=== PATIENT | male | born 1940 | race Caucasian/White ===

== ENCOUNTER → 2017-05-04 | Outpatient (CLI) | payer MEDICARE ==
[2017-05-04 15:23] LABS: CH 32.8; CHCM 34.4; HCT 47.4 % (39.0-53.0); HDW 2.64; MCH 32.4 pg (25.0-35.0); MCHC 33.9 g/dL (31.0-37.0); MCV 95.7 fL (80.0-100.0); Mean Platelet Volume 7.3; RBC 4.95 m/uL (4.30-5.90); RDW 13.7 % (11.5-15.5); WBC 9.3 k/uL (3.8-10.6)
[2017-05-04 15:30] LABS: Anion Gap 14 mmol/L; Blood Urea Nitrogen 32 mg/dL (9-20); Carbon Dioxide 27 mmol/L (22-30); Chloride 100 mmol/L (98-107); Non-African American GFR(MDRD) 54 (>60 ml/min/1.73 sqM); Potassium 4.6 mmol/L (3.5-5.1); Sodium 141 mmol/L (137-145)
== END | disposition home or self-care (01) ==
LOC: LABWHC1 15:01
PROVIDERS: ATTEND Internal Medicine Interventional Cardiology
DX: Z01.812 Encounter for preprocedural laboratory examination (principal); I48.1 Persistent atrial fibrillation
CPT/HCPCS: 36415; 80051; 82565; 84520; 85027

== ENCOUNTER → 2017-07-17 | Outpatient (CLI) | payer MEDICARE, OTHER ==
[2017-07-17 08:56] LABS: HCT 46.9 % (39.0-53.0); HGB 15.4 gm/dL (13.0-17.5); MCH 31.5 pg (25.0-35.0); MCHC 32.9 g/dL (31.0-37.0); MCV 95.7 fL (80.0-100.0); Mean Platelet Volume 7.9; Platelet Count 196 k/uL (150-450); RDW 15.1 % (11.5-15.5)
[2017-07-17 09:16] LABS: Anion Gap 13 mmol/L; Blood Urea Nitrogen 20 mg/dL (9-20); Calcium 9.6 mg/dL (8.4-10.2); Carbon Dioxide 26 mmol/L (22-30); Chloride 103 mmol/L (98-107); Glucose 112 mg/dL (74-99); Potassium 3.8 mmol/L (3.5-5.1); Sodium 142 mmol/L (137-145)
== END | disposition home or self-care (01) ==
LOC: LABWHC1 08:39
PROVIDERS: ATTEND Internal Medicine Clinical Cardiac Electrophysiology
DX: I48.3 Typical atrial flutter (principal); I50.23 Acute on chronic systolic (congestive) heart failure; Z95.0 Presence of cardiac pacemaker
CPT/HCPCS: 36415; 80048; 85027

== ENCOUNTER 2017-07-21 10:19 | Inpatient (IN) | payer MEDICARE, OTHER ==
[~2017-07-21 10:19] MED LIST: SODIUM CHLORIDE 0.9% 1,000 ML IV SCH
[2017-07-21] MEDS ORDERED: PROPOFOL 10 MG/ML 20 ML VIAL IV ONE (12:27)
[2017-07-21] MEDS ORDERED: ROCURONIUM BROMIDE 10 MG/ML 10 ML VIAL IV ONE (12:27)
[2017-07-21] MEDS ORDERED: ePHEDrine SULFATE/0.9% NACL/PF 50 MG/5 ML SYRINGE IV ONE (12:27)
[2017-07-21] MEDS ORDERED: PHENYLEPHRINE-0.9% NACL SYG 1 MG/10 ML SYRINGE ONE (12:27)
[2017-07-21] MEDS ORDERED: MIDAZOLAM 2 MG/2 ML VIAL ONE (12:27)
[2017-07-21] MEDS ORDERED: HYDROmorphone (PF) 1 MG/ML ONE (12:27)
[2017-07-21] MEDS ORDERED: SUCCINYLCHOLINE CHLORIDE 100 MG/5 ML SYR IV ONE (12:27)
[2017-07-21] MEDS ORDERED: fentaNYL (PF) 50 MCG/ML 2 ML AMP ONE (12:27)
[2017-07-21] MEDS ORDERED: LIDOCAINE 1% INJ 10MG/ML (20 ML MDV) ONE (12:27)
[2017-07-21] MEDS ORDERED: IOHEXOL 350 MG/ML 50ML BOTTLE INJ ONE (13:00)
[2017-07-21] MEDS ORDERED: LIDOCAINE 2% (PF) 20 MG/ML 10 ML AMP SQ ONE (13:04)
[2017-07-21] MEDS ORDERED: LIDOCAINE 2% INJ 20 MG/ML SQ ONE (13:04)
[2017-07-21] MEDS ORDERED: HEPARIN SODIUM (1,000 UNIT/ML) 1,000 UNIT in SODIUM CHLORIDE 0.9% 1,000 ML IRRIGATION ONE (13:30)
[2017-07-21] MEDS ORDERED: ACETAMINOPHEN IV (For NPO) 1,000 MG in EMPTY BAG 1 BAG IVPB ONE (14:52)
--- NOTE | 2017-07-21 15:03 | P.PN ---
Progress Note - Text Addendum to procedure Patient was brought into the EP lab for an atrial flutter ablation. While catheters we placed, a nasal trumpet was placed in the right nostril by anesthesia since the patient was snoring deeply. Bleeding was noticed, active and blood, from the right nostril which was packed Subsequently, electively to facilitate stable catheter positioning during atrial flutter ablation, the patient was intubated Atrial flutter ablation was successfully performed Following that and the nasal pack was removed active bleeding from the right nostril was noted, fresh bright red blood Patient's nose was repacked and a call was placed to Dr. Faulkner He will see the patient this evening. In the interim I would keep the patient intubated to avoid any risk of aspiration of nasal blood Hemodynamically stable I will hold Xarelto for this evening but continue baby aspirin Discussed with severely and and arrangements made for an ICU bed
--- NOTE | 2017-07-21 15:53 | PCN ---
PROCEDURE NOTE PROCEDURE PERFORMED: Left upper extremity venogram Mr. Norman is a 77-year-old, male patient with a dual-chamber pacemaker implanted whose is waiting for upgrade to a biventricular pacemaker. Left upper extremity venogram was performed in preparation for this. 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 However, I believe an access can be obtained more centrally in the subclavian vein to place an LV lead. MMODL / IJN: [id number] /
--- NOTE | 2017-07-21 15:53 | CE ---
CARDIAC ELECTROPHYSIOLOGY REPORT 77-year-old, male patient with history of atrial flutter, atrial fibrillation, and cardiomyopathy who was brought in for an atrial flutter ablation. The patient was brought to the EP lab in a fasting state. Written informed consent was obtained prior to the procedure. The procedure was electively performed under general anesthesia. The patient was in atrial fibrillation at the start of the study and electrical cardioversion was performed to convert patient to sinus rhythm. The rest of the procedure was performed in sinus rhythm. He has a dual-chamber pacemaker which was interrogated and reprogrammed to VVI at 45 beats per minute. At the end of the procedure, the pacemaker was reinterrogated and reprogrammed to AAIR-DDDR 50-130 ppm. His QRS baseline measurements were as follows. QRS 76 millisecond, QT was normal. During atrial fibrillation after the coronary sinus catheter was placed this was quite an organized atrial fibrillation. DE interval after cardioversion was 166 milliseconds, QRS 90 milliseconds and QT 408 milliseconds. Sinus node recovery times at 500 and 400 milliseconds were 406 and 409 milliseconds. AH interval 71 milliseconds, HV interval 54 milliseconds. AV node Wenckebach block 510 milliseconds, VA Wenckebach block less than 400 milliseconds. Catheters were placed in the high right atrium, the coronary sinus and his bundle area and RV. Intracardiac echocardiography was performed and 3D mapping of the right atrial isthmus was performed. RF mapping ablation catheter was placed in the area of anatomic mapping of the right atrial isthmus was performed. The tricuspid anulus was identified. The eustachian ridge was identified and a complete RF line of block was made in the cava tricuspid isthmus. This was then anatomically complete line on 100% grid. Following that with pacing maneuvers differential pacing showed a bidirectional block. The isthmus conduction time was greater than 228 milliseconds. At the end of the procedure. All catheters were removed. The patient was transferred to the ICU intubated. Please see separate progress note. RESULT: Successful atrial flutter ablation. Future plan: Start angiotensin receptor blockers. Maximize beta blockers and then the patient will be scheduled for an atrial fibrillation ablation. NOAH / CARLOS ALBERTON: [id number] /
[2017-07-21 16:14] LABS: Glucose,Whole Blood 112 mg/dL (75-99)
[2017-07-21] MEDS ORDERED: PROPOFOL 100 ML IV ONE (16:17)
--- NOTE | 2017-07-21 16:55 | XR ---
EXAMINATION TYPE: XR chest 1V portable DATE OF EXAM: 07/21/2017 COMPARISON: 06/10/2017 INDICATION: ET tube placement mechanical ventilation difficulty breathing TECHNIQUE: Single frontal view of the chest is obtained. FINDINGS: The heart size is borderline in size. The pulmonary vasculature is normal. There is a moderate left pleural effusion. Endotracheal tube is in place with the tip 3.8 cm above the hitesh. Pacemaker overlies left chest. Bi lateral shoulder prostheses are present. Surgical Fixation of the cervical spine is evident IMPRESSION: 1. Endotracheal tube tip 3.8 cm above the hitesh. 2. Moderate left pleural effusion.
--- NOTE | 2017-07-21 17:01 | P.CNPUL ---
History of Present Illness Consult date: 07/21/17 Requesting physician: Haseeb Salas Reason for consult: other (ICU management) Chief complaint: Atrial flutter and epistaxis History of present illness: This is a 77-year-old white male known to my service, patient is known to have history of atrial flutter, and he was electively brought in to the EP lab for ablation. A nasal trumpet was placed by anesthesia before the procedure, apparently the patient sustained some anterior nasal bleeding/epistaxis. Hence in order to facilitate the procedure, patient was intubated, and the right nostril was packed by PUR[employer]ICATION SUPERVISOR. Patient underwent successful ablation for atrial flutter, however postoperatively he was kept on mechanical ventilation until then nasal bleeding is addressed by ENT/Dr. Barney. I saw the patient in the ICU on mechanical ventilation, his ventilator settings are tidal volume of 500, assist control rate of 14 FiO2 of 50% and PEEP of 5. ABG is pending. Chest x- ray is relatively unremarkable except for chronic left pleural parenchymal opacity, and possibly a small left pleural effusion. However it seems to be worse on the present chest x-ray compared to previous x-ray last month. Other than reviewing the chart, not much history can be obtained from the patient was presently sedated, on mechanical ventilation. Review of Systems ROS unobtainable: due to endotracheal tube Past Medical History Past Medical History: Atrial Fibrillation, Asthma, Heart Failure, GERD/Reflux, Hypertension Additional Past Medical History / Comment(s): See Dr Salas's H&P History of Any Multi-Drug Resistant Organisms: None Reported Past Surgical History: Joint Replacement, Pacemaker Additional Past Surgical History / Comment(s): Mitral valve repair.; 2 shoulder replacements, cataracts, neck fusion- C1-7. Past Anesthesia/Blood Transfusion Reactions: No Reported Reaction Additional Past Anesthesia/Blood Transfusion Reaction / Comment(s): pt states little neck movement r/t neck fusion C1-7 Type of Cardiac Device: Permanent Pacemaker Device Placement Date:: 2013 Smoking Status: Former smoker - Past Family History Daughter(s) Family Medical History: Cancer Additional Family Medical History / Comment(s): Br CA Medications and Allergies Home Medications Medication Instructions Recorded Confirmed Type Fluticasone/Salmeterol [Advair 1 puff INHALATION RT-BID 02/08/14 07/21/17 History 500-50 Diskus] Furosemide [Lasix] 20 mg PO DAILY 02/08/14 07/21/17 History Montelukast [Singulair] 10 mg PO DAILY 02/08/14 07/21/17 History Potassium 99 mg PO DAILY 06/07/17 07/21/17 History Omeprazole 20 mg PO BID 06/08/17 07/21/17 History Aspirin 81 mg PO DAILY chew 06/10/17 07/21/17 Rx Metoprolol Succinate (ER) [Toprol 50 mg PO DAILY #30 tab.er.24h 06/12/17 Rx XL] Albuterol Nebulized [Ventolin 2.5 mg INHALATION RT-Q6H PRN 07/20/17 07/21/17 History Nebulized] Rivaroxaban [Xarelto] 15 mg PO DAILY 07/20/17 07/21/17 History Albuterol Inhaler [Ventolin Hfa 1 - 2 puff INHALATION RT-Q6H PRN 07/21/17 History Inhaler] Amiodarone [Cordarone] 200 mg PO DAILY #30 tab 07/21/17 Rx Losartan [Cozaar] 25 mg PO DAILY #30 tab 07/21/17 Rx Allergies Allergy/AdvReac Type Severity Reaction Status Date / Time Penicillins Allergy Rash/Hives Verified 07/21/17 16:45 morphine AdvReac Hallucinati Verified 07/21/17 16:45 ons Physical Exam Vitals: Vital Signs Temp Pulse Resp BP Pulse Ox 07/21/17 10:41 97.5 F L 112 H 20 152/105 98 Intake and Output 07/21/17 07/21/17 07/21/17 06:59 14:59 22:59 Intake Total 600 Balance 600 Intake: IV 600 Other: Weight 84.4 kg Patient Weight 07/22/17 06:59 Weight 84.4 kg Physical Exam: Revealed a 77-year-old white male on mechanical ventilation, in no distress. HEENT:[Neck is supple.] [No neck masses.] [No thyromegaly.] [No JVD.] Endotracheal tube is intact, there is evidence of gauze material soaked with blood packed into the right nares. One removed, no evidence of active bleeding was noted, but blood clots were noted in the right nares. Chest: [Diminished breath sounds at the left base, no crackles or rhonchi or wheezes.] Cardiac Exam: [Normal S1 and S2, no S3 gallop, 2/6 systolic murmur throughout the precordium.] Abdomen: [Soft, nontender, no megaly, no rebound, no guarding, normal bowel sounds.] Extremities: [No clubbing, no edema, no cyanosis.] Neurological Exam: Cannot be assessed, patient is sedated, on propofol. Lymphatics: No lymphadenopathy Psychiatric: Cannot be assessed.] Results - Laboratory Findings Abnormal lab findings: Abnormal Labs 07/21/17 16:11 POC Glucose (mg/dL) 112 H - Diagnostic Findings Chest x-ray: image reviewed (Abnormal left lower lobe with chronic parenchymal scarring and possibly a slight increase in the size of the left pleural effusion noted may have to evaluate for the ultrasound in a.m.) Assessment and Plan Assessment: Impression: 1 Status post ablation for atrial flutter 2 acute epistaxis, most likely related to trauma from nasal trumpet, not to mention the patient is on Xarelto which is another contributing factor to nasal bleeding. 3 failure to extubate post-ablation mostly because of ongoing epistaxis 4 suspect the left lower lobe atelectasis and possibly a left pleural effusion which may need to be further evaluated with ultrasound and possibly a CT of the chest. 5 multiple comorbidities including moderate severe COPD, systolic congestive heart failure and LV dysfunction with ejection fraction of 35-40%, mild pulmonary hypertension, mild mitral regurgitation, chronic atrial fibrillation, history of permanent pacemaker placement, history of mitral valve repair at [facility], history of nicotine dependence currently in remission. History of chronic kidney disease stage II history of benign positional vertigo. Recommendation: We will keep the patient presently on mechanical ventilation, ventilator settings were addressed, patient is being evaluated by ENT for his epistaxis, and will likely consider weaning and extubation in a.m. Time with Patient: Greater than 30
[2017-07-21 17:11] LABS: Glucose,Whole Blood 120 mg/dL (75-99)
[2017-07-21 17:16] LABS: ABG Base Excess -0.6 mmol/L; ABG HCO3 24 mmol/L (21-25); ABG PCO2 43 mmHg (35-45); ABG PH 7.37 (7.35-7.45); ABG PO2 117 mmHg (83-108); ABG TCO2 25 mmol/L (19-24)
[2017-07-21] MEDS ORDERED: NALOXONE 0.4 MG/ML 1 ML VIAL IV PRN (17:32)
[2017-07-21] MEDS: ceFAZolin 1,000 MG in DEXTROSE/WATER 1 50ML.BAG IVPB SCH (18:16)
[2017-07-21] MEDS: PANTOPRAZOLE 40 MG TABLET PO SCH (18:17)
[2017-07-21] MEDS: SYMBICORT 160-4.5 MCG INHALER INHALATION SCH (20:01)
[2017-07-21] MEDS: PROPOFOL 1,000 MG in EMPTY BAG 1 BAG IV SCH (20:45)
[2017-07-21] MEDS ORDERED: SODIUM CHLORIDE 0.9% 500 ML IV ONE ×2 (21:46→23:09)
[2017-07-21] MEDS: CHLORHEXIDINE GLUCONATE 15 ML CUP MUCOUS MEM SCH (21:50)
--- NOTE | 2017-07-21 22:14 | CONS ---
CONSULTATION REASON FOR CONSULTATION: Epistaxis. HISTORY: This is a 77 year old, white male, who today underwent cardiac ablation and while on awakening apparently required a nasal trumpet and this was attempted to be placed in the right side of the nose. He experienced quite profuse epistaxis however and this was removed. The epistaxis has persisted and consultation was obtained for this. He is on anticoagulants and was during the procedure. He needs to continue on Xarelto due to the procedure. PAST MEDICAL HISTORY: For atrial fibrillation, asthma, heart failure and GERD, hypertension. PAST SURGICAL HISTORY: Pacemaker, joint replacement, mitral valve repair, shoulder replacement, cataract surgery, neck fusion C1-7. ALLERGIES: TO PENICILLIN AND MORPHINE. THE PENICILLIN has a rash but no respiratory difficulty with this. MEDICATIONS: Will not be renumerated as they are in the chart already. SOCIAL HISTORY: Did smoke, does not now. Alcohol consumption none. FAMILY HISTORY: Family history positive for cancer including breast cancer. REVIEW OF SYSTEMS: Is unable to obtain as the patient is sedated and intubated. PHYSICAL EXAM: Vital signs are stable overall. Although blood pressure was mildly elevated initially. It was elevated initially 150/105. General: The patient is a well-developed, elderly white male, intubated on ventilator. He has a small gauze 4 x 4 gauze, at the anterior naris on the right with fresh blood. HEENT/HEAD: Normocephalic, atraumatic. Ears, bilateral canals clear. Tympanic membranes unremarkable and mobile. Nose: The septum is deviated to the left. The gauze pack was removed from the right nasal cavity. There was a clot as well as some fresh blood. The clot was evacuated and initially appeared to not have much regarding epistaxis however then it started "welling up" from posteriorly. No specific site was noted. There is some excoriation of the septum anteriorly as well as mid septum. Oropharynx exam showed old as well as some fresh blood posteriorly. Due to the ongoing bleeding and anticoagulant status, it was elected to place a rhino rocket balloon type pack in the right nasal cavity. This was placed and the balloon is inflated with air and this controlled the epistaxis immediately. No anterior or posterior bleeding. Neck is stiff but no abnormal masses noted. ASSESSMENT: Right posterior epistaxis with anticoagulated status. PLAN: The patient will have the nasal pack left in place for approximately 3 days which is standard. He will be placed on prophylactic antibiotics in the mean time, which was in the form of Kefzol. We will watch for the rashes that might develop although the of cross reactivity with penicillin allergy is low. Due to the epistaxis being controlled now, then they can work on extubation. We will recheck in 2-3 days for nasal packing removal. If any questions or concerns, please feel free to contact me. Time with patient 45 minutes including posterior nasal pack procedure. MMODL / IJN: [id number] /
[2017-07-21] MEDS: LORazepam 2 MG/ML INJ IV PRN (22:52)
[2017-07-22] MEDS: ceFAZolin 1,000 MG in DEXTROSE/WATER 1 50ML.BAG IVPB SCH ×4 (00:49→23:50)
[2017-07-22] MEDS: PROPOFOL 1,000 MG in EMPTY BAG 1 BAG IV SCH ×5 (00:49→21:12)
[2017-07-22] MEDS ORDERED: FUROSEMIDE 10 MG/ML 2 ML VIAL IV ONE (01:12)
[2017-07-22 04:40] LABS: HGB 12.8 gm/dL (13.0-17.5); MCH 31.7 pg (25.0-35.0); MCHC 32.8 g/dL (31.0-37.0); MCV 96.5 fL (80.0-100.0); Platelet Count 216 k/uL (150-450); RBC 4.04 m/uL (4.30-5.90); RDW 15.4 % (11.5-15.5); WBC 7.8 k/uL (3.8-10.6)
[2017-07-22 04:46] LABS: INR 1.3 (<1.2); Partial Thromboplastin Time 30.3 sec (22.0-30.0); Prothrombin Time 12.2 sec (9.0-12.0)
[2017-07-22 05:00] LABS: ALT 34 U/L (21-72); AST 23 U/L (17-59); Albumin 2.9 g/dL (3.5-5.0); Alkaline Phosphatase 53 U/L (38-126); Anion Gap 9 mmol/L; Blood Urea Nitrogen 21 mg/dL (9-20); Calcium 8.3 mg/dL (8.4-10.2); Carbon Dioxide 24 mmol/L (22-30); Chloride 106 mmol/L (98-107); Glucose 114 mg/dL (74-99); Magnesium 1.4 mg/dL (1.6-2.3); Potassium 3.6 mmol/L (3.5-5.1); Sodium 139 mmol/L (137-145); Total Bilirubin 0.6 mg/dL (0.2-1.3); Total Protein 5.1 g/dL (6.3-8.2)
[2017-07-22] MEDS: SYMBICORT 160-4.5 MCG INHALER INHALATION SCH ×2 (07:23→19:39)
[2017-07-22] MEDS: ALBUTEROL NEBULIZED 2.5 MG/3 ML INHALATION PRN ×2 (07:23→19:40)
--- NOTE | 2017-07-22 08:00 | XR ---
EXAMINATION TYPE: XR chest 1V portable DATE OF EXAM: 07/22/2017 CLINICAL HISTORY: Difficulty breathing progress study. TECHNIQUE: Single AP portable semiupright view of the chest is obtained. COMPARISON: Chest x-ray from one day earlier and older studies. FINDINGS: Endotracheal tube is redemonstrated. There is retraction to the superior clavicular level approximately 6 cm above hitesh. There is persistent cardiomegaly with dual lead pacemaker. There is overlying defibrillator pad redem onstrated. There is persistent left basilar opacity consistent with small to moderate size left pleur al effusion and associated left lung atelectasis and/or infiltrate. There is background chronic emphy sematous change. There is no new focal airspace opacity or pneumothorax seen bilaterally. Extensive s urgical change cervical spine is partially imaged. Surgical change both shoulders is partially imaged . There are old posterior lateral right mid to lower rib fractures redemonstrated. IMPRESSION: Interval retraction of endotracheal tube still satisfactory in position. Other findings s table as there is cardiomegaly with chronic emphysematous change and suspected small to moderate mode rate sized left pleural effusion with associated left basilar atelectasis and/or infiltrate all redem onstrated.
[2017-07-22] MEDS: MAGNESIUM SULFATE-D5W PMX 1 GM in DEXTROSE/WATER 1 100ML.BAG IVPB SCH ×3 (08:10→10:44)
--- NOTE | 2017-07-22 08:21 | P.PN ---
Subjective Principal diagnosis: Patient remains intubated. His nasal cavity was packed to control nasal bleeding following insertion of a trumpet since he was snoring. Patient was intubated electively for atrial flutter ablation not for nasal bleeding. However he was not extubated to avoid aspiration of heme. 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 ENT was consulted and the packed his nose He was seen by Dr. Whitfield Today's plan is based upon that he does decision to extubate her not. He should receive xarelto 15 mg this evening unless he has significant nasal bleeding All his other cardiac medications should be continued and he will get an OG tube today If he has a lot of blood being aspirated and suctioned out from the ET tube then one could consider bronchial lavage. I will leave that decision to Dr. Whitfield [place] he is stable and the atrial flutter ablation was successful and by itself , uneventful Objective - Vital Signs Vital signs: Vital Signs Temp 96.8 F L 07/22/17 04:30 Pulse 61 07/22/17 07:26 Resp 14 07/22/17 07:00 BP 90/71 07/22/17 07:00 Pulse Ox 97 07/22/17 07:00 Intake & Output 07/21/17 07/22/17 07/22/17 18:59 06:59 18:59 Intake Total 640 1493.56 40 Output Total 70 368 105 Balance 570 1125.56 -65 Weight 84.4 kg 86.8 kg Intake: IV 640 1300 40 Sodium Chloride 0.9% 1, 40 200 40 000 ml @ 20 mls/hr IV . Q24H [facility] Rx#:[id number] Sodium Chloride 0.9% 500 1000 ml @ 999 mls/hr IV .Q31M [facility] Rx#:[id number] ceFAZolin 1,000 mg In 100 Dextrose/Water 1 50ml.bag @ 100 mls/hr IVPB Q8HR [facility] Rx#:[id number] Intake, IV Titration 193.56 Amount Propofol 1,000 mg In 193.56 Empty Bag 1 bag @ Titrate IV .Q0M [facility] Rx#: [id number] Output: Urine 70 368 105 Other: Voiding Method Indwelling Catheter Indwelling Catheter - Labs CBC & Chem 7: 07/22/17 03:53 07/22/17 03:53 Labs: Abnormal Lab Results - Last 24 Hours (Table) 07/21/17 07/21/17 07/21/17 Range/Units 16:11 16:53 17:09 RBC (4.30-5.90) m/uL Hgb (13.0-17.5) gm/dL PT (9.0-12.0) sec INR (<1.2) APTT (22.0-30.0) sec ABG pO2 117 H (83-108) mmHg ABG Total CO2 25 H (19-24) mmol/L ABG O2 Saturation 98.0 H (94-97) % BUN (9-20) mg/dL Glucose (74-99) mg/dL POC Glucose (mg/dL) 112 H 120 H (75-99) mg/dL Calcium (8.4-10.2) mg/dL Phosphorus (2.5-4.5) mg/dL Magnesium (1.6-2.3) mg/dL Total Protein (6.3-8.2) g/dL Albumin (3.5-5.0) g/dL 07/22/17 07/22/17 07/22/17 Range/Units 03:53 03:53 03:53 RBC 4.04 L (4.30-5.90) m/uL Hgb 12.8 L (13.0-17.5) gm/dL PT 12.2 H (9.0-12.0) sec INR 1.3 H (<1.2) APTT 30.3 H (22.0-30.0) sec ABG pO2 (83-108) mmHg ABG Total CO2 (19-24) mmol/L ABG O2 Saturation (94-97) % BUN 21 H (9-20) mg/dL Glucose 114 H (74-99) mg/dL POC Glucose (mg/dL) (75-99) mg/dL Calcium 8.3 L (8.4-10.2) mg/dL Phosphorus 5.0 H (2.5-4.5) mg/dL Magnesium 1.4 L (1.6-2.3) mg/dL Total Protein 5.1 L (6.3-8.2) g/dL Albumin 2.9 L (3.5-5.0) g/dL
[2017-07-22 08:48] LABS: ABG HCO3 22 mmol/L (21-25); ABG PCO2 34 mmHg (35-45); ABG PH 7.43 (7.35-7.45); ABG PO2 92 mmHg (83-108)
[2017-07-22 08:49] LABS: ABG Base Excess -1.6 mmol/L; ABG TCO2 23 mmol/L (19-24)
[2017-07-22] MEDS: LORazepam 2 MG/ML INJ IV PRN (08:55)
[2017-07-22] MEDS: CHLORHEXIDINE GLUCONATE 15 ML CUP MUCOUS MEM SCH ×2 (09:05→20:08)
[2017-07-22] MEDS: POTASSIUM CHLORIDE 10 MEQ in WATER FOR INJECTION 1 100ML.BAG IVPB SCH ×2 (09:49→11:32)
--- NOTE | 2017-07-22 11:26 | P.PN ---
Subjective Progress Note Date: 07/22/17 Principal diagnosis: Atrial flutter, status post ablation, complicated by epistaxis. This is a 77-year-old white male known to my service, patient is known to have history of atrial flutter, and he was electively brought in to the EP lab for ablation. A nasal trumpet was placed by anesthesia before the procedure, apparently the patient sustained some anterior nasal bleeding/epistaxis. Hence in order to facilitate the procedure, patient was intubated, and the right nostril was packed by [employer]. Patient underwent successful ablation for atrial flutter, however postoperatively he was kept on mechanical ventilation until then nasal bleeding is addressed by ENT/Dr. Barney. I saw the patient in the ICU on mechanical ventilation, his ventilator settings are tidal volume of 500, assist control rate of 14 FiO2 of 50% and PEEP of 5. ABG is pending. Chest x- ray is relatively unremarkable except for chronic left pleural parenchymal opacity, and possibly a small left pleural effusion. However it seems to be worse on the present chest x-ray compared to previous x-ray last month. Other than reviewing the chart, not much history can be obtained from the patient was presently sedated, on mechanical ventilation. Patient was reevaluated today on 07/22/2017, remains on mechanical ventilation, and he had more nasal packing done by ENT yesterday. No active bleeding is noted, however the patient was noted to have some blood clots suctioned from the back of his throat around the endotracheal tube. Chest x-ray is unchanged, continues to show COPD, small to moderate left pleural effusion and associated atelectasis or parenchymal scarring noted in the left base. Labs were reviewed ABG showed a pO2 of 92 pCO2 of 34 pH of 7.43. Basic metabolic profile is normal creatinine is 1.20. CBC is relatively normal. Hence the patient will be taken off propofol, I will wake of the patient, possibly give him a weaning trial after weaning parameters, and possibly proceed with extubation today. Objective - Vital Signs Vital signs: Vital Signs Temp 97.4 F L 07/22/17 08:00 Pulse 101 H 07/22/17 11:00 Resp 17 07/22/17 11:00 BP 112/87 07/22/17 11:00 Pulse Ox 97 07/22/17 11:00 Intake & Output 07/21/17 07/22/17 07/22/17 18:59 06:59 18:59 Intake Total 640 1493.56 580.44 Output Total 70 368 255 Balance 570 1125.56 325.44 Weight 84.4 kg 86.8 kg Intake: IV 640 1300 480 Magnesium Sulfate-D5w Pmx 300 1 gm In Dextrose/Water 1 100ml.bag @ 100 mls/hr IVPB Q1H [facility] Rx#: [id number] Potassium Chloride 10 meq 100 In Water For Injection 1 100ml.bag @ 100 mls/hr IVPB Q1H [facility] Rx#: [id number] Sodium Chloride 0.9% 1, 40 200 80 000 ml @ 20 mls/hr IV . Q24H [facility] Rx#:[id number] Sodium Chloride 0.9% 500 1000 ml @ 999 mls/hr IV .Q31M [facility] Rx#:[id number] ceFAZolin 1,000 mg In 100 Dextrose/Water 1 50ml.bag @ 100 mls/hr IVPB Q8HR [facility] Rx#:[id number] Intake, IV Titration 193.56 100.44 Amount Propofol 1,000 mg In 193.56 100.44 Empty Bag 1 bag @ Titrate IV .Q0M [facility] Rx#: [id number] Output: Urine 70 368 255 Other: Voiding Method Indwelling Catheter Indwelling Catheter Indwelling Catheter - Exam Physical Exam: Revealed a 77-year-old white male on mechanical ventilation, in no distress. HEENT:[Neck is supple.] [No neck masses.] [No thyromegaly.] [No JVD.] Endotracheal tube is intact, there is evidence anterior nasal packings noted in the right nares Chest: [Diminished breath sounds at the left base, no crackles or rhonchi or wheezes.] Cardiac Exam: [Normal S1 and S2, no S3 gallop, 2/6 systolic murmur throughout the precordium.] Abdomen: [Soft, nontender, no megaly, no rebound, no guarding, normal bowel sounds.] Extremities: [No clubbing, no edema, no cyanosis.] Neurological Exam: Cannot be assessed, patient is sedated, on propofol. Lymphatics: No lymphadenopathy Psychiatric: Cannot be assessed.] - Labs CBC & Chem 7: 07/22/17 03:53 07/22/17 03:53 Labs: Abnormal Lab Results - Last 24 Hours (Table) 07/21/17 07/21/17 07/21/17 Range/Units 16:11 16:53 17:09 RBC (4.30-5.90) m/uL Hgb (13.0-17.5) gm/dL PT (9.0-12.0) sec INR (<1.2) APTT (22.0-30.0) sec ABG pCO2 (35-45) mmHg ABG pO2 117 H (83-108) mmHg ABG Total CO2 25 H (19-24) mmol/L ABG O2 Saturation 98.0 H (94-97) % BUN (9-20) mg/dL Glucose (74-99) mg/dL POC Glucose (mg/dL) 112 H 120 H (75-99) mg/dL Calcium (8.4-10.2) mg/dL Phosphorus (2.5-4.5) mg/dL Magnesium (1.6-2.3) mg/dL Total Protein (6.3-8.2) g/dL Albumin (3.5-5.0) g/dL 07/22/17 07/22/17 07/22/17 Range/Units 03:53 03:53 03:53 RBC 4.04 L (4.30-5.90) m/uL Hgb 12.8 L (13.0-17.5) gm/dL PT 12.2 H (9.0-12.0) sec INR 1.3 H (<1.2) APTT 30.3 H (22.0-30.0) sec ABG pCO2 (35-45) mmHg ABG pO2 (83-108) mmHg ABG Total CO2 (19-24) mmol/L ABG O2 Saturation (94-97) % BUN 21 H (9-20) mg/dL Glucose 114 H (74-99) mg/dL POC Glucose (mg/dL) (75-99) mg/dL Calcium 8.3 L (8.4-10.2) mg/dL Phosphorus 5.0 H (2.5-4.5) mg/dL Magnesium 1.4 L (1.6-2.3) mg/dL Total Protein 5.1 L (6.3-8.2) g/dL Albumin 2.9 L (3.5-5.0) g/dL 07/22/17 Range/Units 08:42 RBC (4.30-5.90) m/uL Hgb (13.0-17.5) gm/dL PT (9.0-12.0) sec INR (<1.2) APTT (22.0-30.0) sec ABG pCO2 34 L (35-45) mmHg ABG pO2 (83-108) mmHg ABG Total CO2 (19-24) mmol/L ABG O2 Saturation (94-97) % BUN (9-20) mg/dL Glucose (74-99) mg/dL POC Glucose (mg/dL) (75-99) mg/dL Calcium (8.4-10.2) mg/dL Phosphorus (2.5-4.5) mg/dL Magnesium (1.6-2.3) mg/dL Total Protein (6.3-8.2) g/dL Albumin (3.5-5.0) g/dL Assessment and Plan Assessment: Impression: 1 Status post ablation for atrial flutter 2 acute epistaxis, most likely related to trauma from nasal trumpet, not to mention the patient is on Xarelto which is another contributing factor to nasal bleeding. 3 failure to extubate post-ablation mostly because of ongoing epistaxis, patient was kept intubated for airways protection from epistaxis. 4 suspect the left lower lobe atelectasis and possibly a left pleural effusion which may need to be further evaluated with ultrasound and possibly a CT of the chest. 5 multiple comorbidities including moderate severe COPD, systolic congestive heart failure and LV dysfunction with ejection fraction of 35-40%, mild pulmonary hypertension, mild mitral regurgitation, chronic atrial fibrillation, history of permanent pacemaker placement, history of mitral valve repair at [facility], history of nicotine dependence currently in remission. History of chronic kidney disease stage II history of benign positional vertigo. Recommendation: Patient will be awakened, propofol will be discontinued, will be given a weaning trial, and possibly extubate later on today. Prognosis remains relatively guarded. We will keep the nasal packing in place for now, and it will likely be removed by ENT later today. Critical care time is 32 minutes. Time with Patient: Greater than 30
[2017-07-22] MEDS: ASPIRIN 81 MG PO SCH (12:40)
[2017-07-22] MEDS: FUROSEMIDE 20 MG TAB PO SCH (12:41)
[2017-07-22] MEDS: MONTELUKAST 10 MG TAB PO SCH (12:41)
[2017-07-22] MEDS: AMIODARONE 200 MG TAB PO SCH (12:41)
[2017-07-22] MEDS: PANTOPRAZOLE 40 MG/10 ML VIAL IVP SCH (12:45)
--- NOTE | 2017-07-22 13:44 | XR ---
EXAMINATION TYPE: XR chest 1V portable DATE OF EXAM: 07/22/2017 CLINICAL HISTORY: Orogastric tube placement. TECHNIQUE: Single AP portable upright view of the chest is obtained. COMPARISON: Chest x-ray from earlier today. FINDINGS: There is new orogastric tube coiled below diaphragm. An endotracheal tube is stable in pos ition, falsely measured on prior study, I accidentally measured external portion. Endotracheal tube p osition is felt satisfactory with tip 2 to 3 cm above hitesh currently. Overlying EKG wires are redemonstrated. Sternal wires are again seen. There is persistent cardiomegal y with dual lead pacemaker. There is persistent left basilar opacity consistent with small size left pleural effusion and associated left basilar atelectasis and/or infiltrate perhaps slightly improved. There is background chronic emphysematous change. There is perhaps patchy right medial basilar atele ctasis and/or infiltrate and probable small right pleural effusion. Surgical change bilateral shoulde rs is partially imaged. Surgical change cervical spine is partially imaged. Old posterior lateral rig ht rib fractures are redemonstrated. IMPRESSION: New orogastric tube is satisfactory in position. There is persistent cardiomegaly and chr onic emphysematous change with small left pleural effusion and associated left basilar atelectasis an d/or infiltrate perhaps slightly improved from prior. There is suspected tiny right pleural effusion and patchy right medial basilar atelectasis and/or infiltrate noted.
[2017-07-22] MEDS: METOPROLOL SUCCINATE (ER) 50 MG TAB.ER.24H PO SCH (15:49)
[2017-07-22] MEDS: RIVAROXABAN 15 MG TAB PO SCH (17:42)
[2017-07-23] MEDS: PROPOFOL 1,000 MG in EMPTY BAG 1 BAG IV SCH ×2 (04:14→08:26)
[2017-07-23 04:29] LABS: HCT 38.9 % (39.0-53.0); HGB 13.2 gm/dL (13.0-17.5); MCH 32.8 pg (25.0-35.0); MCHC 34.1 g/dL (31.0-37.0); MCV 96.3 fL (80.0-100.0); Mean Platelet Volume 7.2; Platelet Count 216 k/uL (150-450); RBC 4.03 m/uL (4.30-5.90); RDW 14.6 % (11.5-15.5); WBC 8.4 k/uL (3.8-10.6)
[2017-07-23 04:34] LABS: Anion Gap 11 mmol/L; Blood Urea Nitrogen 22 mg/dL (9-20); Calcium 8.3 mg/dL (8.4-10.2); Carbon Dioxide 20 mmol/L (22-30); Chloride 106 mmol/L (98-107); Glucose 112 mg/dL (74-99); Magnesium 2.1 mg/dL (1.6-2.3); Phosphorus 4.6 mg/dL (2.5-4.5); Potassium 4.1 mmol/L (3.5-5.1); Sodium 137 mmol/L (137-145)
[2017-07-23] MEDS: ALBUTEROL NEBULIZED 2.5 MG/3 ML INHALATION PRN ×2 (07:14→19:40)
[2017-07-23] MEDS: SYMBICORT 160-4.5 MCG INHALER INHALATION SCH ×2 (07:14→19:40)
[2017-07-23] MEDS: CHLORHEXIDINE GLUCONATE 15 ML CUP MUCOUS MEM SCH ×2 (08:27→20:37)
[2017-07-23] MEDS: ceFAZolin 1,000 MG in DEXTROSE/WATER 1 50ML.BAG IVPB SCH ×2 (08:27→16:03)
[2017-07-23 08:37] LABS: ABG Base Excess -2.2 mmol/L; ABG HCO3 22 mmol/L (21-25); ABG PCO2 35 mmHg (35-45); ABG PH 7.41 (7.35-7.45); ABG PO2 107 mmHg (83-108); ABG TCO2 23 mmol/L (19-24)
[2017-07-23] MEDS: METOPROLOL SUCCINATE (ER) 50 MG TAB.ER.24H PO SCH (08:38)
[2017-07-23] MEDS: PANTOPRAZOLE 40 MG/10 ML VIAL IVP SCH (08:38)
[2017-07-23] MEDS: ASPIRIN 81 MG PO SCH (09:32)
[2017-07-23] MEDS: MONTELUKAST 10 MG TAB PO SCH (09:32)
[2017-07-23] MEDS: AMIODARONE 200 MG TAB PO SCH (09:32)
--- NOTE | 2017-07-23 10:20 | P.PN ---
Subjective Progress Note Date: 07/23/17 Principal diagnosis: Atrial flutter, status post ablation, complicated by epistaxis. This is a 77-year-old white male known to my service, patient is known to have history of atrial flutter, and he was electively brought in to the EP lab for ablation. A nasal trumpet was placed by anesthesia before the procedure, apparently the patient sustained some anterior nasal bleeding/epistaxis. Hence in order to facilitate the procedure, patient was intubated, and the right nostril was packed by [facility] [employer] RN. Patient underwent successful ablation for atrial flutter, however postoperatively he was kept on mechanical ventilation until then nasal bleeding is addressed by ENT/Dr. Barney. I saw the patient in the ICU on mechanical ventilation, his ventilator settings are tidal volume of 500, assist control rate of 14 FiO2 of 50% and PEEP of 5. ABG is pending. Chest x- ray is relatively unremarkable except for chronic left pleural parenchymal opacity, and possibly a small left pleural effusion. However it seems to be worse on the present chest x-ray compared to previous x-ray last month. Other than reviewing the chart, not much history can be obtained from the patient was presently sedated, on mechanical ventilation. Patient was reevaluated today on 07/22/2017, remains on mechanical ventilation, and he had more nasal packing done by ENT yesterday. No active bleeding is noted, however the patient was noted to have some blood clots suctioned from the back of his throat around the endotracheal tube. Chest x-ray is unchanged, continues to show COPD, small to moderate left pleural effusion and associated atelectasis or parenchymal scarring noted in the left base. Labs were reviewed ABG showed a pO2 of 92 pCO2 of 34 pH of 7.43. Basic metabolic profile is normal creatinine is 1.20. CBC is relatively normal. Hence the patient will be taken off propofol, I will wake of the patient, possibly give him a weaning trial after weaning parameters, and possibly proceed with extubation today. Patient was reevaluated today on 07/23/2017, remains on mechanical ventilation, patient was about to be extubated yesterday until he developed some epistaxis, and fresh blood was noted through the right nares. Although the patient had some nasal packing done earlier by ENT. Considering the epistaxis, I held back on weaning and extubation, and I will attempt to do that again today. I have already recommended stopping propofol, I have reviewed the chest x-ray, reviewed ABG, and discuss his condition with his at bedside. Patient is to be given another weaning trial today, weaning parameters will be done prior to weaning trial. ABG this morning showed a pO2 of 107 pCO2 of 35 pH of 7.41. Basic metabolic profile is normal and CBC is normal. Chest x-ray continues to show some left lower lobe atelectasis and possibly a small left pleural effusion. Objective - Vital Signs Vital signs: Vital Signs Temp 97.9 F 07/23/17 08:00 Pulse 73 07/23/17 09:00 Resp 16 07/23/17 09:00 BP 114/85 07/23/17 09:00 Pulse Ox 99 07/23/17 09:00 Intake & Output 07/22/17 07/23/17 07/23/17 18:59 06:59 18:59 Intake Total 1000.00 482.4 241.56 Output Total 525 435 80 Balance 475.00 47.4 161.56 Weight 86.8 kg 86.2 kg Intake: IV 800 290 120 0.9 20 Magnesium Sulfate-D5w Pmx 300 1 gm In Dextrose/Water 1 100ml.bag @ 100 mls/hr IVPB Q1H [facility] Rx#: [id number] Potassium Chloride 10 meq 200 In Water For Injection 1 100ml.bag @ 100 mls/hr IVPB Q1H [facility] Rx#: [id number] Sodium Chloride 0.9% 1, 200 240 000 ml @ 20 mls/hr IV . Q24H [facility] Rx#:[id number] ceFAZolin 1,000 mg In 100 50 100 Dextrose/Water 1 50ml.bag @ 100 mls/hr IVPB Q8HR [facility] Rx#:[id number] Intake, IV Titration 200.00 192.4 121.56 Amount Propofol 1,000 mg In 200.00 192.4 121.56 Empty Bag 1 bag @ Titrate IV .Q0M [facility] Rx#: [id number] Output: Urine 525 435 80 Other: Voiding Method Indwelling Catheter Indwelling Catheter Indwelling Catheter - Exam Physical Exam: Revealed a 77-year-old white male on mechanical ventilation, in no distress. HEENT:[Neck is supple.] [No neck masses.] [No thyromegaly.] [No JVD.] Endotracheal tube is intact, there is evidence anterior nasal packings noted in the right nares Chest: [Diminished breath sounds at the left base, no crackles or rhonchi or wheezes.] Cardiac Exam: [Normal S1 and S2, no S3 gallop, 2/6 systolic murmur throughout the precordium.] Abdomen: [Soft, nontender, no megaly, no rebound, no guarding, normal bowel sounds.] Extremities: [No clubbing, no edema, no cyanosis.] Neurological Exam: Cannot be assessed, patient is sedated, on propofol. Lymphatics: No lymphadenopathy Psychiatric: Cannot be assessed.] - Labs CBC & Chem 7: 07/23/17 04:05 07/23/17 04:05 Labs: Abnormal Lab Results - Last 24 Hours (Table) 07/23/17 07/23/17 07/23/17 Range/Units 04:05 04:05 08:28 RBC 4.03 L (4.30-5.90) m/uL Hct 38.9 L (39.0-53.0) % ABG O2 Saturation 98.0 H (94-97) % Carbon Dioxide 20 L (22-30) mmol/L BUN 22 H (9-20) mg/dL Glucose 112 H (74-99) mg/dL Calcium 8.3 L (8.4-10.2) mg/dL Phosphorus 4.6 H (2.5-4.5) mg/dL Assessment and Plan Assessment: Impression: 1 Status post ablation for atrial flutter 2 acute epistaxis, most likely related to trauma from nasal trumpet, not to mention the patient is on Xarelto which is another contributing factor to nasal bleeding. 3 failure to extubate post-ablation mostly because of ongoing epistaxis, patient was kept intubated for airways protection from epistaxis. 4 suspect the left lower lobe atelectasis and possibly a left pleural effusion which may need to be further evaluated with ultrasound and possibly a CT of the chest. 5 multiple comorbidities including moderate severe COPD, systolic congestive heart failure and LV dysfunction with ejection fraction of 35-40%, mild pulmonary hypertension, mild mitral regurgitation, chronic atrial fibrillation, history of permanent pacemaker placement, history of mitral valve repair at [facility], history of nicotine dependence currently in remission. History of chronic kidney disease stage II history of benign positional vertigo. Recommendation: Patient will be awakened, propofol will be discontinued, I plan to wean and expected the patient today, we'll keep the nasal packing in place, discussed condition with the at bedside. Critical care time is 34 minutes. Time with Patient: Greater than 30
--- NOTE | 2017-07-23 11:34 | XR ---
EXAMINATION TYPE: XR chest 1V portable DATE OF EXAM: 07/23/2017 COMPARISON: 07/22/2017 HISTORY: SOB, Follow Up FINDINGS: Indwelling tubes and catheters are unchanged. Pacer is in place. No change in left basilar opacities. Stable appearance of the cardio-mediastinal structures at this time. Chronic right-sided rib deformities unchanged. Bilateral shoulder prostheses. IMPRESSION: 1. Stable portable chest. Clinical correlation and follow up until resolution is recommended.
[2017-07-23] MEDS: RIVAROXABAN 15 MG TAB PO SCH ×2 (14:16→17:23)
[2017-07-23] MEDS: FUROSEMIDE 20 MG TAB PO SCH (14:32)
[2017-07-23] MEDS: FUROSEMIDE 10 MG/ML 2 ML VIAL IV SCH (16:01)
[2017-07-23] MEDS ORDERED: HYDROmorphone 2 MG/ML 1 ML SYRINGE IVP PRN (17:22)
[2017-07-23] MEDS ORDERED: DEXTROSE 5% IN WATER 250 ML with AMIODARONE 300 MG IV ONE (17:30)
[2017-07-23] MEDS: HYDROcodone/APAP 5-325MG 1 EACH TAB PO PRN ×2 (17:41→21:46)
--- NOTE | 2017-07-23 18:36 | P.PN ---
Subjective Patient was successfully stability today. He has not had any fresh bleeding from the right nostril. He was sitting up in bed comfortably in no respiratory distress. He seemed alert and oriented and recognized me. He was able to swallow some ice chips and water he denied any chest discomfort. 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 I had plans to intubate him anyway for his atrial flutter ablation because he is sleep apnea. Bleeding from the nostril related to insertion of the nasal trumpet As a result of continued bleeding, he was not extubated after the procedure to avoid aspiration and therefore sent to the ICU Today he was extubated My plan is IV Lasix 20 mg once again at 10:00 in the evening and I spoke to the nurse regarding this Amiodarone 300 mg IV 1 time dose only. This is not to be followed by IV infusion. We will continue by mouth amiodarone Continue all other home medications and restart Xarelto 15 mg by mouth daily starting tonight Labs are reviewed. Hemoglobin 13.2, and at lites normal, magnesium 2.1 potassium 4.1 BUN 22 creatinine 1.2 Objective - Vital Signs Vital signs: Vital Signs Temp 98.1 F 07/23/17 16:00 Pulse 89 07/23/17 18:00 Resp 23 07/23/17 18:00 BP 133/91 07/23/17 18:00 Pulse Ox 96 07/23/17 18:00 Intake & Output 07/22/17 07/23/17 07/23/17 18:59 06:59 18:59 Intake Total 1000.00 482.4 411.56 Output Total 087 653 9294 Balance 475.00 47.4 -873.44 Weight 86.8 kg 86.2 kg 86.2 kg Intake: IV 800 290 290 0.9 140 Magnesium Sulfate-D5w Pmx 300 1 gm In Dextrose/Water 1 100ml.bag @ 100 mls/hr IVPB Q1H [facility] Rx#: [id number] Potassium Chloride 10 meq 200 In Water For Injection 1 100ml.bag @ 100 mls/hr IVPB Q1H [facility] Rx#: [id number] Sodium Chloride 0.9% 1, 200 240 000 ml @ 20 mls/hr IV . Q24H [facility] Rx#:[id number] ceFAZolin 1,000 mg In 100 50 150 Dextrose/Water 1 50ml.bag @ 100 mls/hr IVPB Q8HR [facility] Rx#:[id number] Intake, IV Titration 200.00 192.4 121.56 Amount Propofol 1,000 mg In 200.00 192.4 121.56 Empty Bag 1 bag @ Titrate IV .Q0M [facility] Rx#: [id number] Output: Urine 249 912 2989 Other: Voiding Method Indwelling Catheter Indwelling Catheter Indwelling Catheter - Labs CBC & Chem 7: 07/23/17 04:05 07/23/17 04:05 Labs: Abnormal Lab Results - Last 24 Hours (Table) 07/23/17 07/23/17 07/23/17 Range/Units 04:05 04:05 08:28 RBC 4.03 L (4.30-5.90) m/uL Hct 38.9 L (39.0-53.0) % ABG O2 Saturation 98.0 H (94-97) % Carbon Dioxide 20 L (22-30) mmol/L BUN 22 H (9-20) mg/dL Glucose 112 H (74-99) mg/dL Calcium 8.3 L (8.4-10.2) mg/dL Phosphorus 4.6 H (2.5-4.5) mg/dL
[2017-07-23] MEDS ORDERED: FUROSEMIDE 10 MG/ML 2 ML VIAL IV ONE (20:00)
[2017-07-24] MEDS: HYDROcodone/APAP 5-325MG 1 EACH TAB PO PRN ×4 (03:04→23:51)
[2017-07-24 04:33] LABS: HCT 39.6 % (39.0-53.0); HGB 13.2 gm/dL (13.0-17.5); MCH 32.7 pg (25.0-35.0); MCHC 33.4 g/dL (31.0-37.0); MCV 97.7 fL (80.0-100.0); Mean Platelet Volume 7.7; Platelet Count 218 k/uL (150-450); RBC 4.05 m/uL (4.30-5.90); RDW 15.4 % (11.5-15.5); WBC 6.9 k/uL (3.8-10.6)
[2017-07-24 04:49] LABS: Anion Gap 15 mmol/L; Blood Urea Nitrogen 22 mg/dL (9-20); Calcium 8.3 mg/dL (8.4-10.2); Carbon Dioxide 21 mmol/L (22-30); Chloride 103 mmol/L (98-107); Glucose 105 mg/dL (74-99); Phosphorus 3.5 mg/dL (2.5-4.5); Potassium 3.4 mmol/L (3.5-5.1); Sodium 139 mmol/L (137-145)
[2017-07-24] MEDS ORDERED: Potassium Replacement Protocol 1 EACH MISC MISCELLANE PRN ×2 (05:12→14:06)
[2017-07-24] MEDS ORDERED: Magnesium Replacement Protocol 1 EACH MISC MISCELLANE PRN (06:14)
[2017-07-24] MEDS: POTASSIUM CHLORIDE ER 20 MEQ TAB.ER PO SCH ×2 (06:27→08:54)
[2017-07-24] MEDS: MAGNESIUM SULFATE-D5W PMX 1 GM in DEXTROSE/WATER 1 100ML.BAG IVPB SCH ×2 (06:32→08:54)
[2017-07-24] MEDS: SYMBICORT 160-4.5 MCG INHALER INHALATION SCH ×2 (07:46→19:32)
--- NOTE | 2017-07-24 08:13 | XR ---
EXAMINATION TYPE: XR chest 1V portable DATE OF EXAM: 07/24/2017 COMPARISON: Prior chest x-ray 07/23/2017 HISTORY: Extubated, abnormal chest x-ray TECHNIQUE: Single frontal view of the chest is obtained. FINDINGS: Endotracheal and NG tubes have been removed. Patient is post median sternotomy. Patient is rotated. Pacemaker noted incidentally, leads are stable. No evident pneumothorax or sizable effusion . There may be some improvement in aeration at the left lower lobe. Heart is enlarged as on prior. Th ere are overlying cardiac leads. Postop changes noted to the cervical spine and shoulders. Old rib fr actures again noted which appear healed on the right. IMPRESSION: Interval extubation, improvement in aeration.
--- NOTE | 2017-07-24 08:28 | P.PN ---
Subjective Principal diagnosis: Patient is gradually improving. He is lying in bed and looks comfortable without any shortness of breath. He denies any chest discomfort. His blood pressure is normal heart rate 7 normal range and he intermittently paces because he has intermittent advanced heart block. He underwent successful atrial flutter ablation on the . He was not extubated because of nasal bleeding which was persistent despite nasal packing and therefore he was not extubated to minimize risk of aspiration of blood originating from the nose. The intubation was elective and was performed since he has obstructive sleep apnea, to facilitate atrial flutter ablation, not because of nasal bleeding He was not extubated immediately postprocedure, to prevent aspiration of nasal bleed On examination his pulse rate is in the 80s and 90s, he is afebrile 98.1F blood pressure 119/84 mmHg He is able to swallow Breath sounds are clear no rhonchi no crackles Heart sounds S1 and S2 are soft no murmurs or gallops Abdomen soft nontender Extremities warm and the groins of healed well no hematoma Labs are reviewed hemoglobin 13.2 stable At lites potassium is 3.4 magnesium is 1.9 BUN 22 creatinine 1.2 Impression 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 and high RV pacing percentage of greater than 70% Atrial flutter status post successful ablation line paroxysmal atrial fibrillation , currently on oral amiodarone Persistent nasal bleed related to insertion of a trumpet,, nasal Cavity has been packed by ENT Hypokalemia and hypomagnesemia Plan Resume all home medications and continue xarelto ENT will be recontacted regarding the timing of removal of the nasal packing DC Monet catheter Patient up in a chair and if stable then he may go to telemetry today Add spironolactone 25 mg by mouth daily to current regimen Objective - Vital Signs Vital signs: Vital Signs Temp 98.1 F 07/24/17 04:00 Pulse 93 07/24/17 07:00 Resp 12 07/24/17 07:00 BP 119/84 07/24/17 07:00 Pulse Ox 97 07/24/17 07:00 Intake & Output 07/23/17 07/24/17 07/24/17 18:59 06:59 18:59 Intake Total 411.56 460 Output Total 1285 1375 45 Balance -873.44 -915 -45 Weight 86.2 kg 86.2 kg Intake: IV 290 210 0.9 140 110 Magnesium Sulfate-D5w Pmx 100 1 gm In Dextrose/Water 1 100ml.bag @ 100 mls/hr IVPB Q1H [facility] Rx#: [id number] ceFAZolin 1,000 mg In 150 Dextrose/Water 1 50ml.bag @ 100 mls/hr IVPB Q8HR [facility] Rx#:[id number] Intake, IV Titration 121.56 250 Amount Dextrose 5% in Water 250 250 ml @ 128 mls/hr IV .Q2H [facility] with Amiodarone 300 mg Rx#:[id number] Propofol 1,000 mg In 121.56 Empty Bag 1 bag @ Titrate IV .Q0M [facility] Rx#: [id number] Output: Urine 1285 1375 45 Other: Voiding Method Indwelling Catheter Indwelling Catheter - Labs CBC & Chem 7: 07/24/17 04:07 07/24/17 04:07 Labs: Abnormal Lab Results - Last 24 Hours (Table) 07/23/17 07/24/17 07/24/17 Range/Units 08:28 04:07 04:07 RBC 4.05 L (4.30-5.90) m/uL ABG O2 Saturation 98.0 H (94-97) % Potassium 3.4 L (3.5-5.1) mmol/L Carbon Dioxide 21 L (22-30) mmol/L BUN 22 H (9-20) mg/dL Glucose 105 H (74-99) mg/dL Calcium 8.3 L (8.4-10.2) mg/dL
[2017-07-24] MEDS: PANTOPRAZOLE 40 MG/10 ML VIAL IVP SCH (08:55)
[2017-07-24] MEDS: MONTELUKAST 10 MG TAB PO SCH (08:55)
[2017-07-24] MEDS: FUROSEMIDE 10 MG/ML 2 ML VIAL IV SCH (08:55)
[2017-07-24] MEDS: AMIODARONE 200 MG TAB PO SCH (08:55)
[2017-07-24] MEDS: METOPROLOL SUCCINATE (ER) 50 MG TAB.ER.24H PO SCH (08:55)
[2017-07-24] MEDS: ASPIRIN 81 MG PO SCH (08:55)
[2017-07-24] MEDS: SPIRONOLACTONE 25 MG TAB PO SCH (08:56)
[2017-07-24] MEDS: ACETAMINOPHEN TAB 325 MG TAB PO PRN ×2 (09:07→22:13)
[2017-07-24] MEDS ORDERED: BENZOCAINE SPRAY 1 CAN MUCOUS MEM PRN (10:34)
--- NOTE | 2017-07-24 11:48 | CDI ---
Last Revision, June 2017 Documentation Clarification Form Date: 07/24/2017 11:33:00 AM From: Keren Smith RN,CCDS Admit Date: 07/21/2017 2:53:00 PM Patient Name: Donell Norman Visit Number: [id number] Discharge Date: ATTENTION: The Clinical Documentation Specialists (CDI) and [facility] Coding Staff appreciate your assistance in clarifying documentation. Please respond to the clarification below the line at the bottom and electronically sign. The CDI & [facility] Coding staff will review the response and follow-up if needed. Please note: Queries are made part of the Legal Health Record. If you have any questions, please contact the author of this message via ITS. Dr. Haseeb Salas Atrial Flutter is documented as reason for admission and in the in the ongoing progress notes. History/Risk factors: Paroxysmal Atrial fibrillation, Systolic heart failure, Hypertension Clinical Indicators: Present for elective procedure for an atrial flutter ablation EKG/telemetry: Atrial fibrillation (electrical cardioversion convert to sinus rhythm) Treatment: Atrial Flutter ablation In your professional opinion, in order to capture the severity of condition; can you please clarify the type of atrial flutter if known? Typical/Type I Please continue to document in your progress notes and discharge summary in order to capture severity of illness and risk of mortality. Include clinical findings that support your diagnosis. MTDD
--- NOTE | 2017-07-24 12:25 | P.PN ---
Subjective Progress Note Date: 07/24/17 Principal diagnosis: Atrial flutter, status post ablation, complicated by epistaxis. This is a 77-year-old white male known to my service, patient is known to have history of atrial flutter, and he was electively brought in to the EP lab for ablation. A nasal trumpet was placed by anesthesia before the procedure, apparently the patient sustained some anterior nasal bleeding/epistaxis. Hence in order to facilitate the procedure, patient was intubated, and the right nostril was packed by LEGAL BILLING SPECIALIST. Patient underwent successful ablation for atrial flutter, however postoperatively he was kept on mechanical ventilation until then nasal bleeding is addressed by ENT/Dr. Barney. I saw the patient in the ICU on mechanical ventilation, his ventilator settings are tidal volume of 500, assist control rate of 14 FiO2 of 50% and PEEP of 5. ABG is pending. Chest x- ray is relatively unremarkable except for chronic left pleural parenchymal opacity, and possibly a small left pleural effusion. However it seems to be worse on the present chest x-ray compared to previous x-ray last month. Other than reviewing the chart, not much history can be obtained from the patient was presently sedated, on mechanical ventilation. Patient was reevaluated today on 07/22/2017, remains on mechanical ventilation, and he had more nasal packing done by ENT yesterday. No active bleeding is noted, however the patient was noted to have some blood clots suctioned from the back of his throat around the endotracheal tube. Chest x-ray is unchanged, continues to show COPD, small to moderate left pleural effusion and associated atelectasis or parenchymal scarring noted in the left base. Labs were reviewed ABG showed a pO2 of 92 pCO2 of 34 pH of 7.43. Basic metabolic profile is normal creatinine is 1.20. CBC is relatively normal. Hence the patient will be taken off propofol, I will wake of the patient, possibly give him a weaning trial after weaning parameters, and possibly proceed with extubation today. Patient was reevaluated today on 07/23/2017, remains on mechanical ventilation, patient was about to be extubated yesterday until he developed some epistaxis, and fresh blood was noted through the right nares. Although the patient had some nasal packing done earlier by ENT. Considering the epistaxis, I held back on weaning and extubation, and I will attempt to do that again today. I have already recommended stopping propofol, I have reviewed the chest x-ray, reviewed ABG, and discuss his condition with his at bedside. Patient is to be given another weaning trial today, weaning parameters will be done prior to weaning trial. ABG this morning showed a pO2 of 107 pCO2 of 35 pH of 7.41. Basic metabolic profile is normal and CBC is normal. Chest x-ray continues to show some left lower lobe atelectasis and possibly a small left pleural effusion. Reevaluated today on 07/24/2017, patient was extubated yesterday, tolerated the extubation quite well, continues to have a nasal pack in place, no evidence of active bleeding, restarted back on Xarelto by cardiology on the case. Chest x- ray is showing improvement, clinically the patient is relatively asymptomatic, feels generally weak otherwise. No cough no wheezing no epistaxis no hemoptysis at this point.labs were reviewed had low potassium being corrected as per protocol. Otherwise the rest of the labs are unremarkable. Objective - Vital Signs Vital signs: Vital Signs Temp 98.3 F 07/24/17 12:00 Pulse 109 H 07/24/17 12:00 Resp 21 07/24/17 12:00 BP 116/87 07/24/17 12:00 Pulse Ox 91 L 07/24/17 12:00 Intake & Output 07/23/17 07/24/17 07/24/17 18:59 06:59 18:59 Intake Total 411.56 460 640 Output Total 1285 1375 1545 Balance -873.44 -915 -905 Weight 86.2 kg 86.2 kg Intake: IV 290 210 140 0.9 140 110 40 Magnesium Sulfate-D5w Pmx 100 100 1 gm In Dextrose/Water 1 100ml.bag @ 100 mls/hr IVPB Q1H [facility] Rx#: [id number] ceFAZolin 1,000 mg In 150 Dextrose/Water 1 50ml.bag @ 100 mls/hr IVPB Q8HR [facility] Rx#:[id number] Intake, IV Titration 121.56 250 Amount Dextrose 5% in Water 250 250 ml @ 128 mls/hr IV .Q2H ONE with Amiodarone 300 mg Rx#:[id number] Propofol 1,000 mg In 121.56 Empty Bag 1 bag @ Titrate IV .Q0M [facility] Rx#: [id number] Oral 500 Output: Urine 1285 1375 1545 Other: Voiding Method Indwelling Catheter Indwelling Catheter Indwelling Catheter - Exam Physical Exam: Revealed a 77-year-old white male on nasal cannula, in no distress. HEENT:[Neck is supple.] [No neck masses.] [No thyromegaly.] [No JVD.] nasal packing is noted in place. Chest: [Diminished breath sounds at the left base, no crackles or rhonchi or wheezes.] Cardiac Exam: [Normal S1 and S2, no S3 gallop, 2/6 systolic murmur throughout the precordium.] Abdomen: [Soft, nontender, no megaly, no rebound, no guarding, normal bowel sounds.] Extremities: [No clubbing, no edema, no cyanosis.] Neurological Exam:no gross focal neurologic deficit Lymphatics: No lymphadenopathy Psychiatric: normal mood affect and mental status exam. - Labs CBC & Chem 7: 07/24/17 04:07 07/24/17 04:07 Labs: Abnormal Lab Results - Last 24 Hours (Table) 07/24/17 07/24/17 Range/Units 04:07 04:07 RBC 4.05 L (4.30-5.90) m/uL Potassium 3.4 L (3.5-5.1) mmol/L Carbon Dioxide 21 L (22-30) mmol/L BUN 22 H (9-20) mg/dL Glucose 105 H (74-99) mg/dL Calcium 8.3 L (8.4-10.2) mg/dL Assessment and Plan Assessment: Impression: 1 Status post ablation for atrial flutter 2 acute epistaxis, most likely related to trauma from nasal trumpet, not to mention the patient is on Xarelto which is another contributing factor to nasal bleeding. 3 failure to extubate post-ablation mostly because of ongoing epistaxis, however the patient was successfully extubated on 07/23/2017. And he tolerated the extubation well. 4 suspect the left lower lobe atelectasis and possibly a left pleural effusion improving, no need for any further workup at this point. 5 multiple comorbidities including moderate severe COPD, systolic congestive heart failure and LV dysfunction with ejection fraction of 35-40%, mild pulmonary hypertension, mild mitral regurgitation, chronic atrial fibrillation, history of permanent pacemaker placement, history of mitral valve repair at [facility], history of nicotine dependence currently in remission. History of chronic kidney disease stage II history of benign positional vertigo. Recommendation: Continue present supportive care measures, plan to transfer the patient out of the ICU to a monitor bed on selective today. Possible discharge planning over the weekend once cleared by cardiology. Time with Patient: Less than 30
[2017-07-24] MEDS ORDERED: BENZOCAINE SPRAY 1 CAN ONE (13:54)
[2017-07-24] MEDS ORDERED: POTASSIUM CHLORIDE ER 20 MEQ TAB.ER PO SCH (15:00)
[2017-07-24] MEDS: LIDOCAINE 5% PATCH TOPICAL SCH (16:04)
[2017-07-24] MEDS ORDERED: HYDROmorphone 0.5 MG/0.5 ML SYRINGE IVP PRN (16:21)
[2017-07-24] MEDS: RIVAROXABAN 15 MG TAB PO SCH (16:54)
[2017-07-24] MEDS: LOSARTAN 25 MG TAB PO SCH (17:00)
--- NOTE | 2017-07-24 17:50 | PN ---
PROGRESS NOTE HISTORY: This is a patient who had posterior epistaxis on the right after nasal trumpet placement 3 days ago. He has had no particular epistaxis since this was placed. He continues on anticoagulant, however. He has been extubated. PHYSICAL EXAMINATION: The patient is seated upright in his hospital chair. Alert and awake and oriented. The nasal exam shows the full impact in the right nasal cavity which is intact and with old blood anteriorly which was cleaned. No active bleeding anteriorly or posteriorly. The balloons were deflated and pack removed. He had excoriation of the mid to posterior septum, which was able to be cauterized and controlled the bleeding. This area is still excoriated, however, and therefore a small pledget of NasalCEASE nasal dressing was placed. This is dissolvable. No further anterior or posterior epistaxis was noted. ASSESSMENT: History of right-sided epistaxis, currently controlled. PLAN: The patient does need to remain on anticoagulation apparently and therefore does risk recurrent bleeding. No nose-blowing for 1 week is recommended. If the patient has mild oozing, then Afrin can be used topically, and I reviewed this with his nurse also. Kefzol was discontinued. Follow up otherwise as needed. Please call if you have any questions or concerns. MMODL / IJN: [id number] /
[2017-07-24] MEDS: ALBUTEROL NEBULIZED 2.5 MG/3 ML INHALATION PRN (19:32)
[2017-07-24] MEDS ORDERED: METOPROLOL TARTRATE 50 MG TAB PO STA (20:43)
--- NOTE | 2017-07-24 22:41 | CONS ---
CONSULTATION A medical management consult, status post atrial flutter ablation complicated by epistaxis and acute respiratory distress, been on ventilator for 2-3 days, just got off the vent. He had nasal bleeding. Dr. Faulkner has seen him and packed his right nose, is coming back to unpack it tonight. He is off the ventilator, complaining of pain in his left leg, upper leg above his knee anteriorly, tender to palpation. Unable to move his left leg. MEDS: Reviewed. REVIEW OF SYSTEMS: Fourteen-point review of systems negative except for mentioned in HPI. VITAL SIGNS: Temp 98.3, pulse low 100s, respiratory rate 20-21, blood pressure 116-120 over 60s-70s, O2 is 91%. CARDIOVASCULAR: Irregular regular rhythm. No murmurs, rubs or gallops. LUNGS: Transmitted upper airway sounds. GI: Soft. HEMATOLOGY: Negative Homans'. PSYCH: Fair mood and affect. ENT: Packing in the right nasal area. ASSESSMENT: 1. Status post ablation of atrial flutter. 2. Acute epistaxis with packing in the right nostril. 3. Failure to extubate post ablation. 4. Suspect left lower lobe atelectasis. 5. Small pleural effusion. 6. Chronic obstructive pulmonary disease. 7. Systolic heart failure. 8. Possible contusion to the left upper leg, tender to palpation. Going to order some arthritis cream to place on this leg, get Physical Therapy/Occupational Therapy to work with him. 9. Chronic kidney disease stage 2. 10.Benign prostatic hypertrophy. Continue current treatment. MMODL / IJN: [id number] /
[2017-07-25] MEDS: HYDROcodone/APAP 5-325MG 1 EACH TAB PO PRN ×5 (04:10→21:27)
[2017-07-25 05:12] LABS: HGB 13.6 gm/dL (13.0-17.5); MCV 96.9 fL (80.0-100.0); Platelet Count 282 k/uL (150-450); RBC 4.12 m/uL (4.30-5.90); RDW 14.9 % (11.5-15.5); WBC 8.7 k/uL (3.8-10.6)
[2017-07-25 05:27] LABS: Anion Gap 10 mmol/L; Blood Urea Nitrogen 25 mg/dL (9-20); Calcium 9.1 mg/dL (8.4-10.2); Carbon Dioxide 26 mmol/L (22-30); Chloride 102 mmol/L (98-107); Glucose 113 mg/dL (74-99); Magnesium 2.2 mg/dL (1.6-2.3); Phosphorus 2.7 mg/dL (2.5-4.5); Potassium 3.9 mmol/L (3.5-5.1); Sodium 138 mmol/L (137-145)
[2017-07-25] MEDS ORDERED: POTASSIUM CHLORIDE ER 20 MEQ TAB.ER PO SCH (06:00)
--- NOTE | 2017-07-25 06:27 | XR ---
EXAMINATION TYPE: XR chest 1V portable DATE OF EXAM: 07/25/2017 HISTORY: Tube placement. REFERENCE: Previous study dated 07/24/2017. FINDINGS: Bilateral shoulder arthroplasties are in place. There is been a previous anterior and posterior fusion of the lower cervical spine. There is been a midline sternotomy. A bipolar pacemaker projects over the left side of the chest. Heart size upper limits of normal. There is some left basilar airspace disease. There has been no sig nificant interval change in the appearance of the chest. IMPRESSION: NO SIGNIFICANT INTERVAL CHANGE IN THE APPEARANCE OF THE CHEST.
[2017-07-25] MEDS: SYMBICORT 160-4.5 MCG INHALER INHALATION SCH ×2 (07:49→20:41)
[2017-07-25] MEDS: LIDOCAINE 5% PATCH TOPICAL SCH (08:20)
[2017-07-25] MEDS: MONTELUKAST 10 MG TAB PO SCH (08:27)
[2017-07-25] MEDS: FUROSEMIDE 20 MG TAB PO SCH (08:27)
[2017-07-25] MEDS: ASPIRIN 81 MG PO SCH (08:27)
[2017-07-25] MEDS: METOPROLOL SUCCINATE (ER) 50 MG TAB.ER.24H PO SCH ×2 (08:27→21:55)
[2017-07-25] MEDS: AMIODARONE 200 MG TAB PO SCH (08:28)
[2017-07-25] MEDS: PANTOPRAZOLE 40 MG/10 ML VIAL IVP SCH (10:34)
[2017-07-25] MEDS: SPIRONOLACTONE 25 MG TAB PO SCH (10:34)
--- NOTE | 2017-07-25 10:41 | P.PN ---
Subjective Progress Note Date: 07/25/17 Principal diagnosis: Atrial flutter, status post ablation, complicated by epistaxis. This is a 77-year-old white male known to my service, patient is known to have history of atrial flutter, and he was electively brought in to the EP lab for ablation. A nasal trumpet was placed by anesthesia before the procedure, apparently the patient sustained some anterior nasal bleeding/epistaxis. Hence in order to facilitate the procedure, patient was intubated, and the right nostril was packed by RIDE ATTENDANT. Patient underwent successful ablation for atrial flutter, however postoperatively he was kept on mechanical ventilation until then nasal bleeding is addressed by ENT/Dr. Barney. I saw the patient in the ICU on mechanical ventilation, his ventilator settings are tidal volume of 500, assist control rate of 14 FiO2 of 50% and PEEP of 5. ABG is pending. Chest x- ray is relatively unremarkable except for chronic left pleural parenchymal opacity, and possibly a small left pleural effusion. However it seems to be worse on the present chest x-ray compared to previous x-ray last month. Other than reviewing the chart, not much history can be obtained from the patient was presently sedated, on mechanical ventilation. Patient was reevaluated today on 07/22/2017, remains on mechanical ventilation, and he had more nasal packing done by ENT yesterday. No active bleeding is noted, however the patient was noted to have some blood clots suctioned from the back of his throat around the endotracheal tube. Chest x-ray is unchanged, continues to show COPD, small to moderate left pleural effusion and associated atelectasis or parenchymal scarring noted in the left base. Labs were reviewed ABG showed a pO2 of 92 pCO2 of 34 pH of 7.43. Basic metabolic profile is normal creatinine is 1.20. CBC is relatively normal. Hence the patient will be taken off propofol, I will wake of the patient, possibly give him a weaning trial after weaning parameters, and possibly proceed with extubation today. Patient was reevaluated today on 07/23/2017, remains on mechanical ventilation, patient was about to be extubated yesterday until he developed some epistaxis, and fresh blood was noted through the right nares. Although the patient had some nasal packing done earlier by ENT. Considering the epistaxis, I held back on weaning and extubation, and I will attempt to do that again today. I have already recommended stopping propofol, I have reviewed the chest x-ray, reviewed ABG, and discuss his condition with his at bedside. Patient is to be given another weaning trial today, weaning parameters will be done prior to weaning trial. ABG this morning showed a pO2 of 107 pCO2 of 35 pH of 7.41. Basic metabolic profile is normal and CBC is normal. Chest x-ray continues to show some left lower lobe atelectasis and possibly a small left pleural effusion. Reevaluated today on 07/24/2017, patient was extubated yesterday, tolerated the extubation quite well, continues to have a nasal pack in place, no evidence of active bleeding, restarted back on Xarelto by cardiology on the case. Chest x- ray is showing improvement, clinically the patient is relatively asymptomatic, feels generally weak otherwise. No cough no wheezing no epistaxis no hemoptysis at this point.labs were reviewed had low potassium being corrected as per protocol. Otherwise the rest of the labs are unremarkable. Reevaluated today on 07/25/2017, patient continues to do well, no further evidence of bleeding or epistaxis, nasal packing was removed by ENT. Labs were reviewed, normal basic metabolic profile and the relatively normal CBC noted. Patient is asymptomatic. Patient denies any shortness of breath cough wheezing , no chest pain, no nausea, no vomiting, continues to have episodes of atrial fibrillation Objective - Vital Signs Vital signs: Vital Signs Temp 97.5 F L 07/25/17 08:00 Pulse 78 07/25/17 09:00 Resp 9 L 07/25/17 09:00 BP 101/71 07/25/17 09:00 Pulse Ox 97 07/25/17 09:00 Intake & Output 07/24/17 07/25/17 07/25/17 18:59 06:59 18:59 Intake Total 710 120 280 Output Total 2805 530 82 Balance -2095 -410 198 Weight 87.7 kg Intake: IV 210 120 30 0.9 110 120 30 Magnesium Sulfate-D5w Pmx 100 1 gm In Dextrose/Water 1 100ml.bag @ 100 mls/hr IVPB Q1H [facility] Rx#: [id number] Oral 500 250 Output: Urine 2805 530 82 Other: Voiding Method Indwelling Catheter Indwelling Catheter Indwelling Catheter - Exam Physical Exam: Revealed a 77-year-old white male on room air, in no distress. HEENT:[Neck is supple.] [No neck masses.] [No thyromegaly.] [No JVD.] nasal packing has been removed yesterday.. Chest: [Diminished breath sounds at the left base, no crackles or rhonchi or wheezes.] Cardiac Exam: [Normal S1 and S2, no S3 gallop, 2/6 systolic murmur throughout the precordium.] Abdomen: [Soft, nontender, no megaly, no rebound, no guarding, normal bowel sounds.] Extremities: [No clubbing, no edema, no cyanosis.] Neurological Exam:no gross focal neurologic deficit Lymphatics: No lymphadenopathy Psychiatric: normal mood affect and mental status exam. - Labs CBC & Chem 7: 07/25/17 04:30 07/25/17 04:30 Labs: Abnormal Lab Results - Last 24 Hours (Table) 07/25/17 07/25/17 Range/Units 04:30 04:30 RBC 4.12 L (4.30-5.90) m/uL BUN 25 H (9-20) mg/dL Glucose 113 H (74-99) mg/dL Assessment and Plan Assessment: Impression: 1 Status post ablation for atrial flutter 2 acute epistaxis, most likely related to trauma from nasal trumpet, not to mention the patient is on Xarelto which is another contributing factor to nasal bleeding. 3 failure to extubate post-ablation mostly because of ongoing epistaxis, however the patient was successfully extubated on 07/23/2017. And he tolerated the extubation well. 4 suspect the left lower lobe atelectasis and possibly a left pleural effusion improving, no need for any further workup at this point. 5 multiple comorbidities including moderate severe COPD, systolic congestive heart failure and LV dysfunction with ejection fraction of 35-40%, mild pulmonary hypertension, mild mitral regurgitation, chronic atrial fibrillation, history of permanent pacemaker placement, history of mitral valve repair at [facility], history of nicotine dependence currently in remission. History of chronic kidney disease stage II history of benign positional vertigo. Recommendation: Continue present supportive care measures, possible discharge planning in the next 24 hours once cleared by cardiology for discharge Time with Patient: Less than 30
--- NOTE | 2017-07-25 12:03 | XR ---
EXAMINATION TYPE: XR femur LT , 4 VIEWS DATE OF EXAM ORDERED: 07/25/2017 HISTORY: Upper leg pain. COMPARISON: None. FINDINGS: No fracture or dislocation is seen. There is fullness in the suprapatellar region. There a re changes of osteoarthritis in the left knee. I could not exclude a left knee joint effusion. The le ft femoral head is nonspherical. There is a "bump" on the femoral neck. IMPRESSION: 1. NO ACUTE OSSEOUS LESION. 2. OSTEOARTHRITIS INVOLVING THE LEFT KNEE WITH A CONCOMITANT EFFUSION. 3. PLEASE CORRELATE CLINICALLY FOR FEMOROACETABULAR IMPINGEMENT SYNDROME
--- NOTE | 2017-07-25 12:06 | XR ---
EXAMINATION TYPE: XR Hip Complete LT , 2 VIEWS DATE OF EXAM ORDERED: 07/25/2017 HISTORY: Upper leg pain. COMPARISON: None. FINDINGS: The left femoral head is nonspherical. There is a small "bump" on the femoral neck. No fra cture or dislocation is seen. IMPRESSION: 1. NO ACUTE OSSEOUS LESION. 2. PLEASE CORRELATE FOR FEMOROACETABULAR IMPINGEMENT SYNDROME.
--- NOTE | 2017-07-25 12:18 | PN ---
PROGRESS NOTE SUBJECTIVE: A 77-year-old white male status post ventilator support, status post nasal bleed. He is status post packing that has been removed from his nose. He states his left knee, above his left knee, is better today. He is able to bend and move it compared to yesterday. His hemoglobin was 13.6, white count 8.7, BUN is 24, creatinine is 1.10. Physical therapy ambulated him around the and recommended x-ray of the left femur and left hip to rule out fracture. Vital signs stable, afebrile. CARDIOVASCULAR: S1, S2. LUNGS: Clear. GI: Soft. Active range of motion of his knee, lifting off the bed. Passive flexion and extension. ASSESSMENT: 1. Status post ventilator support. 2. Status post rhinorrhea. 3. Status post severe atrial fibrillation, conversion. 4. Left thigh muscle sprain, lidocaine patch did not help, heat did help. We are going to x-ray to rule out fracture. In ICU 30 minutes. MMODL / IJN: [id number] /
--- NOTE | 2017-07-25 14:15 | US ---
EXAMINATION TYPE: US venous doppler duplex LE LT DATE OF EXAM: 07/25/2017 1:53 PM COMPARISON: NONE CLINICAL HISTORY: Left leg pain. Patient is currently taking blood thinners. No history of DVT SIDE PERFORMED: Left TECHNIQUE: The lower extremity deep venous system is examined utilizing real time linear array sonog prakash with graded compression, doppler sonography and color-flow sonography. VESSELS IMAGED: External Iliac Vein (EIV) Common Femoral Vein Deep Femoral Vein Greater Saphenous Vein * Femoral Vein Popliteal Vein Small Saphenous Vein * Proximal Calf Veins (* superficial vessels) Left Leg: Negative for DVT. Within the left popliteal fossa, there is a cystic area visualized measuring 4.9 x 1.5 x 3.0 cm, prob able Gardner's cyst. IMPRESSION: 1. THIS EXAMINATION IS NEGATIVE FOR DVT WITHIN THE LEFT LEG. 2. THIS EXAMINATION IS POSITIVE FOR POPLITEAL FOSSA CYST.
[2017-07-25] MEDS: RIVAROXABAN 15 MG TAB PO SCH (17:08)
[2017-07-25] MEDS: LOSARTAN 25 MG TAB PO SCH (17:08)
[2017-07-25] MEDS ORDERED: diphenhydrAMINE 25 MG CAP PO PRN (18:46)
[2017-07-25] MEDS: diphenhydrAMINE 25 MG CAP PO PRN (21:27)
[2017-07-26] MEDS: HYDROcodone/APAP 5-325MG 1 EACH TAB PO PRN ×3 (02:16→14:01)
[2017-07-26] MEDS: diphenhydrAMINE 25 MG CAP PO PRN ×3 (02:16→14:01)
[2017-07-26] MEDS: SYMBICORT 160-4.5 MCG INHALER INHALATION SCH ×2 (08:36→19:21)
[2017-07-26] MEDS: LIDOCAINE 5% PATCH TOPICAL SCH (08:37)
[2017-07-26] MEDS: METOPROLOL SUCCINATE (ER) 50 MG TAB.ER.24H PO SCH ×2 (08:38→21:19)
[2017-07-26] MEDS: SPIRONOLACTONE 25 MG TAB PO SCH (08:38)
[2017-07-26] MEDS: FUROSEMIDE 20 MG TAB PO SCH (08:38)
[2017-07-26] MEDS: ASPIRIN 81 MG PO SCH (08:38)
[2017-07-26] MEDS: AMIODARONE 200 MG TAB PO SCH (08:38)
[2017-07-26] MEDS: PANTOPRAZOLE 40 MG/10 ML VIAL IVP SCH (08:38)
[2017-07-26] MEDS: MONTELUKAST 10 MG TAB PO SCH (08:38)
--- NOTE | 2017-07-26 10:01 | P.PN ---
Subjective Progress Note Date: 07/25/17 Principal diagnosis: Patient seen and examined on Thursday, 25 July 2017 in the ICU Plan discussed with nurse De Santiago Patient is sitting up comfortably in a chair. Vitals are stable heart rate 7 between 80-100 beats a minute blood pressure is normal Breath sounds are equal bilaterally no rhonchi no crackles No respiratory distress no tachypnea Heart sounds are [place] soft no murmurs or gallops Abdomen soft nontender Patient is a warm edema in the groins have healed well Impression Typical atrial flutter, status post successful ablation under general anesthesia , elective Active nasal bleeding, right nostril, secondary to placement of a nasal trumpet As a result patient was not extubated after the procedure and was transferred to the ICU, intubated Nasal cavity packed by Dr. Faulkner on the day of the admission Nasal packing has been removed and there has been no further active bleeding XARELTO has been reinitiated at 15 mg daily along with Plavix LV dysfunction, chronic congestive heart failure, stable Dual-chamber pacemaker implantation intermittent heart block A. fib with RVR intermittently only Beta kenyatta dose was increased by Dr. Caballero Plan Increase metoprolol succinate 50 mg twice daily Continue all other cardiac medications and discharge planning over the next 24- 48 hours Objective - Vital Signs Vital signs: Vital Signs Temp 97.1 F L 07/26/17 04:00 Pulse 90 07/26/17 04:00 Resp 18 07/26/17 04:00 BP 108/74 07/26/17 04:00 Pulse Ox 93 L 07/26/17 04:00 Intake & Output 07/25/17 07/26/17 07/26/17 18:59 06:59 18:59 Intake Total 530 240 Output Total 662 450 Balance -132 -450 240 Weight 82.8 kg Intake: IV 40 0.9 40 Oral 490 240 Output: Urine 662 450 Other: Voiding Method Urinal Urinal # Voids 1 - Labs CBC & Chem 7: 07/25/17 04:30 07/25/17 04:30
--- NOTE | 2017-07-26 10:57 | P.PN ---
Subjective Progress Note Date: 07/26/17 Principal diagnosis: Atrial flutter, status post ablation, complicated by epistaxis. This is a 77-year-old white male known to my service, patient is known to have history of atrial flutter, and he was electively brought in to the EP lab for ablation. A nasal trumpet was placed by anesthesia before the procedure, apparently the patient sustained some anterior nasal bleeding/epistaxis. Hence in order to facilitate the procedure, patient was intubated, and the right nostril was packed by [employer]. Patient underwent successful ablation for atrial flutter, however postoperatively he was kept on mechanical ventilation until then nasal bleeding is addressed by ENT/Dr. Barney. I saw the patient in the ICU on mechanical ventilation, his ventilator settings are tidal volume of 500, assist control rate of 14 FiO2 of 50% and PEEP of 5. ABG is pending. Chest x- ray is relatively unremarkable except for chronic left pleural parenchymal opacity, and possibly a small left pleural effusion. However it seems to be worse on the present chest x-ray compared to previous x-ray last month. Other than reviewing the chart, not much history can be obtained from the patient was presently sedated, on mechanical ventilation. Patient was reevaluated today on 07/22/2017, remains on mechanical ventilation, and he had more nasal packing done by ENT yesterday. No active bleeding is noted, however the patient was noted to have some blood clots suctioned from the back of his throat around the endotracheal tube. Chest x-ray is unchanged, continues to show COPD, small to moderate left pleural effusion and associated atelectasis or parenchymal scarring noted in the left base. Labs were reviewed ABG showed a pO2 of 92 pCO2 of 34 pH of 7.43. Basic metabolic profile is normal creatinine is 1.20. CBC is relatively normal. Hence the patient will be taken off propofol, I will wake of the patient, possibly give him a weaning trial after weaning parameters, and possibly proceed with extubation today. Patient was reevaluated today on 07/23/2017, remains on mechanical ventilation, patient was about to be extubated yesterday until he developed some epistaxis, and fresh blood was noted through the right nares. Although the patient had some nasal packing done earlier by ENT. Considering the epistaxis, I held back on weaning and extubation, and I will attempt to do that again today. I have already recommended stopping propofol, I have reviewed the chest x-ray, reviewed ABG, and discuss his condition with his at bedside. Patient is to be given another weaning trial today, weaning parameters will be done prior to weaning trial. ABG this morning showed a pO2 of 107 pCO2 of 35 pH of 7.41. Basic metabolic profile is normal and CBC is normal. Chest x-ray continues to show some left lower lobe atelectasis and possibly a small left pleural effusion. Reevaluated today on 07/24/2017, patient was extubated yesterday, tolerated the extubation quite well, continues to have a nasal pack in place, no evidence of active bleeding, restarted back on Xarelto by cardiology on the case. Chest x- ray is showing improvement, clinically the patient is relatively asymptomatic, feels generally weak otherwise. No cough no wheezing no epistaxis no hemoptysis at this point.labs were reviewed had low potassium being corrected as per protocol. Otherwise the rest of the labs are unremarkable. Reevaluated today on 07/25/2017, patient continues to do well, no further evidence of bleeding or epistaxis, nasal packing was removed by ENT. Labs were reviewed, normal basic metabolic profile and the relatively normal CBC noted. Patient is asymptomatic. Patient denies any shortness of breath cough wheezing , no chest pain, no nausea, no vomiting, continues to have episodes of atrial fibrillation Reevaluated today on 07/26/2017,patient is sitting in chair, comfortable, in no distress, no further episodes of epistaxis.seen by cardiology, increase his metoprolol to 50 mg twice a day, planning to discharge the patient home in a.m. Objective - Vital Signs Vital signs: Vital Signs Temp 96.8 F L 07/26/17 08:00 Pulse 84 07/26/17 08:00 Resp 18 07/26/17 08:00 BP 106/68 07/26/17 08:00 Pulse Ox 96 07/26/17 08:00 Intake & Output 07/25/17 07/26/17 07/26/17 18:59 06:59 18:59 Intake Total 530 240 Output Total 662 450 Balance -132 -450 240 Weight 82.8 kg Intake: IV 40 0.9 40 Oral 490 240 Output: Urine 662 450 Other: Voiding Method Urinal Urinal Urinal # Voids 1 - Exam Physical Exam: Revealed a 77-year-old white male on room air, in no distress. HEENT:[Neck is supple.] [No neck masses.] [No thyromegaly.] [No JVD.] nasal packing has been removed yesterday.. Chest: [Diminished breath sounds at the left base, no crackles or rhonchi or wheezes.] Cardiac Exam: [Normal S1 and S2, no S3 gallop, 2/6 systolic murmur throughout the precordium.] Abdomen: [Soft, nontender, no megaly, no rebound, no guarding, normal bowel sounds.] Extremities: [No clubbing, no edema, no cyanosis.] Neurological Exam:no gross focal neurologic deficit Lymphatics: No lymphadenopathy Psychiatric: normal mood affect and mental status exam. - Labs CBC & Chem 7: 07/25/17 04:30 07/25/17 04:30 Assessment and Plan Assessment: Impression: 1 Status post ablation for atrial flutter 2 acute epistaxis, most likely related to trauma from nasal trumpet, not to mention the patient is on Xarelto which is another contributing factor to nasal bleeding. 3 failure to extubate post-ablation mostly because of ongoing epistaxis, however the patient was successfully extubated on 07/23/2017. And he tolerated the extubation well. 4 suspect the left lower lobe atelectasis and possibly a left pleural effusion improving, no need for any further workup at this point. 5 multiple comorbidities including moderate severe COPD, systolic congestive heart failure and LV dysfunction with ejection fraction of 35-40%, mild pulmonary hypertension, mild mitral regurgitation, chronic atrial fibrillation, history of permanent pacemaker placement, history of mitral valve repair at [facility], history of nicotine dependence currently in remission. History of chronic kidney disease stage II history of benign positional vertigo. Recommendation: Continue present supportive care measures,discharge planning in a.m. follow-up with me on outpatient basis in one week post discharge. Time with Patient: Less than 30
[2017-07-26] MEDS ORDERED: COLCHICINE 0.6 MG TAB PO ONE (11:15)
--- NOTE | 2017-07-26 11:31 | P.PN ---
Subjective Principal diagnosis: Patient is sitting in a chair looks very comfortable. No respiratory distress. Denies any chest discomfort no shortness of breath. On examination his breath sounds are clear no rhonchi no crackles. Heart sounds are normal normal S1 normal S2 no murmurs no gallops Abdomen soft nontender Examination of the extremities reveals left knee effusion with very mild tenderness no active/visible inflammation Patient is having difficulty ambulating and soft hence this is delaying his discharge This is not the first time he's had problems with this knee. He has seen Dr. Morgan in the past for the same problem in the same knee Blood pressure 106/68 mmHg respirations 16, pulse rate in the 80s, afebrile 96.8 F Impression Typical atrial flutter status post successful ablation under general anesthesia. This was electively planned anesthesia for atrial flutter since he has sleep apnea/snoring Nasal bleeding, right nostril, active, related to insertion of a nasal trumpet Bleeding has stopped now, nasal pack has been removed. Remains on XARELTO and antiplatelet therapy with out any bleeding issues. History of cardio myopathy History of coronary artery disease status post stenting in the past History of congestive heart failure with recent admission about one to 2 months back for CHF exacerbation History of ventricular pacing, almost 70%, likely culprit for cardio myopathy. About one year back his left systolic function was normal Atrial fibrillation, symptomatic and awaiting pulmonary vein isolation Effusion of the left knee with difficulty in ambulation. This has been a chronic problem in the past with the patient and he has seen orthopedics for this and received injections for this and subsequently was treated once again for the same problem. Plan Continue current medications continue anticoagulation 1 dose of colchicine after drying uric acid levels Consult orthopedics/Dr. 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
[2017-07-26] MEDS: RIVAROXABAN 15 MG TAB PO SCH (18:05)
[2017-07-26] MEDS: LOSARTAN 25 MG TAB PO SCH (18:05)
--- NOTE | 2017-07-26 18:40 | PN ---
PROGRESS NOTE SUBJECTIVE: This is a white male, status post atrial fibrillation treatment, still remains on Cordarone. Above than left knee strength is improving. No chest pain or shortness of breath. Vital signs stable. Afebrile. CARDIOVASCULAR: S1, S2. LUNGS: Clear. GI: Soft. MUSCULOSKELETAL: Tenderness to palpation above the left knee. ASSESSMENT: 1. Thigh contusion. 2. Hypertension. 3. Chronic obstructive pulmonary disease. 4. Atrial fibrillation. 5. Coronary artery disease. Continue with heat and possibly arthritic cream to the left knee. Possible discharge home in the next 24 hours as he has remained stable medically. MMODL / IJN: [id number] /
[2017-07-26] MEDS: MELOXICAM 7.5 MG TAB PO SCH (18:53)
[2017-07-27] MEDS: SYMBICORT 160-4.5 MCG INHALER INHALATION SCH ×2 (07:15→19:29)
[2017-07-27] MEDS: PANTOPRAZOLE 40 MG TABLET PO SCH (07:29)
[2017-07-27] MEDS: FUROSEMIDE 20 MG TAB PO SCH (09:02)
[2017-07-27] MEDS: AMIODARONE 200 MG TAB PO SCH (09:02)
[2017-07-27] MEDS: ASPIRIN 81 MG PO SCH (09:02)
[2017-07-27] MEDS: MELOXICAM 7.5 MG TAB PO SCH ×2 (09:02→20:23)
[2017-07-27] MEDS: LIDOCAINE 5% PATCH TOPICAL SCH (09:03)
[2017-07-27] MEDS: METOPROLOL SUCCINATE (ER) 50 MG TAB.ER.24H PO SCH ×2 (09:03→20:23)
[2017-07-27] MEDS: MONTELUKAST 10 MG TAB PO SCH (09:03)
[2017-07-27] MEDS: PANTOPRAZOLE 40 MG/10 ML VIAL IVP SCH (09:03)
[2017-07-27] MEDS: SPIRONOLACTONE 25 MG TAB PO SCH (09:04)
--- NOTE | 2017-07-27 09:19 | P.CNOR ---
History of Present Illness - HPI Consult date: 07/27/17 Consult reason: other (Left thigh pain) History of present illness: The patient is a 77-year-old male who was initially admitted for ablation by cardiology. He developed a nose bleed during the procedure and was subsequently intubated and placed on a ventilator. The patient states that he was on a ventilator for 2 days. Orthopedics was consulted for left leg pain. He states that the pain started when he woke up in ICU. The patient has been seen in our office for left knee pain by Dr. Morgan in the past. He states that he has had cortisone injections in the same knee. He said last injection was approximately 3 years ago. The patient has been working with physical therapy once but states that they haven't seen him while. He states that he is unable to fully bear weight on the left leg due to pain. X-rays have been taken and a venous Doppler was negative for DVT. Denies fever, chills, rigors, shortness breath, his pain, and abdominal pain today. Review of Systems Constitutional: Reports as per HPI, Denies chills, Denies fever, Denies lethargy Cardiovascular: Denies chest pain, Denies shortness of breath Respiratory: Denies cough Gastrointestinal: Denies abdominal pain, Denies diarrhea, Denies nausea, Denies vomiting Genitourinary: Denies urinary frequency, Denies urinary retention Musculoskeletal: left: knee pain, knee stiffness, knee swelling Past Medical History Past Medical History: Atrial Fibrillation, Asthma, Heart Failure, GERD/Reflux, Hypertension Additional Past Medical History / Comment(s): See Dr Salas's H&P History of Any Multi-Drug Resistant Organisms: None Reported Past Surgical History: Joint Replacement, Pacemaker Additional Past Surgical History / Comment(s): Mitral valve repair.; 2 shoulder replacements, cataracts, neck fusion- C1-7. Past Anesthesia/Blood Transfusion Reactions: No Reported Reaction Additional Past Anesthesia/Blood Transfusion Reaction / Comm: pt states little neck movement r/t neck fusion C1-7 Type of Cardiac Device: Permanent Pacemaker Device Placement Date:: 2013 Smoking Status: Former smoker - Past Family History Daughter(s) Family Medical History: Cancer Additional Family Medical History / Comment(s): Br CA Medications and Allergies Home Medications Medication Instructions Recorded Confirmed Type Fluticasone/Salmeterol [Advair 1 puff INHALATION RT-BID 02/08/14 07/21/17 History 500-50 Diskus] Furosemide [Lasix] 20 mg PO DAILY 02/08/14 07/21/17 History Montelukast [Singulair] 10 mg PO DAILY 02/08/14 07/21/17 History Potassium 99 mg PO DAILY 06/07/17 07/21/17 History Omeprazole 20 mg PO BID 06/08/17 07/21/17 History Aspirin 81 mg PO DAILY chew 06/10/17 07/21/17 Rx Metoprolol Succinate (ER) [Toprol 50 mg PO DAILY #30 tab.er.24h 06/12/17 Rx XL] Albuterol Nebulized [Ventolin 2.5 mg INHALATION RT-Q6H PRN 07/20/17 07/21/17 History Nebulized] Rivaroxaban [Xarelto] 15 mg PO DAILY 07/20/17 07/21/17 History Albuterol Inhaler [Ventolin Hfa 1 - 2 puff INHALATION RT-Q6H PRN 07/21/17 History Inhaler] Amiodarone [Cordarone] 200 mg PO DAILY #30 tab 07/21/17 Rx Losartan [Cozaar] 25 mg PO DAILY #30 tab 07/21/17 Rx Spironolactone [Aldactone] 25 mg PO DAILY #90 tablet 07/24/17 Rx Allergies Allergy/AdvReac Type Severity Reaction Status Date / Time Penicillins Allergy Rash/Hives Verified 07/21/17 16:45 morphine AdvReac Hallucinati Verified 07/21/17 16:45 ons Physical Examination The patient is a 77-year-old male who is in no acute distress. He is alert and oriented 3. Exam of the left lower extremity reveals swelling to the superior knee. There is no redness or warmth to the knee. He is able to actively flex his knee to 90 with pain on the superior aspect of the knee. Maximum point of tenderness is over the quad tendon. There is minimal joint line tenderness. There is a small movable mass on the anterior knee at the patella level. He states that that the mass has always been there. He is able to actively extend his leg and lift it off the bed. Quad tendon appears to be intact. Calf is soft and nontender. He has good foot and ankle motion. No pain to the lateral hip and no pain to internal and external rotation of the hip joint. Neurological and circulatory status is intact. Results - Labs Labs: H & H 07/22/17 07/23/17 07/24/17 Range/Units 03:53 04:05 04:07 Hgb 12.8 L 13.2 13.2 (13.0-17.5) gm/dL Hct 39.0 38.9 L 39.6 (39.0-53.0) % 07/25/17 Range/Units 04:30 Hgb 13.6 (13.0-17.5) gm/dL Hct 40.0 (39.0-53.0) % Coagulation 07/22/17 Range/Units 03:53 INR 1.3 H (<1.2) Result Diagrams: 07/25/17 04:30 07/25/17 04:30 - Diagnostic results Knee x-ray: image reviewed (x-ray of the left femur reveals no acute fracture. There are arthritic changes to the medial compartment of the knee.) Assessment and Plan (1) Knee pain, left Current Visit: Yes Status: Acute Code(s): M25.562 - PAIN IN LEFT KNEE SNOMED Code(s): 17665723 (2) Injury of quadriceps tendon Current Visit: Yes Status: Acute Code(s): S76.109A - UNSP INJURY OF UNSP QUADRICEPS MUSC/FASC/TEND, INIT SNOMED Code(s): 904585872 Plan: The clinical and x-ray findings were discussed with the patient. The case was also discussed with Dr. Morgan. We are suspecting a quad tendon injury, we will obtain a CT of the left knee to rule out rupture. He is unable to undergo an MRI due to his pacemaker. He will be placed in a knee immobilizer. A k-pad will be ordered as well. Protective weighbearing to the left lower extremity as tolerated. Physical therapy has been re-ordered for gait training. We will continue to follow the patient and make further recommendations as needed.
--- NOTE | 2017-07-27 09:55 | CT ---
EXAMINATION TYPE: CT knee LT wo con DATE OF EXAM: 07/27/2017 COMPARISON: NONE HISTORY: Patient complains of left knee pain. CT DLP: 489.8 mGycm Automated exposure control for dose reduction was used. FINDINGS: There is diffuse osteopenia. There is severe arthropathy of the medial compartment of the knee joint. Suggestion of chondrocalcinosis. Moderate arthropathy of the patellofemoral joint. No erosive change s. There is a large suprapatellar bursal fluid collection. Suspect a popliteal fossa cyst with a maximal dimension of 5 cm. Osseous structures intact. No acute fracture. No erosive changes. IMPRESSION: SEVERE OSTEOARTHRITIS WITH A MODERATE TO LARGE SIZED SUPRAPATELLAR BURSAL FLUID COLLECTION. IF THERE IS CONCERN FOR INTERNAL DERANGEMENT CORRELATE WITH MRI. 1 X 1 X 5 CM POPLITEAL FOSSA CYST
[2017-07-27] MEDS ORDERED: LIDOCAINE 2% INJ 20 MG/ML (20 ML MDV) SQ ONE (12:00)
--- NOTE | 2017-07-27 12:18 | P.DS ---
Providers Date of admission: 07/21/17 14:53 Attending physician: Haseeb Salas Consults: 07/21/17 16:02 Consult Physician Stat Consulting Provider: Taran Pfeiffer Consult Reason/Comments: active nasal bleeding /mechanical injury, pts intubated for airway protecti Do you want consulting provider notified?: Yes 07/21/17 17:14 Consult Physician Stat Consulting Provider: Erick Barney Consult Reason/Comments: nasal beeding foll trumpet use Do you want consulting provider notified?: Already Contacted 07/24/17 09:31 Consult Physician Routine Consulting Provider: Hola Orantes Consult Reason/Comments: hospitalist coverage Do you want consulting provider notified?: Yes 07/26/17 11:12 Consult Physician Urgent Consulting Provider: Fidel Morgan Consult Reason/Comments: left knee effusion Do you want consulting provider notified?: Yes Primary care physician: Stated None Hospital Course: Patient is stable from cardiac standpoint. He denies any chest discomfort no undue shortness of breath he looks comfortable. At this time the only thing that is bothering him is his left knee which is swollen and has an effusion clinically. He was seen by orthopedics this morning. A brace was recommended He is finding it difficult to ambulate and therefore he will be transferred to a rehab facility On examination Blood pressure 130/94 mmHg respirations 14-16, pulse rate in the 70s and 80s, afebrile 97F No JVD Sounds are clear no rhonchi no crackles Abdomen is soft nontender Heart sounds S1 and S2 are soft normal Impression Persistent atrial fibrillation Typical atrial flutter Status post ablation for atrial flutter Active nasal bleeding, mechanical trauma with a nasal trumpet Cardiomyopathy AV node disease status post permanent pacemaker implant dual-chamber CHF class 2-3 stable, chronic, systolic Effusion the left knee, patient finds it difficult to ambulate Plan Management of left knee effusion per orthopedics From a cardiac standpoint he will be discharged on the following medications Albuterol inhaler Amiodarone 200 mg daily Aspirin 81 mg daily Lasix 20 mg daily Losartan 25 mg daily in the evening Metoprolol succinate 50 mrem daily in the morning Are lactone 25 mg daily in the morning Xarelto 15 mg at suppertime Singulair 10 mg daily Mobic 7.5 mg twice daily per Dr. Orantes who prescribed at Oral potassium is being discontinued Follow-up with Dr. Sheehan in [facility] Transferred to rehab facility directly from 6 E. telemetry Patient Condition at Discharge: Stable Plan - Discharge Summary Discharge Rx Participant: Yes New Discharge Prescriptions: New Amiodarone [Cordarone] 200 mg PO DAILY #30 tab Losartan [Cozaar] 25 mg PO DAILY #30 tab Spironolactone [Aldactone] 25 mg PO DAILY #90 tablet Discontinued Potassium 99 mg PO DAILY No Action Furosemide [Lasix] 20 mg PO DAILY Fluticasone/Salmeterol [Advair 500-50 Diskus] 1 puff INHALATION RT-BID Montelukast [Singulair] 10 mg PO DAILY Omeprazole 20 mg PO BID Aspirin 81 mg PO DAILY chew Metoprolol Succinate (ER) [Toprol XL] 50 mg PO DAILY #30 tab.er.24h Rivaroxaban [Xarelto] 15 mg PO DAILY Albuterol Nebulized [Ventolin Nebulized] 2.5 mg INHALATION RT-Q6H PRN PRN Reason: Dyspnea Albuterol Inhaler [Ventolin Hfa Inhaler] 1 - 2 puff INHALATION RT-Q6H PRN PRN Reason: shortness of breath Discharge Medication List Fluticasone/Salmeterol [Advair 500-50 Diskus] 1 puff INHALATION RT-BID 02/08/14 [History] Furosemide [Lasix] 20 mg PO DAILY 02/08/14 [History] Montelukast [Singulair] 10 mg PO DAILY 02/08/14 [History] Omeprazole 20 mg PO BID 06/08/17 [History] Aspirin 81 mg PO DAILY chew 06/10/17 [Rx] Metoprolol Succinate (ER) [Toprol XL] 50 mg PO DAILY #30 tab.er.24h 06/12/17 [Rx ] Albuterol Nebulized [Ventolin Nebulized] 2.5 mg INHALATION RT-Q6H PRN 07/20/17 [ History] Rivaroxaban [Xarelto] 15 mg PO DAILY 07/20/17 [History] Albuterol Inhaler [Ventolin Hfa Inhaler] 1 - 2 puff INHALATION RT-Q6H PRN [History] Amiodarone [Cordarone] 200 mg PO DAILY #30 tab 07/21/17 [Rx] Losartan [Cozaar] 25 mg PO DAILY #30 tab 07/21/17 [Rx] Spironolactone [Aldactone] 25 mg PO DAILY #90 tablet 07/24/17 [Rx] Follow up Appointment(s)/Referral(s): Fidel Morgan DO [Doctor of Osteopathic Medicine] - 2 Weeks Activity/Diet/Wound Care/Special Instructions: Post EP study - Ablation instructions 1. Keep access sites dry for 2 days. 2. No heavy lifting or straining for 2 days. 3. Avoid bending the hips repeatedly for 2 days. 4. You may go up and down stairs slowly Call if the following is noted 1. Bleeding, increasing swelling or pain at the access sites. 2. Increasing chest discomfort, especially upon taking a deep breath. 3. Increasing shortness of breath, at rest or with exertion. 4. Undue cough / phlegm 5. Difficulty or pain while swallowing. 6. Pain or change in color in the extremities. 7. Fever, chills, rigors. 8. Increasing headache or neurologic symptoms. 9. Dizziness, fainting, palpitations New medications Amiodarone 200 mg by mouth daily Losartan 25 mg by mouth daily Continue all other medications including Xarelto Follow Dr. Sheehan in 1-2 weeks
--- NOTE | 2017-07-27 14:47 | P.PN ---
Progress Note - Text Progress Note Date: 07/27/17 CT of the left knee revealed a suparpatellar bursitis. No tendon or ligament rupture or injury. The patient agrees to underago an aspiration of the left knee suprapatellar bursa. The lateral knee was prepped with chlorhexidine. 3cc of lidocaine was injected for anesthesia. The bursa was aspirated using an 18g needle with sterile technique. 45 mL of clear straw colored fluid was aspirated. Gauze and lino wrap was applied to the knee. Knee immobilizer reapplied. The patient tolerated the procedure well. He may be discharged to rehab from an orthopedic standpoint. Follow up with Dr. Morgan when he is out of rehab or sooner if issues arise.
[2017-07-27] MEDS: ALBUTEROL NEBULIZED 2.5 MG/3 ML INHALATION PRN (16:24)
--- NOTE | 2017-07-27 17:27 | P.PN ---
Subjective Progress Note Date: 07/27/17 Principal diagnosis: Atrial flutter, status post ablation, completed by epistaxis. This is a 77-year-old white male known to my service, patient is known to have history of atrial flutter, and he was electively brought in to the EP lab for ablation. A nasal trumpet was placed by anesthesia before the procedure, apparently the patient sustained some anterior nasal bleeding/epistaxis. Hence in order to facilitate the procedure, patient was intubated, and the right nostril was packed by BICYCLE DESIGNER. Patient underwent successful ablation for atrial flutter, however postoperatively he was kept on mechanical ventilation until then nasal bleeding is addressed by ENT/Dr. Barney. I saw the patient in the ICU on mechanical ventilation, his ventilator settings are tidal volume of 500, assist control rate of 14 FiO2 of 50% and PEEP of 5. ABG is pending. Chest x- ray is relatively unremarkable except for chronic left pleural parenchymal opacity, and possibly a small left pleural effusion. However it seems to be worse on the present chest x-ray compared to previous x-ray last month. Other than reviewing the chart, not much history can be obtained from the patient was presently sedated, on mechanical ventilation. Patient was reevaluated today on 07/22/2017, remains on mechanical ventilation, and he had more nasal packing done by ENT yesterday. No active bleeding is noted, however the patient was noted to have some blood clots suctioned from the back of his throat around the endotracheal tube. Chest x-ray is unchanged, continues to show COPD, small to moderate left pleural effusion and associated atelectasis or parenchymal scarring noted in the left base. Labs were reviewed ABG showed a pO2 of 92 pCO2 of 34 pH of 7.43. Basic metabolic profile is normal creatinine is 1.20. CBC is relatively normal. Hence the patient will be taken off propofol, I will wake of the patient, possibly give him a weaning trial after weaning parameters, and possibly proceed with extubation today. Patient was reevaluated today on 07/23/2017, remains on mechanical ventilation, patient was about to be extubated yesterday until he developed some epistaxis, and fresh blood was noted through the right nares. Although the patient had some nasal packing done earlier by ENT. Considering the epistaxis, I held back on weaning and extubation, and I will attempt to do that again today. I have already recommended stopping propofol, I have reviewed the chest x-ray, reviewed ABG, and discuss his condition with his at bedside. Patient is to be given another weaning trial today, weaning parameters will be done prior to weaning trial. ABG this morning showed a pO2 of 107 pCO2 of 35 pH of 7.41. Basic metabolic profile is normal and CBC is normal. Chest x-ray continues to show some left lower lobe atelectasis and possibly a small left pleural effusion. Reevaluated today on 07/24/2017, patient was extubated yesterday, tolerated the extubation quite well, continues to have a nasal pack in place, no evidence of active bleeding, restarted back on Xarelto by cardiology on the case. Chest x- ray is showing improvement, clinically the patient is relatively asymptomatic, feels generally weak otherwise. No cough no wheezing no epistaxis no hemoptysis at this point.labs were reviewed had low potassium being corrected as per protocol. Otherwise the rest of the labs are unremarkable. Reevaluated today on 07/25/2017, patient continues to do well, no further evidence of bleeding or epistaxis, nasal packing was removed by ENT. Labs were reviewed, normal basic metabolic profile and the relatively normal CBC noted. Patient is asymptomatic. Patient denies any shortness of breath cough wheezing , no chest pain, no nausea, no vomiting, continues to have episodes of atrial fibrillation Reevaluated today on 07/26/2017,patient is sitting in chair, comfortable, in no distress, no further episodes of epistaxis.seen by cardiology, increase his metoprolol to 50 mg twice a day, planning to discharge the patient home in a.m. On 07/27/2017 patient seen in follow-up. Doing very well, no acute complaints. Denies any shortness of breath. Currently on room air, with O2 sat at 98%. Afebrile, no further episodes of epistaxis. Lung sounds are clear, no rhonchi no wheezing noted. Patient is having his left soup per patellar bursitis aspirated at the bedside. Patient is being discharged home today. Remains stable from pulmonary standpoint. Objective - Vital Signs Vital signs: Vital Signs Temp 96.8 F L 07/27/17 16:00 Pulse 92 07/27/17 16:34 Resp 14 07/27/17 16:00 BP 131/41 07/27/17 16:00 Pulse Ox 98 07/27/17 16:00 Intake & Output 07/26/17 07/27/17 07/27/17 18:59 06:59 18:59 Intake Total 720 600 Output Total 2500 Balance -1780 600 Weight 83.1 kg Intake: Oral 720 600 Output: Urine 2500 Other: Voiding Method Urinal Urinal # Voids 1 2 # Bowel Movements 1 0 1 - Exam Physical Exam: Revealed a 77-year-old white male on room air, in no distress. HEENT:[Neck is supple.] [No neck masses.] [No thyromegaly.] [No JVD.] nasal packing has been removed Chest: [Diminished breath sounds at the left base, no crackles or rhonchi or wheezes.] Cardiac Exam: [Normal S1 and S2, no S3 gallop, 2/6 systolic murmur throughout the precordium.] Abdomen: [Soft, nontender, no megaly, no rebound, no guarding, normal bowel sounds.] Extremities: [No clubbing, no edema, no cyanosis.] Neurological Exam:no gross focal neurologic deficit Lymphatics: No lymphadenopathy Psychiatric: normal mood affect and mental status exam. - Labs CBC & Chem 7: 07/25/17 04:30 07/25/17 04:30 Assessment and Plan Plan: Assessment: 1 Status post ablation for atrial flutter 2 acute epistaxis, most likely related to trauma from nasal trumpet, not to mention the patient is on Xarelto which is another contributing factor to nasal bleeding. 3 failure to extubate post-ablation mostly because of ongoing epistaxis, however the patient was successfully extubated on 07/23/2017. And he tolerated the extubation well. 4 suspect the left lower lobe atelectasis and possibly a left pleural effusion improving, no need for any further workup at this point. 5 multiple comorbidities including moderate severe COPD, systolic congestive heart failure and LV dysfunction with ejection fraction of 35-40%, mild pulmonary hypertension, mild mitral regurgitation, chronic atrial fibrillation, history of permanent pacemaker placement, history of mitral valve repair at [facility], history of nicotine dependence currently in remission. History of chronic kidney disease stage II history of benign positional vertigo. Recommendation: Patient remains stable from pulmonary standpoint, no further episodes of epistaxis, afebrile, hemodynamically stable, on room air. Stable for discharge home today from pulmonary standpoint. I performed a history & physical examination of the patient and discussed their management with my nurse practitioner, Stephanie Tijerina. I reviewed the nurse practitioner's note and agree with the documented findings and plan of care. Lung sounds are clear, diminished at the bases. The findings and the impression was discussed with the patient. I attest to the documentation by the nurse practitioner. Time with Patient: Less than 30
[2017-07-27] MEDS: RIVAROXABAN 15 MG TAB PO SCH (17:46)
[2017-07-27] MEDS: LOSARTAN 25 MG TAB PO SCH (17:46)
--- NOTE | 2017-07-27 23:08 | PN ---
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 Awaiting orthopedic consult. Awaiting rehab placement for the patient. Cardiovascular S1, S2. Lungs clear. GI soft. Musculoskeletal: Tense palpation over the left thigh. He awaiting discharge to rehab center. Knee immobilizer was applied for left knee suprapatellar bursa. The patient will be discharged to rehab when a bed is found. He was cleared by Cardiology and Pulmonology and Infectious Disease. Epistaxis was resolved. Saturating 98% on room air. Lungs are clear. Continue current treatment. MMODL / IJN: [id number] /
[2017-07-28] MEDS: SYMBICORT 160-4.5 MCG INHALER INHALATION SCH (08:51)
--- NOTE | 2017-07-28 09:07 | P.PN ---
Subjective Progress Note Date: 07/28/17 Principal diagnosis: Suprapatellar bursitis left knee This is a 77 year-old male whom we have been following for suprapatellar bursitis. The bursa was aspirated yesterday. The fluid did not appear to be infected. The patient states his knee is feeling better today. He denies pain in the knee. The patient denies fever, chills, rigors, nausea, vomiting, abdominal pain, shortness of breath, and chest pain this morning. He has been ambulating by himself with a walker. He is feeling weak but states his knee is 100% better today. Objective - Vital Signs Vital signs: Vital Signs Temp 97.5 F L 07/28/17 04:00 Pulse 87 07/28/17 04:00 Resp 18 07/28/17 04:00 BP 149/102 07/28/17 04:00 Pulse Ox 98 07/28/17 08:53 Intake & Output 07/27/17 07/28/17 07/28/17 18:59 06:59 18:59 Intake Total 600 10 Output Total 575 Balance 600 -565 Weight 83.2 kg Intake: IV 10 0.9 10 Oral 600 Output: Urine 575 Other: Voiding Method Urinal # Voids 300 1 # Bowel Movements 1 - Exam The patient does not appear in acute distress. Alert and orientated x3. Mild effusion to the superior knee is still present. No redness or warmth to the knee. No pain on palpation to the knee. Full ROM of the hip, knee, ankle, and foot is present. Calf is soft and nontender. Sensation and circulatory status is intact. - Labs CBC & Chem 7: 07/25/17 04:30 07/25/17 04:30 Assessment and Plan (1) Knee pain, left Current Visit: Yes Status: Acute Code(s): M25.562 - PAIN IN LEFT KNEE SNOMED Code(s): 55107570 (2) Suprapatellar bursitis of left knee Current Visit: Yes Status: Acute Code(s): M70.52 - OTHER BURSITIS OF KNEE, LEFT KNEE SNOMED Code(s): 521539837 Plan: The clinical findings were discussed with the patient. He may be discharged to skilled rehab from an orthopedic standpoint. Lavell wrap to the left knee as tolerated. Knee immobilizer not needed at this time. The patient will follow up in our office after rehab or on an as needed basis.
[2017-07-28] MEDS: AMIODARONE 200 MG TAB PO SCH (09:22)
[2017-07-28] MEDS: MONTELUKAST 10 MG TAB PO SCH (09:22)
[2017-07-28] MEDS: ASPIRIN 81 MG PO SCH (09:22)
[2017-07-28] MEDS: LIDOCAINE 5% PATCH TOPICAL SCH (09:22)
[2017-07-28] MEDS: FUROSEMIDE 20 MG TAB PO SCH (09:22)
[2017-07-28] MEDS: SPIRONOLACTONE 25 MG TAB PO SCH (09:23)
[2017-07-28] MEDS: METOPROLOL SUCCINATE (ER) 50 MG TAB.ER.24H PO SCH (09:23)
[2017-07-28] MEDS: MELOXICAM 7.5 MG TAB PO SCH (09:23)
[2017-07-28] MEDS ORDERED: PANTOPRAZOLE 40 MG TABLET PO SCH (10:00)
[2017-07-28 10:12] VITALS: BMI 27.8
--- NOTE | 2017-07-28 11:33 | P.DS ---
Providers Date of admission: 07/21/17 14:53 Attending physician: Haseeb Salas Consults: 07/21/17 16:02 Consult Physician Stat Consulting Provider: Taran Pfeiffer Consult Reason/Comments: active nasal bleeding /mechanical injury, pts intubated for airway protecti Do you want consulting provider notified?: Yes 07/21/17 17:14 Consult Physician Stat Consulting Provider: Erick Barney Consult Reason/Comments: nasal beeding foll trumpet use Do you want consulting provider notified?: Already Contacted 07/24/17 09:31 Consult Physician Routine Consulting Provider: Hola Orantes Consult Reason/Comments: hospitalist coverage Do you want consulting provider notified?: Yes 07/26/17 11:12 Consult Physician Urgent Consulting Provider: Fidel Morgan Consult Reason/Comments: left knee effusion Do you want consulting provider notified?: Yes Primary care physician: Stated None Hospital Course: Patient is doing well. His knee feels a lot better and he has been ambulating a little bit. It was drained yesterday. From a cardiac standpoint he is stable. He has atrial fibrillation with a controlled response. He is on oral amiodarone. He denies any chest discomfort no cough expectoration no shortness of breath he is lying comfortably in bed at this time On examination he is afebrile 97.5F, pulse rate in the 80s, normal respirations nonlabored blood pressure 140/100 mmHg Breath sounds are clear no rhonchi no crackles Heart sounds are normal no murmurs or gallops Abdomen soft nontender Extremities are warm No edema Impression Atrial flutter status post ablation, typical atrial flutter Persistent atrial fibrillation awaiting cryoablation Dual-chamber pacemaker for significant AV node disease with a high percentage of RV pacing Chronic heart failure recent hospitalization for acute exacerbation of systolic heart failure Left ventricular ejection fraction reduced Nasal bleeding due to mechanical trauma Bleeding is now settled down Plan Discharge home. Please see medication list in the discharge orders Follow-up with Dr. Shee[facility] within one to 2 weeks Patient Condition at Discharge: Stable Plan - Discharge Summary Discharge Rx Participant: Yes New Discharge Prescriptions: New Amiodarone [Cordarone] 200 mg PO DAILY #30 tab Losartan [Cozaar] 25 mg PO DAILY #30 tab Spironolactone [Aldactone] 25 mg PO DAILY #90 tablet HYDROcodone/APAP 5-325MG [Alberta 5-325] 1 tab PO Q8H PRN #30 tab PRN Reason: Pain Lidocaine 5% Patch [Lidoderm] 1 patch TOPICAL DAILY #30 patch Meloxicam [Mobic] 7.5 mg PO BID #60 tab Discontinued Potassium 99 mg PO DAILY No Action Furosemide [Lasix] 20 mg PO DAILY Fluticasone/Salmeterol [Advair 500-50 Diskus] 1 puff INHALATION RT-BID Montelukast [Singulair] 10 mg PO DAILY Omeprazole 20 mg PO BID Aspirin 81 mg PO DAILY chew Metoprolol Succinate (ER) [Toprol XL] 50 mg PO DAILY #30 tab.er.24h Rivaroxaban [Xarelto] 15 mg PO DAILY Albuterol Nebulized [Ventolin Nebulized] 2.5 mg INHALATION RT-Q6H PRN PRN Reason: Dyspnea Albuterol Inhaler [Ventolin Hfa Inhaler] 1 - 2 puff INHALATION RT-Q6H PRN PRN Reason: shortness of breath Discharge Medication List Fluticasone/Salmeterol [Advair 500-50 Diskus] 1 puff INHALATION RT-BID 02/08/14 [History] Furosemide [Lasix] 20 mg PO DAILY 02/08/14 [History] Montelukast [Singulair] 10 mg PO DAILY 02/08/14 [History] Omeprazole 20 mg PO BID 06/08/17 [History] Aspirin 81 mg PO DAILY chew 06/10/17 [Rx] Metoprolol Succinate (ER) [Toprol XL] 50 mg PO DAILY #30 tab.er.24h 06/12/17 [Rx ] Albuterol Nebulized [Ventolin Nebulized] 2.5 mg INHALATION RT-Q6H PRN 07/20/17 [ History] Rivaroxaban [Xarelto] 15 mg PO DAILY 07/20/17 [History] Albuterol Inhaler [Ventolin Hfa Inhaler] 1 - 2 puff INHALATION RT-Q6H PRN [History] Amiodarone [Cordarone] 200 mg PO DAILY #30 tab 07/21/17 [Rx] Losartan [Cozaar] 25 mg PO DAILY #30 tab 07/21/17 [Rx] Spironolactone [Aldactone] 25 mg PO DAILY #90 tablet 07/24/17 [Rx] HYDROcodone/APAP 5-325MG [Alberta 5-325] 1 tab PO Q8H PRN #30 tab 07/27/17 [Rx] Lidocaine 5% Patch [Lidoderm] 1 patch TOPICAL DAILY #30 patch 07/27/17 [Rx] Meloxicam [Mobic] 7.5 mg PO BID #60 tab 07/27/17 [Rx] Follow up Appointment(s)/Referral(s): Fidel Morgan DO [Doctor of Osteopathic Medicine] - 2 Weeks (when discharged from rehab.) Activity/Diet/Wound Care/Special Instructions: Post EP study - Ablation instructions 1. Keep access sites dry for 2 days. 2. No heavy lifting or straining for 2 days. 3. Avoid bending the hips repeatedly for 2 days. 4. You may go up and down stairs slowly Call if the following is noted 1. Bleeding, increasing swelling or pain at the access sites. 2. Increasing chest discomfort, especially upon taking a deep breath. 3. Increasing shortness of breath, at rest or with exertion. 4. Undue cough / phlegm 5. Difficulty or pain while swallowing. 6. Pain or change in color in the extremities. 7. Fever, chills, rigors. 8. Increasing headache or neurologic symptoms. 9. Dizziness, fainting, palpitations New medications Amiodarone 200 mg by mouth daily Losartan 25 mg by mouth daily Continue all other medications including Xarelto Follow Dr. Sheehan in 1-2 weeks May use lino wrap on knee and knee immobilizer as needed. Weightbearing as tolerated to the left leg. No movement restrictions. Follow up with Dr. Morgan after discharge from rehab Call [facility] with any questions or concerns, [phone].
--- NOTE | 2017-07-28 11:41 | PN ---
PROGRESS NOTE: 07/27/2017 Hospital Course: Patient is stable from cardiac standpoint. He denies any chest discomfort no undue shortness of breath he looks comfortable. At this time the only thing that is bothering him is his left knee which is swollen and has an effusion clinically. He was seen by orthopedics this morning. A brace was recommended He is finding it difficult to ambulate and therefore he will be transferred to a rehab facility On examination Blood pressure 130/94 mmHg respirations 14-16, pulse rate in the 70s and 80s, afebrile 97F No JVD Sounds are clear no rhonchi no crackles Abdomen is soft nontender Heart sounds S1 and S2 are soft normal Impression Persistent atrial fibrillation Typical atrial flutter Status post ablation for atrial flutter Active nasal bleeding, mechanical trauma with a nasal trumpet Cardiomyopathy AV node disease status post permanent pacemaker implant dual-chamber CHF class 2-3 stable, chronic, systolic Effusion the left knee, patient finds it difficult to ambulate Plan Management of left knee effusion per orthopedics From a cardiac standpoint he will be discharged on the following medications Albuterol inhaler Amiodarone 200 mg daily Aspirin 81 mg daily Lasix 20 mg daily Losartan 25 mg daily in the evening Metoprolol succinate 50 mrem daily in the morning Are lactone 25 mg daily in the morning Xarelto 15 mg at suppertime Singulair 10 mg daily Mobic 7.5 mg twice daily per Dr. Orantes who prescribed at Oral potassium is being discontinued Follow-up with Dr. Sheehan in 2 weeks at [facility] Transferred to rehab facility directly from 6 E. telemetry Patient Condition at Discharge: Stable Plan - Discharge Summary Discharge Rx Participant: Yes New Discharge Prescriptions: New Amiodarone [Cordarone] 200 mg PO DAILY #30 tab Losartan [Cozaar] 25 mg PO DAILY #30 tab Spironolactone [Aldactone] 25 mg PO DAILY #90 tablet Discontinued Potassium 99 mg PO DAILY No Action Furosemide [Lasix] 20 mg PO DAILY Fluticasone/Salmeterol [Advair 500-50 Diskus] 1 puff INHALATION RT-BID Montelukast [Singulair] 10 mg PO DAILY Omeprazole 20 mg PO BID Aspirin 81 mg PO DAILY chew Metoprolol Succinate (ER) [Toprol XL] 50 mg PO DAILY #30 tab.er.24h Rivaroxaban [Xarelto] 15 mg PO DAILY Albuterol Nebulized [Ventolin Nebulized] 2.5 mg INHALATION RT-Q6H PRN PRN Reason: Dyspnea Albuterol Inhaler [Ventolin Hfa Inhaler] 1 - 2 puff INHALATION RT-Q6H PRN PRN Reason: shortness of breath Discharge Medication List Fluticasone/Salmeterol [Advair 500-50 Diskus] 1 puff INHALATION RT-BID 02/08/14 [History] Furosemide [Lasix] 20 mg PO DAILY 02/08/14 [History] Montelukast [Singulair] 10 mg PO DAILY 02/08/14 [History] Omeprazole 20 mg PO BID 06/08/17 [History] Aspirin 81 mg PO DAILY chew 06/10/17 [Rx] Metoprolol Succinate (ER) [Toprol XL] 50 mg PO DAILY #30 tab.er.24h 06/12/17 [Rx ] Albuterol Nebulized [Ventolin Nebulized] 2.5 mg INHALATION RT-Q6H PRN 07/20/17 [ History] Rivaroxaban [Xarelto] 15 mg PO DAILY 07/20/17 [History] Albuterol Inhaler [Ventolin Hfa Inhaler] 1 - 2 puff INHALATION RT-Q6H PRN [History] Amiodarone [Cordarone] 200 mg PO DAILY #30 tab 07/21/17 [Rx] Losartan [Cozaar] 25 mg PO DAILY #30 tab 07/21/17 [Rx] Spironolactone [Aldactone] 25 mg PO DAILY #90 tablet 07/24/17 [Rx] Follow up Appointment(s)/Referral(s): Fidel Morgan DO [Doctor of Osteopathic Medicine] - 2 Weeks Activity/Diet/Wound Care/Special Instructions: Post EP study - Ablation instructions 1. Keep access sites dry for 2 days. 2. No heavy lifting or straining for 2 days. 3. Avoid bending the hips repeatedly for 2 days. 4. You may go up and down stairs slowly Call if the following is noted 1. Bleeding, increasing swelling or pain at the access sites. 2. Increasing chest discomfort, especially upon taking a deep breath. 3. Increasing shortness of breath, at rest or with exertion. 4. Undue cough / phlegm 5. Difficulty or pain while swallowing. 6. Pain or change in color in the extremities. 7. Fever, chills, rigors. 8. Increasing headache or neurologic symptoms. 9. Dizziness, fainting, palpitations New medications Amiodarone 200 mg by mouth daily Losartan 25 mg by mouth daily Continue all other medications including Xarelto Follow Dr. Sheehan in 1-2 weeks MTDD
--- NOTE | 2017-07-28 14:27 | P.PN ---
Subjective Progress Note Date: 07/28/17 Principal diagnosis: Atrial flutter, status post ablation, completed by epistaxis. This is a 77-year-old white male known to my service, patient is known to have history of atrial flutter, and he was electively brought in to the EP lab for ablation. A nasal trumpet was placed by anesthesia before the procedure, apparently the patient sustained some anterior nasal bleeding/epistaxis. Hence in order to facilitate the procedure, patient was intubated, and the right nostril was packed by BULK SYSTEM OPERATOR. Patient underwent successful ablation for atrial flutter, however postoperatively he was kept on mechanical ventilation until then nasal bleeding is addressed by ENT/Dr. Barney. I saw the patient in the ICU on mechanical ventilation, his ventilator settings are tidal volume of 500, assist control rate of 14 FiO2 of 50% and PEEP of 5. ABG is pending. Chest x- ray is relatively unremarkable except for chronic left pleural parenchymal opacity, and possibly a small left pleural effusion. However it seems to be worse on the present chest x-ray compared to previous x-ray last month. Other than reviewing the chart, not much history can be obtained from the patient was presently sedated, on mechanical ventilation. Patient was reevaluated today on 07/22/2017, remains on mechanical ventilation, and he had more nasal packing done by ENT yesterday. No active bleeding is noted, however the patient was noted to have some blood clots suctioned from the back of his throat around the endotracheal tube. Chest x-ray is unchanged, continues to show COPD, small to moderate left pleural effusion and associated atelectasis or parenchymal scarring noted in the left base. Labs were reviewed ABG showed a pO2 of 92 pCO2 of 34 pH of 7.43. Basic metabolic profile is normal creatinine is 1.20. CBC is relatively normal. Hence the patient will be taken off propofol, I will wake of the patient, possibly give him a weaning trial after weaning parameters, and possibly proceed with extubation today. Patient was reevaluated today on 07/23/2017, remains on mechanical ventilation, patient was about to be extubated yesterday until he developed some epistaxis, and fresh blood was noted through the right nares. Although the patient had some nasal packing done earlier by ENT. Considering the epistaxis, I held back on weaning and extubation, and I will attempt to do that again today. I have already recommended stopping propofol, I have reviewed the chest x-ray, reviewed ABG, and discuss his condition with his at bedside. Patient is to be given another weaning trial today, weaning parameters will be done prior to weaning trial. ABG this morning showed a pO2 of 107 pCO2 of 35 pH of 7.41. Basic metabolic profile is normal and CBC is normal. Chest x-ray continues to show some left lower lobe atelectasis and possibly a small left pleural effusion. Reevaluated today on 07/24/2017, patient was extubated yesterday, tolerated the extubation quite well, continues to have a nasal pack in place, no evidence of active bleeding, restarted back on Xarelto by cardiology on the case. Chest x- ray is showing improvement, clinically the patient is relatively asymptomatic, feels generally weak otherwise. No cough no wheezing no epistaxis no hemoptysis at this point.labs were reviewed had low potassium being corrected as per protocol. Otherwise the rest of the labs are unremarkable. Reevaluated today on 07/25/2017, patient continues to do well, no further evidence of bleeding or epistaxis, nasal packing was removed by ENT. Labs were reviewed, normal basic metabolic profile and the relatively normal CBC noted. Patient is asymptomatic. Patient denies any shortness of breath cough wheezing , no chest pain, no nausea, no vomiting, continues to have episodes of atrial fibrillation Reevaluated today on 07/26/2017,patient is sitting in chair, comfortable, in no distress, no further episodes of epistaxis.seen by cardiology, increase his metoprolol to 50 mg twice a day, planning to discharge the patient home in a.m. On 07/27/2017 patient seen in follow-up. Doing very well, no acute complaints. Denies any shortness of breath. Currently on room air, with O2 sat at 98%. Afebrile, no further episodes of epistaxis. Lung sounds are clear, no rhonchi no wheezing noted. Patient is having his left soup per patellar bursitis aspirated at the bedside. Patient is being discharged home today. Remains stable from pulmonary standpoint. On 07/28/2017 patient is seen again. Doing well, denies any acute complaints, no acute events overnight. Vitals are stable, he is on room air with O2 sat at 98%. Remains afebrile. No further episodes of epistaxis. Lung sounds are clear, no rhonchi or wheezing. No new chest x-ray and order lab work today. Patient is being discharged home today Objective - Vital Signs Vital signs: Vital Signs Temp 97.5 F L 07/28/17 04:00 Pulse 87 07/28/17 04:00 Resp 18 07/28/17 04:00 BP 149/102 07/28/17 04:00 Pulse Ox 98 07/28/17 08:53 Intake & Output 07/27/17 07/28/17 07/28/17 18:59 06:59 18:59 Intake Total 600 10 Output Total 575 Balance 600 -565 Weight 83.2 kg 83.2 kg Intake: IV 10 0.9 10 Oral 600 Output: Urine 575 Other: Voiding Method Urinal # Voids 300 1 # Bowel Movements 1 - Exam Physical Exam: Revealed a 77-year-old white male on room air, in no distress. HEENT:[Neck is supple.] [No neck masses.] [No thyromegaly.] [No JVD.] nasal packing has been removed Chest: [Diminished breath sounds at the left base, no crackles or rhonchi or wheezes.] Cardiac Exam: [Normal S1 and S2, no S3 gallop, 2/6 systolic murmur throughout the precordium.] Abdomen: [Soft, nontender, no megaly, no rebound, no guarding, normal bowel sounds.] Extremities: [No clubbing, no edema, no cyanosis.] Neurological Exam:no gross focal neurologic deficit Lymphatics: No lymphadenopathy Psychiatric: normal mood affect and mental status exam. - Labs CBC & Chem 7: 07/25/17 04:30 07/25/17 04:30 Assessment and Plan Plan: Assessment: 1 Status post ablation for atrial flutter 2 acute epistaxis, most likely related to trauma from nasal trumpet, not to mention the patient is on Xarelto which is another contributing factor to nasal bleeding. 3 failure to extubate post-ablation mostly because of ongoing epistaxis, however the patient was successfully extubated on 07/23/2017. And he tolerated the extubation well. 4 suspect the left lower lobe atelectasis and possibly a left pleural effusion improving, no need for any further workup at this point. 5 multiple comorbidities including moderate severe COPD, systolic congestive heart failure and LV dysfunction with ejection fraction of 35-40%, mild pulmonary hypertension, mild mitral regurgitation, chronic atrial fibrillation, history of permanent pacemaker placement, history of mitral valve repair at [facility], history of nicotine dependence currently in remission. History of chronic kidney disease stage II history of benign positional vertigo. Recommendation: Patient remains stable from pulmonary standpoint, no further episodes of epistaxis, afebrile, hemodynamically stable, on room air. Stable for discharge home today from pulmonary standpoint. I performed a history & physical examination of the patient and discussed their management with my nurse practitioner, Stephanie Tijerina. I reviewed the nurse practitioner's note and agree with the documented findings and plan of care. Lung sounds are clear, diminished at the bases. The findings and the impression was discussed with the patient. I attest to the documentation by the nurse practitioner. Time with Patient: Less than 30
[2017-07-28 14:40] VITALS: TEMP 98
[2017-07-28 16:04] VITALS: BP 128/76; PULSE 78; RESP 16
== END 2017-07-28 16:15 | disposition home health service (06) | DRG 274 ==
LOC: CATHEP 10:19 → 6ICU 14:53 → 6SEL 07-25 14:32
PROVIDERS: ADMIT Internal Medicine Clinical Cardiac Electrophysiology; ATTEND Internal Medicine Clinical Cardiac Electrophysiology
PROC: 4A023FZ Measurement of Cardiac Rhythm, Percutaneous Approach (ICD-10-PCS; principal; 2017-07-21 12:15)
PROC: 4A0234Z Measurement of Cardiac Electrical Activity, Percutaneous Approach (ICD-10-PCS; principal; 2017-07-21 12:15)
PROC: 5A2204Z Restoration of Cardiac Rhythm, Single (ICD-10-PCS; principal; 2017-07-21 12:15)
PROC: B5171ZZ Fluoroscopy of Left Subclavian Vein using Low Osmolar Contrast (ICD-10-PCS; principal; 2017-07-21 12:15)
PROC: 02K83ZZ Map Conduction Mechanism, Percutaneous Approach (ICD-10-PCS; principal; 2017-07-21 12:15)
PROC: 02583ZZ Destruction of Conduction Mechanism, Percutaneous Approach (ICD-10-PCS; principal; 2017-07-21 12:15)
DX: I48.3 Typical atrial flutter (principal); I27.20 Pulmonary hypertension, unspecified; I42.9 Cardiomyopathy, unspecified; I50.22 Chronic systolic (congestive) heart failure; I13.0 Hypertensive heart and chronic kidney disease with heart failure and stage 1 through stage 4 chronic kidney disease, or unspecified chronic kidney disease; E83.42 Hypomagnesemia; J98.11 Atelectasis; J95.62 Intraoperative hemorrhage and hematoma of a respiratory system organ or structure complicating other procedure; Z79.01 Long term (current) use of anticoagulants; Z95.0 Presence of cardiac pacemaker; I48.91 Unspecified atrial fibrillation; Z79.899 Other long term (current) drug therapy; Z79.51 Long term (current) use of inhaled steroids; Z88.5 Allergy status to narcotic agent; Z88.0 Allergy status to penicillin; Z87.891 Personal history of nicotine dependence; Z79.82 Long term (current) use of aspirin; N18.2 Chronic kidney disease, stage 2 (mild); E87.6 Hypokalemia; G47.33 Obstructive sleep apnea (adult) (pediatric); I25.10 Atherosclerotic heart disease of native coronary artery without angina pectoris; Z95.5 Presence of coronary angioplasty implant and graft; I45.9 Conduction disorder, unspecified; I34.0 Nonrheumatic mitral (valve) insufficiency; I48.0 Paroxysmal atrial fibrillation; I48.1 Persistent atrial fibrillation; I48.2 Chronic atrial fibrillation; J44.9 Chronic obstructive pulmonary disease, unspecified; K21.9 Gastro-esophageal reflux disease without esophagitis; M19.90 Unspecified osteoarthritis, unspecified site; M70.52 Other bursitis of knee, left knee; N40.0 Benign prostatic hyperplasia without lower urinary tract symptoms; S80.12XA Contusion of left lower leg, initial encounter; Z80.3 Family history of malignant neoplasm of breast; Z96.619 Presence of unspecified artificial shoulder joint; Z98.1 Arthrodesis status; Y83.8 Other surgical procedures as the cause of abnormal reaction of the patient, or of later complication, without mention of misadventure at the time of the procedure; Y92.234 Operating room of hospital as the place of occurrence of the external cause; R04.0 Epistaxis
CPT/HCPCS: 36600; 71045; 73502; 75820; 80048; 80053; 82805; 83735; 84100; 84132; 84550; 85027; 85610; 85730; 92960; 93613; 93653; 93662; 94002; 94003; 94640; 94760

== ENCOUNTER → 2017-11-03 | Outpatient (CLI) | payer MEDICARE, OTHER ==
[2017-11-03 11:11] LABS: HCT 40.7 % (39.0-53.0); HGB 13.8 gm/dL (13.0-17.5); MCH 30.6 pg (25.0-35.0); MCHC 33.9 g/dL (31.0-37.0); MCV 90.5 fL (80.0-100.0); Mean Platelet Volume 7.3; Platelet Count 266 k/uL (150-450); RDW 13.1 % (11.5-15.5); WBC 6.3 k/uL (3.8-10.6)
[2017-11-03 11:35] LABS: Calcium 9.4 mg/dL (8.4-10.2); Potassium 4.2 mmol/L (3.5-5.1)
== END | disposition home or self-care (01) ==
LOC: LABWHC1 10:17
PROVIDERS: ATTEND Internal Medicine Clinical Cardiac Electrophysiology
DX: I48.0 Paroxysmal atrial fibrillation (principal); I10 Essential (primary) hypertension; I49.8 Other specified cardiac arrhythmias; I25.5 Ischemic cardiomyopathy
CPT/HCPCS: 36415; 80048; 85027

== ENCOUNTER 2017-11-10 12:23 | Day surgery (SDC) | payer MEDICARE, OTHER ==
[2017-11-03 12:56] VITALS: BMI 26.6
[2017-11-10] MEDS ORDERED: CLINDAMYCIN 600 MG in DEXTROSE 5% IN WATER 50 ML IVPB STA ×2 (15:35)
[2017-11-10] MEDS ORDERED: PHENYLEPHRINE-0.9% NACL SYG 1 MG/10 ML SYRINGE ONE (16:08)
[2017-11-10] MEDS ORDERED: SUCCINYLCHOLINE CHLORIDE 100 MG/5 ML SYR IV ONE (16:08)
[2017-11-10] MEDS ORDERED: PROPOFOL 10 MG/ML 20 ML VIAL IV ONE (16:08)
[2017-11-10] MEDS ORDERED: LIDOCAINE 1% INJ 10MG/ML (20 ML MDV) ONE (16:08)
[2017-11-10] MEDS ORDERED: ePHEDrine SULFATE/0.9% NACL/PF 50 MG/5 ML SYRINGE IV ONE (16:08)
[2017-11-10] MEDS ORDERED: MIDAZOLAM 2 MG/2 ML VIAL ONE (16:08)
[2017-11-10] MEDS ORDERED: fentaNYL (PF) 50 MCG/ML 2 ML AMP ONE (16:08)
[2017-11-10] MEDS ORDERED: HEPARIN SODIUM,PORCINE 5,000 UNIT/ML 1 ML VIAL ONE (16:08)
[2017-11-10] MEDS ORDERED: LIDOCAINE 2% INJ 20 MG/ML (20 ML MDV) ONE (16:29)
[2017-11-10] MEDS ORDERED: HEPARIN SOD,PORK IN 0.45% NACL 25,000 UNIT in 0.45% NACL 1 500ML.BAG IV ONE (16:31)
[2017-11-10] MEDS ORDERED: LIDOCAINE 2% INJ 20 MG/ML SQ ONE ×2 (16:48→16:49)
[2017-11-10] MEDS ORDERED: PROTAMINE SULFATE 10 MG/ML 5 ML VIAL IV ONE (20:11)
[2017-11-10] MEDS ORDERED: IOPAMIDOL-370 100ML BTL INJ ONE (20:12)
[2017-11-10] MEDS ORDERED: ACETAMINOPHEN TAB 325 MG TAB PO PRN ×2 (20:35→20:38)
[2017-11-10] MEDS ORDERED: ACETAMINOPHEN IV (For NPO) 1,000 MG in EMPTY BAG 1 BAG IVPB ONE (20:38)
--- NOTE | 2017-11-10 21:01 | P.PCN ---
Preoperative Diagnosis: Symptomatic atrial fibrillation, cardio myopathy Procedures performed (PVI - CRYO Ablation) Invasive hemodynamic monitoring while general anesthesia, right femoral arterial line for monitoring and sampling Comprehensive diagnostic EP study with attempted arrhythmia induction CS pacing and recording Drug infusion Catheter the mapping of the tachycardia (NOT 3D mapping) Intracardiac echocardiography Pulmonary vein isolation with transseptal and comprehensive EPS, [id number] Procedure details Patient was brought to the EP lab in a fasting state. Written informed consent was obtained prior to the procedure. Procedure performed under general anesthesia After initial muscle relaxant use, muscle relaxants were not given thereafter in order to assess phrenic nerve during procedure Patient prepped and draped as per protocol Full cryo-set up with standard preparation of the cryoablation tools done Femoral Venous access obtained on the right and left groins Sheaths placed Diagnostic catheters for the high right atrium, phrenic nerve stimulation and pacing, His bundle, RV and coronary sinus placed Intracardiac echo catheter placed Long sheath placed in the right atrium Left and right transseptal catheterization performed under intracardiac echo guidance Intravenous heparin with aCT above 300 Later, catheter positioning and balloon positioning under intracardiac echo Baseline measurements Twelve-lead ECG suggests atrial tachycardia Intracardiac electrograms confirmed atrial fibrillation Transseptal catheterization performed RA pressure 10/1/4 millimeters of Hg LA pressure 17/4/7 mmHg Transseptal catheterization performed with standard sheath. The cryoablation sheath was then placed with an over the wire exchange without any acute complications. All 4 pulmonary veins were isolated in the following sequence: Left superior followed by left inferior followed by right superior followed by right inferior The cryo-ablation balloon was placed at the os of each vein 1.5 mL of IV dye was injected to confirm an occluded vein Goal during cryoablation was to achieve -30C in the first 30 seconds. If not the balloon was repositioned to obtain this result After completion of Cryoblation with durations from 180-240 seconds, entrance block was confirmed with the Attain circular catheter in a roving fashion around the antrum of the pulmonary veins Phrenic nerve pacing was performed from the SVC, right innominate vein area and diaphragm voltage was monitored as well as manually Parameter goals for each cryo freeze -30C by 30 seconds -40C by 60 seconds Mediated between minus 40-55 Thaw time greater than 10 seconds Balloon visualized by intracardiac echo to ensure that the proximal one third was within the left atrium/antrum Left superior pulmonary vein 3 lesions, 90 seconds, 120 seconds and then 152 seconds, left superior vein was part of a common os Complete isolation Left inferior pulmonary vein This was part of a common left-sided loss 180 seconds followed by 152 seconds cryo lesion Esophagus was in proximity despite esophageal deflection Lowest temperature of around 25C in the esophagus Right superior pulmonary vein, during phrenic nerve pacing 3 lesions delivered 1/32, 180 seconds and 120 seconds Complete isolation Right inferior pulmonary vein, during phrenic nerve pacing Difficult to occlude inferior vein. Initial 62nd lesion Excellent occlusion achieved and a 4 minute cryoablation lesion delivered At the end of the procedure the Achieve catheter was once again used to check for entrance block Phrenic nerve stimulation was performed to confirm diaphragmatic stimulation the end of the procedure Cine fluoroscopy was performed at the very end of the procedure to confirm movement of both diaphragms with inspiration and expiration At the end of the procedure the patient was extubated Heparin was reversed Venous sheaths were removed and hemostasis assured Result Successful pulmonary vein isolation using cryo-ablation Complete entrance block in all 4 veins confirmed No evidence for phrenic nerve injury Left-sided esophagus requiring displacement, somewhat difficult to displace away from left-sided veins Surface ECG ECG suggests atrial tachycardia, intracardiac electrograms confirm atrial fibrillation This is a long procedure on account of the following 1. Very difficult transseptal catheterization. Inter atrial septum was very thick with an extremely small fossa ovalis which was also thick. It took over 1 hour to achieve transseptal access into the left atrium. Electrocautery had to be applied to crossover. However it took a very long time to fall into the true fossa ovalis which was extremely diminutive in size. Rest of the interatrial septum was very thick 2. Left common os requiring multiple ablations at the ostial level both of the superior and inferior veins 3. Right inferior pulmonary vein was difficult to occlude but successful occlusion was achieved and a 4 minute cryoablation lesion was applied with good temperature is in parameters
[2017-11-10 21:08] VITALS: RESP 16
[2017-11-10] MEDS ORDERED: hydrALAZINE HCL 20 MG/ML 1 ML VIAL IVP ONE (21:20)
[2017-11-10] MEDS: SODIUM CHLORIDE 0.9% 1,000 ML IV SCH (21:26)
[2017-11-10] MEDS: HYDROcodone/APAP 5-325MG 1 EACH TAB PO PRN (22:06)
[2017-11-11] MEDS: HYDROcodone/APAP 5-325MG 1 EACH TAB PO PRN (02:32)
[2017-11-11] MEDS: SODIUM CHLORIDE 0.9% 1,000 ML IV SCH (04:26)
--- NOTE | 2017-11-11 08:12 | P.DS ---
Providers Attending physician: Haseeb Salas Primary care physician: Stated None Hospital Course: Patient is lying comfortably in bed. No chest discomfort no throat discomfort. Does not appear to be short of breath. No pleuritic chest pain Vitals are stable blood pressure 103/67 mmHg he is afebrile 98F Breath sounds are clear no rhonchi no crackles Heart sounds are regular and normal no murmurs no gallops no rub Groins of healed well No hematoma Impression History of coronary artery disease status post intervention in the past History of mitral valve repair Atrial flutter status post successful ablation several months back, no recurrence Atrial fibrillation, initially paroxysmal, more recently persistent Status post pulmonary vein isolation with cryoablation, successful isolation of PVs Remains in an organized atrial fibrillation. Twelve-lead ECG suggests an atrial tachycardia However intracardiac electrograms confirmed atrial fibrillation not atrial tachycardia Minimal RV pacing with organized atrial fibrillation which is advantageous Intracardiac echo suggested improvement in LV function Smoke noted in left atrium by intracardiac echo Very thick interatrial atrial septum with a very small and thick fossa ovalis Suggest Xarelto 20 mg by mouth daily for one month and then reduce it back down to 15 mg by mouth daily Stop amiodarone Increase metoprolol succinate to 100 mg in the morning Take losartan in the evening Take spironolactone in the morning along with Lasix Patient not taking statins and I advised him that statins are indicated since he is coronary artery disease as well as cardio myopathy Pacemaker has been programmed to VVI 50 beats a minute Minimal pacing needs while in organized atrial fibrillation During sinus rhythm he paces the right ventricle greater than 70%, which is detrimental to cardiac function I would recommend rate control and anticoagulation only, rather than rhythm control at this point to avoid RV pacing and thereby avoiding need for LV pacing 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 Sheehan in a week Patient Condition at Discharge: Stable Plan - Discharge Summary Discharge Rx Participant: No New Discharge Prescriptions: New Metoprolol Succinate (ER) [Toprol Xl] 75 mg PO DAILY #90 tab Rivaroxaban [Xarelto] 20 mg PO DAILY #30 tab Discontinued Metoprolol Succinate (ER) [Toprol XL] 50 mg PO DAILY #30 tab.er.24h Rivaroxaban [Xarelto] 15 mg PO DAILY No Action Furosemide [Lasix] 20 mg PO DAILY Fluticasone/Salmeterol [Advair 500-50 Diskus] 1 puff INHALATION RT-BID Montelukast [Singulair] 10 mg PO DAILY Omeprazole 20 mg PO BID Aspirin 81 mg PO DAILY chew Albuterol Nebulized [Ventolin Nebulized] 2.5 mg INHALATION RT-Q6H PRN PRN Reason: Dyspnea Losartan [Cozaar] 25 mg PO DAILY #30 tab Albuterol Inhaler [Ventolin Hfa Inhaler] 1 - 2 puff INHALATION RT-Q6H PRN PRN Reason: shortness of breath Spironolactone [Aldactone] 25 mg PO DAILY #90 tablet HYDROcodone/APAP 5-325MG [[place] 5-325] 1 tab PO Q8H PRN #30 tab PRN Reason: Pain Discharge Medication List Fluticasone/Salmeterol [Advair 500-50 Diskus] 1 puff INHALATION RT-BID 02/08/14 [History] Furosemide [Lasix] 20 mg PO DAILY 02/08/14 [History] Montelukast [Singulair] 10 mg PO DAILY 02/08/14 [History] Omeprazole 20 mg PO BID 06/08/17 [History] Aspirin 81 mg PO DAILY chew 06/10/17 [Rx] Albuterol Nebulized [Ventolin Nebulized] 2.5 mg INHALATION RT-Q6H PRN 07/20/17 [ History] Albuterol Inhaler [Ventolin Hfa Inhaler] 1 - 2 puff INHALATION RT-Q6H PRN [History] Losartan [Cozaar] 25 mg PO DAILY #30 tab 07/21/17 [Rx] Spironolactone [Aldactone] 25 mg PO DAILY #90 tablet 07/24/17 [Rx] HYDROcodone/APAP 5-325MG [[place] 5-325] 1 tab PO Q8H PRN #30 tab 07/27/17 [Rx] Metoprolol Succinate (ER) [Toprol Xl] 75 mg PO DAILY #90 tab 11/10/17 [Rx] Rivaroxaban [Xarelto] 20 mg PO DAILY #30 tab 11/10/17 [Rx] Follow up Appointment(s)/Referral(s): Arminda Sheehan MD [STAFF PHYSICIAN] - 1 Week Activity/Diet/Wound Care/Special Instructions: Post EP study - Ablation instructions 1. Keep access sites dry for 2 days. 2. No heavy lifting or straining for 2 days. 3. Avoid bending the hips repeatedly for 2 days. 4. You may go up and down stairs slowly Call if the following is noted 1. Bleeding, increasing swelling or pain at the access sites. 2. Increasing chest discomfort, especially upon taking a deep breath. 3. Increasing shortness of breath, at rest or with exertion. 4. Undue cough / phlegm 5. Difficulty or pain while swallowing. 6. Pain or change in color in the extremities. 7. Fever, chills, rigors. 8. Increasing headache or neurologic symptoms. 9. Dizziness, fainting, palpitations Increase Toprol to 75 g by mouth daily Increase Xarelto to 20 mg by mouth daily for one month and then go back to 15 mg by mouth daily thereafter Follow-up with Dr. Sheehan in 1 week Discharge Disposition: HOME SELF-CARE
[2017-11-11] MEDS ORDERED: METOPROLOL SUCCINATE (ER) 100 MG TAB.ER.24H PO SCH (09:00)
[2017-11-11] MEDS ORDERED: LOSARTAN 25 MG TAB PO SCH ×2 (09:00→21:00)
[2017-11-11] MEDS ORDERED: FUROSEMIDE 20 MG TAB PO SCH (09:00)
[2017-11-11] MEDS ORDERED: RIVAROXABAN 20 MG TAB PO SCH ×2 (09:00→21:00)
[2017-11-11] MEDS ORDERED: ASPIRIN 81 MG PO SCH (09:00)
[2017-11-11] MEDS ORDERED: METOPROLOL SUCCINATE (ER) 25 MG TAB.ER.24H PO SCH (09:00)
[2017-11-11 10:17] LABS: Calcium 8.9 mg/dL (8.4-10.2); Potassium 4.2 mmol/L (3.5-5.1)
[2017-11-11 15:55] VITALS: BP 98/67; PULSE 75; TEMP 98.1
== END 2017-11-11 17:18 | disposition home or self-care (01) ==
LOC: CATHEP 12:23 → 3OBS 21:04 → CATHEP 11-11 17:18
PROVIDERS: ATTEND Internal Medicine Clinical Cardiac Electrophysiology
DX: I48.1 Persistent atrial fibrillation (principal); I42.2 Other hypertrophic cardiomyopathy; I25.5 Ischemic cardiomyopathy; I44.0 Atrioventricular block, first degree; I45.10 Unspecified right bundle-branch block; I48.3 Typical atrial flutter; Z95.0 Presence of cardiac pacemaker; I11.0 Hypertensive heart disease with heart failure; I50.22 Chronic systolic (congestive) heart failure; E78.5 Hyperlipidemia, unspecified; J45.909 Unspecified asthma, uncomplicated; I49.5 Sick sinus syndrome; I25.10 Atherosclerotic heart disease of native coronary artery without angina pectoris; K21.9 Gastro-esophageal reflux disease without esophagitis; Z79.01 Long term (current) use of anticoagulants; Z79.51 Long term (current) use of inhaled steroids; Z79.899 Other long term (current) drug therapy; Z88.5 Allergy status to narcotic agent; Z88.0 Allergy status to penicillin; Z87.891 Personal history of nicotine dependence
CPT/HCPCS: 85347; 93662; 93609; 93656; 80048; C1769 ×5; C1894 ×2; C1730 ×2; C1759; C1893; C1733; C1766; J2001 ×2; J2250; J0360; J1644 ×2; J3010; J2370; J0330; J2704; Q9967

== ENCOUNTER 2021-07-01 11:59 | Inpatient (IN) | payer MEDICARE, OTHER ==
[2021-07-01] MEDS ORDERED: ACETAMINOPHEN TAB 500 MG TAB PO PRN (12:33)
[2021-07-01] MEDS ORDERED: ALBUTEROL HFA INHALER INHALATION STA (12:33)
[2021-07-01] MEDS ORDERED: ALBUTEROL HFA INHALER INHALATION PRN ×2 (12:33→15:54)
--- NOTE | 2021-07-01 13:01 | ED ---
General Adult HPI - General Chief complaint: Weakness Stated complaint: covid+ Time Seen by Provider: 07/01/21 12:05 Source: patient, EMS, RN notes reviewed Mode of arrival: EMS Limitations: no limitations - History of Present Illness Initial comments: Patient is a pleasant 81-year-old male presenting to the emergency department with concern for COVID-19 symptoms. Patient was tested positive just a couple of days ago. Onset of symptoms was around a week ago. Patient has fatigue and feels confused. Patient has decreased appetite and decreased oral intake. Patient does have cough. No dyspnea. No leg pain or leg swelling. - Related Data Home Medications Medication Instructions Recorded Confirmed Fluticasone/Salmeterol [Advair 1 puff INHALATION RT-BID 02/08/14 11/03/17 500-50 Diskus] Furosemide [Lasix] 20 mg PO DAILY 02/08/14 11/03/17 Montelukast [Singulair] 10 mg PO DAILY 02/08/14 11/10/17 Omeprazole 20 mg PO BID 06/08/17 11/03/17 Albuterol Nebulized [Ventolin 2.5 mg INHALATION RT-Q6H PRN 07/20/17 11/03/17 Nebulized] Albuterol Inhaler (Mhu) [Ventolin 1 - 2 puff INHALATION RT-Q6H PRN 07/21/17 11/03/17 Hfa Inhaler (Mhu)] Previous Rx's Medication Instructions Recorded Aspirin 81 mg PO DAILY chew 06/10/17 Losartan [Cozaar] 25 mg PO DAILY #30 tab 07/21/17 Spironolactone [Aldactone] 25 mg PO DAILY #90 tablet 07/24/17 HYDROcodone/APAP 5-325MG [[place] 1 tab PO Q8H PRN #30 tab 07/27/17 5-325] Rivaroxaban [Xarelto] 20 mg PO DAILY #30 tab 11/10/17 Metoprolol Succinate (ER) [Toprol 100 mg PO DAILY #90 tab 11/11/17 XL] Allergies Allergy/AdvReac Type Severity Reaction Status Date / Time Penicillins Allergy Rash/Hives Verified 07/01/21 12:31 morphine AdvReac Hallucinati Verified 07/01/21 12:31 ons Review of Systems ROS Statement: Those systems with pertinent positive or pertinent negative responses have been documented in the HPI. ROS Other: All systems not noted in ROS Statement are negative. Constitutional: Reports: fever, chills Eyes: Denies: eye pain ENT: Reports: congestion. Denies: ear pain Respiratory: Reports: cough Cardiovascular: Denies: chest pain Endocrine: Reports: fatigue Gastrointestinal: Denies: abdominal pain Genitourinary: Denies: dysuria Skin: Denies: rash Neurological: Reports: as per HPI Past Medical History Past Medical History: Atrial Fibrillation, Asthma, Hypertension Additional Past Medical History / Comment(s): See Dr Salas's H&P History of Any Multi-Drug Resistant Organisms: None Reported Past Surgical History: Joint Replacement, Pacemaker Additional Past Surgical History / Comment(s): Mitral valve repair.; 2 shoulder replacements, cataracts, ablasion, neck fusion Past Anesthesia/Blood Transfusion Reactions: No Reported Reaction Additional Past Anesthesia/Blood Transfusion Reaction / Comment(s): pt states little neck movement r/t neck fusion C1-7 Type of Cardiac Device: Permanent Pacemaker Device Placement Date:: 2013 Past Psychological History: No Psychological Hx Reported Past Alcohol Use History: Daily Past Drug Use History: None Reported - Past Family History Daughter(s) Family Medical History: Cancer Additional Family Medical History / Comment(s): Br CA General Exam Limitations: no limitations General appearance: alert, in no apparent distress Head exam: Present: normocephalic Eye exam: Present: normal appearance Neck exam: Present: normal inspection Respiratory exam: Present: normal lung sounds bilaterally Cardiovascular Exam: Present: regular rate, normal rhythm GI/Abdominal exam: Present: soft. Absent: tenderness Extremities exam: Present: normal inspection. Absent: pedal edema, calf tenderness Neurological exam: Present: alert Psychiatric exam: Present: normal affect, normal mood Skin exam: Present: normal color Course Vital Signs 07/01/21 12 12 12:21 12:31 12:39 Temperature 97.7 F Pulse Rate 82 Respiratory 18 20 Rate Blood Pressure 143/87 O2 Sat by Pulse 89 L 94 L Oximetry EKG Findings - EKG Comments: EKG Findings:: Paced rhythm with underlying flutter/fib. Rate 80. QRS 158. QT 450. QTC 519. [place]. Wide QRS complex. Nonspecific ST-T. Medical Decision Making - Medical Decision Making Patient reevaluated and updated. Case discussed with practitioner Stevenson, covering with Dr. Garcia, who admits covering hospital call. - Lab Data Result diagrams: 07/01/21 12:40 Lab Results 07/01/21 07/01/21 Range/Units 12:40 12:40 WBC 11.9 H (3.8-10.6) k/uL RBC 5.20 (4.30-5.90) m/uL Hgb 15.4 (13.0-17.5) gm/dL Hct 46.1 (39.0-53.0) % MCV 88.7 (80.0-100.0) fL MCH 29.7 (25.0-35.0) pg MCHC 33.4 (31.0-37.0) g/dL RDW 14.4 (11.5-15.5) % Plt Count 315 (150-450) k/uL MPV 7.7 Neutrophils % 82 % Lymphocytes % 9 % Monocytes % 6 % Eosinophils % 1 % Basophils % 1 % Neutrophils # 9.8 H (1.3-7.7) k/uL Lymphocytes # 1.1 (1.0-4.8) k/uL Monocytes # 0.7 (0-1.0) k/uL Eosinophils # 0.1 (0-0.7) k/uL Basophils # 0.1 (0-0.2) k/uL PT 11.2 (9.0-12.0) sec INR 1.1 (<1.2) APTT 27.9 (22.0-30.0) sec - Radiology Data Radiology results: image reviewed (Chest x-ray shows bilateral multifocal opacities consistent with COVID-19 infection. Chronic changes and cardiomegaly also present.) Disposition Clinical Impression: COVID-19 Disposition: ADMITTED IP TO THIS HOSP Condition: Serious Is patient prescribed a controlled substance at d/c from ED?: No Referrals: Nonstaff,Physician [Primary Care Provider] - 1-2 days Decision Time: 14:12
[2021-07-01] MEDS ORDERED: DEXAMETHASONE SOD PHOSPHATE 10 MG/ML 1 ML VIAL IVP SCH (13:15)
--- NOTE | 2021-07-01 13:29 | XR ---
EXAMINATION TYPE: XR chest 1V portable DATE OF EXAM: 07/01/2021 COMPARISON: Chest x-ray July 25, 2017 HISTORY: Cough and shortness of breath. TECHNIQUE: Single frontal view of the chest is obtained. FINDINGS: The osseous structures are demineralized. Extensive surgical changes to cervical spine are partially imaged. Surgical changes to bilateral shoulders is partially imaged. Old fractures of the posterolateral right mid to lower ribs redemonstrated. Overlying sternal wires redemonstrated. Persistent cardiomegaly with dual lead pacemaker. Chronic par enchymal changes with new increased opacity right mid lung and basilar region. Difficult to assess le ft lung base due to cardiomegaly. New increased opacity left hilar level is felt present. IMPRESSION: Chronic changes and cardiomegaly with new bilateral multifocal opacities consistent with covid-19 infection.
[2021-07-01] MEDS: CHOLECALCIFEROL 125 MCG (5000 IU) TABLET PO SCH (13:31)
[2021-07-01] MEDS: ASCORBIC ACID 500 MG TAB PO SCH ×2 (13:32→19:32)
[2021-07-01 13:55] LABS: Basophils # (A) 0.1 k/uL (0-0.2); Basophils % (A) 1 %; Eosinophils # (A) 0.1 k/uL (0-0.7); Eosinophils % (A) 1 %; HCT 46.1 % (39.0-53.0); HGB 15.4 gm/dL (13.0-17.5); Lymphocytes # (A) 1.1 k/uL (1.0-4.8); Lymphocytes % (A) 9 %; MCH 29.7 pg (25.0-35.0); MCHC 33.4 g/dL (31.0-37.0); MCV 88.7 fL (80.0-100.0); Mean Platelet Volume 7.7; Monocytes # (A) 0.7 k/uL (0-1.0); Monocytes % (A) 6 %; Neutrophils # (A) 9.8 k/uL (1.3-7.7); Neutrophils % (A) 82 %; Platelet Count 315 k/uL (150-450); RDW 14.4 % (11.5-15.5); WBC 11.9 k/uL (3.8-10.6)
[2021-07-01 14:08] LABS: INR 1.1 (<1.2); Partial Thromboplastin Time 27.9 sec (22.0-30.0); Prothrombin Time 11.2 sec (9.0-12.0)
[2021-07-01] MEDS ORDERED: NALOXONE 0.4 MG/ML 1 ML VIAL IV PRN (14:13)
[2021-07-01 14:54] LABS: C Reactive Protein 3.4 mg/dL (<1.0)
[2021-07-01] MEDS ORDERED: ONDANSETRON 4 MG/2 ML VIAL IVP PRN (15:50)
[2021-07-01] MEDS ORDERED: ACETAMINOPHEN TAB 325 MG TAB PO PRN (15:50)
[2021-07-01] MEDS ORDERED: IBUPROFEN 400 MG TAB PO PRN (15:50)
--- NOTE | 2021-07-01 16:01 | P.HPIM ---
History of Present Illness H&P Date: 07/01/21 History of Presenting Illness: Patient is a very pleasant 81-year-old male with a past medical history of CAD status post pacemaker placement, ischemic cardiomyopathy, chronic systolic heart failure with previously known EF of 35-40%, atrial fibrillation on anticoagulation with Xarelto, hypertension, hyperlipidemia, CKD stage III, and COPD not home oxygen dependent. Patient presented to the emergency department with a chief complaint of shortness of breath, nonproductive cough, weakness, and fatigue 1 week. In addition patient reports decreased appetite and episodes of confusion. Patient states the symptoms began approximately 3-5 days ago and worsened over the past couple days. Patient is unvaccinated for Covid. He denies any known fevers, chills, diaphoresis, chest pain, palpitations, abdominal pain, nausea, vomiting, or experiencing any pain/swelling/weakness in his extremities. He was seen and fully evaluated in the emergency department. He was found to have leukocytosis with WBC count of 11.9, Hyponatremia with sodium of 132, hypochloremia with chloride of 95, renal function consistent with CKD with BUN 53, creatinine 1.72, and GFR of 37 (slightly above baseline creatinine). Inflammatory markers elevated with CRP 3.4 and LDH of 688, d-dimer pending. Covid PCR negative. Chest x-ray revealing chronic changes and cardiomegaly with bilateral multifocal opacities concerning for Covid 19 infection. EKG revealing a ventricular paced rhythm at 80 bpm with underlying atrial flutter. Patient admitted under our services with consultation to pulmonology. Patient was a poor historian regarding timelines and some of his medical history, however he was alert to person, place, time, and situation and was able to verify daughter's phone number Trena, a message was left on her voicemail as there was no answer on phone at this time. Review of systems: Pertinent positives and negatives as discussed in HPI, a complete review of systems was performed and all other systems are negative. Physical exam: Vital signs reviewed and stable. General: Patient appears in mild distress, appears generally unwell feeling and lethargic. Derm: Skin warm and dry, normal coloration for ethnicity. Head: Atraumatic, normocephalic and symmetric. Eyes: EOMs intact, no lid lag, and anicteric sclera Mouth: no lip lesions, mucus membranes moist Cardiovascular: regular rate and rhythm, distant heart sounds, positive posterior tibial pulses bilaterally, and cap refill < 2 seconds. Lungs: Respirations even, regular, and unlabored on 2 L O2 via nasal cannula . Lungs with diffuse rhonchi and bilateral diffuse expiratory wheezes. No accessory muscle usage. Abdominal: soft, nontender to palpation, no guarding, no appreciable organomegaly Ext: ROM intact. No gross muscle atrophy, no edema, no contractures Neuro: Speech clear, face symmetrical and CN II-XII grossly intact with no noted focal neuro deficits Psych: Alert and oriented to person, place, time, and situation. Appropriate and pleasant affect. Assessment and Plan of Care: Acute respiratory failure with hypoxia secondary to bilateral multifocal pneumonia Acute COPD exacerbation secondary to bilateral multifocal pneumonia -Covid PCR negative -We will obtain RSV and influenza PCR -D-dimer pending -IV antibiotics: Rocephin and azithromycin pending Pro-calcitonin results -Oxygenation to be administered and titrated as needed to maintain SPO2 equal to or greater than 90% -Telemetry monitoring. -Continue trending inflammatory markers -Encourage Incentive Spirometry 10-15x hourly while awake -Steroids: Decadron 6 mg daily -Pulmonology following, appreciate further recommendations. Atrial fibrillation Chronic systolic heart failure with previously known EF of 35-40% Ischemic cardiomyopathy CAD status post pacemaker placement Hypertension Hyperlipidemia -Telemetry monitoring -Echocardiogram -Trend troponins -BNP -Continuation of daily medication regimen including Xarelto, metoprolol, losartan, and Cardizem. -Monitor vital signs closely. Stage III CKD -Caution using nephrotoxic medications, continued monitoring of renal function throughout hospitalization. The patient is admitted with an anticipated greater than 2 midnight stay for evaluation of acute respiratory failure with hypoxia secondary to bilateral multifocal pneumonia. Surrogate decision-maker: Patient's daughter, Trena Avilez CODE STATUS: DO NOT RESUSCITATE/DO NOT INTUBATE DVT prophylaxis: Xarelto Discussed with: Patient and RN, called and left message with patient's daughter per patient's request at 5:47 PM Anticipated discharge date: Clinical course to determine Anticipated discharge place: Clinical course to determine A total of 50 minutes was spent on the care of this complex patient more than 50% of the time was spent in counseling and care coordination. Past Medical History Past Medical History: Atrial Fibrillation, Asthma, Hypertension Additional Past Medical History / Comment(s): See Dr Salas's H&P History of Any Multi-Drug Resistant Organisms: None Reported Past Surgical History: Joint Replacement, Pacemaker Additional Past Surgical History / Comment(s): Mitral valve repair.; 2 shoulder replacements, cataracts, ablasion, neck fusion Past Anesthesia/Blood Transfusion Reactions: No Reported Reaction Additional Past Anesthesia/Blood Transfusion Reaction / Comment(s): pt states little neck movement r/t neck fusion C1-7 Type of Cardiac Device: Permanent Pacemaker Device Placement Date:: 2013 Past Psychological History: No Psychological Hx Reported Past Alcohol Use History: Daily Past Drug Use History: None Reported - Past Family History Daughter(s) Family Medical History: Cancer Additional Family Medical History / Comment(s): Br CA Medications and Allergies Home Medications Medication Instructions Recorded Confirmed Type Furosemide [Lasix] 20 mg PO DAILY 02/08/14 07/01/21 History Montelukast [Singulair] 10 mg PO DAILY 02/08/14 07/01/21 History Metoprolol Succinate (ER) [Toprol 100 mg PO DAILY #90 tab 11/11/17 07/01/21 Rx XL] Colchicine 0.6 mg PO DAILY 07/01/21 07/01/21 History Pantoprazole Sodium [Protonix] 20 mg PO BID 07/01/21 07/01/21 History Rivaroxaban [Xarelto] 15 mg PO DAILY 07/01/21 07/01/21 History dilTIAZem HCL [dilTIAZem HCL 24Hr 120 mg PO DAILY 07/01/21 07/01/21 History ER (Xr)] Allergies Allergy/AdvReac Type Severity Reaction Status Date / Time Penicillins Allergy Rash/Hives Verified 07/01/21 16:25 morphine AdvReac Hallucinati Verified 07/01/21 16:25 ons Physical Exam Vitals: Vital Signs Temp Pulse Resp BP Pulse Ox 07/01/21 12:39 94 L 07/01/21 12:31 20 07/01/21 12:21 97.7 F 82 18 143/87 89 L Intake and Output 07/01/21 07/01/21 07/01/21 06:59 14:59 22:59 Other: Weight 88.451 kg Results CBC & Chem 7: 07/01/21 12:40 07/01/21 14:15 Labs: Abnormal Lab Results - Last 24 Hours (Table) 07/01/21 07/01/21 Range/Units 12:40 14:15 WBC 11.9 H (3.8-10.6) k/uL Neutrophils # 9.8 H (1.3-7.7) k/uL C-Reactive Protein 3.4 H (<1.0) mg/dL
[2021-07-01 16:10] LABS: Albumin 3.8 g/dL (3.5-5.0); Calcium 9.1 mg/dL (8.4-10.2); Magnesium 1.8 mg/dL (1.6-2.3); Potassium 4.6 mmol/L (3.5-5.1); Total Bilirubin 0.5 mg/dL (0.2-1.3)
--- NOTE | 2021-07-01 18:49 | P.CNPUL ---
History of Present Illness Consult date: 07/01/21 Reason for consult: cough, obstructive sleep apnea Chief complaint: Generalized weakness and diminished appetite History of present illness: This is an 81-year-old the patient was Hospital as for COVID 19 related pulmona ry infection/pneumonia and shortness of breath and hypoxemic respiratory failure.. The patient came into the emergency department and the patient was having symptoms of COVID 19. The patient tested positive for COVID 19 couple of days ago. The patient's symptom onset was approximately a week ago. He was complaining of fatigue and on and off he was feeling lethargic and confused. He has also diminished appetite and diminished oral intake. He also mentions a coffee no significant shortness of breath. Repeat COVID 19 testing that was done in the emergency tested negative. Patient had normal coagulation profile. White cell count was normal at 11.9 with hemoglobin 15.4. Creatinine was at 1.7 consistent with chronic kidney disease, rest of the electrodes were normal, LDH level was 688 and a CRP level was at 3.4. The chest x-ray was done in the emergency department showed bilateral perihilar infiltrates most on the right. Nevertheless the patient has cardiomegaly. The patient also has bilateral shoulder replacement and the patient has post thoracotomy changes, pacemaker placed and cervical spine fusion with metal plates and screws. The patient is currently on today's of oxygen by nasal cannula. The patient was started on Decadron. Inflammatory markers are low with an LDH level of 688 with a CRP of 3.4. Progesterone level is pending for now. As mentioned, his COVID 19 testing was negative. Comorbid conditions include atrial fibrillation/flutter post-ablation, maint ained on Xarelto, CHF with ejection fraction of 35-40% with moderate pulmonary hypertension, history of permanent pacemaker insertion, history of mitral valve repair at the [facility], chronic stage II kidney disease and benign positional vertigo. Review of Systems Constitutional: Reports fatigue, Reports lethargy, Reports poor appetite, Reports weakness Eyes: denies as per HPI, denies blurred vision, denies bulging eye, denies decreased vision, denies diplopia, denies discharge, denies dry eye, denies irritation, denies itching, denies pain, denies photophobia, denies loss of peripheral vision, denies loss of vision, denies tunnel vision/blind spots Ears: deny: decreased hearing, ear discharge, earache, tinnitus Ears, nose, mouth and throat: Reports as per HPI, Reports epistaxis Breasts: absent: as per HPI, gynecomastia Cardiovascular: Reports decreased exercise tolerance, Reports dyspnea on exertion Respiratory: Reports cough, Reports dyspnea Gastrointestinal: Reports loss of appetite Genitourinary: Reports as per HPI Musculoskeletal: Reports as per HPI Musculoskeletal: absent: ankle pain, ankle stiffness, ankle swelling, as per HPI, elbow pain, elbow stiffness, elbow swelling, foot pain, foot stiffness, foot swelling, hand pain, hand stiffness, hand swelling, hip pain, hip stiffne ss, hip swelling, knee pain, knee stiffness, knee swelling, shoulder pain, shoulder stiffness, shoulder swelling, wrist pain, wrist stiffness, wrist swelling Integumentary: Reports as per HPI Neurological: Reports as per HPI Psychiatric: Reports as per HPI Endocrine: Reports as per HPI, Reports fatigue Hematologic/Lymphatic: Reports as per HPI Allergic/Immunologic: Reports as per HPI Past Medical History Past Medical History: Atrial Fibrillation, Asthma, Hypertension Additional Past Medical History / Comment(s): See Dr Salas's H&P History of Any Multi-Drug Resistant Organisms: None Reported Past Surgical History: Joint Replacement, Pacemaker Additional Past Surgical History / Comment(s): Mitral valve repair.; 2 shoulder replacements, cataracts, ablasion, neck fusion Past Anesthesia/Blood Transfusion Reactions: No Reported Reaction Additional Past Anesthesia/Blood Transfusion Reaction / Comment(s): pt states little neck movement r/t neck fusion C1-7 Type of Cardiac Device: Permanent Pacemaker Device Placement Date:: 2013 Past Psychological History: No Psychological Hx Reported Past Alcohol Use History: Daily Past Drug Use History: None Reported - Past Family History Daughter(s) Family Medical History: Cancer Additional Family Medical History / Comment(s): Br CA Medications and Allergies Home Medications Medication Instructions Recorded Confirmed Type Furosemide [Lasix] 20 mg PO DAILY 02/08/14 07/01/21 History Montelukast [Singulair] 10 mg PO DAILY 02/08/14 07/01/21 History Metoprolol Succinate (ER) [Toprol 100 mg PO DAILY #90 tab 11/11/17 07/01/21 Rx XL] Colchicine 0.6 mg PO DAILY 07/01/21 07/01/21 History Pantoprazole Sodium [Protonix] 20 mg PO BID 07/01/21 07/01/21 History Rivaroxaban [Xarelto] 15 mg PO DAILY 07/01/21 07/01/21 History dilTIAZem HCL [dilTIAZem HCL 24Hr 120 mg PO DAILY 07/01/21 07/01/21 History ER (Xr)] Allergies Allergy/AdvReac Type Severity Reaction Status Date / Time Penicillins Allergy Rash/Hives Verified 07/01/21 16:25 morphine AdvReac Hallucinati Verified 07/01/21 16:25 ons Physical Exam Vitals: Vital Signs Temp Pulse Resp BP Pulse Ox 07/01/21 15:57 77 16 138/78 94 L 07/01/21 14:31 86 17 148/88 94 L 07/01/21 12:39 94 L 07/01/21 12:31 20 07/01/21 12:21 97.7 F 82 18 143/87 89 L Intake and Output 07/01/21 07/01/21 07/01/21 06:59 14:59 22:59 Other: Weight 88.451 kg General appearance: alert, in no apparent distress, breathing is nonlabored and the patient is currently on 2 L of oxygen by nasal cannula Head exam: Present: normocephalic Eye exam: Present: normal appearance Neck exam: Present: normal inspection Respiratory exam: Patient is bronchospastic and wheezy and the patient is having increased rales and crackles in lung bases bilaterally. Heart sounds are regular, positive S1-S2, no significant murmurs appreciated. The patient has a thoracotomy scar over the anterior chest area. Abdominal exam revealed normal bowel sounds. The abdomen was soft, non-tender, and without masses, organomegaly, or appreciable enlargement of the abdominal aorta. Extremities exam: Present: normal inspection. Absent: pedal edema, calf tenderness Neurological examNeurologically, the patient is awake and alert and the patient does not have any focal neurological deficit. Cranial nerves are essentially intact. Psychiatric exam: Present: normal affect, normal mood Skin exam: Examination of the skin revealed no evidence of significant rashes, suspicious appearing nevi or other concerning lesions. Results - Laboratory Findings CBC and BMP: 07/01/21 12:40 07/01/21 14:15 PT/INR, D-dimer PT 11.2 sec (9.0-12.0) 07/01/21 12:40 INR 1.1 (<1.2) 07/01/21 12:40 Abnormal lab findings: Abnormal Labs 07/01/21 07/01/21 12:40 14:15 WBC 11.9 H Neutrophils # 9.8 H Sodium 132 L Chloride 95 L BUN 53 H Creatinine 1.72 H Glucose 184 H Lactate Dehydrogenase 688 H C-Reactive Protein 3.4 H - Diagnostic Findings Chest x-ray: image reviewed Assessment and Plan Plan: 1 acute COVID 19 infection confirmed she days back and the repeat testing in the emergency came back negative. The patient limited infiltration perihilar. Could be early COVID 19 related pneumonia versus CHF. Less likely bacterial infection. Currently on 2 L about 2 by nasal cannula. Inflammatory markers as well as mildly elevated. 2 acute hypoxic respiratory failure secondary to above. 3 constitutions symptoms along with diminished appetite and oral intake and generalized weakness secondary to above 4 history of mitral valve repair 5 history of paroxysmal atrial fibrillation/flutter post-ablation and the patient is on long-term articulation with Xarelto 6 history of permanent pacemaker insertion 7 hypertension 8 bronchial asthma 9 history of neck fusion, C1 through C7 10 chronic stage III kidney disease, creatinine stable at 1.7 11 CHF with systolic heart failure with an ejection fraction of around 30%, reevaluate the mitral valve function and the 11th ejection fraction. The patient also has mild degree of pulmonary hypertension. Plan Check pro-calcitonin level Check proBNP level Due to the echocardiogram IV solumedrol 60 mg IV every 6 hours Monitor vaccination currently on 2 L per minute nasal cannula Continue long-term and coagulation with Xarelto Resume all medications We'll continue to follow the progress. No need for any further intervention.
[2021-07-01] MEDS: methylPREDNISolone SOD SUCCI 125 MG/2 ML VIAL IV SCH (19:32)
[2021-07-01] MEDS: PANTOPRAZOLE 40 MG TABLET PO SCH (19:32)
[2021-07-01] MEDS: AZITHROMYCIN 500 MG in SODIUM CHLORIDE 0.9% 250 ML IVPB SCH (19:32)
[2021-07-01] MEDS ORDERED: ALBUTEROL HFA INHALER INHALATION SCH (20:00)
[2021-07-01] MEDS: ALBUTEROL HFA INHALER INHALATION SCH ×2 (20:42→21:40)
[2021-07-01] MEDS: SYMBICORT 160-4.5 MCG INHALER INHALATION SCH (21:40)
[2021-07-02] MEDS: methylPREDNISolone SOD SUCCI 125 MG/2 ML VIAL IV SCH ×3 (00:11→11:59)
[2021-07-02] MEDS: ALBUTEROL HFA INHALER INHALATION SCH ×4 (02:36→20:50)
[2021-07-02] MEDS: PANTOPRAZOLE 40 MG TABLET PO SCH ×2 (07:49→19:36)
[2021-07-02] MEDS: RIVAROXABAN 20 MG TAB PO SCH (07:49)
[2021-07-02] MEDS: CHOLECALCIFEROL 125 MCG (5000 IU) TABLET PO SCH (07:50)
[2021-07-02] MEDS: METOPROLOL SUCCINATE (ER) 100 MG TAB.ER.24H PO SCH (07:50)
[2021-07-02] MEDS: ASCORBIC ACID 500 MG TAB PO SCH ×2 (07:50→19:35)
[2021-07-02] MEDS: ZINC SULFATE 220 MG CAP PO SCH (07:50)
[2021-07-02] MEDS: LOSARTAN 25 MG TAB PO SCH (07:50)
[2021-07-02] MEDS: MONTELUKAST 10 MG TAB PO SCH (07:50)
[2021-07-02] MEDS: DILTIAZEM CD 120 MG CAP.ER.24H PO SCH (07:50)
[2021-07-02] MEDS: SYMBICORT 160-4.5 MCG INHALER INHALATION SCH ×2 (08:11→20:50)
[2021-07-02] MEDS ORDERED: RIVAROXABAN 15 MG TAB PO SCH (09:00)
[2021-07-02] MEDS ORDERED: ENOXAPARIN 40 MG/0.4 ML SYRINGE SQ SCH (09:00)
[2021-07-02 09:38] LABS: Basophils # (A) 0.01 X 10*3/uL (0.00-0.10); Basophils % (A) 0.2 %; Eosinophils # (A) 0 X 10*3/uL (0.04-0.35); Eosinophils % (A) 0 %; HCT 44.7 % (39.6-50.0); HGB 14.3 g/dL (13.0-17.0); Lymphocytes # (A) 0.66 X 10*3/uL (0.90-5.00); Lymphocytes % (A) 10.1 %; MCH 28.4 pg (27.0-32.0); MCV 88.9 fL (80.0-97.0); Monocytes # (A) 0.25 X 10*3/uL (0.20-1.00); Monocytes % (A) 3.8 %; Neutrophils # (A) 5.57 X 10*3/uL (1.80-7.70); Neutrophils % (A) 85.1 %; Platelet Count 280 X 10*3/uL (140-440); RBC 5.03 X 10*6/uL (4.40-5.60); RDW 15.2 % (11.5-14.5); WBC 6.54 X 10*3/uL (4.50-10.00)
[2021-07-02 11:36] LABS: African American GFR (CKD) 37.3 (60.0-200.0); Albumin 3.7 g/dL (3.8-4.9); Albumin/Globulin Ratio 1.32 (1.60-3.17); Anion Gap 20.8 mmol/L (10.00-18.00); BUN/Creat Ratio 27.4 Ratio (12.00-20.00); Blood Urea Nitrogen 52.6 mg/dL (9.0-27.0); C Reactive Protein 4.3 mg/dL (0.00-0.80); Calcium 9.1 mg/dL (8.7-10.3); Globulin 2.8 g/dL (1.6-3.3); Magnesium 2.1 mg/dL (1.5-2.4); Non-African American GFR(CKD) 32.2 (60.0-200.0); Total Bilirubin 0.4 mg/dL (0.30-1.20); Total Protein 6.5 g/dL (6.2-8.2)
--- NOTE | 2021-07-02 11:38 | P.PN ---
Subjective Progress Note Date: 07/02/21 Principal diagnosis: sob Feeling a little better today, still with sob and cough producing clear phlegm. No fevers or chills. Has abdominal and chest pain. Objective - Vital Signs Vital signs: Vital Signs Temp 97.6 F 07/02/21 10:25 Pulse 81 07/02/21 10:25 Resp 20 07/02/21 10:25 BP 125/81 07/02/21 10:25 Pulse Ox 93 L 07/02/21 10:25 Intake & Output 07/01/21 07/02/21 07/02/21 18:59 06:59 18:59 Output Total 500 Balance -500 Weight 88.451 kg Output: Urine 500 Other: Voiding Method Urinal Diaper # Voids 0 1 # Bowel Movements 1 - Exam Constitutional: No acute distress, conversant, pleasant Eyes:Anicteric sclerae, moist conjunctiva, no lid-lag, PERRLA, ENMT: Oropharynx clear, no erythema, exudates Neck: Supple, FROM, no masses, or JVD, No carotid bruits, No thyromegaly Lungs: Bilateral diffuse wheezing, Clear to percussion, Normal respiratory effort, no accessory muscle use Cardiovascular: Heart regular in rate and rhythm, No murmurs, gallops, or rubs, No peripheral edema Abdominal: Soft, Nontender, no guarding, rebound or rigidity, Normoactive bowel sounds, No hepatomegaly, No splenomegaly, No palpable mass Skin: Normal temperature, tone, texture, turgor, no induration, No subcutaneous nodules, No rash, lesions, No ulcers Extremities: No digital cyanosis, No clubbing, Pedal pulses intact and symmetrical, Radial pulses intact and symmetrical, No calf tenderness Psychiatric: Alert and oriented to person, place and time, appropriate affect, intact judgement Neuro: Muscles Strength 5/5 in all 4 extremities, Sensation to light touch grossly present throughout, Cranial nerves II-XII grossly intact, no focal sensory deficits - Labs CBC & Chem 7: 07/02/21 05:28 07/01/21 14:15 Labs: Abnormal Lab Results - Last 24 Hours (Table) 07/01/21 07/01/21 07/01/21 Range/Units 12:40 12:40 14:15 WBC 11.9 H (3.8-10.6) k/uL RDW (11.5-14.5) % Immature Gran # (0.00-0.04) X 10*3/uL Neutrophils # 9.8 H (1.3-7.7) k/uL Lymphocytes # (0.90-5.00) X 10*3/uL Eosinophils # (0.04-0.35) X 10*3/uL Sodium 132 L (137-145) mmol/L Chloride 95 L (98-107) mmol/L BUN 53 H (9-20) mg/dL Creatinine 1.72 H (0.66-1.25) mg/dL Glucose 184 H (74-99) mg/dL Lactate Dehydrogenase 688 H (313-618) U/L C-Reactive Protein 3.4 H (<1.0) mg/dL Procalcitonin 0.21 H (0.02-0.09) ng/mL 07/02/21 Range/Units 05:28 WBC (3.8-10.6) k/uL RDW 15.2 H (11.5-14.5) % Immature Gran # 0.05 H (0.00-0.04) X 10*3/uL Neutrophils # (1.3-7.7) k/uL Lymphocytes # 0.66 L (0.90-5.00) X 10*3/uL Eosinophils # 0 L (0.04-0.35) X 10*3/uL Sodium (137-145) mmol/L Chloride (98-107) mmol/L BUN (9-20) mg/dL Creatinine (0.66-1.25) mg/dL Glucose (74-99) mg/dL Lactate Dehydrogenase (313-618) U/L C-Reactive Protein (<1.0) mg/dL Procalcitonin (0.02-0.09) ng/mL Assessment and Plan Plan: Acute respiratory failure with hypoxia secondary to bilateral multifocal pneumonia Acute COPD exacerbation secondary to bilateral multifocal pneumonia -O2 supplement to keep Sats above 92% -Covid PCR, RSV and influenza PCR all negative -D-dimer negative -IV antibiotics: Rocephin and azithromycin, Solu-Medrol -Encourage Incentive Spirometry 10-15x hourly while awake -Pulmonology following, appreciate further recommendations. Atrial fibrillation Chronic systolic heart failure with previously known EF of 35-40% Ischemic cardiomyopathy CAD status post pacemaker placement Hypertension Hyperlipidemia -Telemetry monitoring -Echocardiogram -Troponins negative -Continuation of daily medication regimen including Xarelto, metoprolol, losartan, and Cardizem. -Monitor vital signs closely. Stage III CKD -Caution using nephrotoxic medications, continued monitoring of renal function throughout hospitalization. Anticipated discharge: 1-2 days Disposition: Home
[2021-07-02] MEDS: AZITHROMYCIN 500 MG in SODIUM CHLORIDE 0.9% 250 ML IVPB SCH (11:59)
--- NOTE | 2021-07-02 15:32 | P.PN ---
Subjective Progress Note Date: 07/02/21 Principal diagnosis: Generalized weakness, and diminished appetite This is an 81-year-old the patient was Hospital as for COVID 19 related pulmonary infection/pneumonia and shortness of breath and hypoxemic respiratory failure.. The patient came into the emergency department and the patient was having symptoms of COVID 19. The patient tested positive for COVID 19 couple of days ago. The patient's symptom onset was approximately a week ago. He was complaining of fatigue and on and off he was feeling lethargic and confused. He has also diminished appetite and diminished oral intake. He also mentions a coffee no significant shortness of breath. Repeat COVID 19 testing that was done in the emergency tested negative. Patient had normal coagulation profile. White cell count was normal at 11.9 with hemoglobin 15.4. Creatinine was at 1.7 consistent with chronic kidney disease, rest of the electrodes were normal, LDH level was 688 and a CRP level was at 3.4. The chest x-ray was done in the emergency department showed bilateral perihilar infiltrates most on the right. Nevertheless the patient has cardiomegaly. The patient also has bilateral shoulder replacement and the patient has post thoracotomy changes, pacemaker placed and cervical spine fusion with metal plates and screws. The patient is currently on today's of oxygen by nasal cannula. The patient was started on Decadron. Inflammatory markers are low with an LDH level of 688 with a CRP of 3.4. Progesterone level is pending for now. As mentioned, his COVID 19 testing was negative. Comorbid conditions include atrial fibrillation/flutter post-ablation, maintained on Xarelto, CHF with ejection fraction of 35-40% with moderate pulmonary hypertension, history of permanent pacemaker insertion, history of mitral valve repair at the [facility], chronic stage II kidney disease and benign positional vertigo. On 07/02/2021 patient seen in follow-up on medical surgical floor. Appears to be in no acute distress, he is currently on 2 L of oxygen his pulse ox is 92- 93%, he is afebrile, vital signs are stable, has occasional cough, he does get short of breath with exertion, but no acute distress was noted. Patient is currently on empiric antibiotics with azithromycin and Rocephin, he is on inhaled bronchodilators, he is on oral anticoagulation for history of atrial fibrillation. His chest x-ray from admission showed chronic changes and cardiomegaly with the new bilateral multifocal opacities consistent with COVID- 19 pneumonia. He tested negative for COVID-19, his influenza A and B and RSV were also negative. He previously tested positive for COVID-19, and at this stage she could be recovering from his recent COVID-19 infection. Today's labs have been reviewed, his white blood cell count is 6.5, hemoglobin is 14.3, his d-dimer is negative at 0.41, his sodium is 135, potassium is 5.0, chloride is 94, BUN is 52, and creatinine is 1.9, LDH is improving and is down to 249, troponin was negative 3. ProBNP level came back elevated at 10,000, his pro- calcitonin level was negative at 0.21. Overall he states she is feeling a little better today, she had no fever or chills, no nausea or vomiting, no abdominal pain. Objective - Vital Signs Vital signs: Vital Signs Temp 97.7 F 07/02/21 14:00 Pulse 65 07/02/21 14:00 Resp 20 07/02/21 14:00 BP 128/83 07/02/21 14:00 Pulse Ox 92 L 07/02/21 14:00 Intake & Output 07/01/21 07/02/21 07/02/21 18:59 06:59 18:59 Output Total 500 Balance -500 Weight 88.451 kg Output: Urine 500 Other: Voiding Method Urinal Diaper # Voids 0 1 # Bowel Movements 1 - Exam GENERAL EXAM: Alert, very pleasant, 81-year-old white male, 2 L of oxygen with pulse ox of 92-93% comfortable in no apparent distress. HEAD: Normocephalic/atraumatic. EYES: Normal reaction of pupils, equal size. Conjunctiva pink, sclera white. NOSE: Clear with pink turbinates. THROAT: No erythema or exudates. NECK: No masses, no JVD, no thyroid enlargement, no adenopathy. CHEST: No chest wall deformity. Symmetrical expansion. LUNGS: Equal air entry with mild crackles at bilateral bases CVS: Regular rate and rhythm, normal S1 and S2, no gallops, no murmurs, no rubs ABDOMEN: Soft, nontender. No hepatosplenomegaly, normal bowel sounds, no guarding or rigidity. EXTREMITIES: No clubbing, no edema, no cyanosis, 2+ pulses and upper and lower extremities. MUSCULOSKELETAL: Muscle strength and tone normal. SPINE: No scoliosis or deformity SKIN: No rashes CENTRAL NERVOUS SYSTEM: Alert and oriented -3. No focal deficits, tone is normal in all 4 extremities. PSYCHIATRIC: Alert and oriented -3. Appropriate affect. Intact judgment and insight. - Labs CBC & Chem 7: 07/02/21 05:28 12 05:28 Labs: Abnormal Lab Results - Last 24 Hours (Table) 07/01/21 07/01/21 07/02/21 Range/Units 12:40 14:15 05:28 RDW 15.2 H (11.5-14.5) % Immature Gran # 0.05 H (0.00-0.04) X 10*3/uL Lymphocytes # 0.66 L (0.90-5.00) X 10*3/uL Eosinophils # 0 L (0.04-0.35) X 10*3/uL Sodium 132 L (137-145) mmol/L Chloride 95 L (98-107) mmol/L Anion Gap (10.00-18.00) mmol/L BUN 53 H (9-20) mg/dL Creatinine 1.72 H (0.66-1.25) mg/dL Est GFR (CKD-EPI)AfAm (60.0-200.0) Est GFR (CKD-EPI)NonAf (60.0-200.0) BUN/Creatinine Ratio (12.00-20.00) Ratio Glucose 184 H (74-99) mg/dL Lactate Dehydrogenase 688 H (313-618) U/L C-Reactive Protein (0.00-0.80) mg/dL Albumin (3.8-4.9) g/dL Albumin/Globulin Ratio (1.60-3.17) g/dL Procalcitonin 0.21 H (0.02-0.09) ng/mL 07/02/21 Range/Units 05:28 RDW (11.5-14.5) % Immature Gran # (0.00-0.04) X 10*3/uL Lymphocytes # (0.90-5.00) X 10*3/uL Eosinophils # (0.04-0.35) X 10*3/uL Sodium (137-145) mmol/L Chloride 94 L (98-107) mmol/L Anion Gap 20.80 H (10.00-18.00) mmol/L BUN 52.6 H (9-20) mg/dL Creatinine 1.9 H (0.66-1.25) mg/dL Est GFR (CKD-EPI)AfAm 37.3 L (60.0-200.0) Est GFR (CKD-EPI)NonAf 32.2 L (60.0-200.0) BUN/Creatinine Ratio 27.40 H (12.00-20.00) Ratio Glucose 322 H (74-99) mg/dL Lactate Dehydrogenase 249 H (313-618) U/L C-Reactive Protein 4.30 H (0.00-0.80) mg/dL Albumin 3.7 L (3.8-4.9) g/dL Albumin/Globulin Ratio 1.32 L (1.60-3.17) g/dL Procalcitonin (0.02-0.09) ng/mL Assessment and Plan Plan: Assessment: #1. Acute hypoxic respiratory failure related to acute COVID-19 infection, patient had outpatient positive test a few days back, however repeat testing in the ER came Back negative. Chest X-ray showed limited infiltration in the perihilar regions. This could be early COVID-19 related pneumonia versus CHF. Bacterial infection is less likely, remains on 2 L of oxygen, inflammatory markers are not significantly elevated #2. Constitutional symptoms along with diminished appetite, generalized weakness #3. Previous history of mitral valve repair #4. History of progress A. fib post ablation, patient is on Xarelto #5. History of pacemaker insertion #6. Hypertension #7. Chronic bronchial asthma, specified #8. History of neck fusion C1 through C7 #9. Chronic stage III CKD #10. Chronic CHF with systolic dysfunction and ejection fraction of 80%, and mild degree of pulmonary hypertension Plan: Continue oral steroids Continue oral Xarelto Inflammatory markers are improving Procalcitonin level is non-elevated Patient continues on empiric antibiotics Overall breathing better Continue inhaled bronchodilators We'll continue to follow I performed a history & physical examination of the patient and discussed their management with my nurse practitioner, Stephanie Tijerina. I reviewed the nurse practitioner's note and agree with the documented findings and plan of care. Lung sounds are positive for mild crackles throughout the lung short. The findings and the impression was discussed with the patient. I attest to the documentation by the nurse practitioner. Time with Patient: Less than 30
[2021-07-02 19:14] LABS: Glucose,Whole Blood 421 mg/dL (75-99)
[2021-07-02] MEDS: INSULIN ASPART (NovoLOG) 100 UNIT/ML VIAL SQ SCH (19:37)
[2021-07-03 06:57] LABS: Glucose,Whole Blood 276 mg/dL (75-99)
[2021-07-03] MEDS: SYMBICORT 160-4.5 MCG INHALER INHALATION SCH ×2 (07:00→19:39)
[2021-07-03] MEDS: ALBUTEROL HFA INHALER INHALATION SCH ×4 (07:00→19:38)
[2021-07-03] MEDS: AZITHROMYCIN 500 MG in SODIUM CHLORIDE 0.9% 250 ML IVPB SCH (07:26)
[2021-07-03] MEDS: INSULIN ASPART (NovoLOG) 100 UNIT/ML VIAL SQ SCH ×4 (07:26→22:23)
[2021-07-03] MEDS: DILTIAZEM CD 120 MG CAP.ER.24H PO SCH (07:27)
[2021-07-03] MEDS: predniSONE 20 MG TAB PO SCH (07:27)
[2021-07-03] MEDS: PANTOPRAZOLE 40 MG TABLET PO SCH ×2 (07:27→22:20)
[2021-07-03] MEDS: MONTELUKAST 10 MG TAB PO SCH (07:27)
[2021-07-03] MEDS: METOPROLOL SUCCINATE (ER) 100 MG TAB.ER.24H PO SCH (07:27)
[2021-07-03] MEDS: RIVAROXABAN 20 MG TAB PO SCH (07:27)
[2021-07-03] MEDS: ASCORBIC ACID 500 MG TAB PO SCH ×2 (07:27→22:19)
[2021-07-03] MEDS: LOSARTAN 25 MG TAB PO SCH (07:27)
[2021-07-03] MEDS: ZINC SULFATE 220 MG CAP PO SCH (07:27)
--- NOTE | 2021-07-03 09:50 | ECHOF ---
Referral Reason:dyspnea MEASUREMENTS -------- HEIGHT: 165.1 cm WEIGHT: 88.5 kg BP: 133/93 RVIDd: 3.8 cm (< 3.3) IVSd: 1.6 cm (0.6 - 1.1) LVIDd: 4.4 cm (3.9 - 5.3) LVPWd: 1.1 cm (0.6 - 1.1) IVSs: 1.8 cm LVIDs: 3.8 cm LVPWs: 1.2 cm LA Diam: 3.7 cm (2.7 - 3.8) Ao Diam: 3.4 cm (2.0 - 3.7) AV Cusp: 2.1 cm (1.5 - 2.6) LA Diam: 4.7 cm (2.7 - 3.8) RAP: 5.00 mmHg RVSP: 16.14 mmHg FINDINGS -------- Sinus rhythm. This was a technically difficult study with suboptimal apical views. The left ventricular size is normal. There is mild concentric left ventricular hypertrophy. Overa ll left ventricular systolic function is severely impaired with, an EF between 20 - 25 %. Global hy pokinesis The right ventricle is mild to moderately enlarged. The left atrial size is normal. Electronic pacemaker lead seen in the right atrial cavity. 3.0mg of Lumason was utilized for enhancement of images Interatrial and interventricular septum intact. There is no evidence of aortic regurgitation. There is no evidence of aortic stenosis. [id number] mitral regurgitation is present. MV Repair. Mild tricuspid regurgitation present. There is no evidence of pulmonary hypertension. The right v entricular systolic pressure, as measured by Doppler, is 16.14mmHg. There is no pulmonic regurgitation present. The aortic root size is normal. IVC Not well visulized. Echo free space represents a pericardial fat pad. There is no pericardial effusion. CONCLUSIONS -------- 1. The left ventricular size is normal. 2. There is mild concentric left ventricular hypertrophy. 3. Overall left ventricular systolic function is severely impaired with, an EF between 20 - 25 %. 4. Global hypokinesis 5. The right ventricle is mild to moderately enlarged. 6. [id number] mitral regurgitation is present. 7. MV Repair. 8. Mild tricuspid regurgitation present. [employer] OPERATOR: Chiquis Rosario [facility]
[2021-07-03 11:33] LABS: Glucose,Whole Blood 416 mg/dL (75-99)
--- NOTE | 2021-07-03 13:48 | P.PN ---
Subjective Progress Note Date: 07/03/21 Principal diagnosis: sob Overall he states she is feeling a little better today, no fever or chills, no nausea or vomiting, no abdominal pain. Objective - Vital Signs Vital signs: Vital Signs Temp 97.5 F L 07/03/21 09:09 Pulse 68 07/03/21 09:09 Resp 18 07/03/21 09:09 BP 113/75 07/03/21 09:09 Pulse Ox 90 L 07/03/21 09:09 Intake & Output 07/02/21 07/03/21 07/03/21 18:59 06:59 18:59 Intake Total 500 Output Total 550 Balance -50 Intake: IV 200 kvo 200 Oral 300 Output: Urine 550 Other: Voiding Method Urinal Urinal Diaper Diaper - Exam Constitutional: No acute distress, conversant, pleasant Eyes:Anicteric sclerae, moist conjunctiva, no lid-lag, PERRLA, ENMT: Oropharynx clear, no erythema, exudates Neck: Supple, FROM, no masses, or JVD, No carotid bruits, No thyromegaly Lungs: Bilateral diffuse wheezing, Clear to percussion, Normal respiratory effort, no accessory muscle use Cardiovascular: Heart regular in rate and rhythm, No murmurs, gallops, or rubs, No peripheral edema Abdominal: Soft, Nontender, no guarding, rebound or rigidity, Normoactive bowel sounds, No hepatomegaly, No splenomegaly, No palpable mass Skin: Normal temperature, tone, texture, turgor, no induration, No subcutaneous nodules, No rash, lesions, No ulcers Extremities: No digital cyanosis, No clubbing, Pedal pulses intact and symmetrical, Radial pulses intact and symmetrical, No calf tenderness Psychiatric: Alert and oriented to person, place and time, appropriate affect, intact judgement Neuro: Muscles Strength 5/5 in all 4 extremities, Sensation to light touch grossly present throughout, Cranial nerves II-XII grossly intact, no focal sensory deficits - Labs CBC & Chem 7: 07/02/21 05:28 07/02/21 05:28 Labs: Abnormal Lab Results - Last 24 Hours (Table) 07/02/21 07/03/21 07/03/21 Range/Units 19:13 06:50 11:30 POC Glucose (mg/dL) 421 H 276 H 416 H (75-99) mg/dL Assessment and Plan Plan: Acute respiratory failure with hypoxia secondary to bilateral multifocal pneumonia Acute COPD exacerbation secondary to bilateral multifocal pneumonia -O2 supplement to keep Sats above 92% -Covid PCR, RSV and influenza PCR all negative -D-dimer negative -IV antibiotics: Rocephin and azithromycin, Solu-Medrol -Encourage Incentive Spirometry 10-15x hourly while awake -Pulmonology following, appreciate further recommendations. Acute on chronic systolic heart failure with previously known EF of 35-40% Ischemic cardiomyopathy CAD status post pacemaker placement -Telemetry monitoring -Troponins negative [place] [address] -Start diuresis with lasix, he is on home lasix Atrial fibrillation Hypertension Hyperlipidemia -Continuation of daily medication regimen including Xarelto, metoprolol, losartan, and Cardizem. -Monitor vital signs closely. Stage III CKD -Caution using nephrotoxic medications, continued monitoring of renal function throughout hospitalization. Anticipated discharge: 1-2 days Disposition: Home
--- NOTE | 2021-07-03 14:39 | P.PN ---
Subjective Progress Note Date: 07/03/21 This is an 81-year-old the patient was Hospital as for COVID 19 related pulmonary infection/pneumonia and shortness of breath and hypoxemic respiratory failure.. The patient came into the emergency department and the patient was having symptoms of COVID 19. The patient tested positive for COVID 19 couple of days ago. The patient's symptom onset was approximately a week ago. He was complaining of fatigue and on and off he was feeling lethargic and confused. He has also diminished appetite and diminished oral intake. He also mentions a coffee no significant shortness of breath. Repeat COVID 19 testing that was done in the emergency tested negative. Patient had normal coagulation profile. White cell count was normal at 11.9 with hemoglobin 15.4. Creatinine was at 1.7 consistent with chronic kidney disease, rest of the electrodes were normal, LDH level was 688 and a CRP level was at 3.4. The chest x-ray was done in the emergency department showed bilateral perihilar infiltrates most on the right. Nevertheless the patient has cardiomegaly. The patient also has bilateral shoulder replacement and the patient has post thoracotomy changes, pacemaker placed and cervical spine fusion with metal plates and screws. The patient is currently on today's of oxygen by nasal cannula. The patient was started on Decadron. Inflammatory markers are low with an LDH level of 688 with a CRP of 3.4. Progesterone level is pending for now. As mentioned, his COVID 19 testing was negative. Comorbid conditions include atrial fibrillation/flutter post-ablation, maintained on Xarelto, CHF with ejection fraction of 35-40% with moderate pulmonary hypertension, history of permanent pacemaker insertion, history of mitral valve repair at the [facility], chronic stage II kidney disease and benign positional vertigo. On 07/02/2021 patient seen in follow-up on medical surgical floor. Appears to be in no acute distress, he is currently on 2 L of oxygen his pulse ox is 92- 93%, he is afebrile, vital signs are stable, has occasional cough, he does get short of breath with exertion, but no acute distress was noted. Patient is currently on empiric antibiotics with azithromycin and Rocephin, he is on inhaled bronchodilators, he is on oral anticoagulation for history of atrial fibrillation. His chest x-ray from admission showed chronic changes and cardiomegaly with the new bilateral multifocal opacities consistent with COVID- 19 pneumonia. He tested negative for COVID-19, his influenza A and B and RSV were also negative. He previously tested positive for COVID-19, and at this sta she could be recovering from his recent COVID-19 infection. Today's labs have been reviewed, his white blood cell count is 6.5, hemoglobin is 14.3, his d-dimer is negative at 0.41, his sodium is 135, potassium is 5.0, chloride is 94, BUN is 52, and creatinine is 1.9, LDH is improving and is down to 249, troponin was negative 3. ProBNP level came back elevated at 10,000, his pro- calcitonin level was negative at 0.21. Overall he states she is feeling a little better today, she had no fever or chills, no nausea or vomiting, no abdominal pain. On today's evaluation of 07/03/2021, the patient is doing well still on 2 L about 2 by nasal cannula. He is feeling well. No specific complaints. Evaluation for home O2 will be done. Meanwhile, no respiratory difficulties. The patient has been tested possible COVID 19 on outpatient basis. His testing in the hospital was negative and antibodies will be sent to confirm the infection. Meanwhile, the patient is doing quite well for now. He is still on IV Rocephin and Zithromax. He is also on prednisone burst taper starting with 40 mg. He is on long-term medical condition with Xarelto. Blood sugars remain elevated and the medical team has been managing his blood sugar control. The patient is currently on Levemir 10 units daily along with a slight scale coverage. I'm hoping that the switch from IV Solu Medrol to Levemir should help this patient's blood sugar control also. Objective - Vital Signs Vital signs: Vital Signs Temp 97.6 F 07/03/21 13:43 Pulse 80 07/03/21 13:43 Resp 17 07/03/21 13:43 BP 115/70 07/03/21 13:43 Pulse Ox 90 L 07/03/21 13:43 Intake & Output 07/02/21 07/03/21 07/03/21 18:59 06:59 18:59 Intake Total 500 Output Total 550 Balance -50 Intake: IV 200 kvo 200 Oral 300 Output: Urine 550 Other: Voiding Method Urinal Urinal Diaper Diaper - Exam GENERAL EXAM: Alert, very pleasant, 81-year-old white male, 2 L of oxygen with pulse ox of 92-93% comfortable in no apparent distress. HEAD: Normocephalic/atraumatic. EYES: Normal reaction of pupils, equal size. Conjunctiva pink, sclera white. NOSE: Clear with pink turbinates. THROAT: No erythema or exudates. NECK: No masses, no JVD, no thyroid enlargement, no adenopathy. CHEST: No chest wall deformity. Symmetrical expansion. LUNGS: Equal air entry with mild crackles at bilateral bases CVS: Regular rate and rhythm, normal S1 and S2, no gallops, no murmurs, no rubs ABDOMEN: Soft, nontender. No hepatosplenomegaly, normal bowel sounds, no guarding or rigidity. EXTREMITIES: No clubbing, no edema, no cyanosis, 2+ pulses and upper and lower extremities. MUSCULOSKELETAL: Muscle strength and tone normal. SPINE: No scoliosis or deformity SKIN: No rashes CENTRAL NERVOUS SYSTEM: Alert and oriented -3. No focal deficits, tone is normal in all 4 extremities. PSYCHIATRIC: Alert and oriented -3. Appropriate affect. Intact judgment and insight. - Labs CBC & Chem 7: 07/02/21 05:28 07/02/21 05:28 Labs: Abnormal Lab Results - Last 24 Hours (Table) 07/02/21 07/03/21 07/03/21 Range/Units 19:13 06:50 11:30 POC Glucose (mg/dL) 421 H 276 H 416 H (75-99) mg/dL Assessment and Plan Plan: 1 acute COVID 19 infection confirmed she days back and the repeat testing in the emergency came back negative. The patient limited infiltration perihilar. Could be early COVID 19 related pneumonia versus CHF. Less likely bacterial infection. Currently on 2 L about 2 by nasal cannula. Inflammatory markers as well as mildly elevated. The patient is currently stable and remains on 3 L of oxygen by nasal cannula. The patient is currently on prednisone. He was covered apparently with broad-spectrum antibiotics also. Note that his repeat COVID 19 testing is been negative antibodies will be sent. 2 acute hypoxic respiratory failure secondary to above. 3 constitutions symptoms along with diminished appetite and oral intake and generalized weakness secondary to above 4 history of mitral valve repair 5 history of paroxysmal atrial fibrillation/flutter post-ablation and the patient is on long-term articulation with Xarelto 6 history of permanent pacemaker insertion 7 hypertension 8 bronchial asthma 9 history of neck fusion, C1 through C7 10 chronic stage III kidney disease, creatinine stable at 1.7 11 CHF with systolic heart failure with an ejection fraction of around 30%, reevaluate the mitral valve function and the 11th ejection fraction. The patient also has mild degree of pulmonary hypertension. Plan Check pro-calcitonin level was low at the time of admission This patient for home O2 Check COVID 19 antibodies Switch this patient a prednisone burst taper Continue long-term and coagulation with Xarelto Resume all medications Monitor the blood sugar and off for a tighter blood sugar control May discharge home with the next 24 hours. Pulmonary critical care service will sign off the case his condition is stable for now.
[2021-07-03] MEDS: INSULIN DETEMIR (LEVEMIR) 100 UNIT/ML SYR SQ SCH (15:15)
[2021-07-03] MEDS: FUROSEMIDE 10 MG/ML 2 ML VIAL IV SCH ×2 (15:15→22:23)
[2021-07-03 16:25] LABS: Glucose,Whole Blood 313 mg/dL (75-99)
--- NOTE | 2021-07-03 16:56 | P.CRDCN ---
History of Present Illness Consult date: 07/03/21 Chief complaint: Shortness of breath History of present illness: The patient is an 81-year-old female patient with a past medical history signifi cant for permanent atrial fibrillation as well as nonischemic cardiomyopathy cardiomyopathy and also history of permanent pacemaker as well as history of mitral valve repair. The patient was admitted to the hospital with increasing shortness of breath and she was diagnosed as COVID-19 pulmonary infection. Currently she is under the care of the pulmonary/critical care team. Her symptoms started about a week ago. She was experiencing symptoms of being tired and fatigued and has no energy and also she was lethargic last few days. No symptoms of chest pain or chest discomfort. No fever and no chills. The chest x-ray showed bilateral infiltrate. Subsequently she was admitted to the [facility] for further evaluation and management. We requested to see the patient because the patient was on telemetry monitoring. Apparently the nurse was getting a heart rate on the telemetry in the 30s. Reviewing the telemetry strips indicate that the patient was in atrial fibrillation with heart rate in the 70s but for some reason the telemetry was not picking the paced rhythm. The patient does have underlying atrial fibrillation/atrial flutter with ventricular paced rhythm. Beside that hemodynamically internal blood pressure the patient was stable and was not hypotensive. She is on oral anticoagulation for the atrial fibrillation. In the past she underwent atrial fibrillation/atrial flut ter ablation. During this admission she underwent an echocardiogram which revealed cardiomyopathy without significant valvular abnormalities. But the patient seems to be euvolemic at this point. Past Medical History Past Medical History: Atrial Fibrillation, Asthma, Hypertension Additional Past Medical History / Comment(s): See Dr Salas's H&P History of Any Multi-Drug Resistant Organisms: None Reported Past Surgical History: Joint Replacement, Pacemaker Additional Past Surgical History / Comment(s): Mitral valve repair.; 2 shoulder replacements, cataracts, ablasion, neck fusion Past Anesthesia/Blood Transfusion Reactions: No Reported Reaction Additional Past Anesthesia/Blood Transfusion Reaction / Comment(s): pt states little neck movement r/t neck fusion C1-7 Type of Cardiac Device: Permanent Pacemaker Device Placement Date:: 2013 Past Psychological History: No Psychological Hx Reported Past Alcohol Use History: Daily Past Drug Use History: None Reported - Past Family History Daughter(s) Family Medical History: Cancer Additional Family Medical History / Comment(s): Br CA Medications and Allergies Home Medications Medication Instructions Recorded Confirmed Type Furosemide [Lasix] 20 mg PO DAILY 02/08/14 07/01/21 History Montelukast [Singulair] 10 mg PO DAILY 02/08/14 07/01/21 History Metoprolol Succinate (ER) [Toprol 100 mg PO DAILY #90 tab 11/11/17 07/01/21 Rx XL] Colchicine 0.6 mg PO DAILY 07/01/21 07/01/21 History Pantoprazole Sodium [Protonix] 20 mg PO BID 07/01/21 07/01/21 History Rivaroxaban [Xarelto] 15 mg PO DAILY 07/01/21 07/01/21 History dilTIAZem HCL [dilTIAZem HCL 24Hr 120 mg PO DAILY 07/01/21 07/01/21 History ER (Xr)] Allergies Allergy/AdvReac Type Severity Reaction Status Date / Time Penicillins Allergy Rash/Hives Verified 07/01/21 16:25 morphine AdvReac Hallucinati Verified 07/01/21 16:25 ons Physical Exam Vitals: Vital Signs Temp Pulse Resp BP Pulse Ox 07/03/21 13:43 97.6 F 80 17 115/70 90 L 07/03/21 09:09 97.5 F L 68 18 113/75 90 L 07/03/21 02:00 98.0 F 67 19 125/76 92 L 07/02/21 22:48 97.8 F 63 18 123/81 92 L Intake and Output 07/03/21 07/03/21 07/03/21 06:59 14:59 22:59 Intake Total 500 Output Total 550 Balance -50 Intake: IV 200 kvo 200 Oral 300 Output: Urine 550 Other: Voiding Method Urinal Diaper - Constitutional General appearance: no acute distress Results 07/02/21 05:28 07/02/21 05:28 Current Medications Generic Name Dose Route Start Last Admin Trade Name Freq PRN Reason Stop Dose Admin Acetaminophen 650 mg 07/01/21 15:50 Acetaminophen Tab 325 Mg Tab PO Q6HR PRN Mild Pain or Fever > 100.5 Hydrocodone Bitart/Acetaminophen 1 each 07/01/21 15:50 Hydrocodone/Apap 5-325mg 1 Each Tab PO Q4HR PRN Moderate Pain Albuterol Sulfate 2 puff 07/01/21 15:54 Albuterol Hfa Inhaler INHALATION RT-Q6H PRN shortness of breath Albuterol Sulfate 2 puff 07/03/21 08:00 07/03/21 15:05 Albuterol Hfa Inhaler INHALATION 2 puff RT-QID ALEXIS Administration Ascorbic Acid 500 mg 07/01/21 13:15 07/03/21 07:27 Ascorbic Acid 500 Mg Tab PO 500 mg BID ALEXIS Administration Azithromycin 500 mg 07/04/21 09:00 Azithromycin 500 Mg Tab PO DAILY ALEXIS Budesonide/Formoterol Fumarate 2 puff 07/01/21 20:00 07/03/21 07:00 Symbicort 160-4.5 Mcg Inhaler INHALATION 2 puff RT-BID ALEXIS Administration Cholecalciferol 125 mcg 07/01/21 13:15 07/02/21 07:50 Cholecalciferol 125 Mcg (5000 Iu) Tablet PO 125 mcg DAILY ALEXIS Administration Diltiazem HCl 120 mg 07/02/21 09:00 07/03/21 07:27 Diltiazem Cd 120 Mg Cap.Er.24h PO 120 mg DAILY ALEXIS Administration Furosemide 20 mg 07/03/21 14:00 07/03/21 15:15 Furosemide 10 Mg/Ml 2 Ml Vial IV 20 mg Q12HR ALEXIS Administration Ceftriaxone Sodium 1 gm/ 50 mls @ 100 mls/hr 07/01/21 17:30 07/02/21 17:28 Sodium Chloride IVPB 100 mls/hr Q24H ALEXIS Administration Ibuprofen 400 mg 07/01/21 15:50 Ibuprofen 400 Mg Tab PO Q6HR PRN Mild Pain or Fever > 100.5 Insulin Aspart 0 unit 07/02/21 21:00 07/03/21 12:12 Insulin Aspart (Novolog) 100 Unit/Ml Vial SQ 8 unit ACHS ALEXIS Administration Protocol Insulin Detemir 15 unit 07/03/21 14:00 07/03/21 15:15 Insulin Detemir (Levemir) 100 Unit/Ml Syr SQ 15 unit DAILY@0700 ALEXIS Administration Losartan Potassium 25 mg 07/02/21 09:00 07/03/21 07:27 Losartan 25 Mg Tab PO 25 mg DAILY ALEXIS Administration Melatonin 3 mg 07/01/21 15:50 Melatonin 3 Mg Tablet PO HS PRN Insomnia Metoprolol Succinate 100 mg 07/02/21 09:00 07/03/21 07:27 Metoprolol Succinate (Er) 100 Mg Tab.Er.24h PO 100 mg DAILY ALEXIS Administration Montelukast Sodium 10 mg 07/02/21 09:00 07/03/21 07:27 Montelukast 10 Mg Tab PO 10 mg DAILY ALEXIS Administration Naloxone HCl 0.2 mg 07/01/21 14:13 Naloxone 0.4 Mg/Ml 1 Ml Vial IV Q2M PRN Opioid Reversal Ondansetron HCl 4 mg 07/01/21 15:50 Ondansetron 4 Mg/2 Ml Vial IVP Q8HR PRN Nausea And Vomiting Pantoprazole Sodium 20 mg 07/01/21 21:00 07/03/21 07:27 Pantoprazole 40 Mg Tablet PO 20 mg BID ALEXIS Administration Prednisone 40 mg 07/03/21 09:00 07/03/21 07:27 Prednisone 20 Mg Tab PO 40 mg DAILY ALEXIS Administration Rivaroxaban 20 mg 07/02/21 09:00 07/03/21 07:27 Rivaroxaban 20 Mg Tab PO 20 mg DAILY ALEXIS Administration Protocol Zinc Sulfate 220 mg 07/02/21 09:00 07/03/21 07:27 Zinc Sulfate 220 Mg Cap PO 220 mg DAILY ALEXIS Administration Intake and Output 07/03/21 07/03/21 07/03/21 06:59 14:59 22:59 Intake Total 500 Output Total 550 Balance -50 Intake: IV 200 kvo 200 Oral 300 Output: Urine 550 Other: Voiding Method Urinal Diaper 07/02/21 05:28 07/02/21 05:28 Assessment and Plan Assessment: Assessment #1 COVID-19 pneumonia #2 nonischemic cardiomyopathy #3 permanent pacemaker #4 permanent atrial fibrillation/atrial flutter #5 valvular heart disease #6 multiple comorbid conditions Plan #1 continue oral anticoagulation #2 the telemetry strips where review with and showed controlled heart rate. No found bradycardia noted. #3 we'll follow-up with the patient on when necessary case
[2021-07-03 20:34] LABS: Glucose,Whole Blood 171 mg/dL (75-99)
[2021-07-03] MEDS: HYDROcodone/APAP 5-325MG 1 EACH TAB PO PRN (22:24)
[2021-07-04 07:10] LABS: Glucose,Whole Blood 207 mg/dL (75-99)
[2021-07-04] MEDS: predniSONE 20 MG TAB PO SCH (08:19)
[2021-07-04] MEDS: FUROSEMIDE 10 MG/ML 2 ML VIAL IV SCH ×2 (08:20→20:37)
[2021-07-04] MEDS: INSULIN DETEMIR (LEVEMIR) 100 UNIT/ML SYR SQ SCH (08:20)
[2021-07-04] MEDS: INSULIN ASPART (NovoLOG) 100 UNIT/ML VIAL SQ SCH ×4 (08:20→20:37)
[2021-07-04] MEDS: PANTOPRAZOLE 40 MG TABLET PO SCH ×2 (08:21→20:38)
[2021-07-04] MEDS: CHOLECALCIFEROL 125 MCG (5000 IU) TABLET PO SCH (08:21)
[2021-07-04] MEDS: ZINC SULFATE 220 MG CAP PO SCH (08:21)
[2021-07-04] MEDS: MONTELUKAST 10 MG TAB PO SCH (08:21)
[2021-07-04] MEDS: LOSARTAN 25 MG TAB PO SCH (08:21)
[2021-07-04] MEDS: ASCORBIC ACID 500 MG TAB PO SCH ×2 (08:21→20:38)
[2021-07-04] MEDS: AZITHROMYCIN 500 MG TAB PO SCH (08:22)
[2021-07-04] MEDS: DILTIAZEM CD 120 MG CAP.ER.24H PO SCH (08:22)
[2021-07-04] MEDS: RIVAROXABAN 20 MG TAB PO SCH (08:22)
[2021-07-04] MEDS: METOPROLOL SUCCINATE (ER) 100 MG TAB.ER.24H PO SCH (08:22)
[2021-07-04] MEDS: ALBUTEROL HFA INHALER INHALATION SCH ×4 (09:42→20:14)
[2021-07-04] MEDS: SYMBICORT 160-4.5 MCG INHALER INHALATION SCH ×2 (09:42→20:14)
[2021-07-04 11:59] LABS: Glucose,Whole Blood 193 mg/dL (75-99)
--- NOTE | 2021-07-04 13:48 | P.PN ---
Subjective Progress Note Date: 07/04/21 Principal diagnosis: sob Patient is feeling very weak. He continues to have shortness of breath. No chest pain. No dizziness. No fevers or chills. Objective - Vital Signs Vital signs: Vital Signs Temp 98 F 07/04/21 11:36 Pulse 61 07/04/21 11:36 Resp 17 07/04/21 11:36 BP 127/80 07/04/21 11:36 Pulse Ox 90 L 07/04/21 11:36 Intake & Output 07/03/21 07/04/21 07/04/21 18:59 06:59 18:59 Other: Voiding Method Urinal Diaper - Exam Constitutional: No acute distress, conversant, pleasant Eyes:Anicteric sclerae, moist conjunctiva, no lid-lag, PERRLA, ENMT: Oropharynx clear, no erythema, exudates Neck: Supple, FROM, no masses, or JVD, No carotid bruits, No thyromegaly Lungs: Bilateral diffuse wheezing, Clear to percussion, Normal respiratory effort, no accessory muscle use Cardiovascular: Heart regular in rate and rhythm, No murmurs, gallops, or rubs, No peripheral edema Abdominal: Soft, Nontender, no guarding, rebound or rigidity, Normoactive bowel sounds, No hepatomegaly, No splenomegaly, No palpable mass Skin: Normal temperature, tone, texture, turgor, no induration, No subcutaneous nodules, No rash, lesions, No ulcers Extremities: No digital cyanosis, No clubbing, Pedal pulses intact and symmetrical, Radial pulses intact and symmetrical, No calf tenderness Psychiatric: Alert and oriented to person, place and time, appropriate affect, intact judgement Neuro: Muscles Strength 5/5 in all 4 extremities, Sensation to light touch grossly present throughout, Cranial nerves II-XII grossly intact, no focal sensory deficits - Labs CBC & Chem 7: 07/02/21 05:28 07/02/21 05:28 Labs: Abnormal Lab Results - Last 24 Hours (Table) 07/03/21 07/03/21 07/04/21 Range/Units 16:24 20:29 07:09 POC Glucose (mg/dL) 313 H 171 H 207 H (75-99) mg/dL 07/04/21 Range/Units 11:58 POC Glucose (mg/dL) 193 H (75-99) mg/dL Assessment and Plan Plan: Acute respiratory failure with hypoxia secondary to bilateral multifocal pneumonia Acute COPD exacerbation secondary to bilateral multifocal pneumonia -O2 supplement to keep Sats above 92% -Covid PCR, RSV and influenza PCR all negative -D-dimer negative -IV antibiotics: Rocephin and azithromycin, Solu-Medrol -Encourage Incentive Spirometry 10-15x hourly while awake -Pulmonology following, appreciate further recommendations. Acute on chronic systolic heart failure with previously known EF of 35-40%, currently EF 20-25% Ischemic cardiomyopathy CAD status post pacemaker placement -Telemetry monitoring -Troponins negative -Cardiology consulted, [place] [address] -Continue diuresis with lasix, he is on home lasix Atrial fibrillation Hypertension Hyperlipidemia -Continuation of daily medication regimen including Xarelto, metoprolol, losartan, and Cardizem. -Monitor vital signs closely. Stage III CKD -Caution using nephrotoxic medications, continued monitoring of renal function throughout hospitalization. General weakness -PT consult Anticipated discharge: 1-2 days Disposition: Home
[2021-07-04 14:53] LABS: Basophils % (A) 0 %; Eosinophils # (A) 0.1 k/uL (0-0.7); Eosinophils % (A) 0 %; HCT 43.2 % (39.0-53.0); HGB 13.9 gm/dL (13.0-17.5); Lymphocytes # (A) 0.3 k/uL (1.0-4.8); Lymphocytes % (A) 3 %; MCH 28.7 pg (25.0-35.0); MCHC 32.1 g/dL (31.0-37.0); MCV 89.5 fL (80.0-100.0); Mean Platelet Volume 7.9; Monocytes # (A) 0.4 k/uL (0-1.0); Monocytes % (A) 3 %; Neutrophils # (A) 12.5 k/uL (1.3-7.7); Neutrophils % (A) 94 %; Platelet Count 326 k/uL (150-450); RBC 4.83 m/uL (4.30-5.90); RDW 14.6 % (11.5-15.5); WBC 13.3 k/uL (3.8-10.6)
[2021-07-04 15:28] LABS: African American GFR (CKD) 39 (>60 ml/min/1.73 sqM); Anion Gap 13 mmol/L; Blood Urea Nitrogen 74 mg/dL (9-20); Calcium 8.8 mg/dL (8.4-10.2); Carbon Dioxide 22 mmol/L (22-30); Chloride 94 mmol/L (98-107); Glucose 305 mg/dL (74-99); Magnesium 1.9 mg/dL (1.6-2.3); Non-African American GFR(CKD) 34 (>60 ml/min/1.73 sqM); Sodium 129 mmol/L (137-145)
[2021-07-04 17:05] LABS: Glucose,Whole Blood 300 mg/dL (75-99)
[2021-07-04] MEDS ORDERED: CALCIUM CARBONATE 500 MG CHEWABLE PO PRN (17:10)
[2021-07-04 20:10] LABS: Glucose,Whole Blood 272 mg/dL (75-99)
[2021-07-04] MEDS ORDERED: INSULIN ASPART (NovoLOG) 100 UNIT/ML VIAL SQ ONE (20:30)
[2021-07-05 07:06] LABS: Glucose,Whole Blood 195 mg/dL (75-99)
[2021-07-05] MEDS: ALBUTEROL HFA INHALER INHALATION SCH ×4 (08:48→20:29)
[2021-07-05] MEDS: SYMBICORT 160-4.5 MCG INHALER INHALATION SCH ×2 (08:48→20:32)
[2021-07-05 09:27] LABS: HCT 41.6 % (39.6-50.0); HGB 13.9 g/dL (13.0-17.0); MCH 28.7 pg (27.0-32.0); MCHC 33.4 g/dL (32.0-37.0); MCV 85.8 fL (80.0-97.0); Mean Platelet Volume 10.3 fL (9.5-12.2); Platelet Count 293 X 10*3/uL (140-440); RBC 4.85 X 10*6/uL (4.40-5.60); RDW 14.8 % (11.5-14.5); WBC 11.41 X 10*3/uL (4.50-10.00)
[2021-07-05] MEDS: CHOLECALCIFEROL 125 MCG (5000 IU) TABLET PO SCH (09:33)
[2021-07-05] MEDS: LOSARTAN 25 MG TAB PO SCH (09:33)
[2021-07-05] MEDS: DILTIAZEM CD 120 MG CAP.ER.24H PO SCH (09:33)
[2021-07-05] MEDS: METOPROLOL SUCCINATE (ER) 100 MG TAB.ER.24H PO SCH (09:33)
[2021-07-05] MEDS: RIVAROXABAN 20 MG TAB PO SCH (09:33)
[2021-07-05] MEDS: ASCORBIC ACID 500 MG TAB PO SCH ×2 (09:33→22:11)
[2021-07-05] MEDS: ZINC SULFATE 220 MG CAP PO SCH (09:33)
[2021-07-05] MEDS: predniSONE 20 MG TAB PO SCH (09:33)
[2021-07-05] MEDS: INSULIN DETEMIR (LEVEMIR) 100 UNIT/ML SYR SQ SCH (09:34)
[2021-07-05] MEDS: INSULIN ASPART (NovoLOG) 100 UNIT/ML VIAL SQ SCH ×4 (09:34→22:10)
[2021-07-05] MEDS: MONTELUKAST 10 MG TAB PO SCH (09:34)
[2021-07-05] MEDS: AZITHROMYCIN 500 MG TAB PO SCH (09:34)
[2021-07-05] MEDS: FUROSEMIDE 10 MG/ML 2 ML VIAL IV SCH (09:34)
[2021-07-05] MEDS: PANTOPRAZOLE 40 MG TABLET PO SCH ×2 (09:34→22:11)
[2021-07-05 10:15] LABS: African American GFR (CKD) 40.3 (60.0-200.0); Anion Gap 16.1 mmol/L (10.00-18.00); BUN/Creat Ratio 36.44 Ratio (12.00-20.00); Blood Urea Nitrogen 65.6 mg/dL (9.0-27.0); Calcium 9.1 mg/dL (8.7-10.3); Carbon Dioxide 20.9 mmol/L (20.0-27.5); Magnesium 2.1 mg/dL (1.5-2.4); Non-African American GFR(CKD) 34.8 (60.0-200.0); Potassium 4.6 mmol/L (3.5-5.5)
[2021-07-05 11:38] LABS: Glucose,Whole Blood 244 mg/dL (75-99)
--- NOTE | 2021-07-05 13:58 | XR ---
EXAMINATION TYPE: XR chest 1V portable DATE OF EXAM: 07/05/2021 CLINICAL HISTORY: Difficulty breathing progress study. TECHNIQUE: Single AP portable upright view of the chest is obtained. COMPARISON: Chest x-ray from 4 days earlier FINDINGS: Extensive surgical changes to cervical spine is partially imaged. Surgical changes to bila teral shoulders is partially imaged. Old fractures of the posterolateral right mid to lower ribs rede monstrated. Overlying sternal wires redemonstrated. Persistent cardiomegaly with dual lead pacemaker. Chronic par enchymal changes with improved aeration right mid to lower lung. Better visualize small left pleural effusion on current study. IMPRESSION: Chronic changes and cardiomegaly with improved aeration right mid to lower lung. Better visualized small left pleural effusion and associated left basilar atelectasis and/or infiltrate.
--- NOTE | 2021-07-05 15:30 | P.PN ---
Subjective Progress Note Date: 07/05/21 Principal diagnosis: sob Patient feeling worse today. Breathing is harder, can't take a deep breath. O2 requirements went up to 10 L. No pain. No fevers. Continues to feel weak. Objective - Vital Signs Vital signs: Vital Signs Temp 97.7 F 07/05/21 14:00 Pulse 90 07/05/21 14:00 Resp 32 H 07/05/21 14:00 BP 112/77 07/05/21 14:00 Pulse Ox 90 L 07/05/21 14:00 Intake & Output 07/04/21 07/05/21 07/05/21 18:59 06:59 18:59 Other: # Voids 3 5 # Bowel Movements 1 - Exam Constitutional: No acute distress, conversant, pleasant Eyes:Anicteric sclerae, moist conjunctiva, no lid-lag, PERRLA, ENMT: Oropharynx clear, no erythema, exudates Neck: Supple, FROM, no masses, or JVD, No carotid bruits, No thyromegaly Lungs: Bilateral diffuse wheezing, Clear to percussion, Normal respiratory effort, no accessory muscle use Cardiovascular: Heart regular in rate and rhythm, No murmurs, gallops, or rubs, No peripheral edema Abdominal: Soft, Nontender, no guarding, rebound or rigidity, Normoactive bowel sounds, No hepatomegaly, No splenomegaly, No palpable mass Skin: Normal temperature, tone, texture, turgor, no induration, No subcutaneous nodules, No rash, lesions, No ulcers Extremities: No digital cyanosis, No clubbing, Pedal pulses intact and symmetrical, Radial pulses intact and symmetrical, No calf tenderness Psychiatric: Alert and oriented to person, place and time, appropriate affect, intact judgement Neuro: Muscles Strength 5/5 in all 4 extremities, Sensation to light touch grossly present throughout, Cranial nerves II-XII grossly intact, no focal sensory deficits - Labs CBC & Chem 7: 07/05/21 06:17 07/05/21 06:17 Labs: Abnormal Lab Results - Last 24 Hours (Table) 07/04/21 07/04/21 07/04/21 Range/Units 14:41 17:04 20:08 WBC (4.50-10.00) X 10*3/uL RDW (11.5-14.5) % Sodium 129 L (137-145) mmol/L Chloride 94 L (98-107) mmol/L BUN 74 H (9-20) mg/dL Creatinine 1.86 H (0.66-1.25) mg/dL Est GFR (CKD-EPI)AfAm (60.0-200.0) Est GFR (CKD-EPI)NonAf (60.0-200.0) BUN/Creatinine Ratio (12.00-20.00) Ratio Glucose 305 H (74-99) mg/dL POC Glucose (mg/dL) 300 H 272 H (75-99) mg/dL Hemoglobin A1c (4.0-6.0) % 07/05/21 07/05/21 07/05/21 Range/Units 06:17 06:17 06:17 WBC 11.41 H (4.50-10.00) X 10*3/uL RDW 14.8 H (11.5-14.5) % Sodium 132 L (137-145) mmol/L Chloride 95 L (98-107) mmol/L BUN 65.6 H (9-20) mg/dL Creatinine 1.8 H (0.66-1.25) mg/dL Est GFR (CKD-EPI)AfAm 40.3 L (60.0-200.0) Est GFR (CKD-EPI)NonAf 34.8 L (60.0-200.0) BUN/Creatinine Ratio 36.44 H (12.00-20.00) Ratio Glucose 201 H (74-99) mg/dL POC Glucose (mg/dL) (75-99) mg/dL Hemoglobin A1c 8.1 H (4.0-6.0) % 07/05/21 07/05/21 Range/Units 07:00 11:37 WBC (4.50-10.00) X 10*3/uL RDW (11.5-14.5) % Sodium (137-145) mmol/L Chloride (98-107) mmol/L BUN (9-20) mg/dL Creatinine (0.66-1.25) mg/dL Est GFR (CKD-EPI)AfAm (60.0-200.0) Est GFR (CKD-EPI)NonAf (60.0-200.0) BUN/Creatinine Ratio (12.00-20.00) Ratio Glucose (74-99) mg/dL POC Glucose (mg/dL) 195 H 244 H (75-99) mg/dL Hemoglobin A1c (4.0-6.0) % Assessment and Plan Plan: Acute respiratory failure with hypoxia secondary to bilateral multifocal pneumonia Acute COPD exacerbation secondary to bilateral multifocal pneumonia -O2 supplement to keep Sats above 92%, O2 needs up to 10L -Covid PCR, RSV and influenza PCR all negative -D-dimer negative -IV antibiotics: Rocephin and azithromycin, prednisone -Albuterol, symbicort -Encourage Incentive Spirometry 10-15x hourly while awake -Pulmonology recontacted to follow up with patient. Acute on chronic systolic heart failure with previously known EF of 35-40%, curr ently EF 20-25% Ischemic cardiomyopathy CAD status post pacemaker placement -Telemetry monitoring -Troponins negative -Cardiology consulted, [place] [address] -Was diuresed with lasix IV unitl 07/05, currently holding off, looks dry. Atrial fibrillation Hypertension Hyperlipidemia -Continuation of daily medication regimen including Xarelto, metoprolol, losartan, and Cardizem. -Monitor vital signs closely. Stage III CKD -Caution using nephrotoxic medications, continued monitoring of renal function throughout hospitalization. General weakness -PT consulted, recommending rehab Anticipated discharge: 3-4 days Disposition: rehab
[2021-07-05] MEDS ORDERED: VANCOMYCIN IV PER PHARMACY 1 EACH MISC MISCELLANE PRN (15:36)
[2021-07-05] MEDS: HYDROcodone/APAP 5-325MG 1 EACH TAB PO PRN (15:50)
--- NOTE | 2021-07-05 15:59 | P.PN ---
Subjective Progress Note Date: 07/05/21 Principal diagnosis: Generalized weakness, and diminished appetite This is an 81-year-old the patient was Hospital as for COVID 19 related pulmonary infection/pneumonia and shortness of breath and hypoxemic respiratory failure.. The patient came into the emergency department and the patient was having symptoms of COVID 19. The patient tested positive for COVID 19 couple of days ago. The patient's symptom onset was approximately a week ago. He was complaining of fatigue and on and off he was feeling lethargic and confused. He has also diminished appetite and diminished oral intake. He also mentions a coffee no significant shortness of breath. Repeat COVID 19 testing that was done in the emergency tested negative. Patient had normal coagulation profile. White cell count was normal at 11.9 with hemoglobin 15.4. Creatinine was at 1.7 consistent with chronic kidney disease, rest of the electrodes were normal, LDH level was 688 and a CRP level was at 3.4. The chest x-ray was done in the emergency department showed bilateral perihilar infiltrates most on the right. Nevertheless the patient has cardiomegaly. The patient also has bilateral shoulder replacement and the patient has post thoracotomy changes, pacemaker placed and cervical spine fusion with metal plates and screws. The patient is currently on today's of oxygen by nasal cannula. The patient was started on Decadron. Inflammatory markers are low with an LDH level of 688 with a CRP of 3.4. Progesterone level is pending for now. As mentioned, his COVID 19 testing was negative. Comorbid conditions include atrial fibrillation/flutter post-ablation, maintained on Xarelto, CHF with ejection fraction of 35-40% with moderate pulmonary hypertension, history of permanent pacemaker insertion, history of mitral valve repair at the [facility], chronic stage II kidney disease and benign positional vertigo. On 07/02/2021 patient seen in follow-up on medical surgical floor. Appears to be in no acute distress, he is currently on 2 L of oxygen his pulse ox is 92- 93%, he is afebrile, vital signs are stable, has occasional cough, he does get short of breath with exertion, but no acute distress was noted. Patient is currently on empiric antibiotics with azithromycin and Rocephin, he is on inhaled bronchodilators, he is on oral anticoagulation for history of atrial fibrillation. His chest x-ray from admission showed chronic changes and cardiomegaly with the new bilateral multifocal opacities consistent with COVID- 19 pneumonia. He tested negative for COVID-19, his influenza A and B and RSV were also negative. He previously tested positive for COVID-19, and at this stage she could be recovering from his recent COVID-19 infection. Today's labs have been reviewed, his white blood cell count is 6.5, hemoglobin is 14.3, his d-dimer is negative at 0.41, his sodium is 135, potassium is 5.0, chloride is 94, BUN is 52, and creatinine is 1.9, LDH is improving and is down to 249, troponin was negative 3. ProBNP level came back elevated at 10,000, his pro- calcitonin level was negative at 0.21. Overall he states she is feeling a little better today, she had no fever or chills, no nausea or vomiting, no abdominal pain. On 07/05/2021 patient seen in follow-up on medical surgical floor at the request of primary care service in view of worsening hypoxia. Patient came into the emergency department on 07/01/2021 with complaints of fatigue, confusion, decreased appetite and decreased oral intake. He was also reporting cough, and dyspnea. Symptoms were suspicious for COVID-19 infection however patient tested negative for COVID-19 by rapid PCR test, he also tested negative for influenza A and B, and RSV virus. His chest x-ray showed chronic changes, cardiomegaly and bilateral multifocal opacities that were concerning for COVID-19 infection. However his COVID-19 antibody test was negative, patient was not vaccinated against COVID-19. There was a suspicion of pneumonia, possibly community acquired and patient was started on azithromycin and Rocephin, he is working on Xarelto 4 history of anticoagulation, patient has ischemic cardiomyopathy status post pacemaker placement, and EF of 35-40%. He is on Lasix 20 mg twice daily. His proBNP on admission was 10,000. His inflammatory markers were not significantly elevated with LDH of 688, his CRP was 3.4, his pro-calcitonin level was 0.21. D-dimer was negative. He does not have significant leukocytosis on his blood work, today's white blood cell count is 11.4, hemoglobin is 13.9, his sodium is 132, potassium is 4.6, chloride is 95, his anion gap is 16, his BUN is 65, creatinine is 1.8. His net fluid balance is very difficult to estimate as the patient is incontinent of urine, there is no accurate weights recorded. Patient was on 2-5 L of oxygen yesterday, today his O2 saturations were only 85% on 5 L, and subsequently his oxygen flow was increased to 10 L, his pulse ox is 90%, patient is sitting up in the recliner, he is awake and alert, oriented 3, he is bringing up some thick yellow colored phlegm, he had been on a combination of azithromycin and Rocephin since 07/01/2021. No fevers overnight, no hemoptysis, stat repeat chest x-ray has been obtained showing chronic changes and cardiomegaly with improved aeration in the right mid to lower lung, small left pleural effusion and left basilar atelectasis. Objective - Vital Signs Vital signs: Vital Signs Temp 98 F 07/05/21 10:00 Pulse 68 07/05/21 10:00 Resp 23 07/05/21 10:00 BP 126/81 07/05/21 10:00 Pulse Ox 85 L 07/05/21 10:00 Intake & Output 07/04/21 07/05/21 07/05/21 18:59 06:59 18:59 Other: # Voids 3 5 # Bowel Movements 1 - Exam GENERAL EXAM: Alert, very pleasant, 81-year-old white male, 10 L of oxygen with pulse ox of 90% comfortable in no apparent distress. HEAD: Normocephalic/atraumatic. EYES: Normal reaction of pupils, equal size. Conjunctiva pink, sclera white. NOSE: Clear with pink turbinates. THROAT: No erythema or exudates. NECK: No masses, no JVD, no thyroid enlargement, no adenopathy. CHEST: No chest wall deformity. Symmetrical expansion. LUNGS: Equal air entry with mild crackles at bilateral bases CVS: Regular rate and rhythm, normal S1 and S2, no gallops, no murmurs, no rubs ABDOMEN: Soft, nontender. No hepatosplenomegaly, normal bowel sounds, no guarding or rigidity. EXTREMITIES: No clubbing, no edema, no cyanosis, 2+ pulses and upper and lower extremities. MUSCULOSKELETAL: Muscle strength and tone normal. SPINE: No scoliosis or deformity SKIN: No rashes CENTRAL NERVOUS SYSTEM: Alert and oriented -3. No focal deficits, tone is normal in all 4 extremities. PSYCHIATRIC: Alert and oriented -3. Appropriate affect. Intact judgment and insight. - Labs CBC & Chem 7: 07/05/21 06:17 07/05/21 06:17 Labs: Abnormal Lab Results - Last 24 Hours (Table) 07/04/21 07/04/21 07/04/21 Range/Units 14:41 14:41 17:04 WBC 13.3 H (3.8-10.6) k/uL RDW (11.5-14.5) % Neutrophils # 12.5 H (1.3-7.7) k/uL Lymphocytes # 0.3 L (1.0-4.8) k/uL Sodium 129 L (137-145) mmol/L Chloride 94 L (98-107) mmol/L BUN 74 H (9-20) mg/dL Creatinine 1.86 H (0.66-1.25) mg/dL Est GFR (CKD-EPI)AfAm (60.0-200.0) Est GFR (CKD-EPI)NonAf (60.0-200.0) BUN/Creatinine Ratio (12.00-20.00) Ratio Glucose 305 H (74-99) mg/dL POC Glucose (mg/dL) 300 H (75-99) mg/dL Hemoglobin A1c (4.0-6.0) % 07/04/21 07/05/21 07/05/21 Range/Units 20:08 06:17 06:17 WBC 11.41 H (3.8-10.6) k/uL RDW 14.8 H (11.5-14.5) % Neutrophils # (1.3-7.7) k/uL Lymphocytes # (1.0-4.8) k/uL Sodium (137-145) mmol/L Chloride (98-107) mmol/L BUN (9-20) mg/dL Creatinine (0.66-1.25) mg/dL Est GFR (CKD-EPI)AfAm (60.0-200.0) Est GFR (CKD-EPI)NonAf (60.0-200.0) BUN/Creatinine Ratio (12.00-20.00) Ratio Glucose (74-99) mg/dL POC Glucose (mg/dL) 272 H (75-99) mg/dL Hemoglobin A1c 8.1 H (4.0-6.0) % 07/05/21 07/05/21 07/05/21 Range/Units 06:17 07:00 11:37 WBC (3.8-10.6) k/uL RDW (11.5-14.5) % Neutrophils # (1.3-7.7) k/uL Lymphocytes # (1.0-4.8) k/uL Sodium 132 L (137-145) mmol/L Chloride 95 L (98-107) mmol/L BUN 65.6 H (9-20) mg/dL Creatinine 1.8 H (0.66-1.25) mg/dL Est GFR (CKD-EPI)AfAm 40.3 L (60.0-200.0) Est GFR (CKD-EPI)NonAf 34.8 L (60.0-200.0) BUN/Creatinine Ratio 36.44 H (12.00-20.00) Ratio Glucose 201 H (74-99) mg/dL POC Glucose (mg/dL) 195 H 244 H (75-99) mg/dL Hemoglobin A1c (4.0-6.0) % Assessment and Plan Plan: Assessment: #1. Acute hypoxic respiratory failure multifactorial, related to acute exacerbation of systolic CHF, and possibility of pneumonia. Initially patient was suspected to have COVID-19 pneumonia, and reportedly had an outpatient positive test which we don't have a record of, however repeat rapid COVID-19 PCR in the emergency department on 07/01/2021 was negative, and follow-up COVID antibody test is negative. Initial chest x-ray showed cardiomegaly with new bilateral multifocal opacities. #2. Constitutional symptoms along with diminished appetite, generalized weakness #3. Previous history of mitral valve repair #4. History of progress A. fib post ablation, patient is on Xarelto #5. History of pacemaker insertion #6. Hypertension #7. Chronic bronchial asthma, unspecified #8. History of neck fusion C1 through C7 #9. Chronic stage III CKD #10. Chronic CHF with systolic dysfunction and ejection fraction of 35-40%, and mild degree of pulmonary hypertension Plan: Follow-up chest x-ray has been reviewed small left pleural effusion and associated left basilar atelectasis/infiltrate Patient is coughing up thick yellow colored phlegm Clinically patient looks dehydrated We will place the diuretics on hold Send a procalcitonin level and proBNP Broaden antibiotic coverage to Cefepime and Vancomycin, Switch prednisone to IV Solumedrol 60 mg q 6h Continue Xarelto Repeat CXR in am COVID-19 antibody test was negative making possibility of COVID 19 pneumonia less likely I performed a history & physical examination of the patient and discussed their management with my nurse practitioner, Stephanie Tijerina. I reviewed the nurse practitioner's note and agree with the documented findings and plan of care. Lung sounds are positive for mild crackles throughout the lung short. The findings and the impression was discussed with the patient. I attest to the documentation by the nurse practitioner. Time with Patient: Less than 30
[2021-07-05] MEDS: IPRATROPIUM-ALBUTEROL 3 ML NEB INHALATION SCH ×2 (16:00→20:32)
[2021-07-05] MEDS: VANCOMYCIN 1,500 MG in SODIUM CHLORIDE 0.9% 250 ML IVPB SCH (16:42)
[2021-07-05 17:05] LABS: Glucose,Whole Blood 236 mg/dL (75-99)
[2021-07-05] MEDS: methylPREDNISolone SOD SUCCI 125 MG/2 ML VIAL IV SCH (17:21)
[2021-07-05 20:26] LABS: Glucose,Whole Blood 292 mg/dL (75-99)
[2021-07-05] MEDS: CEFEPIME 1 GM in SODIUM CHLORIDE 0.9% 50 ML IVPB SCH (22:11)
[2021-07-06] MEDS: methylPREDNISolone SOD SUCCI 125 MG/2 ML VIAL IV SCH ×5 (00:09→22:54)
[2021-07-06] MEDS: HYDROcodone/APAP 5-325MG 1 EACH TAB PO PRN (04:31)
[2021-07-06 07:18] LABS: Glucose,Whole Blood 234 mg/dL (75-99)
[2021-07-06] MEDS: INSULIN DETEMIR (LEVEMIR) 100 UNIT/ML SYR SQ SCH (08:38)
[2021-07-06] MEDS: INSULIN ASPART (NovoLOG) 100 UNIT/ML VIAL SQ SCH ×4 (08:38→20:42)
[2021-07-06] MEDS: LOSARTAN 25 MG TAB PO SCH (08:39)
[2021-07-06] MEDS: CHOLECALCIFEROL 125 MCG (5000 IU) TABLET PO SCH (08:39)
[2021-07-06] MEDS: CEFEPIME 1 GM in SODIUM CHLORIDE 0.9% 50 ML IVPB SCH ×2 (08:39→20:42)
[2021-07-06] MEDS: DILTIAZEM CD 120 MG CAP.ER.24H PO SCH (08:39)
[2021-07-06] MEDS: ASCORBIC ACID 500 MG TAB PO SCH ×2 (08:39→20:42)
[2021-07-06] MEDS: MONTELUKAST 10 MG TAB PO SCH (08:40)
[2021-07-06] MEDS: METOPROLOL SUCCINATE (ER) 100 MG TAB.ER.24H PO SCH (08:40)
[2021-07-06] MEDS: RIVAROXABAN 20 MG TAB PO SCH (08:40)
[2021-07-06] MEDS: PANTOPRAZOLE 40 MG TABLET PO SCH ×2 (08:40→20:42)
[2021-07-06] MEDS: ZINC SULFATE 220 MG CAP PO SCH (08:40)
[2021-07-06] MEDS: IPRATROPIUM-ALBUTEROL 3 ML NEB INHALATION SCH ×2 (09:51→15:05)
[2021-07-06] MEDS: ALBUTEROL HFA INHALER INHALATION SCH ×4 (09:51→19:31)
[2021-07-06] MEDS: SYMBICORT 160-4.5 MCG INHALER INHALATION SCH ×2 (09:51→19:31)
[2021-07-06] MEDS ORDERED: guaiFENesin-Coden 100-10MG/5ML 10 ML CUP PO PRN (10:03)
[2021-07-06] MEDS: BENZONATATE 100 MG CAP PO SCH ×3 (10:49→22:54)
[2021-07-06 11:05] LABS: Basophils # (A) 0.01 X 10*3/uL (0.00-0.10); Basophils % (A) 0.1 %; Eosinophils # (A) 0 X 10*3/uL (0.04-0.35); Eosinophils % (A) 0 %; HCT 43.2 % (39.6-50.0); Lymphocytes # (A) 0.46 X 10*3/uL (0.90-5.00); Lymphocytes % (A) 3.8 %; MCH 28.3 pg (27.0-32.0); MCHC 32.4 g/dL (32.0-37.0); MCV 87.4 fL (80.0-97.0); Mean Platelet Volume 10.6 fL (9.5-12.2); Monocytes # (A) 0.27 X 10*3/uL (0.20-1.00); Monocytes % (A) 2.2 %; Neutrophils % (A) 93.1 %; Platelet Count 314 X 10*3/uL (140-440); RBC 4.94 X 10*6/uL (4.40-5.60); RDW 15.3 % (11.5-14.5); WBC 12.04 X 10*3/uL (4.50-10.00)
--- NOTE | 2021-07-06 11:27 | P.PN ---
Subjective Progress Note Date: 07/06/21 Principal diagnosis: sob Patient still feeling sob and requring high flow NC. He is desaturating easily with minimal activity. Still with severe cough productive of yellow phlegm. No pain, no fevers. Objective - Vital Signs Vital signs: Vital Signs Temp 97.2 F L 07/06/21 10:00 Pulse 53 L 07/06/21 10:00 Resp 22 07/06/21 10:00 BP 134/92 07/06/21 10:00 Pulse Ox 92 L 07/06/21 10:00 Intake & Output 07/05/21 07/06/21 07/06/21 18:59 06:59 18:59 Intake Total 50 Output Total 100 Balance 50 -100 Intake: Intake, IV Titration 50 Amount cefTRIAXone 1 gm In 50 Sodium Chloride 0.9% 50 ml @ 100 mls/hr IVPB Q24H [facility] Rx#:[id number] Output: Urine 100 Other: Voiding Method Urinal Urinal Diaper Diaper # Voids 4 1 # Bowel Movements 0 - Exam Constitutional: No acute distress, conversant, pleasant Eyes:Anicteric sclerae, moist conjunctiva, no lid-lag, PERRLA, ENMT: Oropharynx clear, no erythema, exudates Neck: Supple, FROM, no masses, or JVD, No carotid bruits, No thyromegaly Lungs: Bilateral diffuse wheezing, Clear to percussion, Normal respiratory effort, no accessory muscle use Cardiovascular: Heart regular in rate and rhythm, No murmurs, gallops, or rubs, No peripheral edema Abdominal: Soft, Nontender, no guarding, rebound or rigidity, Normoactive bowel sounds, No hepatomegaly, No splenomegaly, No palpable mass Skin: Normal temperature, tone, texture, turgor, no induration, No subcutaneous nodules, No rash, lesions, No ulcers Extremities: No digital cyanosis, No clubbing, Pedal pulses intact and symmetrical, Radial pulses intact and symmetrical, No calf tenderness Psychiatric: Alert and oriented to person, place and time, appropriate affect, intact judgement Neuro: Muscles Strength 5/5 in all 4 extremities, Sensation to light touch grossly present throughout, Cranial nerves II-XII grossly intact, no focal sensory deficits - Labs CBC & Chem 7: 07/06/21 08:02 07/05/21 06:17 Labs: Abnormal Lab Results - Last 24 Hours (Table) 07/05/21 07/05/21 07/05/21 Range/Units 06:17 11:37 16:25 WBC (4.50-10.00) X 10*3/uL RDW (11.5-14.5) % Immature Gran # (0.00-0.04) X 10*3/uL Neutrophils # (1.80-7.70) X 10*3/uL Lymphocytes # (0.90-5.00) X 10*3/uL Eosinophils # (0.04-0.35) X 10*3/uL POC Glucose (mg/dL) 244 H (75-99) mg/dL Hemoglobin A1c 8.1 H (4.0-6.0) % Procalcitonin 0.15 H (0.02-0.09) ng/mL 07/05/21 07/05/21 07/06/21 Range/Units 17:04 20:22 07:16 WBC (4.50-10.00) X 10*3/uL RDW (11.5-14.5) % Immature Gran # (0.00-0.04) X 10*3/uL Neutrophils # (1.80-7.70) X 10*3/uL Lymphocytes # (0.90-5.00) X 10*3/uL Eosinophils # (0.04-0.35) X 10*3/uL POC Glucose (mg/dL) 236 H 292 H 234 H (75-99) mg/dL Hemoglobin A1c (4.0-6.0) % Procalcitonin (0.02-0.09) ng/mL 07/06/21 Range/Units 08:02 WBC 12.04 H (4.50-10.00) X 10*3/uL RDW 15.3 H (11.5-14.5) % Immature Gran # 0.10 H (0.00-0.04) X 10*3/uL Neutrophils # 11.20 H (1.80-7.70) X 10*3/uL Lymphocytes # 0.46 L (0.90-5.00) X 10*3/uL Eosinophils # 0 L (0.04-0.35) X 10*3/uL POC Glucose (mg/dL) (75-99) mg/dL Hemoglobin A1c (4.0-6.0) % Procalcitonin (0.02-0.09) ng/mL Assessment and Plan Plan: Acute respiratory failure with hypoxia secondary to bilateral multifocal pneumonia likely bacterial. COVID PCR and antibody test negative. Acute COPD exacerbation secondary to bilateral multifocal pneumonia -O2 supplement to keep Sats above 92%, O2 needs up to 10L -Covid PCR, RSV and influenza PCR all negative -D-dimer negative -IV antibiotics expanded by pulm on 07/05 to cefepime and vanc due to worsening hypoxia -He was switched back to IV steroids from oral on 07/05 due to worsening hypoxia -Albuterol, symbicort -Encourage Incentive Spirometry 10-15x hourly while awake Acute on chronic systolic heart failure with previously known EF of 35-40%, currently EF 20-25% Ischemic cardiomyopathy CAD status post pacemaker placement -Telemetry monitoring -Troponins negative -Cardiology consulted, [place] [address] -Was diuresed with lasix IV until 07/05, currently holding off, looks dry. Atrial fibrillation Hypertension Hyperlipidemia -Continuation of daily medication regimen including Xarelto, metoprolol, losartan, and Cardizem. -Monitor vital signs closely. Stage III CKD -Caution using nephrotoxic medications, continued monitoring of renal function throughout hospitalization. General weakness -PT consulted, recommending rehab Anticipated discharge: 3-4 days Disposition: rehab
[2021-07-06 11:42] LABS: African American GFR (CKD) 37.7 (60.0-200.0); Anion Gap 16.1 mmol/L (10.00-18.00); BUN/Creat Ratio 37.21 Ratio (12.00-20.00); Blood Urea Nitrogen 70.7 mg/dL (9.0-27.0); Calcium 9.2 mg/dL (8.7-10.3); Carbon Dioxide 20.9 mmol/L (20.0-27.5); Magnesium 2.3 mg/dL (1.5-2.4); Non-African American GFR(CKD) 32.6 (60.0-200.0); Potassium 5.2 mmol/L (3.5-5.5)
[2021-07-06 11:46] LABS: Glucose,Whole Blood 240 mg/dL (75-99)
--- NOTE | 2021-07-06 12:04 | P.PN ---
Subjective Progress Note Date: 07/06/21 Principal diagnosis: Hypoxemic respiratory failure This is an 81-year-old the patient was Hospital as for COVID 19 related pulmonary infection/pneumonia and shortness of breath and hypoxemic respiratory failure.. The patient came into the emergency department and the patient was having symptoms of COVID 19. The patient tested positive for COVID 19 couple of days ago. The patient's symptom onset was approximately a week ago. He was complaining of fatigue and on and off he was feeling lethargic and confused. He has also diminished appetite and diminished oral intake. He also mentions a coffee no significant shortness of breath. Repeat COVID 19 testing that was done in the emergency tested negative. Patient had normal coagulation profile. White cell count was normal at 11.9 with hemoglobin 15.4. Creatinine was at 1.7 consistent with chronic kidney disease, rest of the electrodes were normal, LDH level was 688 and a CRP level was at 3.4. The chest x-ray was done in the emergency department showed bilateral perihilar infiltrates most on the right. Nevertheless the patient has cardiomegaly. The patient also has bilateral shoulder replacement and the patient has post thoracotomy changes, pacemaker placed and cervical spine fusion with metal plates and screws. The patient is currently on today's of oxygen by nasal cannula. The patient was started on Decadron. Inflammatory markers are low with an LDH level of 688 with a CRP of 3.4. Progesterone level is pending for now. As mentioned, his COVID 19 testing was negative. Comorbid conditions include atrial fibrillation/flutter post-ablation, maintained on Xarelto, CHF with ejection fraction of 35-40% with moderate pulmonary hypertension, history of permanent pacemaker insertion, history of mitral valve repair at the [facility], chronic stage II kidney disease and benign positional vertigo. On 07/02/2021 patient seen in follow-up on medical surgical floor. Appears to be in no acute distress, he is currently on 2 L of oxygen his pulse ox is 92- 93%, he is afebrile, vital signs are stable, has occasional cough, he does get short of breath with exertion, but no acute distress was noted. Patient is currently on empiric antibiotics with azithromycin and Rocephin, he is on inhaled bronchodilators, he is on oral anticoagulation for history of atrial fibrillation. His chest x-ray from admission showed chronic changes and cardiomegaly with the new bilateral multifocal opacities consistent with COVID- 19 pneumonia. He tested negative for COVID-19, his influenza A and B and RSV were also negative. He previously tested positive for COVID-19, and at this stage she could be recovering from his recent COVID-19 infection. Today's labs have been reviewed, his white blood cell count is 6.5, hemoglobin is 14.3, his d-dimer is negative at 0.41, his sodium is 135, potassium is 5.0, chloride is 94, BUN is 52, and creatinine is 1.9, LDH is improving and is down to 249, troponin was negative 3. ProBNP level came back elevated at 10,000, his pro- calcitonin level was negative at 0.21. Overall he states she is feeling a little better today, she had no fever or chills, no nausea or vomiting, no abdominal pain. On 07/05/2021 patient seen in follow-up on medical surgical floor at the request of primary care service in view of worsening hypoxia. Patient came into the emergency department on 07/01/2021 with complaints of fatigue, confusion, decreased appetite and decreased oral intake. He was also reporting cough, and dyspnea. Symptoms were suspicious for COVID-19 infection however patient tested negative for COVID-19 by rapid PCR test, he also tested negative for influenza A and B, and RSV virus. His chest x-ray showed chronic changes, cardiomegaly and bilateral multifocal opacities that were concerning for COVID-19 infection. However his COVID-19 antibody test was negative, patient was not vaccinated against COVID-19. There was a suspicion of pneumonia, possibly community acquired and patient was started on azithromycin and Rocephin, he is working on Xarelto 4 history of anticoagulation, patient has ischemic cardiomyopathy status post pacemaker placement, and EF of 35-40%. He is on Lasix 20 mg twice daily. His proBNP on admission was 10,000. His inflammatory markers were not significantly elevated with LDH of 688, his CRP was 3.4, his pro-calcitonin level was 0.21. D-dimer was negative. He does not have significant leukocytosis on his blood work, today's white blood cell count is 11.4, hemoglobin is 13.9, his sodium is 132, potassium is 4.6, chloride is 95, his anion gap is 16, his BUN is 65, creatinine is 1.8. His net fluid balance is very difficult to estimate as the patient is incontinent of urine, there is no accurate weights recorded. Patient was on 2-5 L of oxygen yesterday, today his O2 saturations were only 85% on 5 L, and subsequently his oxygen flow was increased to 10 L, his pulse ox is 90%, patient is sitting up in the recliner, he is awake and alert, oriented 3, he is bringing up some thick yellow colored phlegm, he had been on a combination of azithromycin and Rocephin since 07/01/2021. No fevers overnight, no hemoptysis, stat repeat chest x-ray has been obtained showing chronic changes and cardiomegaly with improved aeration in the right mid to lower lung, small left pleural effusion and left basilar atelectasis. Patient seen today 07/06/2021 in follow-up on the regular medical floor. He is currently sitting up in a chair at the bedside. He is dyspneic on minimal conversation. Dyspneic on minimal exertion. He is currently on 15 L high flow nasal cannula +100% nonrebreather mask. When the mask is off his O2 saturations dropped into the 70s. Currentlyat 92%. He is afebrile. Hemodynamically stab le. chest x-ray continued to show chronic changes and cardiomegaly with improved aeration in the right mid to lower lung. Better visualization of a small left pleural effusion and associated left basilar atelectasis/infiltrate. white count 12.0. Hemoglobin 14.0. Lymphocytes 0.46. Sodium 131 potassium 5.2. Creatinine 1.9. Procalcitonin 0.15. Scanned report from outside source revealed a positive COVID-19 test on 06/30/2021 however he tested negative here on 07/01/2021 and he has a negative antibody screen from 07/03/2021. He remains on antibiotics in the form of cefepime and vancomycin. Continued on DuoNeb inhalations, Symbicort, IV Solu-Medrol. Sputum culture pending. Objective - Vital Signs Vital signs: Vital Signs Temp 97.2 F L 07/06/21 10:00 Pulse 53 L 07/06/21 10:00 Resp 22 07/06/21 10:00 BP 134/92 07/06/21 10:00 Pulse Ox 92 L 07/06/21 10:00 Intake & Output 07/05/21 07/06/21 07/06/21 18:59 06:59 18:59 Intake Total 50 Output Total 100 Balance 50 -100 Intake: Intake, IV Titration 50 Amount cefTRIAXone 1 gm In 50 Sodium Chloride 0.9% 50 ml @ 100 mls/hr IVPB Q24H [facility] Rx#:[id number] Output: Urine 100 Other: Voiding Method Urinal Urinal Diaper Diaper # Voids 4 1 # Bowel Movements 0 - Exam GENERAL EXAM: Alert, 81-year-old male patient, 15 L of high flow oxygen +100% nonrebreather mask with pulse ox of 92%, in mild respiratory distress. HEAD: Normocephalic/atraumatic. EYES: Normal reaction of pupils, equal size. Conjunctiva pink, sclera white. NOSE: Clear with pink turbinates. THROAT: No erythema or exudates. NECK: No masses, no JVD, no thyroid enlargement, no adenopathy. CHEST: No chest wall deformity. Symmetrical expansion. LUNGS: Equal air entry with mild crackles at bilateral bases CVS: Regular rate and rhythm, normal S1 and S2, no gallops, no murmurs, no rubs ABDOMEN: Soft, nontender. No hepatosplenomegaly, normal bowel sounds, no gu arding or rigidity. EXTREMITIES: No clubbing, no edema, no cyanosis, 2+ pulses and upper and lower e xtremities. MUSCULOSKELETAL: Muscle strength and tone normal. SPINE: No scoliosis or deformity SKIN: No rashes CENTRAL NERVOUS SYSTEM: No focal deficits, tone is normal in all 4 extremities. PSYCHIATRIC: Alert and oriented -3. Appropriate affect. Intact judgment and insight. - Labs CBC & Chem 7: 07/06/21 08:02 07/06/21 08:02 Labs: Abnormal Lab Results - Last 24 Hours (Table) 07/05/21 07/05/21 07/05/21 Range/Units 06:17 16:25 17:04 WBC (4.50-10.00) X 10*3/uL RDW (11.5-14.5) % Immature Gran # (0.00-0.04) X 10*3/uL Neutrophils # (1.80-7.70) X 10*3/uL Lymphocytes # (0.90-5.00) X 10*3/uL Eosinophils # (0.04-0.35) X 10*3/uL Sodium (135-145) mmol/L Chloride (96-109) mmol/L BUN (9.0-27.0) mg/dL Creatinine (0.6-1.5) mg/dL Est GFR (CKD-EPI)AfAm (60.0-200.0) Est GFR (CKD-EPI)NonAf (60.0-200.0) BUN/Creatinine Ratio (12.00-20.00) Ratio Glucose (70-110) mg/dL POC Glucose (mg/dL) 236 H (75-99) mg/dL Hemoglobin A1c 8.1 H (4.0-6.0) % Procalcitonin 0.15 H (0.02-0.09) ng/mL 07/05/21 07/06/21 07/06/21 Range/Units 20:22 07:16 08:02 WBC 12.04 H (4.50-10.00) X 10*3/uL RDW 15.3 H (11.5-14.5) % Immature Gran # 0.10 H (0.00-0.04) X 10*3/uL Neutrophils # 11.20 H (1.80-7.70) X 10*3/uL Lymphocytes # 0.46 L (0.90-5.00) X 10*3/uL Eosinophils # 0 L (0.04-0.35) X 10*3/uL Sodium (135-145) mmol/L Chloride (96-109) mmol/L BUN (9.0-27.0) mg/dL Creatinine (0.6-1.5) mg/dL Est GFR (CKD-EPI)AfAm (60.0-200.0) Est GFR (CKD-EPI)NonAf (60.0-200.0) BUN/Creatinine Ratio (12.00-20.00) Ratio Glucose (70-110) mg/dL POC Glucose (mg/dL) 292 H 234 H (75-99) mg/dL Hemoglobin A1c (4.0-6.0) % Procalcitonin (0.02-0.09) ng/mL 07/06/21 07/06/21 Range/Units 08:02 11:38 WBC (4.50-10.00) X 10*3/uL RDW (11.5-14.5) % Immature Gran # (0.00-0.04) X 10*3/uL Neutrophils # (1.80-7.70) X 10*3/uL Lymphocytes # (0.90-5.00) X 10*3/uL Eosinophils # (0.04-0.35) X 10*3/uL Sodium 131 L (135-145) mmol/L Chloride 94 L (96-109) mmol/L BUN 70.7 H (9.0-27.0) mg/dL Creatinine 1.9 H (0.6-1.5) mg/dL Est GFR (CKD-EPI)AfAm 37.7 L (60.0-200.0) Est GFR (CKD-EPI)NonAf 32.6 L (60.0-200.0) BUN/Creatinine Ratio 37.21 H (12.00-20.00) Ratio Glucose 246 H (70-110) mg/dL POC Glucose (mg/dL) 240 H (75-99) mg/dL Hemoglobin A1c (4.0-6.0) % Procalcitonin (0.02-0.09) ng/mL Assessment and Plan Assessment: 1 Acute hypoxic respiratory failure multifactorial, related to acute exacerbation of systolic CHF, and possibility of pneumonia. Initially patient was suspected to have COVID-19 pneumonia, and reportedly had an outpatient positive test which we have a record of, however repeat rapid COVID-19 PCR in the emergency department on 07/01/2021 was negative, and follow-up COVID antibody test is negative. Initial chest x-ray showed cardiomegaly with new bilateral multifocal opacities. Currently requiring 15 L high flow nasal cannula +100% nonrebreather mask to maintain O2 saturations in the low 90s. Pro- calcitonin 0.15. Currently on vancomycin and cefepime. We'll check legionella antigen 2 Constitutional symptoms along with diminished appetite, generalized weakness 3 Previous history of mitral valve repair 4 History of progress A. fib post ablation, patient is on Xarelto 5 History of pacemaker insertion 6 Hypertension 7 Chronic bronchial asthma, unspecified 8 History of neck fusion C1 through C7 9 Chronic stage III CKD 10 Chronic CHF with systolic dysfunction and ejection fraction of 35-40%, and mild degree of pulmonary hypertension Plan: the patient was seen and evaluated Currently on 15 L high flow nasal cannula +100% nonrebreather mask Initiated on vancomycin and cefepime Continued on bronchodilators, IV Solu-Medrol Anticoagulated with Xarelto Check urine legionella antigen Prognosis is guarded DO NOT RESUSCITATE/DO NOT INTUBATE CODE STATUS We will continue to follow I, the cosigning physician, performed a history & physical examination of the patient. Lungs sounds with crackles in the bilateral posterior bases. Maintaining O2 saturations in the 90s on 15 L high flow nasal cannula +100% nonrebreather mask. I discussed the assessment and plan of care with my nurse practitioner, Lily Murray. I attest to the above note as dictated by her.
[2021-07-06 16:33] LABS: Glucose,Whole Blood 355 mg/dL (75-99)
[2021-07-06 20:05] LABS: Glucose,Whole Blood 293 mg/dL (75-99)
[2021-07-07] MEDS: methylPREDNISolone SOD SUCCI 125 MG/2 ML VIAL IV SCH ×2 (05:26→12:24)
[2021-07-07 07:20] LABS: Glucose,Whole Blood 298 mg/dL (75-99)
[2021-07-07] MEDS: ALBUTEROL HFA INHALER INHALATION SCH ×4 (07:30→20:12)
[2021-07-07] MEDS: SYMBICORT 160-4.5 MCG INHALER INHALATION SCH ×2 (07:34→20:12)
[2021-07-07] MEDS: INSULIN ASPART (NovoLOG) 100 UNIT/ML VIAL SQ SCH ×4 (08:02→21:38)
[2021-07-07] MEDS: INSULIN DETEMIR (LEVEMIR) 100 UNIT/ML SYR SQ SCH (08:02)
[2021-07-07] MEDS: DILTIAZEM CD 120 MG CAP.ER.24H PO SCH (08:03)
[2021-07-07] MEDS: MONTELUKAST 10 MG TAB PO SCH (08:03)
[2021-07-07] MEDS: RIVAROXABAN 20 MG TAB PO SCH (08:03)
[2021-07-07] MEDS: METOPROLOL SUCCINATE (ER) 100 MG TAB.ER.24H PO SCH (08:03)
[2021-07-07] MEDS: BENZONATATE 100 MG CAP PO SCH ×3 (08:03→21:38)
[2021-07-07] MEDS: ZINC SULFATE 220 MG CAP PO SCH (08:03)
[2021-07-07] MEDS: ASCORBIC ACID 500 MG TAB PO SCH ×2 (08:03→21:38)
[2021-07-07] MEDS: CHOLECALCIFEROL 125 MCG (5000 IU) TABLET PO SCH (08:03)
[2021-07-07] MEDS: LOSARTAN 25 MG TAB PO SCH (08:03)
[2021-07-07] MEDS: PANTOPRAZOLE 40 MG TABLET PO SCH ×2 (08:03→21:38)
[2021-07-07 09:32] LABS: Basophils # (A) 0.03 X 10*3/uL (0.00-0.10); Basophils % (A) 0.2 %; Eosinophils # (A) 0 X 10*3/uL (0.04-0.35); Eosinophils % (A) 0 %; HCT 42.3 % (39.6-50.0); HGB 13.6 g/dL (13.0-17.0); Lymphocytes # (A) 0.32 X 10*3/uL (0.90-5.00); Lymphocytes % (A) 1.8 %; MCH 27.9 pg (27.0-32.0); MCHC 32.2 g/dL (32.0-37.0); MCV 86.7 fL (80.0-97.0); Mean Platelet Volume 10.6 fL (9.5-12.2); Monocytes # (A) 0.54 X 10*3/uL (0.20-1.00); Neutrophils # (A) 17.06 X 10*3/uL (1.80-7.70); Neutrophils % (A) 94.4 %; Platelet Count 341 X 10*3/uL (140-440); RBC 4.88 X 10*6/uL (4.40-5.60); RDW 15.1 % (11.5-14.5); WBC 18.06 X 10*3/uL (4.50-10.00)
[2021-07-07] MEDS: CEFEPIME 1 GM in SODIUM CHLORIDE 0.9% 50 ML IVPB SCH ×2 (10:26→20:24)
[2021-07-07 11:23] LABS: African American GFR (CKD) 40.6 (60.0-200.0); Anion Gap 14.8 mmol/L (10.00-18.00); BUN/Creat Ratio 42.4 Ratio (12.00-20.00); Blood Urea Nitrogen 75.9 mg/dL (9.0-27.0); Calcium 9.2 mg/dL (8.7-10.3); Carbon Dioxide 21.6 mmol/L (20.0-27.5); Magnesium 2.4 mg/dL (1.5-2.4); Potassium 5.4 mmol/L (3.5-5.5)
[2021-07-07 11:31] LABS: Glucose,Whole Blood 350 mg/dL (75-99)
--- NOTE | 2021-07-07 12:15 | P.PN ---
Subjective Progress Note Date: 07/07/21 Principal diagnosis: sob Brief hx: 81-year-old male with a past medical history of CAD status post pacemaker placement, ischemic cardiomyopathy, chronic systolic heart failure with previously known EF of 35-40%, atrial fibrillation on anticoagulation with Xarelto, hypertension, hyperlipidemia, CKD stage III, and COPD not home oxygen dependent. Patient presented to the emergency department with a chief complaint of shortness of breath, nonproductive cough, weakness, and fatigue 1 week. In addition patient reports decreased appetite and episodes of confusion. Patient states the symptoms began approximately 3-5 days ago and worsened over the past couple days. Patient is unvaccinated for Covid. He denies any known fevers, chills, diaphoresis, chest pain, palpitations, abdominal pain, nausea, vomiting, or experiencing any pain/swelling/weakness in his extremities. He was seen and fully evaluated in the emergency department. He was found to have leukocytosis with WBC count of 11.9, Hyponatremia with sodium of 132, hypochloremia with chloride of 95, renal function consistent with CKD with BUN 53, creatinine 1.72, and GFR of 37 (slightly above baseline creatinine). Inflammatory markers elevated with CRP 3.4 and LDH of 688, d-dimer pending. Covid PCR negative. Chest x-ray revealing chronic changes and cardiomegaly with bilateral multifocal opacities concerning for Covid 19 infection. EKG revealing a ventricular paced rhythm at 80 bpm with underlying atrial flutter. Patient admitted under our services with consultation to pulmonology. Patient was a poor historian regarding timelines and some of his medical history, however he was alert to person, place, time, and situation and was able to verify daughter's phone number Trena, a message was left on her voicemail as there was no answer on phone at this time. After the admission he started showing improvement but later he started to desaturate and was requiring NRB to keep sats above 92%. 07/07 Patient still having sob. He is still requiring high flow NC. Still with cough productive of yellow phlegm. Objective - Vital Signs Vital signs: Vital Signs Temp 98.1 F 07/07/21 10:00 Pulse 81 07/07/21 10:00 Resp 24 07/07/21 10:00 BP 151/92 07/07/21 10:00 Pulse Ox 92 L 07/07/21 10:00 Intake & Output 07/06/21 07/07/21 07/07/21 18:59 06:59 18:59 Intake Total 650 Output Total 600 Balance 50 Intake: Intake, IV Titration 50 Amount Cefepime 1 gm In Sodium 50 Chloride 0.9% 50 ml @ 12. 5 mls/hr IVPB Q12HR [facility] Rx#:[id number] Oral 600 Output: Urine 600 Other: Voiding Method Urinal Urinal Urinal Diaper Diaper - Exam Constitutional: No acute distress, conversant, pleasant Eyes:Anicteric sclerae, moist conjunctiva, no lid-lag, PERRLA, ENMT: Oropharynx clear, no erythema, exudates Neck: Supple, FROM, no masses, or JVD, No carotid bruits, No thyromegaly Lungs: Bilateral diffuse wheezing, Clear to percussion, Normal respiratory effort, no accessory muscle use Cardiovascular: Heart regular in rate and rhythm, No murmurs, gallops, or rubs, No peripheral edema Abdominal: Soft, Nontender, no guarding, rebound or rigidity, Normoactive bowel sounds, No hepatomegaly, No splenomegaly, No palpable mass Skin: Normal temperature, tone, texture, turgor, no induration, No subcutaneous nodules, No rash, lesions, No ulcers Extremities: No digital cyanosis, No clubbing, Pedal pulses intact and symmetrical, Radial pulses intact and symmetrical, No calf tenderness Psychiatric: Alert and oriented to person, place and time, appropriate affect, intact judgement Neuro: Muscles Strength 5/5 in all 4 extremities, Sensation to light touch grossly present throughout, Cranial nerves II-XII grossly intact, no focal sensory deficits - Labs CBC & Chem 7: 07/07/21 06:34 07/07/21 06:34 Labs: Abnormal Lab Results - Last 24 Hours (Table) 07/06/21 07/06/21 07/07/21 Range/Units 16:31 20:04 06:34 WBC 18.06 H (4.50-10.00) X 10*3/uL RDW 15.1 H (11.5-14.5) % Immature Gran # 0.11 H (0.00-0.04) X 10*3/uL Neutrophils # 17.06 H (1.80-7.70) X 10*3/uL Lymphocytes # 0.32 L (0.90-5.00) X 10*3/uL Eosinophils # 0 L (0.04-0.35) X 10*3/uL Sodium (135-145) mmol/L BUN (9.0-27.0) mg/dL Creatinine (0.6-1.5) mg/dL Est GFR (CKD-EPI)AfAm (60.0-200.0) Est GFR (CKD-EPI)NonAf (60.0-200.0) BUN/Creatinine Ratio (12.00-20.00) Ratio Glucose (70-110) mg/dL POC Glucose (mg/dL) 355 H 293 H (75-99) mg/dL 07/07/21 07/07/21 07/07/21 Range/Units 06:34 07:18 11:30 WBC (4.50-10.00) X 10*3/uL RDW (11.5-14.5) % Immature Gran # (0.00-0.04) X 10*3/uL Neutrophils # (1.80-7.70) X 10*3/uL Lymphocytes # (0.90-5.00) X 10*3/uL Eosinophils # (0.04-0.35) X 10*3/uL Sodium 133 L (135-145) mmol/L BUN 75.9 H (9.0-27.0) mg/dL Creatinine 1.8 H (0.6-1.5) mg/dL Est GFR (CKD-EPI)AfAm 40.6 L (60.0-200.0) Est GFR (CKD-EPI)NonAf 35.0 L (60.0-200.0) BUN/Creatinine Ratio 42.40 H (12.00-20.00) Ratio Glucose 267 H (70-110) mg/dL POC Glucose (mg/dL) 298 H 350 H (75-99) mg/dL Microbiology - Last 24 Hours (Table) 07/06/21 08:58 Gram Stain - Preliminary Sputum Sputum Culture - Preliminary Assessment and Plan Plan: Acute respiratory failure with hypoxia secondary to bilateral multifocal pneumonia likely bacterial. COVID PCR and antibody test negative. Acute COPD exacerbation secondary to bilateral multifocal pneumonia -O2 supplement to keep Sats above 92%, O2 needs up to 15L -Covid PCR, RSV and influenza PCR all negative -D-dimer negative -Sent sputum cx on 07/06, will follow -IV antibiotics expanded by pulm on 07/05 to cefepime and vanc due to worsening hypoxia -He was switched back to IV steroids from oral on 07/05 due to worsening hypoxia -Albuterol, symbicort -Encourage Incentive Spirometry 10-15x hourly while awake Acute on chronic systolic heart failure with previously known EF of 35-40%, currently EF 20-25% Ischemic cardiomyopathy CAD status post pacemaker placement -Telemetry monitoring -Troponins negative -Cardiology consulted, [place] [id number] -Was diuresed with lasix IV until 07/05, currently holding off, looks dry. Newly found DM 2 -A1c at 8 -Will increase levemir dose to 26 today, was on 18 but BG was not controlled -SSI -Would discharge on oral hypoglycemics Atrial fibrillation Hypertension Hyperlipidemia -Continuation of daily medication regimen including Xarelto, metoprolol, losartan, and Cardizem. -Monitor vital signs closely. Stage III CKD -Caution using nephrotoxic medications, continued monitoring of renal function throughout hospitalization. General weakness -PT consulted, recommending rehab Anticipated discharge: 3-4 days Disposition: rehab
--- NOTE | 2021-07-07 12:25 | XR ---
EXAMINATION TYPE: XR chest 1V portable DATE OF EXAM: 07/07/2021 Comparison: 07/05/2021 Clinical History: 81 year-old male shortness of breath, dyspnea. COVID positive. Findings: ADC of hardware and posterior cervical fusion hardware. Median sternotomy wires. Bilateral total shou lder arthroplasty is partially visualized. Old right-sided rib fracture deformities. Heart mildly enl arged. Continued peripheral left basilar opacity as well as diffuse interstitial changes. The degree of groundglass a slightly increased at the right midlung and right base. Left anterior chest wall pac emaker generator with right atrial and right ventricular leads. Impression: 1. Mild cardiomegaly and diffuse interstitial changes persist. Findings could reflect atypical/COVID pneumonia or interstitial pulmonary edema. 2. More patchy densities in the right mid and lower lung are slightly increased and could represent s light interval worsening.
[2021-07-07] MEDS: methylPREDNISolone SOD SUCCI 40 MG/ML 1 ML VIAL IV SCH ×3 (12:28→23:34)
[2021-07-07] MEDS: FUROSEMIDE 10 MG/ML 2 ML VIAL IV SCH (15:03)
[2021-07-07 16:47] LABS: Glucose,Whole Blood 238 mg/dL (75-99)
[2021-07-07] MEDS: HYDROcodone/APAP 5-325MG 1 EACH TAB PO PRN (16:52)
[2021-07-07] MEDS: VANCOMYCIN 1,500 MG in SODIUM CHLORIDE 0.9% 250 ML IVPB SCH (16:52)
[2021-07-07] MEDS ORDERED: FUROSEMIDE 10 MG/ML 4 ML VIAL IV STA (17:46)
[2021-07-07 21:03] LABS: Glucose,Whole Blood 187 mg/dL (75-99)
[2021-07-08] MEDS: methylPREDNISolone SOD SUCCI 40 MG/ML 1 ML VIAL IV SCH ×4 (05:47→23:25)
[2021-07-08 07:21] LABS: Glucose,Whole Blood 326 mg/dL (75-99)
[2021-07-08] MEDS: INSULIN DETEMIR (LEVEMIR) 100 UNIT/ML SYR SQ SCH (08:00)
[2021-07-08] MEDS: INSULIN ASPART (NovoLOG) 100 UNIT/ML VIAL SQ SCH ×4 (08:00→20:58)
[2021-07-08] MEDS: FUROSEMIDE 10 MG/ML 2 ML VIAL IV SCH (08:01)
[2021-07-08] MEDS: LOSARTAN 25 MG TAB PO SCH (08:01)
[2021-07-08] MEDS: BENZONATATE 100 MG CAP PO SCH ×3 (08:01→19:58)
[2021-07-08] MEDS: METOPROLOL SUCCINATE (ER) 100 MG TAB.ER.24H PO SCH (08:01)
[2021-07-08] MEDS: CHOLECALCIFEROL 125 MCG (5000 IU) TABLET PO SCH (08:01)
[2021-07-08] MEDS: CEFEPIME 1 GM in SODIUM CHLORIDE 0.9% 50 ML IVPB SCH (08:01)
[2021-07-08] MEDS: ASCORBIC ACID 500 MG TAB PO SCH ×2 (08:01→19:57)
[2021-07-08] MEDS: RIVAROXABAN 20 MG TAB PO SCH (08:01)
[2021-07-08] MEDS: PANTOPRAZOLE 40 MG TABLET PO SCH ×2 (08:02→19:57)
[2021-07-08] MEDS: ZINC SULFATE 220 MG CAP PO SCH (08:02)
[2021-07-08] MEDS: DILTIAZEM CD 120 MG CAP.ER.24H PO SCH (08:02)
[2021-07-08] MEDS: MONTELUKAST 10 MG TAB PO SCH (08:02)
[2021-07-08 09:07] LABS: Basophils % (A) 0 %; Eosinophils % (A) 0 %; HCT 45.7 % (39.0-53.0); HGB 14.5 gm/dL (13.0-17.5); Lymphocytes # (A) 0.3 k/uL (1.0-4.8); Lymphocytes % (A) 2 %; MCHC 31.8 g/dL (31.0-37.0); MCV 91.3 fL (80.0-100.0); Mean Platelet Volume 8.2; Monocytes # (A) 0.5 k/uL (0-1.0); Monocytes % (A) 3 %; Neutrophils # (A) 19.5 k/uL (1.3-7.7); Neutrophils % (A) 95 %; Platelet Count 389 k/uL (150-450); RBC 5.01 m/uL (4.30-5.90); RDW 14.6 % (11.5-15.5); WBC 20.5 k/uL (3.8-10.6)
[2021-07-08 09:29] LABS: Magnesium 2.5 mg/dL (1.6-2.3)
[2021-07-08 09:34] LABS: Vancomycin,Random 18.8 ug/mL
[2021-07-08] MEDS: ALBUTEROL HFA INHALER INHALATION SCH ×4 (09:55→20:45)
[2021-07-08] MEDS: SYMBICORT 160-4.5 MCG INHALER INHALATION SCH ×2 (09:56→20:45)
--- NOTE | 2021-07-08 10:48 | P.PN ---
Subjective Progress Note Date: 07/07/21 Principal diagnosis: Generalized weakness, and diminished appetite This is an 81-year-old the patient was Hospital as for COVID 19 related pulmonary infection/pneumonia and shortness of breath and hypoxemic respiratory failure.. The patient came into the emergency department and the patient was having symptoms of COVID 19. The patient tested positive for COVID 19 couple of days ago. The patient's symptom onset was approximately a week ago. He was complaining of fatigue and on and off he was feeling lethargic and confused. He has also diminished appetite and diminished oral intake. He also mentions a coffee no significant shortness of breath. Repeat COVID 19 testing that was done in the emergency tested negative. Patient had normal coagulation profile. White cell count was normal at 11.9 with hemoglobin 15.4. Creatinine was at 1.7 consistent with chronic kidney disease, rest of the electrodes were normal, LDH level was 688 and a CRP level was at 3.4. The chest x-ray was done in the emergency department showed bilateral perihilar infiltrates most on the right. Nevertheless the patient has cardiomegaly. The patient also has bilateral shoulder replacement and the patient has post thoracotomy changes, pacemaker placed and cervical spine fusion with metal plates and screws. The patient is currently on today's of oxygen by nasal cannula. The patient was started on Decadron. Inflammatory markers are low with an LDH level of 688 with a CRP of 3.4. Progesterone level is pending for now. As mentioned, his COVID 19 testing was negative. Comorbid conditions include atrial fibrillation/flutter post-ablation, maintained on Xarelto, CHF with ejection fraction of 35-40% with moderate pulmonary hypertension, history of permanent pacemaker insertion, history of mitral valve repair at the [facility], chronic stage II kidney disease and benign positional vertigo. On 07/02/2021 patient seen in follow-up on medical surgical floor. Appears to be in no acute distress, he is currently on 2 L of oxygen his pulse ox is 92- 93%, he is afebrile, vital signs are stable, has occasional cough, he does get short of breath with exertion, but no acute distress was noted. Patient is currently on empiric antibiotics with azithromycin and Rocephin, he is on inhaled bronchodilators, he is on oral anticoagulation for history of atrial fibrillation. His chest x-ray from admission showed chronic changes and cardiomegaly with the new bilateral multifocal opacities consistent with COVID- 19 pneumonia. He tested negative for COVID-19, his influenza A and B and RSV were also negative. He previously tested positive for COVID-19, and at this stage she could be recovering from his recent COVID-19 infection. Today's labs have been reviewed, his white blood cell count is 6.5, hemoglobin is 14.3, his d-dimer is negative at 0.41, his sodium is 135, potassium is 5.0, chloride is 94, BUN is 52, and creatinine is 1.9, LDH is improving and is down to 249, troponin was negative 3. ProBNP level came back elevated at 10,000, his pro- calcitonin level was negative at 0.21. Overall he states she is feeling a little better today, she had no fever or chills, no nausea or vomiting, no abdominal pain. On 07/05/2021 patient seen in follow-up on medical surgical floor at the request of primary care service in view of worsening hypoxia. Patient came into the emergency department on 07/01/2021 with complaints of fatigue, confusion, decreased appetite and decreased oral intake. He was also reporting cough, and dyspnea. Symptoms were suspicious for COVID-19 infection however patient tested negative for COVID-19 by rapid PCR test, he also tested negative for influenza A and B, and RSV virus. His chest x-ray showed chronic changes, cardiomegaly and bilateral multifocal opacities that were concerning for COVID-19 infection. However his COVID-19 antibody test was negative, patient was not vaccinated against COVID-19. There was a suspicion of pneumonia, possibly community acquired and patient was started on azithromycin and Rocephin, he is working on Xarelto 4 history of anticoagulation, patient has ischemic cardiomyopathy status post pacemaker placement, and EF of 35-40%. He is on Lasix 20 mg twice daily. His proBNP on admission was 10,000. His inflammatory markers were not significantly elevated with LDH of 688, his CRP was 3.4, his pro-calcitonin level was 0.21. D-dimer was negative. He does not have significant leukocytosis on his blood work, today's white blood cell count is 11.4, hemoglobin is 13.9, his sodium is 132, potassium is 4.6, chloride is 95, his anion gap is 16, his BUN is 65, creatinine is 1.8. His net fluid balance is very difficult to estimate as the patient is incontinent of urine, there is no accurate weights recorded. Patient was on 2-5 L of oxygen yesterday, today his O2 saturations were only 85% on 5 L, and subsequently his oxygen flow was increased to 10 L, his pulse ox is 90%, patient is sitting up in the recliner, he is awake and alert, oriented 3, he is bringing up some thick yellow colored phlegm, he had been on a combination of azithromycin and Rocephin since 07/01/2021. No fevers overnight, no hemoptysis, stat repeat chest x-ray has been obtained showing chronic changes and cardiomegaly with improved aeration in the right mid to lower lung, small left pleural effusion and left basilar atelectasis. On 07/07/2021 patient seen in follow-up on medical surgical floor. Currently on 15 L per high flow nasal cannula and nonrebreather mask, his pulse ox is 92%. He appears very generally weak, still short of breath, coughing up yellow colored thick phlegm although he states the chest congestion seem to have improved. He is coughing up less secretions. Afebrile, hemodynamically has been stable, he is short of breath with any activity. Currently on cefepime and vancomycin, IV Solu-Medrol 60 mg every 6 hours, his Lasix remains on hold, clinically he appears to be dry, he is pro-calcitonin level was negative at 0.15, he is proBNP was 2070, patient was checked for Legionella urine antigen which was negative. Sputum culture was sent showing rare PMNs, many gram- positive cocci and a few gram-negative bacilli and a few budding yeast. Objective - Vital Signs Vital signs: Vital Signs Temp 98.1 F 07/07/21 10:00 Pulse 81 07/07/21 10:00 Resp 24 07/07/21 10:00 BP 151/92 07/07/21 10:00 Pulse Ox 92 L 07/07/21 10:00 Intake & Output 07/06/21 07/07/21 07/07/21 18:59 06:59 18:59 Intake Total 650 Output Total 600 Balance 50 Intake: Intake, IV Titration 50 Amount Cefepime 1 gm In Sodium 50 Chloride 0.9% 50 ml @ 12. 5 mls/hr IVPB Q12HR [facility] Rx#:[id number] Oral 600 Output: Urine 600 Other: Voiding Method Urinal Urinal Urinal Diaper Diaper - Exam GENERAL EXAM: Alert, very pleasant, 81-year-old white male, 15 L of oxygen and 100% nonrebreather with pulse ox of 92% comfortable in no apparent distress. HEAD: Normocephalic/atraumatic. EYES: Normal reaction of pupils, equal size. Conjunctiva pink, sclera white. NOSE: Clear with pink turbinates. THROAT: No erythema or exudates. NECK: No masses, no JVD, no thyroid enlargement, no adenopathy. CHEST: No chest wall deformity. Symmetrical expansion. LUNGS: Equal air entry with mild crackles at bilateral bases CVS: Regular rate and rhythm, normal S1 and S2, no gallops, no murmurs, no rubs ABDOMEN: Soft, nontender. No hepatosplenomegaly, normal bowel sounds, no guarding or rigidity. EXTREMITIES: No clubbing, no edema, no cyanosis, 2+ pulses and upper and lower extremities. MUSCULOSKELETAL: Muscle strength and tone normal. SPINE: No scoliosis or deformity SKIN: No rashes CENTRAL NERVOUS SYSTEM: Alert and oriented -3. No focal deficits, tone is normal in all 4 extremities. PSYCHIATRIC: Alert and oriented -3. Appropriate affect. Intact judgment and insight. - Labs CBC & Chem 7: 07/08/21 08:37 07/07/21 06:34 Labs: Abnormal Lab Results - Last 24 Hours (Table) 07/06/21 07/06/21 07/07/21 Range/Units 16:31 20:04 06:34 WBC 18.06 H (4.50-10.00) X 10*3/uL RDW 15.1 H (11.5-14.5) % Immature Gran # 0.11 H (0.00-0.04) X 10*3/uL Neutrophils # 17.06 H (1.80-7.70) X 10*3/uL Lymphocytes # 0.32 L (0.90-5.00) X 10*3/uL Eosinophils # 0 L (0.04-0.35) X 10*3/uL Sodium (135-145) mmol/L BUN (9.0-27.0) mg/dL Creatinine (0.6-1.5) mg/dL Est GFR (CKD-EPI)AfAm (60.0-200.0) Est GFR (CKD-EPI)NonAf (60.0-200.0) BUN/Creatinine Ratio (12.00-20.00) Ratio Glucose (70-110) mg/dL POC Glucose (mg/dL) 355 H 293 H (75-99) mg/dL 07/07/21 07/07/21 07/07/21 Range/Units 06:34 07:18 11:30 WBC (4.50-10.00) X 10*3/uL RDW (11.5-14.5) % Immature Gran # (0.00-0.04) X 10*3/uL Neutrophils # (1.80-7.70) X 10*3/uL Lymphocytes # (0.90-5.00) X 10*3/uL Eosinophils # (0.04-0.35) X 10*3/uL Sodium 133 L (135-145) mmol/L BUN 75.9 H (9.0-27.0) mg/dL Creatinine 1.8 H (0.6-1.5) mg/dL Est GFR (CKD-EPI)AfAm 40.6 L (60.0-200.0) Est GFR (CKD-EPI)NonAf 35.0 L (60.0-200.0) BUN/Creatinine Ratio 42.40 H (12.00-20.00) Ratio Glucose 267 H (70-110) mg/dL POC Glucose (mg/dL) 298 H 350 H (75-99) mg/dL Microbiology - Last 24 Hours (Table) 07/06/21 08:58 Gram Stain - Preliminary Sputum Sputum Culture - Preliminary Assessment and Plan Plan: Assessment: #1. Acute hypoxic respiratory failure multifactorial, related to acute exacerbation of systolic CHF, and possibility of pneumonia. Initially patient was suspected to have COVID-19 pneumonia, and reportedly had an outpatient positive test which we don't have a record of, however repeat rapid COVID-19 PCR in the emergency department on 07/01/2021 was negative, and follow-up COVID antibody test is negative. Initial chest x-ray showed cardiomegaly with new bilateral multifocal opacities. #2. Constitutional symptoms along with diminished appetite, generalized weakness #3. Previous history of mitral valve repair #4. History of progress A. fib post ablation, patient is on Xarelto #5. History of pacemaker insertion #6. Hypertension #7. Chronic bronchial asthma, unspecified #8. History of neck fusion C1 through C7 #9. Chronic stage III CKD #10. Chronic CHF with systolic dysfunction and ejection fraction of 35-40%, and mild degree of pulmonary hypertension Plan: Remains on cefepime and vancomycin, awaiting final sputum culture Continue high-dose IV steroids We'll consider restarting his Lasix Follow-up chest x-rays pending BIpap support Overall prognosis is extremely guarded Code status is DO NOT RESUSCITATE Continue with supportive treatment I performed a history & physical examination of the patient and discussed their management with my nurse practitioner, Stephanie Tijerina. I reviewed the nurse practitioner's note and agree with the documented findings and plan of care. Lung sounds are positive for mild crackles throughout the lung short. The findings and the impression was discussed with the patient. I attest to the documentation by the nurse practitioner. Time with Patient: Less than 30
[2021-07-08] MEDS ORDERED: VANCOMYCIN 1,500 MG in SODIUM CHLORIDE 0.9% 250 ML IVPB SCH (11:00)
[2021-07-08 11:42] LABS: Glucose,Whole Blood 248 mg/dL (75-99)
[2021-07-08 14:32] VITALS: BMI 32.4
[2021-07-08] MEDS: CLINDAMYCIN 600 MG in DEXTROSE 5% IN WATER 50 ML IVPB SCH ×4 (14:40→20:57)
--- NOTE | 2021-07-08 15:11 | P.PN ---
Subjective Progress Note Date: 07/08/21 Principal diagnosis: Generalized weakness, and diminished appetite This is an 81-year-old the patient was Hospital as for COVID 19 related pulmonary infection/pneumonia and shortness of breath and hypoxemic respiratory failure.. The patient came into the emergency department and the patient was having symptoms of COVID 19. The patient tested positive for COVID 19 couple of days ago. The patient's symptom onset was approximately a week ago. He was complaining of fatigue and on and off he was feeling lethargic and confused. He has also diminished appetite and diminished oral intake. He also mentions a coffee no significant shortness of breath. Repeat COVID 19 testing that was done in the emergency tested negative. Patient had normal coagulation profile. White cell count was normal at 11.9 with hemoglobin 15.4. Creatinine was at 1.7 consistent with chronic kidney disease, rest of the electrodes were normal, LDH level was 688 and a CRP level was at 3.4. The chest x-ray was done in the emergency department showed bilateral perihilar infiltrates most on the right. Nevertheless the patient has cardiomegaly. The patient also has bilateral shoulder replacement and the patient has post thoracotomy changes, pacemaker placed and cervical spine fusion with metal plates and screws. The patient is currently on today's of oxygen by nasal cannula. The patient was started on Decadron. Inflammatory markers are low with an LDH level of 688 with a CRP of 3.4. Progesterone level is pending for now. As mentioned, his COVID 19 testing was negative. Comorbid conditions include atrial fibrillation/flutter post-ablation, maintained on Xarelto, CHF with ejection fraction of 35-40% with moderate pulmonary hypertension, history of permanent pacemaker insertion, history of mitral valve repair at the [facility], chronic stage II kidney disease and benign positional vertigo. On 07/02/2021 patient seen in follow-up on medical surgical floor. Appears to be in no acute distress, he is currently on 2 L of oxygen his pulse ox is 92- 93%, he is afebrile, vital signs are stable, has occasional cough, he does get short of breath with exertion, but no acute distress was noted. Patient is currently on empiric antibiotics with azithromycin and Rocephin, he is on inhaled bronchodilators, he is on oral anticoagulation for history of atrial fibrillation. His chest x-ray from admission showed chronic changes and cardiomegaly with the new bilateral multifocal opacities consistent with COVID- 19 pneumonia. He tested negative for COVID-19, his influenza A and B and RSV were also negative. He previously tested positive for COVID-19, and at this stage she could be recovering from his recent COVID-19 infection. Today's labs have been reviewed, his white blood cell count is 6.5, hemoglobin is 14.3, his d-dimer is negative at 0.41, his sodium is 135, potassium is 5.0, chloride is 94, BUN is 52, and creatinine is 1.9, LDH is improving and is down to 249, troponin was negative 3. ProBNP level came back elevated at 10,000, his pro- calcitonin level was negative at 0.21. Overall he states she is feeling a little better today, she had no fever or chills, no nausea or vomiting, no abdominal pain. On 07/05/2021 patient seen in follow-up on medical surgical floor at the request of primary care service in view of worsening hypoxia. Patient came into the emergency department on 07/01/2021 with complaints of fatigue, confusion, decreased appetite and decreased oral intake. He was also reporting cough, and dyspnea. Symptoms were suspicious for COVID-19 infection however patient tested negative for COVID-19 by rapid PCR test, he also tested negative for influenza A and B, and RSV virus. His chest x-ray showed chronic changes, cardiomegaly and bilateral multifocal opacities that were concerning for COVID-19 infection. However his COVID-19 antibody test was negative, patient was not vaccinated against COVID-19. There was a suspicion of pneumonia, possibly community acquired and patient was started on azithromycin and Rocephin, he is working on Xarelto 4 history of anticoagulation, patient has ischemic cardiomyopathy status post pacemaker placement, and EF of 35-40%. He is on Lasix 20 mg twice daily. His proBNP on admission was 10,000. His inflammatory markers were not significantly elevated with LDH of 688, his CRP was 3.4, his pro-calcitonin level was 0.21. D-dimer was negative. He does not have significant leukocytosis on his blood work, today's white blood cell count is 11.4, hemoglobin is 13.9, his sodium is 132, potassium is 4.6, chloride is 95, his anion gap is 16, his BUN is 65, creatinine is 1.8. His net fluid balance is very difficult to estimate as the patient is incontinent of urine, there is no accurate weights recorded. Patient was on 2-5 L of oxygen yesterday, today his O2 saturations were only 85% on 5 L, and subsequently his oxygen flow was increased to 10 L, his pulse ox is 90%, patient is sitting up in the recliner, he is awake and alert, oriented 3, he is bringing up some thick yellow colored phlegm, he had been on a combination of azithromycin and Rocephin since 07/01/2021. No fevers overnight, no hemoptysis, stat repeat chest x-ray has been obtained showing chronic changes and cardiomegaly with improved aeration in the right mid to lower lung, small left pleural effusion and left basilar atelectasis. On 07/07/2021 patient seen in follow-up on medical surgical floor. Currently on 15 L per high flow nasal cannula and nonrebreather mask, his pulse ox is 92%. He appears very generally weak, still short of breath, coughing up yellow colored thick phlegm although he states the chest congestion seem to have improved. He is coughing up less secretions. Afebrile, hemodynamically has been stable, he is short of breath with any activity. Currently on cefepime and vancomycin, IV Solu-Medrol 60 mg every 6 hours, his Lasix remains on hold, clinically he appears to be dry, he is pro-calcitonin level was negative at 0.15, he is proBNP was 2070, patient was checked for Legionella urine antigen which was negative. Sputum culture was sent showing rare PMNs, many gram- positive cocci and a few gram-negative bacilli and a few budding yeast. On 07/08/2021 patient seen in follow-up on medical surgical floor. His oxygenation continued to worsen, he was placed on BiPAP support with pressures of 12 and 6 and FiO2 100% and currently she is satting 96% on BiPAP however she becomes restless, he tries to drink water while on BiPAP, removes his mask, he is noted to be coughing extensively after drinking water, there is suspected aspiration. He desaturates to low 60s on room air. We'll make the patient nothing by mouth right now. Patient is currently on cefepime and vancomycin, sputum culture sent on 07/06/2021 was nondiagnostic although patient is still coughing up some thick colored yellow and smith colored sputum. Yesterday we restarted him on low-dose Lasix 20 mg daily, he continues on IV Solu-Medrol 40 mg every 6 hours, he is on Xarelto. Today's chest x-ray showing cardiomegaly diffuse interstitial changes, that could reflect interstitial pulmonary edema, or atypical pneumonia, and more patchy densities in the right mid and lower lung slightly increased that could represent slight interval worsening. Today's white count is up to 20.5, hemoglobin is 14.5, his BNP is still pending today. His last pro-calcitonin level was 0.15 and this was on 07/05/2021. Patient was ruled out for COVID-19, he also tested negative for Legionella urine antigen, cultures have been negative. His been maximized medical treatment, however he is suspected to be chronically aspirating Objective - Vital Signs Vital signs: Vital Signs Temp 96.3 F L 07/08/21 14:53 Pulse 61 07/08/21 14:53 Resp 16 07/08/21 14:53 BP 124/87 07/08/21 14:53 Pulse Ox 97 07/08/21 14:53 Intake & Output 07/07/21 07/08/21 07/08/21 18:59 06:59 18:59 Output Total 1300 Balance -1300 Weight 88.451 kg Output: Urine 1300 Other: Voiding Method Urinal External Catheter External Catheter Diaper - Exam GENERAL EXAM: Alert, very pleasant, 81-year-old white male, on BiPAP support with pressures of 12 and 6 and FiO2 of 100% with a pulse ox of 96%. he removes his BiPAP mask, he tries to drink water while on BiPAP, suspected to be asp irating HEAD: Normocephalic/atraumatic. EYES: Normal reaction of pupils, equal size. Conjunctiva pink, sclera white. NOSE: Clear with pink turbinates. THROAT: No erythema or exudates. NECK: No masses, no JVD, no thyroid enlargement, no adenopathy. CHEST: No chest wall deformity. Symmetrical expansion. LUNGS: Equal air entry with diffuse rhonchi CVS: Regular rate and rhythm, normal S1 and S2, no gallops, no murmurs, no rubs ABDOMEN: Soft, nontender. No hepatosplenomegaly, normal bowel sounds, no guarding or rigidity. EXTREMITIES: No clubbing, no edema, no cyanosis, 2+ pulses and upper and lower extremities. MUSCULOSKELETAL: Muscle strength and tone normal. SPINE: No scoliosis or deformity SKIN: No rashes CENTRAL NERVOUS SYSTEM: Alert and oriented -3. No focal deficits, tone is normal in all 4 extremities. PSYCHIATRIC: Alert and oriented -3. Appropriate affect. Intact judgment and insight. - Labs CBC & Chem 7: 07/08/21 08:37 07/07/21 06:34 Labs: Abnormal Lab Results - Last 24 Hours (Table) 07/07/21 07/07/21 07/08/21 Range/Units 16:46 21:01 07:20 WBC (3.8-10.6) k/uL Neutrophils # (1.3-7.7) k/uL Lymphocytes # (1.0-4.8) k/uL POC Glucose (mg/dL) 238 H 187 H 326 H (75-99) mg/dL Magnesium (1.6-2.3) mg/dL 07/08/21 07/08/21 07/08/21 Range/Units 08:37 08:37 11:41 WBC 20.5 H (3.8-10.6) k/uL Neutrophils # 19.5 H (1.3-7.7) k/uL Lymphocytes # 0.3 L (1.0-4.8) k/uL POC Glucose (mg/dL) 248 H (75-99) mg/dL Magnesium 2.5 H (1.6-2.3) mg/dL Microbiology - Last 24 Hours (Table) 07/06/21 08:58 Gram Stain - Final Sputum Sputum Culture - Final Assessment and Plan Plan: Assessment: #1. Acute hypoxic respiratory failure multifactorial, related to acute exacerbation of systolic CHF, and possibility of pneumonia, suspect aspiration related pneumonia Initially patient was suspected to have COVID-19 pneumonia, and reportedly had an outpatient positive test which we don't have a record of, however repeat rapid COVID-19 PCR in the emergency department on 07/01/2021 was negative, and follow-up COVID antibody test is negative. Initial chest x-ray showed cardiomegaly with new bilateral multifocal opacities. #2. Suspect aspiration related pneumonia, we'll switch antibiotic coverage to clindamycin. Sputum culture was nondiagnostic #3. Constitutional symptoms along with diminished appetite, generalized weakness #4. Previous history of mitral valve repair #5. History of progress A. fib post ablation, patient is on Xarelto #6. History of pacemaker insertion #7. Hypertension #8. Chronic bronchial asthma, unspecified #9. History of neck fusion C1 through C7 #10. Chronic stage III CKD #11. Chronic CHF with systolic dysfunction and ejection fraction of 35-40%, and mild degree of pulmonary hypertension Plan: Continues to be hypoxic He is now requiring BiPAP support Patient is suspected to have chronic aspiration and aspiration related pneumonia We'll switch abiotic coverage to clindamycin Keep the patient nothing by mouth Patient received a dose of IV Lasix today Continue with maintenance dose of Lasix 20 mg daily Continue with IV steroids Overall prognosis is extremely guarded Code status a DO NOT RESUSCITATE Patient is poorly compliant with BiPAP And he wants to eat and drink Maintain safety precautions Maintain aspiration precautions We'll obtain speech evaluation when the patient is able to stay off the BiPAP Overall prognosis is poor Recommend for her family to discuss possibility of hospice as the next step if the patient does not improve I performed a history & physical examination of the patient and discussed their management with my nurse practitioner, Stephanie Tijerina. I reviewed the nurse duarte souza's note and agree with the documented findings and plan of care. Lung sounds are positive for mild crackles throughout the lung short. The findings and the impression was discussed with the patient. I attest to the documentation by the nurse practitioner. Time with Patient: Less than 30
[2021-07-08 16:49] LABS: Glucose,Whole Blood 198 mg/dL (75-99)
--- NOTE | 2021-07-08 17:24 | P.PN ---
<Stevenson Pack - Last Filed: 07/08/21 16:56> Subjective Progress Note Date: 07/08/21 Hospital course: Patient is a very pleasant 81-year-old male with a past medical history of CAD status post pacemaker placement, ischemic cardiomyopathy, chronic systolic heart failure with previously known EF of 35-40%, atrial fibrillation on anticoagulation with Xarelto, hypertension, hyperlipidemia, CKD stage III, and COPD not home oxygen dependent. Patient presented to the emergency department on 07/01/21 with a chief complaint of shortness of breath, nonproductive cough, weakness, and fatigue 1 week. He was found to have leukocytosis with WBC count of 11.9, Hyponatremia with sodium of 132, hypochloremia with chloride of 95, renal function consistent with CKD with BUN 53, creatinine 1.72, and GFR of 37 (slightly above baseline creatinine). Inflammatory markers elevated with CRP 3.4 and LDH of 688, d-dimer pending. Covid PCR negative. Chest x-ray revealing chronic changes and cardiomegaly with bilateral multifocal opacities concerning for Covid 19 infection. EKG revealing a ventricular paced rhythm at 80 bpm with underlying atrial flutter. Patient admitted under our services with consultation to pulmonology. Covid PCR and antigen negative. Influenza and RSV negative. Urine Legionella negative, pro-calcitonin elevated at 0.15. D-dimer 0.41. Gram stain/sputum culture negative. Physical exam: Patient seen and fully evaluated at the bedside this morning. He is on BiPAP at 100% FiO2. RN also reports concerns of aspiration. Repeat chest x-ray being completed. Patient denies having dysphasia, chest pain, palpitations, he reports continued shortness of breath and is positive for conversational dyspnea as well as productive cough with yellow/brown colored sputum. He remains on IV antibiotics cefepime and vancomycin. Leukocytosis with WBC count of 20.5 this morning. He remains on Solu-Medrol 40 mg IVP every 6 hours. Repeat chest x-ray completed this morning revealing mild cardiomegaly with diffuse interstitial changes possibly reflecting atypical pneumonia or interstitial pulmonary edema and appears to be more patchy densities in the right mid and lower lung slightly increased possibly representing interval worsening. Pulmonology recommending hospice at this time. Called and had long discussion with patient's daughter, Trena. She would not like to proceed with hospice at this time and would like t o continue current regimen with antibiotics and treatment with BiPAP. Consult placed to Dr. Back, infectious disease. Vital signs reviewed and stable. General: Patient appears in mild distress, appears generally unwell feeling and lethargic. at Derm: Skin warm and dry, normal coloration for ethnicity. Head: Atraumatic, normocephalic and symmetric. Eyes: EOMs intact, no lid lag, and anicteric sclera Mouth: no lip lesions, mucus membranes moist Cardiovascular: regular rate and rhythm, distant heart sounds, positive posterior tibial pulses bilaterally, and cap refill < 2 seconds. Lungs: Respirations even, regular, and unlabored on BiPAP with 100% FiO2.. Lungs with diffuse rhonchi and bilateral diffuse expiratory wheezes. No accessory muscle usage. Abdominal: soft, nontender to palpation, no guarding, no appreciable organomegaly Ext: ROM intact. No gross muscle atrophy, no edema, no contractures Neuro: Speech clear, face symmetrical and CN II-XII grossly intact with no noted focal neuro deficits Psych: Alert and oriented to person, place, time, and situation. Appropriate and pleasant affect. Assessment and Plan of Care: Acute respiratory failure with hypoxia secondary to bilateral multifocal pneumonia Acute COPD exacerbation secondary to bilateral multifocal pneumonia -Covid PCR and antigen negative -Influenza and RSV negative -Urine Legionella negative, pro-calcitonin elevated at 0.15. -D-dimer 0.41 -IV antibiotics: Cefepime and vancomycin -Infectious disease consult placed -Gram stain/sputum culture negative. -Oxygenation to be administered and titrated as needed to maintain SPO2 equal to or greater than 90% -Telemetry monitoring. -Encourage Incentive Spirometry 10-15x hourly while awake -Steroids: Same Medrol 40 mg IVP every 6 hours -DuoNeb scheduled and as needed -Pulmonology following, appreciate further recommendations. Atrial fibrillation Chronic systolic heart failure with previously known EF of 35-40% Ischemic cardiomyopathy CAD status post pacemaker placement Hypertension Hyperlipidemia -Telemetry monitoring -Echocardiogram -Trend troponins -BNP 10,000 -Continuation of daily medication regimen including Xarelto, metoprolol, losartan, and Cardizem. -Monitor vital signs closely. -Continuation of Lasix 20 mg IVP daily. Newly diagnosed diabetes mellitus with hemoglobin A1c of 8.1% -Continue Levemir 22 units twice daily, was previously increased to 26 however patient with hypoglycemia this morning. Stage III CKD -Caution using nephrotoxic medications, continued monitoring of renal function throughout hospitalization. Generalized weakness PT/OT consulted, recommending rehab. CODE STATUS: DO NOT RESUSCITATE/DO NOT INTUBATE DVT prophylaxis: Xarelto Discussed with: Patient and RN, and patient's daughter Trena Anticipated discharge date: Clinical course to determine Anticipated discharge place: Clinical course to determine A total of 45 minutes was spent on the care of this complex patient more than 50% of the time was spent in counseling and care coordination. Objective - Vital Signs Vital signs: Vital Signs Temp 96.3 F L 07/08/21 10:04 Pulse 68 07/08/21 10:04 Resp 18 07/08/21 10:04 BP 138/76 07/08/21 10:04 Pulse Ox 96 07/08/21 10:04 Intake & Output 07/07/21 07/08/21 07/08/21 18:59 06:59 18:59 Output Total 1300 Balance -1300 Output: Urine 1300 Other: Voiding Method Urinal External Catheter External Catheter Diaper - Labs CBC & Chem 7: 07/08/21 08:37 07/07/21 06:34 Labs: Abnormal Lab Results - Last 24 Hours (Table) 07/07/21 07/07/21 07/07/21 Range/Units 06:34 11:30 16:46 WBC (3.8-10.6) k/uL Neutrophils # (1.3-7.7) k/uL Lymphocytes # (1.0-4.8) k/uL Sodium 133 L (135-145) mmol/L BUN 75.9 H (9.0-27.0) mg/dL Creatinine 1.8 H (0.6-1.5) mg/dL Est GFR (CKD-EPI)AfAm 40.6 L (60.0-200.0) Est GFR (CKD-EPI)NonAf 35.0 L (60.0-200.0) BUN/Creatinine Ratio 42.40 H (12.00-20.00) Ratio Glucose 267 H (70-110) mg/dL POC Glucose (mg/dL) 350 H 238 H (75-99) mg/dL Magnesium (1.6-2.3) mg/dL 07/07/21 07/08/21 07/08/21 Range/Units 21:01 07:20 08:37 WBC 20.5 H (3.8-10.6) k/uL Neutrophils # 19.5 H (1.3-7.7) k/uL Lymphocytes # 0.3 L (1.0-4.8) k/uL Sodium (135-145) mmol/L BUN (9.0-27.0) mg/dL Creatinine (0.6-1.5) mg/dL Est GFR (CKD-EPI)AfAm (60.0-200.0) Est GFR (CKD-EPI)NonAf (60.0-200.0) BUN/Creatinine Ratio (12.00-20.00) Ratio Glucose (70-110) mg/dL POC Glucose (mg/dL) 187 H 326 H (75-99) mg/dL Magnesium (1.6-2.3) mg/dL 07/08/21 Range/Units 08:37 WBC (3.8-10.6) k/uL Neutrophils # (1.3-7.7) k/uL Lymphocytes # (1.0-4.8) k/uL Sodium (135-145) mmol/L BUN (9.0-27.0) mg/dL Creatinine (0.6-1.5) mg/dL Est GFR (CKD-EPI)AfAm (60.0-200.0) Est GFR (CKD-EPI)NonAf (60.0-200.0) BUN/Creatinine Ratio (12.00-20.00) Ratio Glucose (70-110) mg/dL POC Glucose (mg/dL) (75-99) mg/dL Magnesium 2.5 H (1.6-2.3) mg/dL Microbiology - Last 24 Hours (Table) 07/06/21 08:58 Gram Stain - Preliminary Sputum Sputum Culture - Preliminary <Destini Garcia - Last Filed: 07/08/21 20:08> Subjective Stevenson Pack NP rendered care for this patient independently, reviewed the findings and plan as documented in the note above. I did not physically speak with or examine the patient on this date. Echocardiogram reviewed: Ejection fraction is 20-25% with global hypokinesis Objective - Vital Signs Vital signs: Vital Signs Temp 96.3 F L 07/08/21 14:53 Pulse 61 07/08/21 14:53 Resp 16 07/08/21 14:53 BP 124/87 07/08/21 14:53 Pulse Ox 97 07/08/21 14:53 Intake & Output 07/08/21 07/08/21 07/09/21 06:59 18:59 06:59 Output Total 1300 Balance -1300 Weight 88.451 kg Output: Urine 1300 Other: Voiding Method External Catheter External Catheter External Catheter - Labs CBC & Chem 7: 07/08/21 08:37 07/07/21 06:34 Labs: Abnormal Lab Results - Last 24 Hours (Table) 07/07/21 07/08/21 07/08/21 Range/Units 21:01 07:20 08:37 WBC 20.5 H (3.8-10.6) k/uL Neutrophils # 19.5 H (1.3-7.7) k/uL Lymphocytes # 0.3 L (1.0-4.8) k/uL POC Glucose (mg/dL) 187 H 326 H (75-99) mg/dL Magnesium (1.6-2.3) mg/dL 07/08/21 07/08/21 07/08/21 Range/Units 08:37 11:41 16:47 WBC (3.8-10.6) k/uL Neutrophils # (1.3-7.7) k/uL Lymphocytes # (1.0-4.8) k/uL POC Glucose (mg/dL) 248 H 198 H (75-99) mg/dL Magnesium 2.5 H (1.6-2.3) mg/dL Microbiology - Last 24 Hours (Table) 07/06/21 08:58 Gram Stain - Final Sputum Sputum Culture - Final
[2021-07-08] MEDS: MELATONIN 3 MG TABLET PO PRN (19:57)
[2021-07-08 20:38] LABS: Glucose,Whole Blood 219 mg/dL (75-99)
[2021-07-09] MEDS: CLINDAMYCIN 600 MG in DEXTROSE 5% IN WATER 50 ML IVPB SCH ×8 (01:46→19:26)
[2021-07-09] MEDS: methylPREDNISolone SOD SUCCI 40 MG/ML 1 ML VIAL IV SCH ×3 (05:51→20:46)
[2021-07-09] MEDS: SYMBICORT 160-4.5 MCG INHALER INHALATION SCH ×2 (07:27→20:01)
[2021-07-09] MEDS: ALBUTEROL HFA INHALER INHALATION SCH ×4 (07:27→20:00)
[2021-07-09 07:53] LABS: Glucose,Whole Blood 349 mg/dL (75-99)
[2021-07-09] MEDS: INSULIN DETEMIR (LEVEMIR) 100 UNIT/ML SYR SQ SCH (08:00)
[2021-07-09] MEDS: METOPROLOL SUCCINATE (ER) 100 MG TAB.ER.24H PO SCH (08:02)
[2021-07-09] MEDS: LOSARTAN 25 MG TAB PO SCH (08:02)
[2021-07-09] MEDS: DILTIAZEM CD 120 MG CAP.ER.24H PO SCH (08:02)
[2021-07-09] MEDS: RIVAROXABAN 20 MG TAB PO SCH (08:02)
[2021-07-09] MEDS: INSULIN ASPART (NovoLOG) 100 UNIT/ML VIAL SQ SCH ×4 (08:02→20:46)
[2021-07-09] MEDS: PANTOPRAZOLE 40 MG TABLET PO SCH ×2 (08:03→20:46)
[2021-07-09] MEDS: MONTELUKAST 10 MG TAB PO SCH (08:03)
[2021-07-09] MEDS: ZINC SULFATE 220 MG CAP PO SCH (08:03)
[2021-07-09] MEDS: CHOLECALCIFEROL 125 MCG (5000 IU) TABLET PO SCH (08:03)
[2021-07-09] MEDS: BENZONATATE 100 MG CAP PO SCH ×3 (08:03→20:46)
[2021-07-09] MEDS: ASCORBIC ACID 500 MG TAB PO SCH ×2 (08:03→20:46)
[2021-07-09] MEDS: FUROSEMIDE 10 MG/ML 2 ML VIAL IV SCH (08:03)
[2021-07-09 08:30] LABS: ALT 17 U/L (4-49); AST 18 U/L (17-59); African American GFR (CKD) 32 (>60 ml/min/1.73 sqM); Alkaline Phosphatase 59 U/L (38-126); Anion Gap 11 mmol/L; Carbon Dioxide 22 mmol/L (22-30); Chloride 103 mmol/L (98-107); Glucose 267 mg/dL (74-99); Magnesium 2.7 mg/dL (1.6-2.3); Non-African American GFR(CKD) 28 (>60 ml/min/1.73 sqM); Potassium 5.1 mmol/L (3.5-5.1); Sodium 136 mmol/L (137-145); Total Bilirubin 0.9 mg/dL (0.2-1.3)
[2021-07-09 08:40] LABS: Blood Urea Nitrogen 104 mg/dL (9-20)
[2021-07-09 10:43] LABS: HCT 41.1 % (39.6-50.0); HGB 12.7 g/dL (13.0-17.0); MCH 27.5 pg (27.0-32.0); MCHC 30.9 g/dL (32.0-37.0); MCV 89.2 fL (80.0-97.0); Mean Platelet Volume 10.8 fL (9.5-12.2); Platelet Count 338 X 10*3/uL (140-440); RBC 4.61 X 10*6/uL (4.40-5.60); RDW 15.7 % (11.5-14.5); WBC 14.89 X 10*3/uL (4.50-10.00)
[2021-07-09 11:51] LABS: Glucose,Whole Blood 226 mg/dL (75-99)
--- NOTE | 2021-07-09 13:46 | P.PN ---
<Stevenson Pack - Last Filed: 07/09/21 13:21> Subjective Progress Note Date: 07/09/21 Hospital course: Patient is a very pleasant 81-year-old male with a past medical history of CAD status post pacemaker placement, ischemic cardiomyopathy, chronic systolic heart failure with previously known EF of 35-40%, atrial fibrillation on anticoagulation with Xarelto, hypertension, hyperlipidemia, CKD stage III, and COPD not home oxygen dependent. Patient presented to the emergency department on 07/01/21 with a chief complaint of shortness of breath, nonproductive cough, weakness, and fatigue 1 week. He was found to have leukocytosis with WBC count of 11.9, Hyponatremia with sodium of 132, hypochloremia with chloride of 95, renal function consistent with CKD with BUN 53, creatinine 1.72, and GFR of 37 (slightly above baseline creatinine). Inflammatory markers elevated with CRP 3.4 and LDH of 688, d-dimer pending. Covid PCR negative. Chest x-ray revealing chronic changes and cardiomegaly with bilateral multifocal opacities concerning for Covid 19 infection. EKG revealing a ventricular paced rhythm at 80 bpm with underlying atrial flutter. Patient admitted under our services with consultation to pulmonology. Covid PCR and antigen negative. Influenza and RSV negative. Urine Legionella negative, pro-calcitonin elevated at 0.15. D-dimer 0.41. Gram stain/sputum culture negative. Physical exam: Patient seen and fully evaluated at the bedside this morning. He remains on BiPAP at 100% FiO2. Patient reports that he feels extremely hot and has been holding a cold rag on his head. He has been afebrile. He states he has been having continued shortness of breath and remains positive for conversational dyspnea as well as productive cough with yellow/brown colored sputum. Patient reports he's had some improvement in the shortness of breath when compared to yesterday stating "so-so". Leukocytosis proving down to 14.89 this morning. Patient did have worsening renal function with BUN of 104 and creatinine of 2.16 likely secondary to vancomycin use. Vancomycin and cefepime were discontinued patient has been started on clindamycin for IV antibiotics. Losartan was also discontinued. Consult placed to nephrology. Vital signs reviewed and stable. General: Patient appears in mild distress, appears generally unwell feeling and lethargic. at Derm: Skin warm and dry, normal coloration for ethnicity. Head: Atraumatic, normocephalic and symmetric. Eyes: EOMs intact, no lid lag, and anicteric sclera Mouth: no lip lesions, mucus membranes moist Cardiovascular: regular rate and rhythm, distant heart sounds, positive posterior tibial pulses bilaterally, and cap refill < 2 seconds. Lungs: Respirations even, regular, and unlabored on BiPAP with 100% FiO2.. Lungs with diffuse rhonchi and bilateral diffuse expiratory wheezes. Coarse weak cough. No accessory muscle usage. Abdominal: soft, nontender to palpation, no guarding, no appreciable organomegaly Ext: ROM intact. No gross muscle atrophy, no edema, no contractures Neuro: Speech clear, face symmetrical and CN II-XII grossly intact with no noted focal neuro deficits Psych: Alert and oriented to person, place, time, and situation. Appropriate and pleasant affect. Assessment and Plan of Care: Acute respiratory failure with hypoxia secondary to bilateral multifocal pneumonia Acute COPD exacerbation secondary to bilateral multifocal pneumonia -Covid PCR and antigen negative -Influenza and RSV negative -Urine Legionella negative, pro-calcitonin elevated at 0.15. -D-dimer 0.41 -IV antibiotics: Cefepime and vancomycin -Infectious disease consult placed -Gram stain/sputum culture negative. -Oxygenation to be administered and titrated as needed to maintain SPO2 equal to or greater than 90% -Telemetry monitoring. -Encourage Incentive Spirometry 10-15x hourly while awake -Steroids: Same Medrol 40 mg IVP every 6 hours -DuoNeb scheduled and as needed -Pulmonology following, appreciate further recommendations. Atrial fibrillation Chronic systolic heart failure with EF of 20-25% with global hypokinesis Ischemic cardiomyopathy with global hypokinesis CAD status post pacemaker placement Hypertension Hyperlipidemia -Telemetry monitoring -Echocardiogram revealing a severely impaired EF between 20 and 25% with global hypokinesis, moderately enlarged right ventricle and mild to moderate mitral va lve regurgitation. -Trend troponins -BNP 10,000 with repeat 2069 -Continuation of daily medication regimen including Xarelto, metoprolol, losartan, and Cardizem. -Monitor vital signs closely. -Continuation of Lasix 20 mg IVP daily. Acute kidney injury on Stage III CKD -Possibly secondary to vancomycin use. Vancomycin was discontinued and patient started on clindamycin 600 mg every 6 hours. -Losartan held at this time. -We will continue with Lasix 20 mg IVP daily and closely monitor renal function. Caution with all other nephrotoxic medications. -Nephrology consulted, appreciate recommendations. Newly diagnosed diabetes mellitus with hemoglobin A1c of 8.1% -Continue Levemir 22 units twice daily, was previously increased to 26 however patient with hypoglycemia this morning. Generalized weakness PT/OT consulted, recommending rehab. CODE STATUS: DO NOT RESUSCITATE/DO NOT INTUBATE DVT prophylaxis: Xarelto Discussed with: Patient and RN, and patient's daughter Trena at bedside Anticipated discharge date: Clinical course to determine Anticipated discharge place: Clinical course to determine A total of 45 minutes was spent on the care of this complex patient more than 50% of the time was spent in counseling and care coordination. Objective - Vital Signs Vital signs: Vital Signs Temp 97.5 F L 07/09/21 06:24 Pulse 74 07/09/21 06:24 Resp 16 07/08/21 14:53 BP 137/77 07/09/21 06:24 Pulse Ox 83 L 07/09/21 06:24 Intake & Output 07/08/21 07/09/21 07/09/21 18:59 06:59 18:59 Intake Total 550 Output Total 700 Balance -150 Weight 88.451 kg Intake: IV 200 kvo 200 Intake, IV Titration 50 Amount Clindamycin 600 mg In 50 Dextrose 5% in Water 50 ml @ 50 mls/hr IVPB Q6H [facility] Rx#:[id number] Oral 300 Output: Urine 700 Other: Voiding Method External Catheter External Catheter - Labs CBC & Chem 7: 07/09/21 07:42 07/09/21 07:42 Labs: Abnormal Lab Results - Last 24 Hours (Table) 07/08/21 07/08/21 07/08/21 Range/Units 08:37 08:37 11:41 WBC 20.5 H (3.8-10.6) k/uL Neutrophils # 19.5 H (1.3-7.7) k/uL Lymphocytes # 0.3 L (1.0-4.8) k/uL POC Glucose (mg/dL) 248 H (75-99) mg/dL Magnesium 2.5 H (1.6-2.3) mg/dL 07/08/21 07/08/21 07/09/21 Range/Units 16:47 20:35 07:51 WBC (3.8-10.6) k/uL Neutrophils # (1.3-7.7) k/uL Lymphocytes # (1.0-4.8) k/uL POC Glucose (mg/dL) 198 H 219 H 349 H (75-99) mg/dL Magnesium (1.6-2.3) mg/dL Microbiology - Last 24 Hours (Table) 07/06/21 08:58 Gram Stain - Final Sputum Sputum Culture - Final <Destini Garcia - Last Filed: 07/09/21 20:02> Subjective Stevenson Pack NP rendered care for this patient independently, reviewed the findings and plan as documented in the note above. I did not physically speak with or examine the patient on this date. Objective - Vital Signs Vital signs: Vital Signs Temp 97.4 F L 07/09/21 14:52 Pulse 73 07/09/21 14:52 Resp 16 07/09/21 14:52 BP 122/82 07/09/21 14:52 Pulse Ox 92 L 07/09/21 16:36 Intake & Output 07/09/21 07/09/21 07/10/21 06:59 18:59 06:59 Intake Total 550 Output Total 700 Balance -150 Intake: IV 200 kvo 200 Intake, IV Titration 50 Amount Clindamycin 600 mg In 50 Dextrose 5% in Water 50 ml @ 50 mls/hr IVPB Q6H [facility] Rx#:[id number] Oral 300 Output: Urine 700 Other: Voiding Method External Catheter # Voids 2 - Labs CBC & Chem 7: 07/09/21 07:42 07/09/21 07:42 Labs: Abnormal Lab Results - Last 24 Hours (Table) 07/08/21 07/09/21 07/09/21 Range/Units 20:35 07:42 07:42 WBC (4.50-10.00) X 10*3/uL Hgb (13.0-17.0) g/dL MCHC (32.0-37.0) g/dL RDW (11.5-14.5) % Sodium 136 L (137-145) mmol/L BUN 104 H* (9-20) mg/dL Creatinine 2.16 H (0.66-1.25) mg/dL Glucose 267 H (74-99) mg/dL POC Glucose (mg/dL) 219 H (75-99) mg/dL Magnesium 2.7 H (1.6-2.3) mg/dL Total Protein 6.0 L (6.3-8.2) g/dL Albumin 3.0 L (3.5-5.0) g/dL Procalcitonin 0.15 H (0.02-0.09) ng/mL 07/09/21 07/09/21 07/09/21 Range/Units 07:42 07:51 11:50 WBC 14.89 H (4.50-10.00) X 10*3/uL Hgb 12.7 L (13.0-17.0) g/dL MCHC 30.9 L (32.0-37.0) g/dL RDW 15.7 H (11.5-14.5) % Sodium (137-145) mmol/L BUN (9-20) mg/dL Creatinine (0.66-1.25) mg/dL Glucose (74-99) mg/dL POC Glucose (mg/dL) 349 H 226 H (75-99) mg/dL Magnesium (1.6-2.3) mg/dL Total Protein (6.3-8.2) g/dL Albumin (3.5-5.0) g/dL Procalcitonin (0.02-0.09) ng/mL 07/09/21 Range/Units 16:43 WBC (4.50-10.00) X 10*3/uL Hgb (13.0-17.0) g/dL MCHC (32.0-37.0) g/dL RDW (11.5-14.5) % Sodium (137-145) mmol/L BUN (9-20) mg/dL Creatinine (0.66-1.25) mg/dL Glucose (74-99) mg/dL POC Glucose (mg/dL) 270 H (75-99) mg/dL Magnesium (1.6-2.3) mg/dL Total Protein (6.3-8.2) g/dL Albumin (3.5-5.0) g/dL Procalcitonin (0.02-0.09) ng/mL
--- NOTE | 2021-07-09 14:23 | XR ---
EXAMINATION TYPE: XR chest 1V portable DATE OF EXAM: 07/09/2021 HISTORY: Shortness of breath. COMPARISON: 07/07/2021 TECHNIQUE: Single view of the chest is submitted. FINDINGS: Demonstrated are scattered senescent parenchymal change. Scattered reticulonodular infiltrates persist. Perihilar region and left lower lobe significant inter joy change. The heart is stable. Hilar and mediastinal structures are within normal limits. Degenerative changes are seen of the dorsal spine. IMPRESSION: 1. Scattered reticulonodular infiltrates persist. Perihilar region and left lower lobe significant i nterval change.
--- NOTE | 2021-07-09 15:44 | P.PN ---
Subjective Progress Note Date: 07/09/21 Principal diagnosis: Generalized weakness, and diminished appetite This is an 81-year-old the patient was Hospital as for COVID 19 related pulmonary infection/pneumonia and shortness of breath and hypoxemic respiratory failure.. The patient came into the emergency department and the patient was having symptoms of COVID 19. The patient tested positive for COVID 19 couple of days ago. The patient's symptom onset was approximately a week ago. He was complaining of fatigue and on and off he was feeling lethargic and confused. He has also diminished appetite and diminished oral intake. He also mentions a coffee no significant shortness of breath. Repeat COVID 19 testing that was done in the emergency tested negative. Patient had normal coagulation profile. White cell count was normal at 11.9 with hemoglobin 15.4. Creatinine was at 1.7 consistent with chronic kidney disease, rest of the electrodes were normal, LDH level was 688 and a CRP level was at 3.4. The chest x-ray was done in the emergency department showed bilateral perihilar infiltrates most on the right. Nevertheless the patient has cardiomegaly. The patient also has bilateral shoulder replacement and the patient has post thoracotomy changes, pacemaker placed and cervical spine fusion with metal plates and screws. The patient is currently on today's of oxygen by nasal cannula. The patient was started on Decadron. Inflammatory markers are low with an LDH level of 688 with a CRP of 3.4. Progesterone level is pending for now. As mentioned, his COVID 19 testing was negative. Comorbid conditions include atrial fibrillation/flutter post-ablation, maintained on Xarelto, CHF with ejection fraction of 35-40% with moderate pulmonary hypertension, history of permanent pacemaker insertion, history of mitral valve repair at the [facility], chronic stage II kidney disease and benign positional vertigo. On 07/02/2021 patient seen in follow-up on medical surgical floor. Appears to be in no acute distress, he is currently on 2 L of oxygen his pulse ox is 92- 93%, he is afebrile, vital signs are stable, has occasional cough, he does get short of breath with exertion, but no acute distress was noted. Patient is currently on empiric antibiotics with azithromycin and Rocephin, he is on inhaled bronchodilators, he is on oral anticoagulation for history of atrial fibrillation. His chest x-ray from admission showed chronic changes and cardiomegaly with the new bilateral multifocal opacities consistent with COVID- 19 pneumonia. He tested negative for COVID-19, his influenza A and B and RSV were also negative. He previously tested positive for COVID-19, and at this stage she could be recovering from his recent COVID-19 infection. Today's labs have been reviewed, his white blood cell count is 6.5, hemoglobin is 14.3, his d-dimer is negative at 0.41, his sodium is 135, potassium is 5.0, chloride is 94, BUN is 52, and creatinine is 1.9, LDH is improving and is down to 249, troponin was negative 3. ProBNP level came back elevated at 10,000, his pro- calcitonin level was negative at 0.21. Overall he states she is feeling a little better today, she had no fever or chills, no nausea or vomiting, no abdominal pain. On 07/05/2021 patient seen in follow-up on medical surgical floor at the request of primary care service in view of worsening hypoxia. Patient came into the emergency department on 07/01/2021 with complaints of fatigue, confusion, decreased appetite and decreased oral intake. He was also reporting cough, and dyspnea. Symptoms were suspicious for COVID-19 infection however patient tested negative for COVID-19 by rapid PCR test, he also tested negative for influenza A and B, and RSV virus. His chest x-ray showed chronic changes, cardiomegaly and bilateral multifocal opacities that were concerning for COVID-19 infection. However his COVID-19 antibody test was negative, patient was not vaccinated against COVID-19. There was a suspicion of pneumonia, possibly community acquired and patient was started on azithromycin and Rocephin, he is working on Xarelto 4 history of anticoagulation, patient has ischemic cardiomyopathy status post pacemaker placement, and EF of 35-40%. He is on Lasix 20 mg twice daily. His proBNP on admission was 10,000. His inflammatory markers were not significantly elevated with LDH of 688, his CRP was 3.4, his pro-calcitonin level was 0.21. D-dimer was negative. He does not have significant leukocytosis on his blood work, today's white blood cell count is 11.4, hemoglobin is 13.9, his sodium is 132, potassium is 4.6, chloride is 95, his anion gap is 16, his BUN is 65, creatinine is 1.8. His net fluid balance is very difficult to estimate as the patient is incontinent of urine, there is no accurate weights recorded. Patient was on 2-5 L of oxygen yesterday, today his O2 saturations were only 85% on 5 L, and subsequently his oxygen flow was increased to 10 L, his pulse ox is 90%, patient is sitting up in the recliner, he is awake and alert, oriented 3, he is bringing up some thick yellow colored phlegm, he had been on a combination of azithromycin and Rocephin since 07/01/2021. No fevers overnight, no hemoptysis, stat repeat chest x-ray has been obtained showing chronic changes and cardiomegaly with improved aeration in the right mid to lower lung, small left pleural effusion and left basilar atelectasis. On 07/07/2021 patient seen in follow-up on medical surgical floor. Currently on 15 L per high flow nasal cannula and nonrebreather mask, his pulse ox is 92%. He appears very generally weak, still short of breath, coughing up yellow colored thick phlegm although he states the chest congestion seem to have improved. He is coughing up less secretions. Afebrile, hemodynamically has been stable, he is short of breath with any activity. Currently on cefepime and vancomycin, IV Solu-Medrol 60 mg every 6 hours, his Lasix remains on hold, clinically he appears to be dry, he is pro-calcitonin level was negative at 0.15, he is proBNP was 2070, patient was checked for Legionella urine antigen which was negative. Sputum culture was sent showing rare PMNs, many gram- positive cocci and a few gram-negative bacilli and a few budding yeast. On 07/08/2021 patient seen in follow-up on medical surgical floor. His oxygenation continued to worsen, he was placed on BiPAP support with pressures of 12 and 6 and FiO2 100% and currently she is satting 96% on BiPAP however she becomes restless, he tries to drink water while on BiPAP, removes his mask, he is noted to be coughing extensively after drinking water, there is suspected aspiration. He desaturates to low 60s on room air. We'll make the patient nothing by mouth right now. Patient is currently on cefepime and vancomycin, sputum culture sent on 07/06/2021 was nondiagnostic although patient is still coughing up some thick colored yellow and smith colored sputum. Yesterday we restarted him on low-dose Lasix 20 mg daily, he continues on IV Solu-Medrol 40 mg every 6 hours, he is on Xarelto. Today's chest x-ray showing cardiomegaly diffuse interstitial changes, that could reflect interstitial pulmonary edema, or atypical pneumonia, and more patchy densities in the right mid and lower lung slightly increased that could represent slight interval worsening. Today's white count is up to 20.5, hemoglobin is 14.5, his BNP is still pending today. His last pro-calcitonin level was 0.15 and this was on 07/05/2021. Patient was ruled out for COVID-19, he also tested negative for Legionella urine antigen, cultures have been negative. His been maximized medical treatment, however he is suspected to be chronically aspirating On 07/09/2021 patient was seen in follow-up on medical surgical floor, he remains on BiPAP support, with pressures of 12 and 6 and FiO2 of 100%, and patient has been noted to be rapidly desaturating when he is taken off the BiPAP mask even for a very brief amount of time. Has not had high flow nasal cannula trials yet. His mouth is very dry, we made him nothing by mouth yesterday for suspicion of aspiration related pneumonia, we switched his antibiotic coverage to clindamycin in view of his penicillin ALLERGY. Patient has not been able to complete speech evaluation related to being BiPAP dependent. Seems to be very dry, his renal profile has worsened on today's labs and his BUN is up to 104, and creatinine is up to 2.16. Perdiem is 136, potassium is 5.1, the rest of the electrolytes are within normal limits, he is pro-calcitonin level came back negative at 0.15. Vancomycin has been discontinued, losartan has been placed on hold, his white count is actually improving and is down to 14.8, hemoglobin is 12.7. Sputum culture has been nondiagnostic, however patient is still feels congested, and he is bringing up some thick colored phlegm which we will try to reculture. Remains on IV steroids with Solu-Medrol 40 mg every 6 hours. Objective - Vital Signs Vital signs: Vital Signs Temp 97.4 F L 07/09/21 14:52 Pulse 73 07/09/21 14:52 Resp 16 07/09/21 14:52 BP 122/82 07/09/21 14:52 Pulse Ox 93 L 07/09/21 14:52 Intake & Output 07/08/21 07/09/21 07/09/21 18:59 06:59 18:59 Intake Total 550 Output Total 700 Balance -150 Weight 88.451 kg Intake: IV 200 kvo 200 Intake, IV Titration 50 Amount Clindamycin 600 mg In 50 Dextrose 5% in Water 50 ml @ 50 mls/hr IVPB Q6H [facility] Rx#:[id number] Oral 300 Output: Urine 700 Other: Voiding Method External Catheter External Catheter - Exam GENERAL EXAM: Alert, very pleasant, 81-year-old white male, on BiPAP support with pressures of 12 and 6 and FiO2 of 100% with a pulse ox of 96%. Patient has been BiPAP dependent, rapidly desaturates when he removes the mask HEAD: Normocephalic/atraumatic. EYES: Normal reaction of pupils, equal size. Conjunctiva pink, sclera white. NOSE: Clear with pink turbinates. THROAT: No erythema or exudates. NECK: No masses, no JVD, no thyroid enlargement, no adenopathy. CHEST: No chest wall deformity. Symmetrical expansion. LUNGS: Equal air entry with diffuse rhonchi CVS: Regular rate and rhythm, normal S1 and S2, no gallops, no murmurs, no rubs ABDOMEN: Soft, nontender. No hepatosplenomegaly, normal bowel sounds, no guarding or rigidity. EXTREMITIES: No clubbing, no edema, no cyanosis, 2+ pulses and upper and lower extremities. MUSCULOSKELETAL: Muscle strength and tone normal. SPINE: No scoliosis or deformity SKIN: No rashes CENTRAL NERVOUS SYSTEM: Alert and oriented -3. No focal deficits, tone is normal in all 4 extremities. PSYCHIATRIC: Alert and oriented -3. Appropriate affect. Intact judgment and insight. - Labs CBC & Chem 7: 07/09/21 07:42 07/09/21 07:42 Labs: Abnormal Lab Results - Last 24 Hours (Table) 07/08/21 07/08/21 07/09/21 Range/Units 16:47 20:35 07:42 WBC (4.50-10.00) X 10*3/uL Hgb (13.0-17.0) g/dL MCHC (32.0-37.0) g/dL RDW (11.5-14.5) % Sodium (137-145) mmol/L BUN (9-20) mg/dL Creatinine (0.66-1.25) mg/dL Glucose (74-99) mg/dL POC Glucose (mg/dL) 198 H 219 H (75-99) mg/dL Magnesium (1.6-2.3) mg/dL Total Protein (6.3-8.2) g/dL Albumin (3.5-5.0) g/dL Procalcitonin 0.15 H (0.02-0.09) ng/mL 07/09/21 07/09/21 07/09/21 Range/Units 07:42 07:42 07:51 WBC 14.89 H (4.50-10.00) X 10*3/uL Hgb 12.7 L (13.0-17.0) g/dL MCHC 30.9 L (32.0-37.0) g/dL RDW 15.7 H (11.5-14.5) % Sodium 136 L (137-145) mmol/L BUN 104 H* (9-20) mg/dL Creatinine 2.16 H (0.66-1.25) mg/dL Glucose 267 H (74-99) mg/dL POC Glucose (mg/dL) 349 H (75-99) mg/dL Magnesium 2.7 H (1.6-2.3) mg/dL Total Protein 6.0 L (6.3-8.2) g/dL Albumin 3.0 L (3.5-5.0) g/dL Procalcitonin (0.02-0.09) ng/mL 07/09/21 Range/Units 11:50 WBC (4.50-10.00) X 10*3/uL Hgb (13.0-17.0) g/dL MCHC (32.0-37.0) g/dL RDW (11.5-14.5) % Sodium (137-145) mmol/L BUN (9-20) mg/dL Creatinine (0.66-1.25) mg/dL Glucose (74-99) mg/dL POC Glucose (mg/dL) 226 H (75-99) mg/dL Magnesium (1.6-2.3) mg/dL Total Protein (6.3-8.2) g/dL Albumin (3.5-5.0) g/dL Procalcitonin (0.02-0.09) ng/mL Microbiology - Last 24 Hours (Table) 07/06/21 08:58 Gram Stain - Final Sputum Sputum Culture - Final Assessment and Plan Plan: Assessment: #1. Acute hypoxic respiratory failure multifactorial, related to acute exacerbation of systolic CHF, and possibility of pneumonia, suspect aspiration related pneumonia Initially patient was suspected to have COVID-19 pneumonia, and reportedly had an outpatient positive test which we don't have a record of, however repeat rapid COVID-19 PCR in the emergency department on 07/01/2021 was negative, and follow-up COVID antibody test is negative. Initial chest x-ray showed cardiomegaly with new bilateral multifocal opacities. #2. Suspect aspiration related pneumonia, we'll switch antibiotic coverage to clindamycin. Sputum culture was nondiagnostic, repeat sputum will be sent. Speech eval has been requested, unable to complete at this time #3. Constitutional symptoms along with diminished appetite, generalized weakness #4. Previous history of mitral valve repair #5. History of progress A. fib post ablation, patient is on Xarelto #6. History of pacemaker insertion #7. Hypertension #8. Chronic bronchial asthma, unspecified #9. History of neck fusion C1 through C7 #10. Chronic stage III CKD #11. Chronic CHF with systolic dysfunction and ejection fraction of 35-40%, and mild degree of pulmonary hypertension Plan: Patient remains on BiPAP support He has been BiPAP dependent and desaturates quite rapidly We will attempt to give him a trial on Airvo and high flow oxygen if able to tolerate Continue clindamycin for antibiotic coverage, for suspicion of aspiration pneumonia Stop the Lasix right now, Losartan has been placed on hold Patient is developing worsening kidney injury Consult nephrology Dropped IV steroids to 40 mg twice daily Maintain aspiration precautions Speech evaluation has been requested but unable to complete related to the fact that the patient is BiPAP dependent Discussed condition, prognosis and treatment plan with the patient and the daughter Currently prognosis is extremely guarded and poor Patient made it quite clear that he does not want life support We'll continue supportively treating the patient I performed a history & physical examination of the patient and discussed their management with my nurse practitioner, Stephanie Tijerina. I reviewed the nurse practitioner's note and agree with the documented findings and plan of care. Lung sounds are positive for mild crackles throughout the lung short. The findings and the impression was discussed with the patient. I attest to the documentation by the nurse practitioner. Time with Patient: Less than 30
[2021-07-09 16:45] LABS: Glucose,Whole Blood 270 mg/dL (75-99)
[2021-07-09 20:40] LABS: Glucose,Whole Blood 236 mg/dL (75-99)
--- NOTE | 2021-07-10 00:29 | P.CONS ---
History of Present Illness - Reason for Consult Consult date: 07/09/21 pneumonia Requesting physician: Stevenson Pack - Chief Complaint shortness of breath x days - History of Present Illness History of present illness : Patient is 81-year-old male who was brought into the ER about 8 days ago on 07/01/2021 in this patient symptom has been increasing shortness of breath and apparently patient tested positive few days before presentation to the hospital and the center was going on for about a week patient complaining of feeling fatigue and confused with decreased appetite and decreased oral intake on presentation to the hospital patient did have a chest x-ray shows chronic changes cardiomegaly with new bilateral multifocal opacities consistent with COVID-19 infection patient did not have any fever during this hospital stay patient did have mild elevated white count on admission which is up to 20,000 and one point has been trending down D-dimer has been normal BUN is significantly elevated as well as creatinine is up to 2.16 Lovenox has been normal procalcitonin has been low at 0.21-0.15 chest x-ray repeated last evening did show scattered reticular nodular infiltrate persist perihilar region and left lower lobe significant interval change infectious disease was consulted because of this worsening x-ray finding patient is currently being treated with clindamycin Solu-Medrol zinc, patient did have a negative RSV influenza and SARS-CoV-2 antibody has been negative Review of system: CONSTITUTIONAL: Positive for weakness no fever. EYES: No complaint. ENT: No complaint. RESPIRATORY: As per history of present illness. CARDIOVASCULAR: No complaint. GENITOURINARY: No complaint. GASTROINTESTINAL: No complaint. MUSCULOSKELETAL: No complaint. INTEGUMENTARY: No complaint. PSYCHOLOGIC: No complaint. ENDOCRINE: No complaint. NEUROLOGIC: No complaint. Past medical history : Reviewed, documented below Past surgical history : Reviewed, documented below Social history: Reviewed, documented below Medications: Reviewed, as documented below EXAMINATION: Vital sigans= Reviewed and documented below GENERAL DESCRIPTION: Elderly male lying in bed, no distress. No tachypnea or accessory muscle of respiration use. HEENT: Shows Pallor , no scleral icterus. Oral mucous membrane is dry. NECK: Trachea central, no thyromegaly. LUNGS: Unlabored breathing. Coarse breath sounds bilaterally. No wheeze or crackle. HEART: S1, S2, regular rate and rhythm. ABDOMEN: Soft, no tenderness , guarding or rigidity EXTREMITIES: No edema of feet. SKIN: No rash, no masses palpable. NEUROLOGICAL: The patient is awake, alert, oriented x3, mood and affect normal. LABS AND RADIOLOGY: Reviewed results see below Assessment : Patient with acute respiratory failure secondary to COVID-19 pneumonia and possible progression into ARDS pattern patient is clinically not behaving as a bacterial pneumonia, and some of the worsening could be fluid related as the patient did have a significant elevated BUN and creatinine Plan: 1-patient will benefit from addition of Bairicitinab 2-continue with the Solu-Medrol zinc and ascorbic acid along with Xarelto 3-respiratory support We will follow on clinical condition and cultures to further adjust medication if needed Thank you for this consultation we will follow the patient along with you Past Medical History Past Medical History: Atrial Fibrillation, Asthma, Hypertension Additional Past Medical History / Comment(s): See Dr Salas's H&P History of Any Multi-Drug Resistant Organisms: None Reported Past Surgical History: Joint Replacement, Pacemaker Additional Past Surgical History / Comment(s): Mitral valve repair.; 2 shoulder replacements, cataracts, ablasion, neck fusion Past Anesthesia/Blood Transfusion Reactions: No Reported Reaction Additional Past Anesthesia/Blood Transfusion Reaction / Comm: pt states little neck movement r/t neck fusion C1-7 Type of Cardiac Device: Permanent Pacemaker Device Placement Date:: 2013 Past Psychological History: No Psychological Hx Reported Past Alcohol Use History: Daily Past Drug Use History: None Reported - Past Family History Daughter(s) Family Medical History: Cancer Additional Family Medical History / Comment(s): Br CA Medications and Allergies Home Medications Medication Instructions Recorded Confirmed Type Furosemide [Lasix] 20 mg PO DAILY 02/08/14 07/01/21 History Montelukast [Singulair] 10 mg PO DAILY 02/08/14 07/01/21 History Metoprolol Succinate (ER) [Toprol 100 mg PO DAILY #90 tab 11/11/17 07/01/21 Rx XL] Colchicine 0.6 mg PO DAILY 07/01/21 07/01/21 History Pantoprazole Sodium [Protonix] 20 mg PO BID 07/01/21 07/01/21 History Rivaroxaban [Xarelto] 15 mg PO DAILY 07/01/21 07/01/21 History dilTIAZem HCL [dilTIAZem HCL 24Hr 120 mg PO DAILY 07/01/21 07/01/21 History ER (Xr)] Allergies Allergy/AdvReac Type Severity Reaction Status Date / Time Penicillins Allergy Rash/Hives Verified 07/01/21 16:25 morphine AdvReac Hallucinati Verified 07/01/21 16:25 ons Physical Exam Vitals: Vital Signs Temp Pulse Resp BP Pulse Ox 07/09/21 10:43 96.6 F L 75 17 139/89 94 L 07/09/21 06:24 97.5 F L 74 137/77 83 L 07/09/21 01:44 97.4 F L 64 166/51 97 07/08/21 22:14 96.5 F L 69 120/86 87 L 07/08/21 14:53 96.3 F L 61 16 124/87 97 Intake and Output 07/08/21 07/09/21 07/09/21 22:59 06:59 14:59 Intake Total 550 Output Total 700 Balance -150 Intake: IV 200 kvo 200 Intake, IV Titration 50 Amount Clindamycin 600 mg In 50 Dextrose 5% in Water 50 ml @ 50 mls/hr IVPB Q6H [facility] Rx#:[id number] Oral 300 Output: Urine 700 Other: Voiding Method External Catheter Results CBC & Chem 7: 07/09/21 07:42 07/09/21 07:42 Labs: Abnormal Lab Results - Last 24 Hours (Table) 07/08/21 07/08/21 07/08/21 Range/Units 11:41 16:47 20:35 WBC (4.50-10.00) X 10*3/uL Hgb (13.0-17.0) g/dL MCHC (32.0-37.0) g/dL RDW (11.5-14.5) % Sodium (137-145) mmol/L BUN (9-20) mg/dL Creatinine (0.66-1.25) mg/dL Glucose (74-99) mg/dL POC Glucose (mg/dL) 248 H 198 H 219 H (75-99) mg/dL Magnesium (1.6-2.3) mg/dL Total Protein (6.3-8.2) g/dL Albumin (3.5-5.0) g/dL 07/09/21 07/09/21 07/09/21 Range/Units 07:42 07:42 07:51 WBC 14.89 H (4.50-10.00) X 10*3/uL Hgb 12.7 L (13.0-17.0) g/dL MCHC 30.9 L (32.0-37.0) g/dL RDW 15.7 H (11.5-14.5) % Sodium 136 L (137-145) mmol/L BUN 104 H* (9-20) mg/dL Creatinine 2.16 H (0.66-1.25) mg/dL Glucose 267 H (74-99) mg/dL POC Glucose (mg/dL) 349 H (75-99) mg/dL Magnesium 2.7 H (1.6-2.3) mg/dL Total Protein 6.0 L (6.3-8.2) g/dL Albumin 3.0 L (3.5-5.0) g/dL Microbiology - Last 24 Hours (Table) 07/06/21 08:58 Gram Stain - Final Sputum Sputum Culture - Final
[2021-07-10] MEDS: MELATONIN 3 MG TABLET PO PRN ×2 (00:49→20:44)
[2021-07-10] MEDS: CLINDAMYCIN 600 MG in DEXTROSE 5% IN WATER 50 ML IVPB SCH ×8 (02:21→19:34)
[2021-07-10 07:03] LABS: Glucose,Whole Blood 217 mg/dL (75-99)
[2021-07-10] MEDS: INSULIN DETEMIR (LEVEMIR) 100 UNIT/ML SYR SQ SCH (08:22)
[2021-07-10] MEDS: DILTIAZEM CD 120 MG CAP.ER.24H PO SCH (08:22)
[2021-07-10] MEDS: methylPREDNISolone SOD SUCCI 40 MG/ML 1 ML VIAL IV SCH ×2 (08:22→20:44)
[2021-07-10] MEDS: INSULIN ASPART (NovoLOG) 100 UNIT/ML VIAL SQ SCH ×4 (08:22→20:44)
[2021-07-10] MEDS: PANTOPRAZOLE 40 MG TABLET PO SCH ×2 (08:22→20:44)
[2021-07-10] MEDS: ASCORBIC ACID 500 MG TAB PO SCH ×2 (08:22→20:44)
[2021-07-10] MEDS: ZINC SULFATE 220 MG CAP PO SCH (08:22)
[2021-07-10] MEDS: METOPROLOL SUCCINATE (ER) 100 MG TAB.ER.24H PO SCH (08:22)
[2021-07-10] MEDS: BENZONATATE 100 MG CAP PO SCH ×3 (08:22→20:44)
[2021-07-10] MEDS: CHOLECALCIFEROL 125 MCG (5000 IU) TABLET PO SCH (08:22)
[2021-07-10] MEDS: MONTELUKAST 10 MG TAB PO SCH (08:22)
[2021-07-10] MEDS: RIVAROXABAN 20 MG TAB PO SCH (08:22)
[2021-07-10] MEDS: SYMBICORT 160-4.5 MCG INHALER INHALATION SCH ×2 (08:42→19:44)
[2021-07-10] MEDS: ALBUTEROL HFA INHALER INHALATION SCH ×4 (08:42→19:44)
[2021-07-10 09:39] LABS: HCT 42.4 % (39.0-53.0); HGB 13.5 gm/dL (13.0-17.5); MCH 29.3 pg (25.0-35.0); MCHC 31.9 g/dL (31.0-37.0); MCV 91.8 fL (80.0-100.0); Mean Platelet Volume 8.4; Platelet Count 343 k/uL (150-450); RBC 4.62 m/uL (4.30-5.90); RDW 15.3 % (11.5-15.5); WBC 14.1 k/uL (3.8-10.6)
[2021-07-10 10:01] LABS: ALT 19 U/L (4-49); AST 17 U/L (17-59); African American GFR (CKD) 33 (>60 ml/min/1.73 sqM); Albumin 3.2 g/dL (3.5-5.0); Albumin/Globulin Ratio 1.1; Alkaline Phosphatase 62 U/L (38-126); Anion Gap 14 mmol/L; Calcium 9.1 mg/dL (8.4-10.2); Carbon Dioxide 21 mmol/L (22-30); Chloride 100 mmol/L (98-107); Globulin 2.9 g/dL; Glucose 300 mg/dL (74-99); Magnesium 2.6 mg/dL (1.6-2.3); Non-African American GFR(CKD) 28 (>60 ml/min/1.73 sqM); Potassium 5.2 mmol/L (3.5-5.1); Sodium 135 mmol/L (137-145); Total Bilirubin 0.9 mg/dL (0.2-1.3); Total Protein 6.1 g/dL (6.3-8.2)
[2021-07-10 10:03] LABS: Blood Urea Nitrogen 109 mg/dL (9-20)
[2021-07-10 12:01] LABS: Glucose,Whole Blood 299 mg/dL (75-99)
--- NOTE | 2021-07-10 12:26 | P.PN ---
<Stevenson Pack - Last Filed: 07/10/21 17:13> Subjective Progress Note Date: 07/10/21 Hospital course: Patient is a very pleasant 81-year-old male with a past medical history of CAD status post pacemaker placement, ischemic cardiomyopathy, chronic systolic heart failure with previously known EF of 35-40%, atrial fibrillation on anticoagulation with Xarelto, hypertension, hyperlipidemia, CKD stage III, and COPD not home oxygen dependent. Patient presented to the emergency department on 07/01/21 with a chief complaint of shortness of breath, nonproductive cough, weakness, and fatigue 1 week. He was found to have leukocytosis with WBC count of 11.9, Hyponatremia with sodium of 132, hypochloremia with chloride of 95, renal function consistent with CKD with BUN 53, creatinine 1.72, and GFR of 37 (slightly above baseline creatinine). Inflammatory markers elevated with CRP 3.4 and LDH of 688, d-dimer pending. Covid PCR negative. Chest x-ray revealing chronic changes and cardiomegaly with bilateral multifocal opacities concerning for Covid 19 infection. EKG revealing a ventricular paced rhythm at 80 bpm with underlying atrial flutter. Patient admitted under our services with consultation to pulmonology. Covid PCR and antigen negative. Influenza and RSV negative. Urine Legionella negative, pro-calcitonin elevated at 0.15. D-dimer 0.41. Gram stain/sputum culture negative. Physical exam: Patient seen and fully evaluated at the bedside this morning. He is on Airvo 60% and 100% NRB with SPO2 89-90%. Pt states that he is feeling a little bit better but remains feeling very hot and continues to hold cool rag on his head. Morning labs revealed BUN of 109 and creatinine of 2.15 with GFR of 28. Nephrology following WBC count of 14.1. Patient remains on clindamycin and infectious disease ordering repeat COVID testing. Vital signs reviewed and stable. General: Patient appears in mild distress, appears generally unwell feeling and lethargic. at Derm: Skin warm and dry, normal coloration for ethnicity. Head: Atraumatic, normocephalic and symmetric. Eyes: EOMs intact, no lid lag, and anicteric sclera Mouth: no lip lesions, mucus membranes moist Cardiovascular: regular rate and rhythm, distant heart sounds, positive posterior tibial pulses bilaterally, and cap refill < 2 seconds. Lungs: Respirations even, regular, and unlabored on BiPAP with 100% FiO2.. Lungs diminished with diffuse rhonchi. Coarse weak cough. No accessory muscle usage. Abdominal: soft, nontender to palpation, no guarding, no appreciable organomegaly Ext: ROM intact. No gross muscle atrophy, no edema, no contractures Neuro: Speech clear, face symmetrical and CN II-XII grossly intact with no noted focal neuro deficits Psych: Alert and oriented to person, place, time, and situation. Appropriate and pleasant affect. Assessment and Plan of Care: Acute respiratory failure with hypoxia secondary to bilateral multifocal pneumonia Acute COPD exacerbation secondary to bilateral multifocal pneumonia -Covid PCR and antigen negative -Influenza and RSV negative -Urine Legionella negative, pro-calcitonin elevated at 0.15. -D-dimer 0.41 -IV antibiotics: Cefepime and vancomycin -Infectious disease consult placed -Gram stain/sputum culture negative. -Oxygenation to be administered and titrated as needed to maintain SPO2 equal to or greater than 90% -Telemetry monitoring. -Encourage Incentive Spirometry 10-15x hourly while awake -Steroids: Same Medrol 40 mg IVP every 6 hours -DuoNeb scheduled and as needed -Pulmonology following, appreciate further recommendations. Atrial fibrillation Chronic systolic heart failure with EF of 20-25% with global hypokinesis Ischemic cardiomyopathy with global hypokinesis CAD status post pacemaker placement Hypertension Hyperlipidemia -Telemetry monitoring -Echocardiogram revealing a severely impaired EF between 20 and 25% with global hypokinesis, moderately enlarged right ventricle and mild to moderate mitral valve regurgitation. -Trend troponins -BNP 10,000 with repeat 2069 -Continuation of daily medication regimen including Xarelto, metoprolol, losartan, and Cardizem. -Monitor vital signs closely. Acute kidney injury on Stage III CKD -Possibly secondary to vancomycin use. Vancomycin was discontinued and patient started on clindamycin 600 mg every 6 hours. -Losartan held at this time. Caution with all other nephrotoxic medications. -Nephrology consulted, ordered renal ultrasound, appreciate further recommendations. Newly diagnosed diabetes mellitus with hemoglobin A1c of 8.1% -Continue Levemir 22 units twice daily, was previously increased to 26 however patient with hypoglycemia this morning. Generalized weakness PT/OT consulted, recommending rehab. CODE STATUS: DO NOT RESUSCITATE/DO NOT INTUBATE DVT prophylaxis: Xarelto Discussed with: Patient and RN Anticipated discharge date: Clinical course to determine Anticipated discharge place: Clinical course to determine A total of 45 minutes was spent on the care of this complex patient more than 50% of the time was spent in counseling and care coordination. Objective - Vital Signs Vital signs: Vital Signs Temp 97.2 F L 07/10/21 08:00 Pulse 88 07/10/21 08:00 Resp 20 07/10/21 08:00 BP 134/93 07/10/21 08:00 Pulse Ox 89 L 07/10/21 11:47 Intake & Output 07/09/21 07/10/21 07/10/21 18:59 06:59 18:59 Output Total 580 Balance -580 Output: Urine 580 Other: # Voids 2 3 # Bowel Movements 0 - Labs CBC & Chem 7: 07/10/21 09:23 07/10/21 09:23 Labs: Abnormal Lab Results - Last 24 Hours (Table) 07/09/21 07/09/21 07/09/21 Range/Units 07:42 16:43 20:39 WBC (3.8-10.6) k/uL Sodium (137-145) mmol/L Potassium (3.5-5.1) mmol/L Carbon Dioxide (22-30) mmol/L BUN (9-20) mg/dL Creatinine (0.66-1.25) mg/dL Glucose (74-99) mg/dL POC Glucose (mg/dL) 270 H 236 H (75-99) mg/dL Magnesium (1.6-2.3) mg/dL Total Protein (6.3-8.2) g/dL Albumin (3.5-5.0) g/dL Procalcitonin 0.15 H (0.02-0.09) ng/mL 07/10/21 07/10/21 07/10/21 Range/Units 06:48 09:23 09:23 WBC 14.1 H (3.8-10.6) k/uL Sodium 135 L (137-145) mmol/L Potassium 5.2 H (3.5-5.1) mmol/L Carbon Dioxide 21 L (22-30) mmol/L BUN 109 H* (9-20) mg/dL Creatinine 2.15 H (0.66-1.25) mg/dL Glucose 300 H (74-99) mg/dL POC Glucose (mg/dL) 217 H (75-99) mg/dL Magnesium 2.6 H (1.6-2.3) mg/dL Total Protein 6.1 L (6.3-8.2) g/dL Albumin 3.2 L (3.5-5.0) g/dL Procalcitonin (0.02-0.09) ng/mL 07/10/21 Range/Units 11:45 WBC (3.8-10.6) k/uL Sodium (137-145) mmol/L Potassium (3.5-5.1) mmol/L Carbon Dioxide (22-30) mmol/L BUN (9-20) mg/dL Creatinine (0.66-1.25) mg/dL Glucose (74-99) mg/dL POC Glucose (mg/dL) 299 H (75-99) mg/dL Magnesium (1.6-2.3) mg/dL Total Protein (6.3-8.2) g/dL Albumin (3.5-5.0) g/dL Procalcitonin (0.02-0.09) ng/mL <Destini Garcia A - Last Filed: 07/10/21 18:24> Subjective Stevenson Pack NP rendered care for this patient independently, reviewed the findings and plan as documented in the note above. I did not physically speak with or examine the patient on this date. Objective - Vital Signs Vital signs: Vital Signs Temp 97.6 F 07/10/21 14:00 Pulse 80 07/10/21 14:00 Resp 20 07/10/21 14:00 BP 124/87 07/10/21 14:00 Pulse Ox 88 L 07/10/21 14:00 Intake & Output 07/09/21 07/10/21 07/10/21 18:59 06:59 18:59 Output Total 580 Balance -580 Output: Urine 580 Other: # Voids 2 3 # Bowel Movements 0 - Labs CBC & Chem 7: 07/10/21 09:23 07/10/21 09:23 Labs: Abnormal Lab Results - Last 24 Hours (Table) 07/09/21 07/10/21 07/10/21 Range/Units 20:39 06:48 09:23 WBC 14.1 H (3.8-10.6) k/uL Sodium (137-145) mmol/L Potassium (3.5-5.1) mmol/L Carbon Dioxide (22-30) mmol/L BUN (9-20) mg/dL Creatinine (0.66-1.25) mg/dL Glucose (74-99) mg/dL POC Glucose (mg/dL) 236 H 217 H (75-99) mg/dL Magnesium (1.6-2.3) mg/dL Total Protein (6.3-8.2) g/dL Albumin (3.5-5.0) g/dL Urine Protein (Negative) Urine Bacteria (None) /hpf Urine Mucus (None) /hpf 07/10/21 07/10/21 07/10/21 Range/Units 09:23 11:45 17:04 WBC (3.8-10.6) k/uL Sodium 135 L (137-145) mmol/L Potassium 5.2 H (3.5-5.1) mmol/L Carbon Dioxide 21 L (22-30) mmol/L BUN 109 H* (9-20) mg/dL Creatinine 2.15 H (0.66-1.25) mg/dL Glucose 300 H (74-99) mg/dL POC Glucose (mg/dL) 299 H 237 H (75-99) mg/dL Magnesium 2.6 H (1.6-2.3) mg/dL Total Protein 6.1 L (6.3-8.2) g/dL Albumin 3.2 L (3.5-5.0) g/dL Urine Protein (Negative) Urine Bacteria (None) /hpf Urine Mucus (None) /hpf 07/10/21 Range/Units 17:45 WBC (3.8-10.6) k/uL Sodium (137-145) mmol/L Potassium (3.5-5.1) mmol/L Carbon Dioxide (22-30) mmol/L BUN (9-20) mg/dL Creatinine (0.66-1.25) mg/dL Glucose (74-99) mg/dL POC Glucose (mg/dL) (75-99) mg/dL Magnesium (1.6-2.3) mg/dL Total Protein (6.3-8.2) g/dL Albumin (3.5-5.0) g/dL Urine Protein 2+ H (Negative) Urine Bacteria Rare H (None) /hpf Urine Mucus Rare H (None) /hpf Microbiology - Last 24 Hours (Table) 07/09/21 12:02 Blood Culture - Preliminary Blood No Growth after 24 hours 07/09/21 12:07 Blood Culture - Preliminary Blood No Growth after 24 hours
--- NOTE | 2021-07-10 15:39 | P.PN ---
Subjective Progress Note Date: 07/10/21 Principal diagnosis: Hypoxemic respiratory failure This is an 81-year-old the patient was Hospital as for COVID 19 related pulmonary infection/pneumonia and shortness of breath and hypoxemic respiratory failure.. The patient came into the emergency department and the patient was having symptoms of COVID 19. The patient tested positive for COVID 19 couple of days ago. The patient's symptom onset was approximately a week ago. He was complaining of fatigue and on and off he was feeling lethargic and confused. He has also diminished appetite and diminished oral intake. He also mentions a coffee no significant shortness of breath. Repeat COVID 19 testing that was done in the emergency tested negative. Patient had normal coagulation profile. White cell count was normal at 11.9 with hemoglobin 15.4. Creatinine was at 1.7 consistent with chronic kidney disease, rest of the electrodes were normal, LDH level was 688 and a CRP level was at 3.4. The chest x-ray was done in the emergency department showed bilateral perihilar infiltrates most on the right. Nevertheless the patient has cardiomegaly. The patient also has bilateral shoulder replacement and the patient has post thoracotomy changes, pacemaker placed and cervical spine fusion with metal plates and screws. The patient is currently on today's of oxygen by nasal cannula. The patient was started on Decadron. Inflammatory markers are low with an LDH level of 688 with a CRP of 3.4. Progesterone level is pending for now. As mentioned, his COVID 19 testing was negative. Comorbid conditions include atrial fibrillation/flutter post-ablation, maintained on Xarelto, CHF with ejection fraction of 35-40% with moderate pulmonary hypertension, history of permanent pacemaker insertion, history of mitral valve repair at the [facility], chronic stage II kidney disease and benign positional vertigo. On 07/02/2021 patient seen in follow-up on medical surgical floor. Appears to be in no acute distress, he is currently on 2 L of oxygen his pulse ox is 92- 93%, he is afebrile, vital signs are stable, has occasional cough, he does get short of breath with exertion, but no acute distress was noted. Patient is currently on empiric antibiotics with azithromycin and Rocephin, he is on inhaled bronchodilators, he is on oral anticoagulation for history of atrial fibrillation. His chest x-ray from admission showed chronic changes and cardiomegaly with the new bilateral multifocal opacities consistent with COVID- 19 pneumonia. He tested negative for COVID-19, his influenza A and B and RSV were also negative. He previously tested positive for COVID-19, and at this stage she could be recovering from his recent COVID-19 infection. Today's labs have been reviewed, his white blood cell count is 6.5, hemoglobin is 14.3, his d-dimer is negative at 0.41, his sodium is 135, potassium is 5.0, chloride is 94, BUN is 52, and creatinine is 1.9, LDH is improving and is down to 249, troponin was negative 3. ProBNP level came back elevated at 10,000, his pro- calcitonin level was negative at 0.21. Overall he states she is feeling a little better today, she had no fever or chills, no nausea or vomiting, no abdominal pain. On 07/05/2021 patient seen in follow-up on medical surgical floor at the request of primary care service in view of worsening hypoxia. Patient came into the emergency department on 07/01/2021 with complaints of fatigue, confusion, decreased appetite and decreased oral intake. He was also reporting cough, and dyspnea. Symptoms were suspicious for COVID-19 infection however patient tested negative for COVID-19 by rapid PCR test, he also tested negative for influenza A and B, and RSV virus. His chest x-ray showed chronic changes, cardiomegaly and bilateral multifocal opacities that were concerning for COVID-19 infection. However his COVID-19 antibody test was negative, patient was not vaccinated against COVID-19. There was a suspicion of pneumonia, possibly community acquired and patient was started on azithromycin and Rocephin, he is working on Xarelto 4 history of anticoagulation, patient has ischemic cardiomyopathy status post pacemaker placement, and EF of 35-40%. He is on Lasix 20 mg twice daily. His proBNP on admission was 10,000. His inflammatory markers were not significantly elevated with LDH of 688, his CRP was 3.4, his pro-calcitonin level was 0.21. D-dimer was negative. He does not have significant leukocytosis on his blood work, today's white blood cell count is 11.4, hemoglobin is 13.9, his sodium is 132, potassium is 4.6, chloride is 95, his anion gap is 16, his BUN is 65, creatinine is 1.8. His net fluid balance is very difficult to estimate as the patient is incontinent of urine, there is no accurate weights recorded. Patient was on 2-5 L of oxygen yesterday, today his O2 saturations were only 85% on 5 L, and subsequently his oxygen flow was increased to 10 L, his pulse ox is 90%, patient is sitting up in the recliner, he is awake and alert, oriented 3, he is bringing up some thick yellow colored phlegm, he had been on a combination of azithromycin and Rocephin since 07/01/2021. No fevers overnight, no hemoptysis, stat repeat chest x-ray has been obtained showing chronic changes and cardiomegaly with improved aeration in the right mid to lower lung, small left pleural effusion and left basilar atelectasis. Patient seen today 07/06/2021 in follow-up on the regular medical floor. He is currently sitting up in a chair at the bedside. He is dyspneic on minimal conversation. Dyspneic on minimal exertion. He is currently on 15 L high flow nasal cannula +100% nonrebreather mask. When the mask is off his O2 saturations dropped into the 70s. Currentlyat 92%. He is afebrile. Hemodynamically stab le. chest x-ray continued to show chronic changes and cardiomegaly with improved aeration in the right mid to lower lung. Better visualization of a small left pleural effusion and associated left basilar atelectasis/infiltrate. white count 12.0. Hemoglobin 14.0. Lymphocytes 0.46. Sodium 131 potassium 5.2. Creatinine 1.9. Procalcitonin 0.15. Scanned report from outside source revealed a positive COVID-19 test on 06/30/2021 however he tested negative here on 07/01/2021 and he has a negative antibody screen from 07/03/2021. He remains on antibiotics in the form of cefepime and vancomycin. Continued on DuoNeb inhalations, Symbicort, IV Solu-Medrol. Sputum culture pending. The patient is seen today 07/10/2021 in follow-up on the regular medical floor. He is currently laying flat in bed. Awake. Still dyspneic with minimal conversation. Dyspneic with minimal exertion. He is requiring AirVo high flow oxygen at 60 L 90% FiO2 +100% nonrebreather mask to maintain O2 saturation 90-91%. He had been on BiPAP through the evening 06/17 and 100% FiO2. He is continued on Symbicort, albuterol, IV Solu-Medrol, anticoagulated with Xarelto. Antibiotics in the form of clindamycin. On vitamin supplements. Objective - Vital Signs Vital signs: Vital Signs Temp 97.6 F 07/10/21 14:00 Pulse 80 07/10/21 14:00 Resp 20 07/10/21 14:00 BP 124/87 07/10/21 14:00 Pulse Ox 88 L 07/10/21 14:00 Intake & Output 07/09/21 07/10/21 07/10/21 18:59 06:59 18:59 Output Total 580 Balance -580 Output: Urine 580 Other: # Voids 2 3 # Bowel Movements 0 - Exam GENERAL EXAM: Alert, 81-year-old male patient, on airflow high flow oxygen at 60 L and 90% FiO2 plus a nonrebreather mask with O2 saturation 90-91% in mild respiratory distress. HEAD: Normocephalic/atraumatic. EYES: Normal reaction of pupils, equal size. Conjunctiva pink, sclera white. NOSE: Clear with pink turbinates. THROAT: No erythema or exudates. NECK: No masses, no JVD, no thyroid enlargement, no adenopathy. CHEST: No chest wall deformity. Symmetrical expansion. LUNGS: Equal air entry with mild crackles at bilateral bases CVS: Regular rate and rhythm, normal S1 and S2, no gallops, no murmurs, no rubs ABDOMEN: Soft, nontender. No hepatosplenomegaly, normal bowel sounds, no guarding or rigidity. EXTREMITIES: No clubbing, no edema, no cyanosis, 2+ pulses and upper and lower extremities. MUSCULOSKELETAL: Muscle strength and tone normal. SPINE: No scoliosis or deformity SKIN: No rashes CENTRAL NERVOUS SYSTEM: No focal deficits, tone is normal in all 4 extremities. PSYCHIATRIC: Alert and oriented -3. Appropriate affect. Intact judgment and insight. - Labs CBC & Chem 7: 07/10/21 09:23 07/10/21 09:23 Labs: Abnormal Lab Results - Last 24 Hours (Table) 07/09/21 07/09/21 07/10/21 Range/Units 16:43 20:39 06:48 WBC (3.8-10.6) k/uL Sodium (137-145) mmol/L Potassium (3.5-5.1) mmol/L Carbon Dioxide (22-30) mmol/L BUN (9-20) mg/dL Creatinine (0.66-1.25) mg/dL Glucose (74-99) mg/dL POC Glucose (mg/dL) 270 H 236 H 217 H (75-99) mg/dL Magnesium (1.6-2.3) mg/dL Total Protein (6.3-8.2) g/dL Albumin (3.5-5.0) g/dL 07/10/21 07/10/21 07/10/21 Range/Units 09:23 09:23 11:45 WBC 14.1 H (3.8-10.6) k/uL Sodium 135 L (137-145) mmol/L Potassium 5.2 H (3.5-5.1) mmol/L Carbon Dioxide 21 L (22-30) mmol/L BUN 109 H* (9-20) mg/dL Creatinine 2.15 H (0.66-1.25) mg/dL Glucose 300 H (74-99) mg/dL POC Glucose (mg/dL) 299 H (75-99) mg/dL Magnesium 2.6 H (1.6-2.3) mg/dL Total Protein 6.1 L (6.3-8.2) g/dL Albumin 3.2 L (3.5-5.0) g/dL Microbiology - Last 24 Hours (Table) 07/09/21 12:02 Blood Culture - Preliminary Blood No Growth after 24 hours 07/09/21 12:07 Blood Culture - Preliminary Blood No Growth after 24 hours Assessment and Plan Assessment: 1 Acute hypoxic respiratory failure multifactorial, related to acute exacerbation of systolic CHF, and possibility of pneumonia. Initially patient was suspected to have COVID-19 pneumonia, and reportedly had an outpatient positive test which we have a record of, however repeat rapid COVID-19 PCR in the emergency department on 07/01/2021 was negative, and follow-up COVID antibody test is negative. Initial chest x-ray showed cardiomegaly with new bilateral multifocal opacities. Currently AirVo high flow oxygen at 60 L and 90% +100% nonrebreather mask to maintain O2 saturations in the low 90s. Pro- calcitonin 0.15. Currently on vancomycin and cefepime. We'll check legionella antigen 2 Constitutional symptoms along with diminished appetite, generalized weakness 3 Previous history of mitral valve repair 4 History of progress A. fib post ablation, patient is on Xarelto 5 History of pacemaker insertion 6 Hypertension 7 Chronic bronchial asthma, unspecified 8 History of neck fusion C1 through C7 9 Chronic stage III CKD 10 Chronic CHF with systolic dysfunction and ejection fraction of 35-40%, and mild degree of pulmonary hypertension Plan: The patient was seen and evaluated Currently on AirVo high flow oxygen at 60 L and 90% FiO2 +100% nonrebreather mask Continue on clindamycin Continued on bronchodilators, IV Solu-Medrol Anticoagulated with Xarelto Prognosis is guarded DO NOT RESUSCITATE/DO NOT INTUBATE CODE STATUS We will continue to follow I, the cosigning physician, performed a history & physical examination of the patient. Lungs sounds with crackles in the bilateral posterior bases. Maintaining O2 saturations in the 90s on AirVo high flow oxygen at 60 L and 90% FiO2 +100% nonrebreather mask. I discussed the assessment and plan of care with my nurse practitioner, Lily Murray. I attest to the above note as dictated by her.
[2021-07-10 17:12] LABS: Glucose,Whole Blood 237 mg/dL (75-99)
[2021-07-10 17:58] LABS: Appearance,Urine Clear (Clear); Bacteria,Urine Rare /hpf; Bilirubin,Urine Negative (Negative); Blood,Urine Negative (Negative); Color,Urine Yellow; Glucose,Urine (UA) Negative (Negative); Ketones,Urine Negative (Negative); Leukocyte Esterase,Urine Negative (Negative); Mucus,Urine Rare /hpf; Nitrite,Urine Negative (Negative); Protein,Urine 2+ (Negative); RBC,Urine 1 /hpf (0-5); Urobilinogen,Urine <2.0 mg/dL (<2.0); WBC,Urine 1 /hpf (0-5)
--- NOTE | 2021-07-10 18:14 | US ---
EXAMINATION TYPE: US kidneys/renal and bladder DATE OF EXAM: 07/10/2021 COMPARISON: CT 2013 CLINICAL HISTORY: RF. Exam done portable in covid patient EXAM MEASUREMENTS: Right Kidney: 12.8 x 5.6 x 6.2 cm Left Kidney: 12.8 x 6.3 x 6.5 cm Difficult and limited study due to patient body habitus Right Kidney: No hydronephrosis or masses seen. Left Kidney: No hydronephrosis or masses seen. Parenchyma: Mild increase in bilateral renal parenchymal echogenicity. Nonspecific hypoechoic collect ion seen around both kidneys. Calculi: No definite shadowing calculi identified. Bladder: Distended urinary bladder, suboptimal for evaluation. IMPRESSION: Suboptimal evaluation due to patient body habitus. 1. Findings consistent with given history of renal failure. 2. No renal collecting system dilatation, shadowing calculi or mass seen. 3. Nonspecific hypoechoic rim around the bilateral kidneys. Correlation with enhanced CT of the abdom en and pelvis may be done on nonurgent basis.
[2021-07-10 19:57] LABS: Glucose,Whole Blood 219 mg/dL (75-99)
--- NOTE | 2021-07-10 20:01 | CONS ---
CONSULTATION REASON FOR CONSULT: Acute kidney injury. HISTORY OF PRESENT ILLNESS: The patient is an 81-year-old male who was admitted to the hospital on 07/01/2021 with complaints of cough, increased weakness, low appetite. He has tested positive for Covid 19 PCR about 3 weeks ago, but he started recently having worsening shortness of breath. Repeat PCR was negative this admission. Patient's creatinine was 2.15 today, which is increased from about 1.8 mg/dL on 07/04/2021. Previous creatinine appears to be around 1.6-1.7 as well in 2018. Patient's BUN is elevated at 109. He is maintained on Solu-Medrol. Patient is requiring high amounts of oxygen, currently on AIRVO, O2 sats 88-89 percent. The patient has an external catheter, this is currently off. Urine output documented mL. Blood pressure has not been low. Home medications do not show any OPAL inhibitors. However, patient is maintained on Motrin in the hospital. PAST MEDICAL HISTORY: Significant for atrial fibrillation, asthma, hypertension. PAST SURGICAL HISTORY: Mitral valve repair, shoulder replacement, cataract surgery. Neck fusion, permanent pacemaker placement. SOCIAL HISTORY: Negative for smoking, drug abuse or alcohol abuse. MEDICATIONS: Medications prior to admission included Lasix, Singulair, Toprol, Protonix, colchicine, Xarelto, diltiazem. ALLERGIES: INCLUDE PENICILLIN CAUSES RASH AND HIVES. MORPHINE CAUSES HALLUCINATIONS. REVIEW OF SYSTEMS: As per HPI. Other systems negative. EXAMINATION: Comfortable, awake, alert, oriented x3, not in any acute distress. Blood pressure 124/87, heart rate 80 per minute. He is afebrile. O2 sats 88% on AIRVO. Examination of the lower extremities shows no significant edema. [employer] exam grossly intact. Heart and lungs are not examined. Abdomen is soft, nontender. LAB: Show sodium 135, potassium 5.2, chloride 100. BUN 109, serum creatinine 2.1, hemoglobin 13.5. UA is not available. ASSESSMENT: 1. Acute kidney injury most likely acute tubular necrosis and also secondary to NSAIDs. No evidence of hypotension. Rule out urine retention. We will check postvoid residual and check ultrasound of the kidneys. Check urinalysis. BUN is disproportionately elevated secondary to steroids. 2. Mild hyperkalemia associated with acute kidney injury, rule out obstructive uropathy. 3. COVID pneumonia with positive PCR about 3 weeks ago, currently with PCR negative. 4. Acute hypoxic respiratory failure secondary to above. 5. History of mitral valve repair. 6. History of paroxysmal atrial fibrillation, status post ablation, maintained on Xarelto and Cardizem for rate control. PLAN: Check post-void residual. Check ultrasound of the kidneys. Check urinalysis. Repeat labs in a.m. [facility]. Thank you for this consultation. We will continue to follow the patient with you during his hospitalization. MMODL / IJN: [id number] /
--- NOTE | 2021-07-10 23:42 | P.PN ---
Progress Note - Text Progress Note Date: 07/10/21 REASON FOR FOLLOWUP: Pneumonia. INTERVAL HISTORY: The patient remains to be afebrile. The patient is BiPAP dependent, denies any worsening shortness of breath Patient did have a cough not bringing up any sputum or chest pain no nausea no vomiting no abdominal pain and no diarrhea PHYSICAL EXAMINATION: Blood pressure 120/60 with a pulse of 79, temperature 97.5. General description is an elderly male lying in bed in no distress. Respiratory system: Unlabored breathing, decreased intensity of breath sounds. No wheeze. Heart S1, S2. Regular rate and rhythm. Abdomen soft, no tenderness. LABS: Nasopharyngeal swab for COVID 19 is pending DIAGNOSTIC IMPRESSION AND PLAN: 1. Patient with acute respiratory failure secondary to COVID-19 pneumonia , patient is Clinically behaving a secondary bacterial pneumonia, still waiting for that nasopharyngeal swab that was ordered yesterday to be completed, we will recheck his inflammatory markers If elevated patient may benefit from Baricitinab, continue with the current supportive treatment The patient daughter at the bedside and multiple questions were answered
[2021-07-11] MEDS: CLINDAMYCIN 600 MG in DEXTROSE 5% IN WATER 50 ML IVPB SCH ×6 (01:02→15:37)
[2021-07-11] MEDS: SYMBICORT 160-4.5 MCG INHALER INHALATION SCH ×2 (08:24→19:38)
[2021-07-11] MEDS: ALBUTEROL HFA INHALER INHALATION SCH ×4 (08:24→19:37)
[2021-07-11] MEDS: INSULIN ASPART (NovoLOG) 100 UNIT/ML VIAL SQ SCH ×4 (08:45→22:35)
[2021-07-11] MEDS: INSULIN DETEMIR (LEVEMIR) 100 UNIT/ML SYR SQ SCH (08:45)
[2021-07-11] MEDS: methylPREDNISolone SOD SUCCI 40 MG/ML 1 ML VIAL IV SCH ×2 (08:46→22:34)
[2021-07-11] MEDS: MONTELUKAST 10 MG TAB PO SCH (08:46)
[2021-07-11] MEDS: BENZONATATE 100 MG CAP PO SCH ×3 (08:46→22:34)
[2021-07-11] MEDS: ASCORBIC ACID 500 MG TAB PO SCH ×2 (08:46→22:34)
[2021-07-11] MEDS: PANTOPRAZOLE 40 MG TABLET PO SCH ×2 (08:46→22:34)
[2021-07-11] MEDS: ZINC SULFATE 220 MG CAP PO SCH (08:46)
[2021-07-11] MEDS: DILTIAZEM CD 120 MG CAP.ER.24H PO SCH (08:47)
[2021-07-11] MEDS: METOPROLOL SUCCINATE (ER) 100 MG TAB.ER.24H PO SCH (08:47)
[2021-07-11] MEDS: RIVAROXABAN 20 MG TAB PO SCH (08:47)
[2021-07-11] MEDS: CHOLECALCIFEROL 125 MCG (5000 IU) TABLET PO SCH (08:49)
[2021-07-11 09:14] LABS: HCT 42.2 % (39.6-50.0); HGB 13.3 g/dL (13.0-17.0); MCH 27.8 pg (27.0-32.0); MCHC 31.5 g/dL (32.0-37.0); MCV 88.3 fL (80.0-97.0); Mean Platelet Volume 11.1 fL (9.5-12.2); Platelet Count 357 X 10*3/uL (140-440); RBC 4.78 X 10*6/uL (4.40-5.60); RDW 15.7 % (11.5-14.5); WBC 19.68 X 10*3/uL (4.50-10.00)
--- NOTE | 2021-07-11 09:47 | P.PN ---
Subjective Progress Note Date: 07/11/21 Principal diagnosis: This is a 81-year-old male with acute kidney injury from nonsteroidals, had recovered from COVID pneumonia but then became short of breath and was readmitted. His creatinine on admission was 1.7 to 07/24/2020 is currently 2.15. He remains on nasal cannula oxygen. He is weak and tired. Vital signs are stable is afebrile 24-hour output is documented at 1400 mL's. He has a Monet catheter. Ultrasound did not show any hydronephrosis, kidney size was 12.8 cm both sides urinalysis shows 2+ protein otherwise unremarkable Objective - Vital Signs Vital signs: Vital Signs Temp 96.9 F L 07/11/21 05:56 Pulse 79 07/11/21 05:56 Resp 22 07/11/21 05:56 BP 143/92 07/11/21 05:56 Pulse Ox 95 07/11/21 05:56 Intake & Output 07/10/21 07/11/21 07/11/21 18:59 06:59 18:59 Intake Total 50 Output Total 800 600 Balance -750 -600 Intake: Intake, IV Titration 50 Amount Clindamycin 600 mg In 50 Dextrose 5% in Water 50 ml @ 50 mls/hr IVPB Q6H [facility] Rx#:[id number] Output: Urine 800 600 Other: Voiding Method External Catheter Exam she is awake alert oriented HEENT exam no JVP neck is supple no facial asymmetry Lungs are clear to auscultation with coarse crackle at both bases Heart sounds unremarkable for any murmur rub gallop Abdomen soft nontender Neurologically awake alert oriented but generalized weakness. - Labs CBC & Chem 7: 07/11/21 05:24 07/10/21 09:23 Labs: Abnormal Lab Results - Last 24 Hours (Table) 07/10/21 07/10/21 07/10/21 Range/Units 09:23 09:23 11:45 WBC 14.1 H (3.8-10.6) k/uL MCHC (32.0-37.0) g/dL RDW (11.5-14.5) % D-Dimer (<0.60) mg/L FEU Sodium 135 L (137-145) mmol/L Potassium 5.2 H (3.5-5.1) mmol/L Carbon Dioxide 21 L (22-30) mmol/L BUN 109 H* (9-20) mg/dL Creatinine 2.15 H (0.66-1.25) mg/dL Glucose 300 H (74-99) mg/dL POC Glucose (mg/dL) 299 H (75-99) mg/dL Magnesium 2.6 H (1.6-2.3) mg/dL Total Protein 6.1 L (6.3-8.2) g/dL Albumin 3.2 L (3.5-5.0) g/dL Urine Protein (Negative) Urine Bacteria (None) /hpf Urine Mucus (None) /hpf 07/10/21 07/10/21 07/10/21 Range/Units 17:04 17:45 19:56 WBC (3.8-10.6) k/uL MCHC (32.0-37.0) g/dL RDW (11.5-14.5) % D-Dimer (<0.60) mg/L FEU Sodium (137-145) mmol/L Potassium (3.5-5.1) mmol/L Carbon Dioxide (22-30) mmol/L BUN (9-20) mg/dL Creatinine (0.66-1.25) mg/dL Glucose (74-99) mg/dL POC Glucose (mg/dL) 237 H 219 H (75-99) mg/dL Magnesium (1.6-2.3) mg/dL Total Protein (6.3-8.2) g/dL Albumin (3.5-5.0) g/dL Urine Protein 2+ H (Negative) Urine Bacteria Rare H (None) /hpf Urine Mucus Rare H (None) /hpf 07/11/21 07/11/21 Range/Units 05:24 05:24 WBC 19.68 H (3.8-10.6) k/uL MCHC 31.5 L (32.0-37.0) g/dL RDW 15.7 H (11.5-14.5) % D-Dimer 1.31 H (<0.60) mg/L FEU Sodium (137-145) mmol/L Potassium (3.5-5.1) mmol/L Carbon Dioxide (22-30) mmol/L BUN (9-20) mg/dL Creatinine (0.66-1.25) mg/dL Glucose (74-99) mg/dL POC Glucose (mg/dL) (75-99) mg/dL Magnesium (1.6-2.3) mg/dL Total Protein (6.3-8.2) g/dL Albumin (3.5-5.0) g/dL Urine Protein (Negative) Urine Bacteria (None) /hpf Urine Mucus (None) /hpf Microbiology - Last 24 Hours (Table) 07/09/21 12:02 Blood Culture - Preliminary Blood No Growth after 24 hours 07/09/21 12:07 Blood Culture - Preliminary Blood No Growth after 24 hours Assessment and Plan Assessment: Impression 1. Acute kidney injury from nonsteroidals and covid pneumonia related. Creatinine is stable over the last 2 days last today are unavailable 2. Chronic kidney disease stage III, diabetic nephropathy, 2+ proteinuria nephrosclerosis and Baseline creatinine is 1.6 on 11/11/2017 no creatinines available since then. On admission creatinine was 1.72. 3. Admitted with shortness of breath and chest x-ray suggestive of pneumonia. Unlikely CHF 4. Atrial fibrillation with cardiomyopathy ejection fraction 20-25% with history of pacemaker mitral valve repair it Recommendation 1. We will wait for his labs today. 2. If necessary we can give him small dose of Lasix 20 g IV on a when necessary basis and see how he does as far as his breathing goes. 3. Monitor labs on a daily basis for the next 2 or 3 days
[2021-07-11 09:51] LABS: C Reactive Protein 0.9 mg/dL (0.00-0.80); Magnesium 2.7 mg/dL (1.5-2.4)
[2021-07-11 10:06] LABS: Glucose,Whole Blood 201 mg/dL (75-99)
[2021-07-11 10:08] LABS: African American GFR (CKD) 35.5 (60.0-200.0); Albumin 3.4 g/dL (3.8-4.9); Albumin/Globulin Ratio 1.36 (1.60-3.17); Anion Gap 15.8 mmol/L (10.00-18.00); Calcium 9.5 mg/dL (8.7-10.3); Carbon Dioxide 21.2 mmol/L (20.0-27.5); Globulin 2.5 g/dL (1.6-3.3); Non-African American GFR(CKD) 30.6 (60.0-200.0); Potassium 5.4 mmol/L (3.5-5.5); Total Bilirubin 0.7 mg/dL (0.30-1.20); Total Protein 5.9 g/dL (6.2-8.2)
[2021-07-11 11:22] LABS: Glucose,Whole Blood 290 mg/dL (75-99)
[2021-07-11] MEDS ORDERED: MAG HYDROX/AL HYDROX/SIMETH 30 ML, HYOSCYAMINE ELIXIR 10 ML, LIDOCAINE VISCOUS 2% 10 ML PO ONE ×3 (12:14)
[2021-07-11] MEDS ORDERED: bisacodyL 10 MG SUPP RECTAL STA (12:36)
[2021-07-11 16:17] LABS: Glucose,Whole Blood 205 mg/dL (75-99)
[2021-07-11 16:46] LABS: Basophils % (A) 0 %; Eosinophils % (A) 0 %; HCT 47.6 % (39.0-53.0); HGB 15.3 gm/dL (13.0-17.5); Lymphocytes # (A) 0.3 k/uL (1.0-4.8); Lymphocytes % (A) 1 %; MCH 29.2 pg (25.0-35.0); MCV 91.2 fL (80.0-100.0); Mean Platelet Volume 8.6; Monocytes # (A) 0.6 k/uL (0-1.0); Monocytes % (A) 3 %; Neutrophils # (A) 20.1 k/uL (1.3-7.7); Neutrophils % (A) 96 %; Platelet Count 311 k/uL (150-450); RBC 5.22 m/uL (4.30-5.90); RDW 14.6 % (11.5-15.5); WBC 21.1 k/uL (3.8-10.6)
[2021-07-11] MEDS ORDERED: BARICITINIB 2 MG TABLET PO SCH (18:00)
--- NOTE | 2021-07-11 18:51 | P.PN ---
<Stevenson Pack - Last Filed: 07/11/21 18:44> Subjective Progress Note Date: 07/11/21 Hospital course: Patient is a very pleasant 81-year-old male with a past medical history of CAD status post pacemaker placement, ischemic cardiomyopathy, chronic systolic heart failure with previously known EF of 35-40%, atrial fibrillation on anticoagulation with Xarelto, hypertension, hyperlipidemia, CKD stage III, and COPD not home oxygen dependent. Patient presented to the emergency department on 07/01/21 with a chief complaint of shortness of breath, nonproductive cough, weakness, and fatigue 1 week. He was found to have leukocytosis with WBC count of 11.9, Hyponatremia with sodium of 132, hypochloremia with chloride of 95, renal function consistent with CKD with BUN 53, creatinine 1.72, and GFR of 37 (slightly above baseline creatinine). Inflammatory markers elevated with CRP 3.4 and LDH of 688, d-dimer pending. Covid PCR negative. Chest x-ray revealing chronic changes and cardiomegaly with bilateral multifocal opacities concerning for Covid 19 infection. EKG revealing a ventricular paced rhythm at 80 bpm with underlying atrial flutter. Patient admitted under our services with consultation to pulmonology. Covid PCR and antigen negative. Influenza and RSV negative. Urine Legionella negative, pro-calcitonin elevated at 0.15. D-dimer 0.41. Gram stain/sputum culture negative. Physical exam: Patient seen and fully evaluated at the bedside this morning. He was placed back on BiPAP and is maintaining SpO2 92-95% this morning. Patient reports having a very dry mouth allowed for intermittent breaks using nonrebreather and AIRVO as patient was able to eat a Popsicle. Morning labs reveal worsening of leukocytosis with WBC count of 21.1, BUN 102.0, creatinine 2.0, and GFR of 30.6. LDH elevated at 489 CRP 0.90, and pro-calcitonin 0.14. Patient remains on clindamycin and infectious disease ordering repeat COVID testing. Vital signs reviewed and stable. General: Patient appears in mild distress, appears generally unwell feeling and lethargic. Derm: Skin warm and dry, normal coloration for ethnicity. Head: Atraumatic, normocephalic and symmetric. Eyes: EOMs intact, no lid lag, and anicteric sclera Mouth: no lip lesions, mucus membranes moist Cardiovascular: regular rate and rhythm, distant heart sounds, positive posterior tibial pulses bilaterally, and cap refill < 2 seconds. Lungs: Respirations even, regular, and unlabored on BiPAP with 100% FiO2.. Lungs diminished with diffuse rhonchi. Coarse weak cough. No accessory muscle usage. Abdominal: soft, nontender to palpation, no guarding, no appreciable organomegaly Ext: ROM intact. No gross muscle atrophy, no edema, no contractures Neuro: Speech clear, face symmetrical and CN II-XII grossly intact with no noted focal neuro deficits Psych: Alert and oriented to person, place, time, and situation. Appropriate and pleasant affect. Assessment and Plan of Care: Acute respiratory failure with hypoxia secondary to bilateral multifocal pneumonia Acute COPD exacerbation secondary to bilateral multifocal pneumonia -Covid PCR and antigen negative -Influenza and RSV negative -Urine Legionella negative, pro-calcitonin elevated at 0.15. -D-dimer 0.41 -IV antibiotics: Clindamycin -Infectious disease following, appreciate further recommendations -Gram stain/sputum culture negative. -Oxygenation to be administered and titrated as needed to maintain SPO2 equal to or greater than 90% -Telemetry monitoring. -Encourage Incentive Spirometry 10-15x hourly while awake -Steroids: Same Medrol 40 mg IVP every 6 hours -DuoNeb scheduled and as needed -Pulmonology following, appreciate further recommendations. Atrial fibrillation Chronic systolic heart failure with EF of 20-25% with global hypokinesis Ischemic cardiomyopathy with global hypokinesis CAD status post pacemaker placement Hypertension Hyperlipidemia -Telemetry monitoring -Echocardiogram revealing a severely impaired EF between 20 and 25% with global hypokinesis, moderately enlarged right ventricle and mild to moderate mitral valve regurgitation. -Trend troponins -BNP 10,000 with repeat 2069 -Continuation of daily medication regimen including Xarelto, metoprolol, losartan, and Cardizem. -Monitor vital signs closely. Acute kidney injury on Stage III CKD -Possibly secondary to vancomycin use. Vancomycin was discontinued and patient started on clindamycin 600 mg every 6 hours. -Losartan held at this time. Caution with all other nephrotoxic medications. -Nephrology consulted, ordered renal ultrasound, appreciate further recommendations. Newly diagnosed diabetes mellitus with hemoglobin A1c of 8.1% -Continue Levemir 22 units twice daily, was previously increased to 26 however patient with hypoglycemia this morning. Generalized weakness PT/OT consulted, recommending rehab. CODE STATUS: DO NOT RESUSCITATE/DO NOT INTUBATE DVT prophylaxis: Xarelto Discussed with: Patient, patient's daughter, and RN Anticipated discharge date: Clinical course to determine Anticipated discharge place: Clinical course to determine A total of 45 minutes was spent on the care of this complex patient more than 50% of the time was spent in counseling and care coordination. Objective - Vital Signs Vital signs: Vital Signs Temp 97.8 F 07/11/21 09:40 Pulse 76 07/11/21 09:40 Resp 20 07/11/21 09:40 BP 142/89 07/11/21 09:40 Pulse Ox 88 L 07/11/21 09:40 Intake & Output 07/10/21 07/11/21 07/11/21 18:59 06:59 18:59 Intake Total 50 Output Total 800 600 Balance -750 -600 Intake: Intake, IV Titration 50 Amount Clindamycin 600 mg In 50 Dextrose 5% in Water 50 ml @ 50 mls/hr IVPB Q6H [facility] Rx#:[id number] Output: Urine 800 600 Other: Voiding Method External Catheter - Labs CBC & Chem 7: 07/11/21 16:00 07/11/21 05:24 Labs: Abnormal Lab Results - Last 24 Hours (Table) 07/10/21 07/10/21 07/10/21 Range/Units 11:45 17:04 17:45 WBC (4.50-10.00) X 10*3/uL MCHC (32.0-37.0) g/dL RDW (11.5-14.5) % D-Dimer (<0.60) mg/L FEU BUN (9.0-27.0) mg/dL Creatinine (0.6-1.5) mg/dL Est GFR (CKD-EPI)AfAm (60.0-200.0) Est GFR (CKD-EPI)NonAf (60.0-200.0) BUN/Creatinine Ratio (12.00-20.00) Ratio Glucose (70-110) mg/dL POC Glucose (mg/dL) 299 H 237 H (75-99) mg/dL Magnesium (1.5-2.4) mg/dL AST (14-35) U/L Lactate Dehydrogenase (120-246) U/L C-Reactive Protein (0.00-0.80) mg/dL Total Protein (6.2-8.2) g/dL Albumin (3.8-4.9) g/dL Albumin/Globulin Ratio (1.60-3.17) g/dL Procalcitonin (0.02-0.09) ng/mL Urine Protein 2+ H (Negative) Urine Bacteria Rare H (None) /hpf Urine Mucus Rare H (None) /hpf 07/10/21 07/11/21 07/11/21 Range/Units 19:56 05:24 05:24 WBC 19.68 H (4.50-10.00) X 10*3/uL MCHC 31.5 L (32.0-37.0) g/dL RDW 15.7 H (11.5-14.5) % D-Dimer (<0.60) mg/L FEU BUN 102.0 H* (9.0-27.0) mg/dL Creatinine 2.0 H (0.6-1.5) mg/dL Est GFR (CKD-EPI)AfAm 35.5 L (60.0-200.0) Est GFR (CKD-EPI)NonAf 30.6 L (60.0-200.0) BUN/Creatinine Ratio 51.00 H (12.00-20.00) Ratio Glucose 173 H (70-110) mg/dL POC Glucose (mg/dL) 219 H (75-99) mg/dL Magnesium 2.7 H (1.5-2.4) mg/dL AST 11 L (14-35) U/L Lactate Dehydrogenase 489 H (120-246) U/L C-Reactive Protein 0.90 H (0.00-0.80) mg/dL Total Protein 5.9 L (6.2-8.2) g/dL Albumin 3.4 L (3.8-4.9) g/dL Albumin/Globulin Ratio 1.36 L (1.60-3.17) g/dL Procalcitonin (0.02-0.09) ng/mL Urine Protein (Negative) Urine Bacteria (None) /hpf Urine Mucus (None) /hpf 07/11/21 07/11/21 07/11/21 Range/Units 05:24 05:24 06:47 WBC (4.50-10.00) X 10*3/uL MCHC (32.0-37.0) g/dL RDW (11.5-14.5) % D-Dimer 1.31 H (<0.60) mg/L FEU BUN (9.0-27.0) mg/dL Creatinine (0.6-1.5) mg/dL Est GFR (CKD-EPI)AfAm (60.0-200.0) Est GFR (CKD-EPI)NonAf (60.0-200.0) BUN/Creatinine Ratio (12.00-20.00) Ratio Glucose (70-110) mg/dL POC Glucose (mg/dL) 201 H (75-99) mg/dL Magnesium (1.5-2.4) mg/dL AST (14-35) U/L Lactate Dehydrogenase (120-246) U/L C-Reactive Protein (0.00-0.80) mg/dL Total Protein (6.2-8.2) g/dL Albumin (3.8-4.9) g/dL Albumin/Globulin Ratio (1.60-3.17) g/dL Procalcitonin 0.14 H (0.02-0.09) ng/mL Urine Protein (Negative) Urine Bacteria (None) /hpf Urine Mucus (None) /hpf 07/11/21 Range/Units 11:19 WBC (4.50-10.00) X 10*3/uL MCHC (32.0-37.0) g/dL RDW (11.5-14.5) % D-Dimer (<0.60) mg/L FEU BUN (9.0-27.0) mg/dL Creatinine (0.6-1.5) mg/dL Est GFR (CKD-EPI)AfAm (60.0-200.0) Est GFR (CKD-EPI)NonAf (60.0-200.0) BUN/Creatinine Ratio (12.00-20.00) Ratio Glucose (70-110) mg/dL POC Glucose (mg/dL) 290 H (75-99) mg/dL Magnesium (1.5-2.4) mg/dL AST (14-35) U/L Lactate Dehydrogenase (120-246) U/L C-Reactive Protein (0.00-0.80) mg/dL Total Protein (6.2-8.2) g/dL Albumin (3.8-4.9) g/dL Albumin/Globulin Ratio (1.60-3.17) g/dL Procalcitonin (0.02-0.09) ng/mL Urine Protein (Negative) Urine Bacteria (None) /hpf Urine Mucus (None) /hpf Microbiology - Last 24 Hours (Table) 07/09/21 12:02 Blood Culture - Preliminary Blood No Growth after 24 hours 07/09/21 12:07 Blood Culture - Preliminary Blood No Growth after 24 hours <Destini Garcia - Last Filed: 07/11/21 20:52> Subjective Stevenson Pack NP rendered care for this patient independently, reviewed the findings and plan as documented in the note above. I did not physically speak with or examine the patient on this date. Objective - Vital Signs Vital signs: Vital Signs Temp 97.6 F 07/11/21 17:13 Pulse 87 07/11/21 17:13 Resp 20 07/11/21 17:13 BP 165/84 07/11/21 17:13 Pulse Ox 90 L 07/11/21 19:40 Intake & Output 07/11/21 07/11/21 07/12/21 06:59 18:59 06:59 Intake Total 440 Output Total 600 Balance -600 440 Intake: Oral 440 Output: Urine 600 Other: Voiding Method External Catheter External Catheter - Labs CBC & Chem 7: 07/11/21 16:00 07/11/21 05:24 Labs: Abnormal Lab Results - Last 24 Hours (Table) 07/10/21 07/11/21 07/11/21 Range/Units 12:36 05:24 05:24 WBC 19.68 H (4.50-10.00) X 10*3/uL MCHC 31.5 L (32.0-37.0) g/dL RDW 15.7 H (11.5-14.5) % Neutrophils # (1.3-7.7) k/uL Lymphocytes # (1.0-4.8) k/uL D-Dimer (<0.60) mg/L FEU BUN 102.0 H* (9.0-27.0) mg/dL Creatinine 2.0 H (0.6-1.5) mg/dL Est GFR (CKD-EPI)AfAm 35.5 L (60.0-200.0) Est GFR (CKD-EPI)NonAf 30.6 L (60.0-200.0) BUN/Creatinine Ratio 51.00 H (12.00-20.00) Ratio Glucose 173 H (70-110) mg/dL POC Glucose (mg/dL) (75-99) mg/dL Magnesium 2.7 H (1.5-2.4) mg/dL AST 11 L (14-35) U/L Lactate Dehydrogenase 489 H (120-246) U/L C-Reactive Protein 0.90 H (0.00-0.80) mg/dL Total Protein 5.9 L (6.2-8.2) g/dL Albumin 3.4 L (3.8-4.9) g/dL Albumin/Globulin Ratio 1.36 L (1.60-3.17) g/dL Procalcitonin (0.02-0.09) ng/mL Coronavirus (PCR) Detected A (Not Detected) 07/11/21 07/11/21 07/11/21 Range/Units 05:24 05:24 06:47 WBC (4.50-10.00) X 10*3/uL MCHC (32.0-37.0) g/dL RDW (11.5-14.5) % Neutrophils # (1.3-7.7) k/uL Lymphocytes # (1.0-4.8) k/uL D-Dimer 1.31 H (<0.60) mg/L FEU BUN (9.0-27.0) mg/dL Creatinine (0.6-1.5) mg/dL Est GFR (CKD-EPI)AfAm (60.0-200.0) Est GFR (CKD-EPI)NonAf (60.0-200.0) BUN/Creatinine Ratio (12.00-20.00) Ratio Glucose (70-110) mg/dL POC Glucose (mg/dL) 201 H (75-99) mg/dL Magnesium (1.5-2.4) mg/dL AST (14-35) U/L Lactate Dehydrogenase (120-246) U/L C-Reactive Protein (0.00-0.80) mg/dL Total Protein (6.2-8.2) g/dL Albumin (3.8-4.9) g/dL Albumin/Globulin Ratio (1.60-3.17) g/dL Procalcitonin 0.14 H (0.02-0.09) ng/mL Coronavirus (PCR) (Not Detected) 07/11/21 07/11/21 07/11/21 Range/Units 11:19 16:00 16:09 WBC 21.1 H (4.50-10.00) X 10*3/uL MCHC (32.0-37.0) g/dL RDW (11.5-14.5) % Neutrophils # 20.1 H (1.3-7.7) k/uL Lymphocytes # 0.3 L (1.0-4.8) k/uL D-Dimer (<0.60) mg/L FEU BUN (9.0-27.0) mg/dL Creatinine (0.6-1.5) mg/dL Est GFR (CKD-EPI)AfAm (60.0-200.0) Est GFR (CKD-EPI)NonAf (60.0-200.0) BUN/Creatinine Ratio (12.00-20.00) Ratio Glucose (70-110) mg/dL POC Glucose (mg/dL) 290 H 205 H (75-99) mg/dL Magnesium (1.5-2.4) mg/dL AST (14-35) U/L Lactate Dehydrogenase (120-246) U/L C-Reactive Protein (0.00-0.80) mg/dL Total Protein (6.2-8.2) g/dL Albumin (3.8-4.9) g/dL Albumin/Globulin Ratio (1.60-3.17) g/dL Procalcitonin (0.02-0.09) ng/mL Coronavirus (PCR) (Not Detected) Microbiology - Last 24 Hours (Table) 07/09/21 12:02 Blood Culture - Preliminary Blood No Growth after 48 hours 07/09/21 12:07 Blood Culture - Preliminary Blood No Growth after 48 hours
--- NOTE | 2021-07-11 19:41 | PN ---
PROGRESS NOTE DATE OF SERVICE: 07/11/2021 REASON FOR FOLLOWUP: COVID-19 pneumonia. INTERVAL HISTORY: The patient is afebrile. The patient remains BiPAP-dependent. The patient is complaining of shortness of breath worsening cough, though. Has been complaining of constipation and some abdominal discomfort. No vomiting. PHYSICAL EXAMINATION: Blood pressure 136/73 with a pulse of 80, temperature 97.6. He is 91% on BiPAP. General description is an elderly male in mild distress. Respiratory system: Unlabored breathing, decreased intensity of breath sounds. No wheeze. Heart S1, S2. Regular rate and rhythm. Abdomen is soft. Extremities with no edema of the feet. LABS: Hemoglobin is 15, white count 21.1. DIAGNOSTIC IMPRESSION AND PLAN: Patient with acute respiratory failure secondary to COVID-19 pneumonia with significant worsening of his respiratory status. Baricitinib has been ordered; to continue along with zinc and ascorbic acid. Monitor his clinical course closely. MMODL / IJN: [id number] /
[2021-07-11 20:57] LABS: Glucose,Whole Blood 182 mg/dL (75-99)
[2021-07-12 06:55] LABS: Glucose,Whole Blood 214 mg/dL (75-99)
[2021-07-12] MEDS: BENZONATATE 100 MG CAP PO SCH ×3 (07:29→21:29)
[2021-07-12] MEDS: RIVAROXABAN 15 MG TAB PO SCH (07:29)
[2021-07-12] MEDS: METOPROLOL SUCCINATE (ER) 100 MG TAB.ER.24H PO SCH (07:29)
[2021-07-12] MEDS: CHOLECALCIFEROL 125 MCG (5000 IU) TABLET PO SCH (07:29)
[2021-07-12] MEDS: INSULIN DETEMIR (LEVEMIR) 100 UNIT/ML SYR SQ SCH (07:30)
[2021-07-12] MEDS: ZINC SULFATE 220 MG CAP PO SCH (07:30)
[2021-07-12] MEDS: PANTOPRAZOLE 40 MG TABLET PO SCH ×2 (07:30→21:29)
[2021-07-12] MEDS: INSULIN ASPART (NovoLOG) 100 UNIT/ML VIAL SQ SCH ×4 (07:30→21:29)
[2021-07-12] MEDS: ASCORBIC ACID 500 MG TAB PO SCH ×2 (07:30→21:29)
[2021-07-12] MEDS: methylPREDNISolone SOD SUCCI 40 MG/ML 1 ML VIAL IV SCH ×2 (07:30→21:28)
[2021-07-12] MEDS: DILTIAZEM CD 120 MG CAP.ER.24H PO SCH (07:30)
[2021-07-12] MEDS: MONTELUKAST 10 MG TAB PO SCH (07:30)
[2021-07-12] MEDS: SYMBICORT 160-4.5 MCG INHALER INHALATION SCH ×2 (09:04→21:06)
[2021-07-12] MEDS: ALBUTEROL HFA INHALER INHALATION SCH ×4 (09:04→21:06)
[2021-07-12 09:16] LABS: Basophils % (A) 0 %; Eosinophils % (A) 0 %; HGB 14.7 gm/dL (13.0-17.5); Lymphocytes # (A) 0.3 k/uL (1.0-4.8); Lymphocytes % (A) 1 %; MCH 28.3 pg (25.0-35.0); MCHC 30.5 g/dL (31.0-37.0); MCV 92.6 fL (80.0-100.0); Mean Platelet Volume 8.5; Monocytes # (A) 0.4 k/uL (0-1.0); Monocytes % (A) 2 %; Neutrophils % (A) 96 %; Platelet Count 306 k/uL (150-450); RBC 5.18 m/uL (4.30-5.90); RDW 15.2 % (11.5-15.5); WBC 20.8 k/uL (3.8-10.6)
[2021-07-12 09:41] LABS: ALT 22 U/L (4-49); AST 18 U/L (17-59); African American GFR (CKD) 32 (>60 ml/min/1.73 sqM); Albumin 3.5 g/dL (3.5-5.0); Albumin/Globulin Ratio 1.1; Alkaline Phosphatase 87 U/L (38-126); Anion Gap 16 mmol/L; C Reactive Protein 1.6 mg/dL (<1.0); Calcium 9.8 mg/dL (8.4-10.2); Carbon Dioxide 20 mmol/L (22-30); Chloride 104 mmol/L (98-107); Globulin 3.1 g/dL; Glucose 248 mg/dL (74-99); LDH 1349 U/L (313-618); Non-African American GFR(CKD) 27 (>60 ml/min/1.73 sqM); Potassium 5.9 mmol/L (3.5-5.1); Sodium 140 mmol/L (137-145); Total Protein 6.6 g/dL (6.3-8.2)
[2021-07-12 09:59] LABS: Blood Urea Nitrogen 120 mg/dL (9-20)
[2021-07-12 11:55] LABS: Glucose,Whole Blood 276 mg/dL (75-99)
--- NOTE | 2021-07-12 11:59 | P.PN ---
Subjective Progress Note Date: 07/12/21 Principal diagnosis: This is a 81-year-old male with acute kidney injury from nonsteroidals, had recovered from COVID pneumonia but then became short of breath and was readmitted. His creatinine on admission was 1.72 on 07/01/2021, has gone up to 2.19 this morning additionally his potassium is 5.9 this morning with a blood sugar of 248. Sodium 140 potassium 5.9 chloride 104 bicarb 20. He is weak and tired. Vital signs are stable is afebrile 24-hour output is documented at 400 mL's. He has a Monet catheter. Ultrasound did not show any hydronephrosis, kidney size was 12.8 cm both sides urinalysis shows 2+ protein otherwise unremarkable Objective - Vital Signs Vital signs: Vital Signs Temp 97.4 F L 07/12/21 09:02 Pulse 88 07/12/21 09:02 Resp 24 07/12/21 09:02 BP 160/112 07/12/21 09:02 Pulse Ox 92 L 07/12/21 09:02 Intake & Output 07/11/21 07/12/21 07/12/21 18:59 06:59 18:59 Intake Total 440 Output Total 400 Balance 440 -400 Intake: Oral 440 Output: Urine 400 Other: Voiding Method External Catheter External Catheter External Catheter On examination currently his on the BiPAP. HEENT exam no JVP Lungs are significant by basilar crackles with diminished air entry bilaterally Heart sounds unremarkable for any murmur rub gallop Abdomen soft nontender Extremity exam was cool extremities and no edema Neurologically arousable but sleepy - Labs CBC & Chem 7: 07/12/21 08:24 07/12/21 08:24 Labs: Abnormal Lab Results - Last 24 Hours (Table) 07/10/21 07/11/21 07/11/21 Range/Units 12:36 16:00 16:09 WBC 21.1 H (3.8-10.6) k/uL MCHC (31.0-37.0) g/dL Neutrophils # 20.1 H (1.3-7.7) k/uL Lymphocytes # 0.3 L (1.0-4.8) k/uL D-Dimer (<0.60) mg/L FEU Potassium (3.5-5.1) mmol/L Carbon Dioxide (22-30) mmol/L BUN (9-20) mg/dL Creatinine (0.66-1.25) mg/dL Glucose (74-99) mg/dL POC Glucose (mg/dL) 205 H (75-99) mg/dL Magnesium (1.6-2.3) mg/dL Lactate Dehydrogenase (313-618) U/L C-Reactive Protein (<1.0) mg/dL Coronavirus (PCR) Detected A (Not Detected) 07/11/21 07/12/21 07/12/21 Range/Units 20:55 06:49 08:24 WBC 20.8 H (3.8-10.6) k/uL MCHC 30.5 L (31.0-37.0) g/dL Neutrophils # 20.0 H (1.3-7.7) k/uL Lymphocytes # 0.3 L (1.0-4.8) k/uL D-Dimer (<0.60) mg/L FEU Potassium (3.5-5.1) mmol/L Carbon Dioxide (22-30) mmol/L BUN (9-20) mg/dL Creatinine (0.66-1.25) mg/dL Glucose (74-99) mg/dL POC Glucose (mg/dL) 182 H 214 H (75-99) mg/dL Magnesium (1.6-2.3) mg/dL Lactate Dehydrogenase (313-618) U/L C-Reactive Protein (<1.0) mg/dL Coronavirus (PCR) (Not Detected) 07/12/21 07/12/21 Range/Units 08:24 08:24 WBC (3.8-10.6) k/uL MCHC (31.0-37.0) g/dL Neutrophils # (1.3-7.7) k/uL Lymphocytes # (1.0-4.8) k/uL D-Dimer 3.32 H (<0.60) mg/L FEU Potassium 5.9 H (3.5-5.1) mmol/L Carbon Dioxide 20 L (22-30) mmol/L BUN 120 H* (9-20) mg/dL Creatinine 2.19 H (0.66-1.25) mg/dL Glucose 248 H (74-99) mg/dL POC Glucose (mg/dL) (75-99) mg/dL Magnesium 3.0 H (1.6-2.3) mg/dL Lactate Dehydrogenase 1349 H (313-618) U/L C-Reactive Protein 1.6 H (<1.0) mg/dL Coronavirus (PCR) (Not Detected) Microbiology - Last 24 Hours (Table) 07/09/21 12:02 Blood Culture - Preliminary Blood No Growth after 48 hours 07/09/21 12:07 Blood Culture - Preliminary Blood No Growth after 48 hours Assessment and Plan Assessment: Impression 1. Acute kidney injury from nonsteroidals and covid pneumonia related. Slightly up from 1.72 on admission on 07/01/2021 to 2.19 this morning 2. Chronic kidney disease stage III, diabetic nephropathy, 2+ proteinuria nephrosclerosis and Baseline creatinine is 1.6 on 11/11/2017 no creatinines available since then. On admission creatinine was 1.72. 3. Admitted with shortness of breath and chest x-ray suggestive of pneumonia. Unlikely CHF 4. Atrial fibrillation with cardiomyopathy ejection fraction 20-25% with history of pacemaker mitral valve repair it Recommendation 1. No changes. 2. Because of slight worsening of creatinine and unsure of the volume status are like to get a chest x-ray 3. Monitor labs on a daily basis for the next 2 or 3 days
[2021-07-12] MEDS: LACTATED RINGERS 1,000 ML IV SCH (12:19)
--- NOTE | 2021-07-12 12:50 | XR ---
EXAMINATION TYPE: XR chest 1V DATE OF EXAM: 07/12/2021 HISTORY: Shortness of breath. COMPARISON: 07/09/2021 TECHNIQUE: Single view of the chest is submitted. FINDINGS: Demonstrated are scattered senescent parenchymal change. Reticulonodular infiltrates persist bilaterally. Left lower lobe infiltrate, atelectasis or pleural t hickening. Overall stable chest. The heart is stable. Hilar and mediastinal structures are within normal limits. Degenerative changes are seen of the dorsal spine. IMPRESSION: 1. Stable chest
[2021-07-12] MEDS ORDERED: lisinopriL 10 MG TAB PO SCH (14:15)
--- NOTE | 2021-07-12 14:27 | P.PN ---
<Stevenson Pack - Last Filed: 07/12/21 18:52> Subjective Progress Note Date: 07/12/21 Hospital course: Patient is a very pleasant 81-year-old male with a past medical history of CAD status post pacemaker placement, ischemic cardiomyopathy, chronic systolic heart failure with previously known EF of 35-40%, atrial fibrillation on anticoagulation with Xarelto, hypertension, hyperlipidemia, CKD stage III, and COPD not home oxygen dependent. Patient presented to the emergency department on 07/01/21 with a chief complaint of shortness of breath, nonproductive cough, weakness, and fatigue 1 week. He was found to have leukocytosis with WBC count of 11.9, Hyponatremia with sodium of 132, hypochloremia with chloride of 95, renal function consistent with CKD with BUN 53, creatinine 1.72, and GFR of 37 (slightly above baseline creatinine). Inflammatory markers elevated with CRP 3.4 and LDH of 688, d-dimer pending. Covid PCR negative. Chest x-ray revealing chronic changes and cardiomegaly with bilateral multifocal opacities concerning for Covid 19 infection. EKG revealing a ventricular paced rhythm at 80 bpm with underlying atrial flutter. Patient admitted under our services with consultation to pulmonology. Covid PCR and antigen negative. Influenza and RSV negative. Urine Legionella negative, pro-calcitonin elevated at 0.15. D-dimer 0.41. Gram stain/sputum culture negative. Physical exam: Patient seen and fully evaluated at the bedside this morning. He remains on BiPAP and appears fatigued. Patient does remain alert to person, place, time, and situation. Morning labs reveal continue leukocytosis with WBC count of 20.8, elevated inflammatory markers with d-dimer of 3.3 to LDH of 1349 and CRP of 1.6. Patient on day 2 of 14 of Baricitinib. Elevated d-dimer lead to be secondary to current Covid infection. Patient is high risk for PE however secondary to renal function is unable to go down for CT PE and is currently unstable to go for VQ scan. Patient to continue anticoagulation with Xarelto. Vital signs reviewed and stable. General: Patient appears in mild distress, appears generally unwell feeling and lethargic. Derm: Skin warm and dry, normal coloration for ethnicity. Head: Atraumatic, normocephalic and symmetric. Eyes: EOMs intact, no lid lag, and anicteric sclera Mouth: no lip lesions, mucus membranes moist Cardiovascular: regular rate and rhythm, distant heart sounds, positive posterio r tibial pulses bilaterally, and cap refill < 2 seconds. Lungs: Respirations even, regular, and unlabored on BiPAP with 100% FiO2.. Lungs diminished with diffuse rhonchi. Coarse weak cough. No accessory muscle usage. Abdominal: soft, nontender to palpation, no guarding, no appreciable organomegaly Ext: ROM intact. No gross muscle atrophy, no edema, no contractures Neuro: Speech clear, face symmetrical and CN II-XII grossly intact with no noted focal neuro deficits Psych: Alert and oriented to person, place, time, and situation. Appropriate and pleasant affect. Assessment and Plan of Care: Acute respiratory failure with hypoxia secondary to bilateral multifocal pneumonia Acute COPD exacerbation secondary to bilateral multifocal pneumonia Covid 19 virus infection -Covid PCR and antigen negative , patient had positive test for Covid at [facility] on 06/30/21 -Influenza and RSV negative -Urine Legionella negative, pro-calcitonin elevated at 0.15. -D-dimer 0.41 -IV antibiotics: Clindamycin -Infectious disease following, appreciate further recommendations -Gram stain/sputum culture negative. -Oxygenation to be administered and titrated as needed to maintain SPO2 equal to or greater than 90% -Telemetry monitoring. -Encourage Incentive Spirometry 10-15x hourly while awake -Steroids: Same Medrol 40 mg IVP every 6 hours -DuoNeb scheduled and as needed -Pulmonology following, appreciate further recommendations. -Baricitinib day 2 . Atrial fibrillation Chronic systolic heart failure with EF of 20-25% with global hypokinesis Ischemic cardiomyopathy with global hypokinesis CAD status post pacemaker placement Hypertension Hyperlipidemia -Telemetry monitoring -Echocardiogram revealing a severely impaired EF between 20 and 25% with global hypokinesis, moderately enlarged right ventricle and mild to moderate mitral valve regurgitation. -Trend troponins -BNP 10,000 with repeat 2069 -Continuation of daily medication regimen including Xarelto, metoprolol, losartan, and Cardizem. -Monitor vital signs closely. Acute kidney injury on Stage III CKD -Possibly secondary to vancomycin use. Vancomycin was discontinued and patient started on clindamycin 600 mg every 6 hours. -Losartan held at this time. Caution with all other nephrotoxic medications. -Nephrology consulted, ordered renal ultrasound, appreciate further recommendations. Newly diagnosed diabetes mellitus with hemoglobin A1c of 8.1% -Continue Levemir 22 units twice daily, was previously increased to 26 however patient with hypoglycemia this morning. Generalized weakness PT/OT consulted, recommending rehab. CODE STATUS: DO NOT RESUSCITATE/DO NOT INTUBATE DVT prophylaxis: Avinashrelgumaro Discussed with: Patient, patient's daughter, and RN Anticipated discharge date: Clinical course to determine Anticipated discharge place: Clinical course to determine A total of 45 minutes was spent on the care of this complex patient more than 50% of the time was spent in counseling and care coordination. Objective - Vital Signs Vital signs: Vital Signs Temp 97.4 F L 07/12/21 09:02 Pulse 88 07/12/21 09:02 Resp 24 07/12/21 09:02 BP 160/112 07/12/21 09:02 Pulse Ox 92 L 07/12/21 09:02 Intake & Output 07/11/21 07/12/21 07/12/21 18:59 06:59 18:59 Intake Total 440 Output Total 400 275 Balance 440 -400 -275 Intake: Oral 440 Output: Urine 400 275 Other: Voiding Method External Catheter External Catheter External Catheter - Labs CBC & Chem 7: 07/12/21 08:24 07/12/21 08:24 Labs: Abnormal Lab Results - Last 24 Hours (Table) 07/10/21 07/11/21 07/11/21 Range/Units 12:36 16:00 16:09 WBC 21.1 H (3.8-10.6) k/uL MCHC (31.0-37.0) g/dL Neutrophils # 20.1 H (1.3-7.7) k/uL Lymphocytes # 0.3 L (1.0-4.8) k/uL D-Dimer (<0.60) mg/L FEU Potassium (3.5-5.1) mmol/L Carbon Dioxide (22-30) mmol/L BUN (9-20) mg/dL Creatinine (0.66-1.25) mg/dL Glucose (74-99) mg/dL POC Glucose (mg/dL) 205 H (75-99) mg/dL Magnesium (1.6-2.3) mg/dL Lactate Dehydrogenase (313-618) U/L C-Reactive Protein (<1.0) mg/dL Coronavirus (PCR) Detected A (Not Detected) 07/11/21 07/12/21 07/12/21 Range/Units 20:55 06:49 08:24 WBC 20.8 H (3.8-10.6) k/uL MCHC 30.5 L (31.0-37.0) g/dL Neutrophils # 20.0 H (1.3-7.7) k/uL Lymphocytes # 0.3 L (1.0-4.8) k/uL D-Dimer (<0.60) mg/L FEU Potassium (3.5-5.1) mmol/L Carbon Dioxide (22-30) mmol/L BUN (9-20) mg/dL Creatinine (0.66-1.25) mg/dL Glucose (74-99) mg/dL POC Glucose (mg/dL) 182 H 214 H (75-99) mg/dL Magnesium (1.6-2.3) mg/dL Lactate Dehydrogenase (313-618) U/L C-Reactive Protein (<1.0) mg/dL Coronavirus (PCR) (Not Detected) 07/12/21 07/12/21 07/12/21 Range/Units 08:24 08:24 11:47 WBC (3.8-10.6) k/uL MCHC (31.0-37.0) g/dL Neutrophils # (1.3-7.7) k/uL Lymphocytes # (1.0-4.8) k/uL D-Dimer 3.32 H (<0.60) mg/L FEU Potassium 5.9 H (3.5-5.1) mmol/L Carbon Dioxide 20 L (22-30) mmol/L BUN 120 H* (9-20) mg/dL Creatinine 2.19 H (0.66-1.25) mg/dL Glucose 248 H (74-99) mg/dL POC Glucose (mg/dL) 276 H (75-99) mg/dL Magnesium 3.0 H (1.6-2.3) mg/dL Lactate Dehydrogenase 1349 H (313-618) U/L C-Reactive Protein 1.6 H (<1.0) mg/dL Coronavirus (PCR) (Not Detected) Microbiology - Last 24 Hours (Table) 07/09/21 12:02 Blood Culture - Preliminary Blood No Growth after 72 hours 07/09/21 12:07 Blood Culture - Preliminary Blood No Growth after 72 hours <Destini Garcia - Last Filed: 07/12/21 20:03> Subjective Stevenson Pack NP rendered care for this patient independently, reviewed the findings and plan as documented in the note above. I did not physically speak with or examine the patient on this date. Objective - Vital Signs Vital signs: Vital Signs Temp 97.4 F L 07/12/21 09:02 Pulse 66 07/12/21 17:31 Resp 27 H 07/12/21 17:31 BP 141/88 07/12/21 17:31 Pulse Ox 94 L 07/12/21 17:31 Intake & Output 07/12/21 07/12/21 07/13/21 06:59 18:59 06:59 Intake Total 110 Output Total 400 275 Balance -400 -165 Intake: Oral 110 Output: Urine 400 275 Other: Voiding Method External Catheter External Catheter # Bowel Movements 1 - Labs CBC & Chem 7: 07/12/21 08:24 07/12/21 08:24 Labs: Abnormal Lab Results - Last 24 Hours (Table) 07/11/21 07/12/21 07/12/21 Range/Units 20:55 06:49 08:24 WBC 20.8 H (3.8-10.6) k/uL MCHC 30.5 L (31.0-37.0) g/dL Neutrophils # 20.0 H (1.3-7.7) k/uL Lymphocytes # 0.3 L (1.0-4.8) k/uL D-Dimer (<0.60) mg/L FEU Potassium (3.5-5.1) mmol/L Carbon Dioxide (22-30) mmol/L BUN (9-20) mg/dL Creatinine (0.66-1.25) mg/dL Glucose (74-99) mg/dL POC Glucose (mg/dL) 182 H 214 H (75-99) mg/dL Magnesium (1.6-2.3) mg/dL Lactate Dehydrogenase (313-618) U/L C-Reactive Protein (<1.0) mg/dL 07/12/21 07/12/21 07/12/21 Range/Units 08:24 08:24 11:47 WBC (3.8-10.6) k/uL MCHC (31.0-37.0) g/dL Neutrophils # (1.3-7.7) k/uL Lymphocytes # (1.0-4.8) k/uL D-Dimer 3.32 H (<0.60) mg/L FEU Potassium 5.9 H (3.5-5.1) mmol/L Carbon Dioxide 20 L (22-30) mmol/L BUN 120 H* (9-20) mg/dL Creatinine 2.19 H (0.66-1.25) mg/dL Glucose 248 H (74-99) mg/dL POC Glucose (mg/dL) 276 H (75-99) mg/dL Magnesium 3.0 H (1.6-2.3) mg/dL Lactate Dehydrogenase 1349 H (313-618) U/L C-Reactive Protein 1.6 H (<1.0) mg/dL 07/12/21 Range/Units 16:26 WBC (3.8-10.6) k/uL MCHC (31.0-37.0) g/dL Neutrophils # (1.3-7.7) k/uL Lymphocytes # (1.0-4.8) k/uL D-Dimer (<0.60) mg/L FEU Potassium (3.5-5.1) mmol/L Carbon Dioxide (22-30) mmol/L BUN (9-20) mg/dL Creatinine (0.66-1.25) mg/dL Glucose (74-99) mg/dL POC Glucose (mg/dL) 177 H (75-99) mg/dL Magnesium (1.6-2.3) mg/dL Lactate Dehydrogenase (313-618) U/L C-Reactive Protein (<1.0) mg/dL Microbiology - Last 24 Hours (Table) 07/09/21 12:02 Blood Culture - Preliminary Blood No Growth after 72 hours 07/09/21 12:07 Blood Culture - Preliminary Blood No Growth after 72 hours
[2021-07-12 16:31] LABS: Glucose,Whole Blood 177 mg/dL (75-99)
[2021-07-12] MEDS: BARICITINIB 1 MG TABLET PO SCH (17:18)
[2021-07-12 20:23] LABS: Glucose,Whole Blood 149 mg/dL (75-99)
--- NOTE | 2021-07-13 00:54 | PN ---
PROGRESS NOTE DATE OF SERVICE: 07/12/2021 REASON FOR FOLLOWUP: COVID-19 pneumonia. INTERVAL HISTORY: The patient is afebrile. The patient remains to be BiPAP. However, has been able to maintain his sats above 95. Patient remains to be slightly sleepy, lethargic and unable to provide any history. No vomiting, diarrhea, any other changes reported by the daughter at the bedside. PHYSICAL EXAMINATION: Blood pressure 153/109, pulse of 79, temperature 98. He is 94% on BiPAP. General description is an elderly male lying in bed in no distress. Respiratory system: Unlabored breathing, decreased intensity of breath sounds. No wheeze. Heart S1, S2. Regular rate and rhythm. Abdomen soft, no tenderness. LABS: Hemoglobin is 14.7, white count 20.8, creatinine is 2.1. DIAGNOSTIC IMPRESSION AND PLAN: Patient with acute respiratory failure secondary to severe Covid 19 pneumonia. The patient started on Baricitinib along with steroid, zinc and ascorbic acid. Overall prognosis remains to be guarded. Daughter at the bedside. Questions and concerns were answered. MMODL / IJN: [id number] /
[2021-07-13] MEDS: LACTATED RINGERS 1,000 ML IV SCH (02:54)
[2021-07-13 07:14] LABS: Glucose,Whole Blood 155 mg/dL (75-99)
[2021-07-13 07:19] LABS: Basophils % (A) 0 %; Eosinophils % (A) 0 %; HCT 45.2 % (39.0-53.0); HGB 14.5 gm/dL (13.0-17.5); Lymphocytes # (A) 0.4 k/uL (1.0-4.8); Lymphocytes % (A) 2 %; MCH 29.5 pg (25.0-35.0); MCHC 32.1 g/dL (31.0-37.0); MCV 92.1 fL (80.0-100.0); Monocytes # (A) 0.5 k/uL (0-1.0); Monocytes % (A) 3 %; Neutrophils # (A) 19.8 k/uL (1.3-7.7); Neutrophils % (A) 95 %; Platelet Count 244 k/uL (150-450); RDW 15.4 % (11.5-15.5); WBC 20.9 k/uL (3.8-10.6)
[2021-07-13 07:29] LABS: ALT 21 U/L (4-49); AST 18 U/L (17-59); African American GFR (CKD) 32 (>60 ml/min/1.73 sqM); Albumin 3.3 g/dL (3.5-5.0); Alkaline Phosphatase 80 U/L (38-126); Anion Gap 12 mmol/L; Calcium 9.8 mg/dL (8.4-10.2); Carbon Dioxide 22 mmol/L (22-30); Chloride 108 mmol/L (98-107); Globulin 3.2 g/dL; Glucose 153 mg/dL (74-99); Non-African American GFR(CKD) 27 (>60 ml/min/1.73 sqM); Sodium 142 mmol/L (137-145); Total Bilirubin 1.1 mg/dL (0.2-1.3); Total Protein 6.5 g/dL (6.3-8.2)
[2021-07-13 07:45] LABS: Blood Urea Nitrogen 133 mg/dL (9-20)
[2021-07-13] MEDS: INSULIN DETEMIR (LEVEMIR) 100 UNIT/ML SYR SQ SCH (08:41)
[2021-07-13] MEDS: methylPREDNISolone SOD SUCCI 40 MG/ML 1 ML VIAL IV SCH ×2 (08:42→19:22)
[2021-07-13] MEDS: METOPROLOL SUCCINATE (ER) 100 MG TAB.ER.24H PO SCH (08:42)
[2021-07-13] MEDS: BENZONATATE 100 MG CAP PO SCH ×3 (08:42→22:21)
[2021-07-13] MEDS: ZINC SULFATE 220 MG CAP PO SCH (08:42)
[2021-07-13] MEDS: RIVAROXABAN 15 MG TAB PO SCH (08:42)
[2021-07-13] MEDS: MONTELUKAST 10 MG TAB PO SCH (08:42)
[2021-07-13] MEDS: ASCORBIC ACID 500 MG TAB PO SCH ×2 (08:42→19:22)
[2021-07-13] MEDS: CHOLECALCIFEROL 125 MCG (5000 IU) TABLET PO SCH (08:42)
[2021-07-13] MEDS: PANTOPRAZOLE 40 MG TABLET PO SCH ×2 (08:42→19:22)
[2021-07-13] MEDS: DILTIAZEM CD 120 MG CAP.ER.24H PO SCH (08:42)
[2021-07-13] MEDS: INSULIN ASPART (NovoLOG) 100 UNIT/ML VIAL SQ SCH ×4 (08:43→21:22)
[2021-07-13] MEDS: ALBUTEROL HFA INHALER INHALATION SCH ×4 (09:17→19:56)
[2021-07-13] MEDS: SYMBICORT 160-4.5 MCG INHALER INHALATION SCH ×2 (09:17→19:56)
[2021-07-13] MEDS ORDERED: SODIUM ZIRCONIUM CYCLOSILICATE 10 GM PACKET PO ONE (10:10)
[2021-07-13] MEDS ORDERED: INSULIN REGULAR 100 UNIT/ML VIAL (IV) IV ONE ×2 (10:10→20:39)
[2021-07-13] MEDS ORDERED: SODIUM BICARB 8.4% 50 ML SYR (1 MEQ/ML) IV STA (10:11)
[2021-07-13] MEDS ORDERED: DEXTROSE 50% SYRINGE 50 ML IVP STA ×2 (10:11→20:39)
[2021-07-13] MEDS ORDERED: CALCIUM GLUCONATE 2 GM in SODIUM CHLORIDE 0.9% 100 ML IVPB ONE (10:30)
[2021-07-13] MEDS: SODIUM CHLORIDE 0.9% 1,000 ML IV SCH (11:26)
--- NOTE | 2021-07-13 11:44 | P.PN ---
Subjective Patient is seen in follow-up for acute kidney injury on chronic kidney disease. Renal function fairly stable. On BiPAP. Oral intake poor. Receiving IV fluids. Potassium 6.0 this morning which was medically treated. Vital signs are stable. General: On BiPAP. HEENT: Head exam is unremarkable. LUNGS: Breath sounds decreased. HEART: Rate and Rhythm are regular. ABDOMEN: Soft, no distention. EXTREMITITES: No edema. Objective - Vital Signs Vital signs: Vital Signs Temp 97.2 F L 07/13/21 09:48 Pulse 88 07/13/21 09:48 Resp 22 07/13/21 09:48 BP 142/102 07/13/21 09:48 Pulse Ox 95 07/13/21 09:48 Intake & Output 07/12/21 07/13/21 07/13/21 18:59 06:59 18:59 Intake Total 110 Output Total 275 Balance -165 Intake: Oral 110 Output: Urine 275 Other: Voiding Method External Catheter External Catheter External Catheter # Voids 400 # Bowel Movements 1 - Labs CBC & Chem 7: 07/13/21 06:58 07/13/21 06:58 Labs: Abnormal Lab Results - Last 24 Hours (Table) 07/12/21 07/12/21 07/12/21 Range/Units 11:47 16:26 20:21 WBC (3.8-10.6) k/uL Neutrophils # (1.3-7.7) k/uL Lymphocytes # (1.0-4.8) k/uL Potassium (3.5-5.1) mmol/L Chloride (98-107) mmol/L BUN (9-20) mg/dL Creatinine (0.66-1.25) mg/dL Glucose (74-99) mg/dL POC Glucose (mg/dL) 276 H 177 H 149 H (75-99) mg/dL Albumin (3.5-5.0) g/dL 07/13/21 07/13/21 07/13/21 Range/Units 06:58 06:58 07:06 WBC 20.9 H (3.8-10.6) k/uL Neutrophils # 19.8 H (1.3-7.7) k/uL Lymphocytes # 0.4 L (1.0-4.8) k/uL Potassium 6.0 H (3.5-5.1) mmol/L Chloride 108 H (98-107) mmol/L BUN 133 H* (9-20) mg/dL Creatinine 2.20 H (0.66-1.25) mg/dL Glucose 153 H (74-99) mg/dL POC Glucose (mg/dL) 155 H (75-99) mg/dL Albumin 3.3 L (3.5-5.0) g/dL Microbiology - Last 24 Hours (Table) 07/09/21 12:02 Blood Culture - Preliminary Blood No Growth after 72 hours 07/09/21 12:07 Blood Culture - Preliminary Blood No Growth after 72 hours Assessment and Plan Plan: Assessment: 1. Acute kidney injury secondary to ATN secondary to COVID-19 infection. Creatinine 2.2 today. No hydronephrosis noted on kidney ultrasound. Elevated BUN secondary to acute kidney injury as well as steroids. 2. Chronic systolic CHF with ejection fraction of 20-25% with mild to moderate mitral regurgitation. 3. Chronic kidney disease stage IIIB with baseline creatinine 1.6 in 2018. 4. Hyperkalemia secondary to acute kidney injury, metabolic acidosis. Also on LR. 5. Acute hypoxic respiratory failure. Plan: Repeat UA. Change IV fluids from LR to normal saline. Patient was given sodium bicarb IV push, IV insulin with D50 as well as lokelma for the hyperkalemia. Repeat potassium level this afternoon. Continue to monitor renal function and urine output.
[2021-07-13 11:54] LABS: Glucose,Whole Blood 198 mg/dL (75-99)
--- NOTE | 2021-07-13 12:50 | P.PN ---
<Stevenson Pack - Last Filed: 07/13/21 12:31> Subjective Progress Note Date: 07/13/21 Hospital course: Patient is a very pleasant 81-year-old male with a past medical history of CAD status post pacemaker placement, ischemic cardiomyopathy, chronic systolic heart failure with previously known EF of 35-40%, atrial fibrillation on anticoagulation with Xarelto, hypertension, hyperlipidemia, CKD stage III, and COPD not home oxygen dependent. Patient presented to the emergency department on 07/01/21 with a chief complaint of shortness of breath, nonproductive cough, weakness, and fatigue 1 week. He was found to have leukocytosis with WBC count of 11.9, Hyponatremia with sodium of 132, hypochloremia with chloride of 95, renal function consistent with CKD with BUN 53, creatinine 1.72, and GFR of 37 (slightly above baseline creatinine). Inflammatory markers elevated with CRP 3.4 and LDH of 688, d-dimer pending. Covid PCR negative. Chest x-ray revealing chronic changes and cardiomegaly with bilateral multifocal opacities concerning for Covid 19 infection. EKG revealing a ventricular paced rhythm at 80 bpm with underlying atrial flutter. Patient admitted under our services with consultation to pulmonology. Covid PCR and antigen negative. Influenza and RSV negative. Urine Legionella negative, pro-calcitonin elevated at 0.15. D-dimer 0.41. Gram stain/sputum culture negative. Blood culture showing no growth after 72 hours. Physical exam: Patient seen and fully evaluated at the bedside this morning. He remains on BiPAP and continues to remain alert to person, place, time, and situation. Morning labs revealed significant hyperkalemia with potassium of 6.0. Orders place for hyperkalemia cocktail consisting of Lokelma, 1 amp sodium bicarb, 10 units regular insulin with 1 amp D50, and calcium gluconate. EKG to be completed. Nephrology notified and no further recommendations were given at this time. Patient has had poor oral intake and continues to have CORA with BUN 133, creatinine 2.20, and GFR of 27. Patient had poor IV access, I placed a 20- gauge IV in patient's left AC. Additional morning labs reveal continued leukocytosis with WBC count of 20.9. We will repeat potassium levels this afternoon. Patient on day 3 of 14 of Baricitinib. . Vital signs reviewed and stable. General: Patient appears in mild distress, appears generally unwell feeling and lethargic. Derm: Skin warm and dry, normal coloration for ethnicity. Head: Atraumatic, normocephalic and symmetric. Eyes: EOMs intact, no lid lag, and anicteric sclera Mouth: no lip lesions, mucus membranes moist Cardiovascular: regular rate and rhythm, distant heart sounds, positive posterior tibial pulses bilaterally, and cap refill < 2 seconds. Lungs: Respirations even, regular, and unlabored on BiPAP with 100% FiO2.. Lungs diminished with diffuse rhonchi. Coarse weak cough. No accessory muscle usage. Abdominal: soft, nontender to palpation, no guarding, no appreciable organomegaly Ext: ROM intact. No gross muscle atrophy, no edema, no contractures Neuro: Speech clear, face symmetrical and CN II-XII grossly intact with no noted focal neuro deficits Psych: Alert and oriented to person, place, time, and situation. Appropriate and pleasant affect. Assessment and Plan of Care: Acute respiratory failure with hypoxia secondary to bilateral multifocal pneumonia requiring continuous BiPAP at 90% FiO2 Acute COPD exacerbation secondary to bilateral multifocal pneumonia Covid 19 virus infection -Covid PCR and antigen negative , patient had positive test for Covid at [facility] on 06/30/21 -Influenza and RSV negative -Urine Legionella negative, pro-calcitonin elevated at 0.15. -D-dimer 0.41 -IV antibiotics: Were discontinued on 07/11/21 -Infectious disease following, appreciate further recommendations -Gram stain/sputum culture negative. -Blood culture showing no growth 72 hours -Telemetry monitoring. -Encourage Incentive Spirometry 10-15x hourly while awake -Steroids: Same Medrol 40 mg IVP every 6 hours -DuoNeb scheduled and as needed -Pulmonology following, appreciate further recommendations. -Baricitinib day 2 of . Atrial fibrillation Chronic systolic heart failure with EF of 20-25% and global hypokinesis Ischemic cardiomyopathy with global hypokinesis CAD status post pacemaker placement Hypertension Hyperlipidemia -Telemetry monitoring -Echocardiogram revealing a severely impaired EF between 20 and 25% with global hypokinesis, moderately enlarged right ventricle and mild to moderate mitral valve regurgitation. -Trend troponins -BNP 10,000 with repeat 2069 -Continuation of daily medication regimen including Xarelto, metoprolol, losartan, and Cardizem. -Monitor vital signs closely. Acute kidney injury on Stage III CKD -Possibly secondary to vancomycin use. Vancomycin was discontinued and patient started on clindamycin 600 mg every 6 hours. -Losartan held at this time. Caution with all other nephrotoxic medications. -Nephrology consulted, ordered renal ultrasound, appreciate further recommendations. Newly diagnosed diabetes mellitus with hemoglobin A1c of 8.1% -Continue Levemir 22 units twice daily, was previously increased to 26 however patient with hypoglycemia this morning. Generalized weakness PT/OT consulted, recommending rehab. CODE STATUS: DO NOT RESUSCITATE/DO NOT INTUBATE DVT prophylaxis: Xarelto Discussed with: Patient, patient's daughter, and RN Anticipated discharge date: Clinical course to determine Anticipated discharge place: Clinical course to determine A total of 45 minutes was spent on the care of this complex patient more than 50% of the time was spent in counseling and care coordination. Objective - Vital Signs Vital signs: Vital Signs Temp 96.3 F L 07/13/21 06:00 Pulse 82 07/13/21 06:00 Resp 21 07/13/21 06:00 BP 143/99 07/13/21 06:00 Pulse Ox 94 L 07/13/21 06:00 Intake & Output 07/12/21 07/13/21 07/13/21 18:59 06:59 18:59 Intake Total 110 Output Total 275 Balance -165 Intake: Oral 110 Output: Urine 275 Other: Voiding Method External Catheter External Catheter # Voids 400 # Bowel Movements 1 - Labs CBC & Chem 7: 07/13/21 06:58 07/13/21 06:58 Labs: Abnormal Lab Results - Last 24 Hours (Table) 07/12/21 07/12/21 07/12/21 Range/Units 08:24 08:24 08:24 WBC 20.8 H (3.8-10.6) k/uL MCHC 30.5 L (31.0-37.0) g/dL Neutrophils # 20.0 H (1.3-7.7) k/uL Lymphocytes # 0.3 L (1.0-4.8) k/uL D-Dimer 3.32 H (<0.60) mg/L FEU Potassium 5.9 H (3.5-5.1) mmol/L Chloride (98-107) mmol/L Carbon Dioxide 20 L (22-30) mmol/L BUN 120 H* (9-20) mg/dL Creatinine 2.19 H (0.66-1.25) mg/dL Glucose 248 H (74-99) mg/dL POC Glucose (mg/dL) (75-99) mg/dL Magnesium 3.0 H (1.6-2.3) mg/dL Lactate Dehydrogenase 1349 H (313-618) U/L C-Reactive Protein 1.6 H (<1.0) mg/dL Albumin (3.5-5.0) g/dL 07/12/21 07/12/21 07/12/21 Range/Units 11:47 16:26 20:21 WBC (3.8-10.6) k/uL MCHC (31.0-37.0) g/dL Neutrophils # (1.3-7.7) k/uL Lymphocytes # (1.0-4.8) k/uL D-Dimer (<0.60) mg/L FEU Potassium (3.5-5.1) mmol/L Chloride (98-107) mmol/L Carbon Dioxide (22-30) mmol/L BUN (9-20) mg/dL Creatinine (0.66-1.25) mg/dL Glucose (74-99) mg/dL POC Glucose (mg/dL) 276 H 177 H 149 H (75-99) mg/dL Magnesium (1.6-2.3) mg/dL Lactate Dehydrogenase (313-618) U/L C-Reactive Protein (<1.0) mg/dL Albumin (3.5-5.0) g/dL 07/13/21 07/13/21 07/13/21 Range/Units 06:58 06:58 07:06 WBC 20.9 H (3.8-10.6) k/uL MCHC (31.0-37.0) g/dL Neutrophils # 19.8 H (1.3-7.7) k/uL Lymphocytes # 0.4 L (1.0-4.8) k/uL D-Dimer (<0.60) mg/L FEU Potassium 6.0 H (3.5-5.1) mmol/L Chloride 108 H (98-107) mmol/L Carbon Dioxide (22-30) mmol/L BUN 133 H* (9-20) mg/dL Creatinine 2.20 H (0.66-1.25) mg/dL Glucose 153 H (74-99) mg/dL POC Glucose (mg/dL) 155 H (75-99) mg/dL Magnesium (1.6-2.3) mg/dL Lactate Dehydrogenase (313-618) U/L C-Reactive Protein (<1.0) mg/dL Albumin 3.3 L (3.5-5.0) g/dL Microbiology - Last 24 Hours (Table) 07/09/21 12:02 Blood Culture - Preliminary Blood No Growth after 72 hours 07/09/21 12:07 Blood Culture - Preliminary Blood No Growth after 72 hours <Marciano Mckenzie - Last Filed: 07/13/21 13:44> Objective - Vital Signs Vital signs: Vital Signs Temp 97.2 F L 07/13/21 09:48 Pulse 88 07/13/21 09:48 Resp 22 07/13/21 09:48 BP 142/102 07/13/21 09:48 Pulse Ox 95 07/13/21 09:48 Intake & Output 07/12/21 07/13/21 07/13/21 18:59 06:59 18:59 Intake Total 110 Output Total 275 Balance -165 Intake: Oral 110 Output: Urine 275 Other: Voiding Method External Catheter External Catheter External Catheter # Voids 400 # Bowel Movements 1 - Labs CBC & Chem 7: 07/13/21 06:58 07/13/21 06:58 Labs: Abnormal Lab Results - Last 24 Hours (Table) 07/12/21 07/12/21 07/13/21 Range/Units 16:26 20:21 06:58 WBC 20.9 H (3.8-10.6) k/uL Neutrophils # 19.8 H (1.3-7.7) k/uL Lymphocytes # 0.4 L (1.0-4.8) k/uL Potassium (3.5-5.1) mmol/L Chloride (98-107) mmol/L BUN (9-20) mg/dL Creatinine (0.66-1.25) mg/dL Glucose (74-99) mg/dL POC Glucose (mg/dL) 177 H 149 H (75-99) mg/dL Albumin (3.5-5.0) g/dL 07/13/21 07/13/21 07/13/21 Range/Units 06:58 07:06 11:52 WBC (3.8-10.6) k/uL Neutrophils # (1.3-7.7) k/uL Lymphocytes # (1.0-4.8) k/uL Potassium 6.0 H (3.5-5.1) mmol/L Chloride 108 H (98-107) mmol/L BUN 133 H* (9-20) mg/dL Creatinine 2.20 H (0.66-1.25) mg/dL Glucose 153 H (74-99) mg/dL POC Glucose (mg/dL) 155 H 198 H (75-99) mg/dL Albumin 3.3 L (3.5-5.0) g/dL Microbiology - Last 24 Hours (Table) 07/09/21 12:02 Blood Culture - Preliminary Blood No Growth after 72 hours 07/09/21 12:07 Blood Culture - Preliminary Blood No Growth after 72 hours Assessment and Plan Assessment: Patient was also seen by Stevenson Pack NP and case was discussed. I am in agreement with discharge diagnosis, hospital course, as written above and amended below.
[2021-07-13 16:30] LABS: Glucose,Whole Blood 136 mg/dL (75-99)
[2021-07-13] MEDS: BARICITINIB 1 MG TABLET PO SCH (17:27)
[2021-07-13 21:03] LABS: Glucose,Whole Blood 124 mg/dL (75-99)
--- NOTE | 2021-07-13 21:16 | PN ---
PROGRESS NOTE DATE OF SERVICE: 07/13/2021 REASON FOR FOLLOWUP: COVID-19 pneumonia. INTERVAL HISTORY: The patient is afebrile. The patient remains to be BiPAP dependent. The patient denies having any chest pain. Did have a cough, not bringing up any sputum. No abdominal pain, no diarrhea. PHYSICAL EXAMINATION: Blood pressure 128/92 with a pulse of 75, temperature 97.1. He is 95% on BiPAP. General description is an elderly male lying in bed in no distress. Respiratory system: Unlabored breathing. Coarse breath sounds at the bases, no wheeze. Heart S1, S2. Regular rate and rhythm. Abdomen soft, no tenderness. Extremities: No edema of the feet. LABS: Hemoglobin 14.2, white count 20.9, creatinine is 2.20. DIAGNOSTIC IMPRESSION AND PLAN: Patient with acute respiratory failure secondary to severe COVID-19 pneumonia. Has been ruled out for secondary bacterial pneumonia. Patient is currently on baricitinib, Solu-Medrol, zinc and ascorbic acid along with respiratory support. Prognosis remains to be guarded. MMODL / IJN: [id number] /
[2021-07-13] MEDS: SODIUM ZIRCONIUM CYCLOSILICATE 10 GM PACKET PO ONE ×2 (22:21→22:28)
[2021-07-14] MEDS ORDERED: LORazepam 2 MG/ML INJ IV STA ×2 (00:48→04:52)
[2021-07-14 01:00] LABS: African American GFR (CKD) 34 (>60 ml/min/1.73 sqM); Anion Gap 12 mmol/L; Calcium 10.1 mg/dL (8.4-10.2); Carbon Dioxide 21 mmol/L (22-30); Chloride 114 mmol/L (98-107); Glucose 151 mg/dL (74-99); Non-African American GFR(CKD) 30 (>60 ml/min/1.73 sqM); Potassium 5.5 mmol/L (3.5-5.1); Sodium 147 mmol/L (137-145)
[2021-07-14] MEDS: SODIUM CHLORIDE 0.9% 1,000 ML IV SCH ×2 (01:10→05:02)
[2021-07-14 01:25] LABS: Blood Urea Nitrogen 143 mg/dL (9-20)
[2021-07-14] MEDS: ALBUTEROL HFA INHALER INHALATION SCH ×3 (07:30→17:12)
[2021-07-14] MEDS: SYMBICORT 160-4.5 MCG INHALER INHALATION SCH (07:30)
[2021-07-14 07:37] LABS: Glucose,Whole Blood 133 mg/dL (75-99)
[2021-07-14 07:49] LABS: ALT 22 U/L (4-49); AST 20 U/L (17-59); African American GFR (CKD) 30 (>60 ml/min/1.73 sqM); Albumin 3.1 g/dL (3.5-5.0); Alkaline Phosphatase 76 U/L (38-126); Anion Gap 11 mmol/L; Calcium 10.1 mg/dL (8.4-10.2); Carbon Dioxide 24 mmol/L (22-30); Chloride 115 mmol/L (98-107); Globulin 3.1 g/dL; Glucose 139 mg/dL (74-99); LDH 1388 U/L (313-618); Magnesium 3.2 mg/dL (1.6-2.3); Non-African American GFR(CKD) 26 (>60 ml/min/1.73 sqM); Potassium 5.3 mmol/L (3.5-5.1); Sodium 150 mmol/L (137-145); Total Bilirubin 0.9 mg/dL (0.2-1.3); Total Protein 6.2 g/dL (6.3-8.2)
[2021-07-14 08:06] LABS: Basophils % (A) 0 %; Eosinophils % (A) 0 %; HCT 47.6 % (39.0-53.0); HGB 14.8 gm/dL (13.0-17.5); Lymphocytes # (A) 0.4 k/uL (1.0-4.8); Lymphocytes % (A) 2 %; MCH 28.8 pg (25.0-35.0); MCHC 31.2 g/dL (31.0-37.0); MCV 92.4 fL (80.0-100.0); Mean Platelet Volume 9.1; Monocytes # (A) 0.5 k/uL (0-1.0); Monocytes % (A) 2 %; Neutrophils # (A) 24.1 k/uL (1.3-7.7); Neutrophils % (A) 96 %; Platelet Count 203 k/uL (150-450); RBC 5.15 m/uL (4.30-5.90); RDW 15.4 % (11.5-15.5); WBC 25.2 k/uL (3.8-10.6)
[2021-07-14 08:20] LABS: Blood Urea Nitrogen 139 mg/dL (9-20)
[2021-07-14 08:31] LABS: C Reactive Protein 0.7 mg/dL (<1.0)
[2021-07-14] MEDS ORDERED: DEXTROSE 5% IN WATER 1,000 ML IV ONE (09:18)
[2021-07-14] MEDS: PANTOPRAZOLE 40 MG TABLET PO SCH (10:12)
[2021-07-14] MEDS: MONTELUKAST 10 MG TAB PO SCH (10:12)
[2021-07-14] MEDS: METOPROLOL SUCCINATE (ER) 100 MG TAB.ER.24H PO SCH (10:12)
[2021-07-14] MEDS: BENZONATATE 100 MG CAP PO SCH ×2 (10:12→17:22)
[2021-07-14] MEDS: methylPREDNISolone SOD SUCCI 40 MG/ML 1 ML VIAL IV SCH (10:12)
[2021-07-14] MEDS: CHOLECALCIFEROL 125 MCG (5000 IU) TABLET PO SCH (10:12)
[2021-07-14] MEDS: DILTIAZEM CD 120 MG CAP.ER.24H PO SCH (10:12)
[2021-07-14] MEDS: ZINC SULFATE 220 MG CAP PO SCH (10:12)
[2021-07-14] MEDS: RIVAROXABAN 15 MG TAB PO SCH (10:12)
[2021-07-14] MEDS: ASCORBIC ACID 500 MG TAB PO SCH (10:13)
[2021-07-14] MEDS: INSULIN DETEMIR (LEVEMIR) 100 UNIT/ML SYR SQ SCH (10:13)
[2021-07-14] MEDS: INSULIN ASPART (NovoLOG) 100 UNIT/ML VIAL SQ SCH ×3 (10:13→17:22)
[2021-07-14 10:15] VITALS: BP 145/93; PULSE 94; RESP 18; TEMP 96.9
[2021-07-14] MEDS ORDERED: LORazepam 2 MG/ML INJ IV PRN (10:16)
--- NOTE | 2021-07-14 10:23 | P.PN ---
<Stevenson Pack - Last Filed: 07/14/21 14:59> Progress Note - Text Progress Note Date: 07/14/21 Advanced Care Planning: Diagnoses: Acute respiratory failure with hypoxia secondary to bilateral multifocal pneumonia and Covid 19 virus Discussion: Patient and patient's daughter, Trena. Summary: I was called to bedside as patient's daughter very tearful over her father sh owing no progression and only worsening of his condition. Patient remains alert to person, place, and situation but has been having periods of agitation and confusion. Patient wanting to take BiPAP off stating he does not want it. Patient also reporting pain in his right shoulder and back. Had long discussion regarding no improvement after multiple treatment regimens, and continued need for continuous BiPAP. Secondary to current critical condition and multiple comorbidities including chronic systolic heart failure with an ejection fraction of 20-25%, patient has a very poor prognosis. Patient's daughter requesting to stop all care and place pt on hospice at this time and patient was in complete agreement and reported he only wants to be comfortable and in no pain, no more mas and no more pokes. Orders placed for consult to hospice and to initiate comfort measures at this time. A total of 21 minutes of face to face time was spent discussing advanced care planning. <Marciano Mckenzie - Last Filed: 07/15/21 12:53> Progress Note - Text Patient was seen by Stevenson Pack NP and case was discussed. I am in agreement with above.
[2021-07-14] MEDS ORDERED: MORPHINE SULFATE (100 MG/2 ML) 100 MG in SODIUM CHLORIDE 0.9% 100 ML IV SCH (11:00)
--- NOTE | 2021-07-14 15:22 | P.PN ---
<Stevenson Pack - Last Filed: 07/14/21 15:14> Subjective Progress Note Date: 07/14/21 Hospital course: Patient is a very pleasant 81-year-old male with a past medical history of CAD status post pacemaker placement, ischemic cardiomyopathy, chronic systolic heart failure with previously known EF of 35-40%, atrial fibrillation on anticoagulation with Xarelto, hypertension, hyperlipidemia, CKD stage III, and COPD not home oxygen dependent. Patient presented to the emergency department on 07/01/21 with a chief complaint of shortness of breath, nonproductive cough, weakness, and fatigue 1 week. He was found to have leukocytosis with WBC count of 11.9, Hyponatremia with sodium of 132, hypochloremia with chloride of 95, renal function consistent with CKD with BUN 53, creatinine 1.72, and GFR of 37 (slightly above baseline creatinine). Inflammatory markers elevated with CRP 3.4 and LDH of 688, d-dimer pending. Covid PCR negative. Chest x-ray revealing chronic changes and cardiomegaly with bilateral multifocal opacities concerning for Covid 19 infection. EKG revealing a ventricular paced rhythm at 80 bpm with underlying atrial flutter. Patient admitted under our services with consultation to pulmonology. Covid PCR and antigen negative. Influenza and RSV negative. Urine Legionella negative, pro-calcitonin elevated at 0.15. D-dimer 0.41. Gram stain/sputum culture negative. Blood culture showing no growth after 120 hours. Physical exam: Patient seen and fully evaluated at the bedside this morning. He remains on BiP AP and currently alert to person and place but seems more confused to time and situation. Patient has been agitated throughout the night and continuously trying to remove BiPAP. Patient also refusing oral intake, simply spitting everything back out. Morning labs continued to reveal persistent leukocytosis with WBC count of 25.2, further elevation of d-dimer to 4.19, hypernatremia with sodium of 150 changed from 0.9% normal saline to D5W at 75 mL's per hour. Hyperkalemia slightly improved to 5.3. And renal function continues to worsen with BUN of 139, creatinine 2.31, and GFR of 26. LDH 1388. Today is day 10/20 for Baricitinib. Patient does appear more week and agitated when compared to previous assessments. He appears uncomfortable. Will add on additional pain medications. Vital signs reviewed and stable. General: Patient appears in mild distress, appears generally unwell feeling and lethargic. Derm: Skin warm and dry, normal coloration for ethnicity. Head: Atraumatic, normocephalic and symmetric. Eyes: EOMs intact, no lid lag, and anicteric sclera Mouth: no lip lesions, mucus membranes moist Cardiovascular: regular rate and rhythm, distant heart sounds, positive poste rior tibial pulses bilaterally, and cap refill < 2 seconds. Lungs: Respirations even, regular, and unlabored on BiPAP with 100% FiO2.. Lungs diminished with diffuse coarse rhonchi. Coarse weak cough. No accessory muscle usage. Abdominal: soft, nontender to palpation, no guarding, no appreciable organomegaly Ext: ROM intact. No gross muscle atrophy, no edema, no contractures Neuro: Speech clear, face symmetrical and CN II-XII grossly intact with no noted focal neuro deficits Psych: Alert and oriented to person and place. Intermittent confusion ] Assessment and Plan of Care: Acute respiratory failure with hypoxia secondary to bilateral multifocal pneumonia requiring continuous BiPAP at 90% FiO2 Acute COPD exacerbation secondary to bilateral multifocal pneumonia Covid 19 virus infection -Covid PCR and antigen negative , patient had positive test for Covid at [facility] on 06/30/21 -Influenza and RSV negative -Urine Legionella negative, pro-calcitonin elevated at 0.15. -D-dimer 0.41 -IV antibiotics: Were discontinued on 07/11/21 -Infectious disease following, appreciate further recommendations -Gram stain/sputum culture negative. -Blood culture showing no growth 72 hours -Telemetry monitoring. -Encourage Incentive Spirometry 10-15x hourly while awake -Steroids: Same Medrol 40 mg IVP every 6 hours -DuoNeb scheduled and as needed -Pulmonology following, appreciate further recommendations. -Baricitinib day 2 of . Atrial fibrillation Chronic systolic heart failure with EF of 20-25% and global hypokinesis Ischemic cardiomyopathy with global hypokinesis CAD status post pacemaker placement Hypertension Hyperlipidemia -Telemetry monitoring -Echocardiogram revealing a severely impaired EF between 20 and 25% with global hypokinesis, moderately enlarged right ventricle and mild to moderate mitral valve regurgitation. -Trend troponins -BNP 10,000 with repeat 2069 -Continuation of daily medication regimen including Xarelto, metoprolol, losartan, and Cardizem. -Monitor vital signs closely. Acute kidney injury on Stage III CKD -Possibly secondary to vancomycin use. Vancomycin was discontinued and patient started on clindamycin 600 mg every 6 hours. -Losartan held at this time. Caution with all other nephrotoxic medications. -Nephrology consulted, ordered renal ultrasound, appreciate further recommendations. Newly diagnosed diabetes mellitus with hemoglobin A1c of 8.1% -Continue Levemir 22 units twice daily, was previously increased to 26 however patient with hypoglycemia this morning. Generalized weakness PT/OT consulted, recommending rehab. CODE STATUS: DO NOT RESUSCITATE/DO NOT INTUBATE DVT prophylaxis: Xarelto Discussed with: Patient, patient's daughter, and RN Anticipated discharge date: Clinical course to determine Anticipated discharge place: Clinical course to determine A total of 40 minutes was spent on the care of this complex patient more than 50% of the time was spent in counseling and care coordination. Objective - Vital Signs Vital signs: Vital Signs Temp 97.9 F 07/14/21 05:55 Pulse 83 07/14/21 05:55 Resp 19 07/14/21 05:55 BP 135/84 07/14/21 05:55 Pulse Ox 91 L 07/14/21 05:55 Intake & Output 07/13/21 07/14/21 07/14/21 18:59 06:59 18:59 Intake Total 100 Output Total 400 350 Balance -400 -250 Intake: Oral 100 Output: Urine 400 350 Other: Voiding Method External Catheter External Catheter # Voids 1 2 - Labs CBC & Chem 7: 07/14/21 07:19 07/14/21 07:19 Labs: Abnormal Lab Results - Last 24 Hours (Table) 07/13/21 07/13/21 07/13/21 Range/Units 11:52 16:23 19:28 WBC (3.8-10.6) k/uL Neutrophils # (1.3-7.7) k/uL Lymphocytes # (1.0-4.8) k/uL D-Dimer (<0.60) mg/L FEU Sodium (137-145) mmol/L Potassium 5.8 H (3.5-5.1) mmol/L Chloride (98-107) mmol/L Carbon Dioxide (22-30) mmol/L BUN (9-20) mg/dL Creatinine (0.66-1.25) mg/dL Glucose (74-99) mg/dL POC Glucose (mg/dL) 198 H 136 H (75-99) mg/dL Magnesium (1.6-2.3) mg/dL Lactate Dehydrogenase (313-618) U/L Total Protein (6.3-8.2) g/dL Albumin (3.5-5.0) g/dL 07/13/21 07/14/21 07/14/21 Range/Units 21:00 00:25 07:19 WBC 25.2 H (3.8-10.6) k/uL Neutrophils # 24.1 H (1.3-7.7) k/uL Lymphocytes # 0.4 L (1.0-4.8) k/uL D-Dimer (<0.60) mg/L FEU Sodium 147 H (137-145) mmol/L Potassium 5.5 H (3.5-5.1) mmol/L Chloride 114 H (98-107) mmol/L Carbon Dioxide 21 L (22-30) mmol/L BUN 143 H* (9-20) mg/dL Creatinine 2.06 H (0.66-1.25) mg/dL Glucose 151 H (74-99) mg/dL POC Glucose (mg/dL) 124 H (75-99) mg/dL Magnesium (1.6-2.3) mg/dL Lactate Dehydrogenase (313-618) U/L Total Protein (6.3-8.2) g/dL Albumin (3.5-5.0) g/dL 07/14/21 07/14/21 07/14/21 Range/Units 07:19 07:19 07:35 WBC (3.8-10.6) k/uL Neutrophils # (1.3-7.7) k/uL Lymphocytes # (1.0-4.8) k/uL D-Dimer 4.19 H (<0.60) mg/L FEU Sodium 150 H (137-145) mmol/L Potassium 5.3 H (3.5-5.1) mmol/L Chloride 115 H (98-107) mmol/L Carbon Dioxide (22-30) mmol/L BUN 139 H* (9-20) mg/dL Creatinine 2.31 H (0.66-1.25) mg/dL Glucose 139 H (74-99) mg/dL POC Glucose (mg/dL) 133 H (75-99) mg/dL Magnesium 3.2 H (1.6-2.3) mg/dL Lactate Dehydrogenase 1388 H (313-618) U/L Total Protein 6.2 L (6.3-8.2) g/dL Albumin 3.1 L (3.5-5.0) g/dL Microbiology - Last 24 Hours (Table) 07/09/21 12:02 Blood Culture - Preliminary Blood No Growth after 96 hours 07/09/21 12:07 Blood Culture - Preliminary Blood No Growth after 96 hours <Marciano Mckenzie - Last Filed: 07/15/21 12:52> Objective - Vital Signs Vital signs: Vital Signs Temp 96.9 F L 07/14/21 10:14 Pulse 94 07/14/21 10:14 Resp 18 07/14/21 10:14 BP 145/93 07/14/21 10:14 Pulse Ox 91 L 07/14/21 10:14 Intake & Output 07/14/21 07/15/21 07/15/21 18:59 06:59 18:59 Intake Total 8.126 Balance 8.126 Intake: Intake, IV Titration 8.126 Amount Morphine Sulfate (100 mg/ 8.126 2 ml) 100 mg In Sodium Chloride 0.9% 100 ml @ 1 MG/HR 1.02 mls/hr IV . Q24H [facility] Rx#:[id number] Other: Voiding Method External Catheter - Labs CBC & Chem 7: 07/14/21 07:19 07/14/21 07:19 Labs: Microbiology - Last 24 Hours (Table) 07/09/21 12:02 Blood Culture - Preliminary Blood No Growth after 120 hours 07/09/21 12:07 Blood Culture - Preliminary Blood No Growth after 120 hours Assessment and Plan Assessment: Patient was seen by Stevenson Pack NP and case was discussed. I am in agreement with assessment and plan.
--- NOTE | 2021-07-15 15:53 | P.DS ---
<Stevenson Pack - Last Filed: 07/15/21 15:59> Providers Expected date of discharge: 07/14/21 Hospital Course: THIS IS NOT A DISCHARGE SUMMARY, THIS IS A SUMMARY OF CARE PATIENT IS . PATIENT ON 07/14/21 AT 1925 pm Diagnoses throughout hospitalization: Acute respiratory failure with hypoxia multifactorial resulting from COVID virus with bilateral multifocal pneumonia and COPD requiring continuous BiPAP Acute COPD exacerbation secondary to bilateral multifocal pneumonia Covid 19 virus infection Acute kidney injury on Stage III CKD Atrial fibrillation Acute on Chronic systolic heart failure with EF of 20-25% and global hypokinesis Ischemic cardiomyopathy with global hypokinesis CAD status post pacemaker placement Hypertension Hyperlipidemia Newly diagnosed diabetes mellitus with hemoglobin A1c of 8.1% Generalized weakness Hospital Course: Patient is a very pleasant 81-year-old male with a past medical history of CAD status post pacemaker placement, ischemic cardiomyopathy, chronic systolic heart failure with previously known EF of 35-40%, atrial fibrillation on anticoagulation with Xarelto, hypertension, hyperlipidemia, CKD stage III, and COPD not home oxygen dependent. Patient presented to the emergency department on 07/01/21 with a chief complaint of shortness of breath, nonproductive cough, weakness, and fatigue 1 week. He was found to have leukocytosis with WBC count of 11.9, Hyponatremia with sodium of 132, hypochloremia with chloride of 95, renal function consistent with CKD with BUN 53, creatinine 1.72, and GFR of 37 (slightly above baseline creatinine). Inflammatory markers elevated with CRP 3.4 and LDH of 688, d-dimer pending. Covid PCR negative. Chest x-ray revealing chronic changes and cardiomegaly with bilateral multifocal opacities concerning for Covid 19 infection. EKG revealing a ventricular paced rhythm at 80 bpm with underlying atrial flutter. Patient admitted under our services with consultation to pulmonology. Covid PCR and antigen negative. Influenza and RSV negative. Urine Legionella negative, pro-calcitonin elevated at 0.15. D-dimer 0.41. Patient had positive Covid PCR from [place] that was obtained on 06/30/21. Patient placed in contact plus droplet precautions at this time. Patient underwent treatment for possible bacterial pneumonia as well as Covid and COPD exacerbation. Patient underwent an echocardiogram showing worsening EF of 20-25% with global hypokinesis compared to previous echocardiogram obtained on 06/08/17 revealing an EF of 35-40%. Gram stain/sputum culture negative. Blood culture showing no growth after 120 hours. Patient underwent a 14 day hospitalization and monitored by our hospitalist group along with profile shaper operator, paper roll machine operator, and infectious disease specialist. Despite all treatment, pt's condition continued to deteriorate. Patient initially requiring nasal cannula and then requiring high flow nasal cannula along with 100% NRP mass and by 07/07/21 and he was requiring continuous BiPAP. Once on BiPAP, pt was unable to be taken off because he quickly desaturated. Pt began to be unable to eat or drink and did not want peg tube placement or any other measures of nutrition including TPN. On the morning of 07/14/21, I was called to bedside as patient's daughter very tearful over her father showing no progression and only worsening of his condition. Patient remains alert to person, place, and situation but has been having periods of agitation and confusion. Patient wanting to take BiPAP off stating he does not want it. Patient also reporting pain in his right shoulder and back. Had long discussion regarding no improvement after multiple treatment regimens, and continued need for continuous BiPAP. Secondary to current critical condition and multiple comorbidities including chronic systolic heart failure with an ejection fraction of 20-25%, patient has a very poor prognosis. Patient's daughter requesting to stop all care and place pt on hospice at this time and patient was in complete agreement and reported he only wants to be comfortable and in no pain, no more mas and no more pokes. Orders placed for consult to hospice and to initiate comfort measures at that time. Per nursing documentation patient passed peacefully later that evening on 07/14/21 and time of was pronounced at 7:25 PM. A total of 45 minutes of time were spent preparing this complex discharge summary. Assessment: Patient seen by Stevenson Pack NP and case was discussed. I am in agreement with discharge diagnosis and hospital course as written above. Plan - Discharge Summary New Discharge Prescriptions: No Action Furosemide [Lasix] 20 mg PO DAILY Montelukast [Singulair] 10 mg PO DAILY Metoprolol Succinate (ER) [Toprol XL] 100 mg PO DAILY #90 tab dilTIAZem HCL [dilTIAZem HCL 24Hr ER (Xr)] 120 mg PO DAILY Colchicine 0.6 mg PO DAILY Pantoprazole Sodium [Protonix] 20 mg PO BID Rivaroxaban [Xarelto] 15 mg PO DAILY Discharge Medication List Furosemide [Lasix] 20 mg PO DAILY 02/08/14 [History] Montelukast [Singulair] 10 mg PO DAILY 02/08/14 [History] Metoprolol Succinate (ER) [Toprol XL] 100 mg PO DAILY #90 tab 11/11/17 [Rx] Colchicine 0.6 mg PO DAILY 07/01/21 [History] Pantoprazole Sodium [Protonix] 20 mg PO BID 07/01/21 [History] Rivaroxaban [Xarelto] 15 mg PO DAILY 07/01/21 [History] dilTIAZem HCL [dilTIAZem HCL 24Hr ER (Xr)] 120 mg PO DAILY 07/01/21 [History] Follow up Appointment(s)/Referral(s): Elva Hernández, [NON-STAFF] - As Needed Nonstaff,Physician [Primary Care Provider] - 1-2 days Care,Johnathan Senior [NON-STAFF] - As Needed Discharge Disposition: - Preliminary Cause of Preliminary Cause of : COVID <Marciano Mckenzie - Last Filed: 07/15/21 17:07> Providers Date of admission: 07/01/21 14:13 Attending physician: Destini Garcia DO Consults: 07/01/21 14:14 Consult Physician Urgent Consulting Provider: Elodia Ellis Consult Reason/Comments: covid Do you want consulting provider notified?: Yes 07/03/21 13:49 Consult Physician Routine Consulting Provider: Tommie Oviedo Consult Reason/Comments: chf Do you want consulting provider notified?: Yes 07/08/21 17:09 Consult Physician Urgent Consulting Provider: Jennifer Back Consult Reason/Comments: atypical pneumonia, worsening and leukocytosis on BiPAP Do you want consulting provider notified?: Yes 07/09/21 11:33 Consult Physician Routine Consulting Provider: Tim Cleaning Consult Reason/Comments: acute kidney injury Do you want consulting provider notified?: Yes Primary care physician: Physician Nonstaff
== END 2021-07-14 21:51 | disposition expired | DRG 177 ==
LOC: EC 11:59 → 4SSUR 14:13
PROVIDERS: ADMIT Internal Medicine; ATTEND Internal Medicine
PROC: 5A09557 Assistance with Respiratory Ventilation, Greater than 96 Consecutive Hours, Continuous Positive Airway Pressure (ICD-10-PCS; 2021-07-07)
PROC: XW0DXM6 Introduction of Baricitinib into Mouth and Pharynx, External Approach, New Technology Group 6 (ICD-10-PCS; principal; 2021-07-11)
DX: U07.1 COVID-19 (principal); I50.23 Acute on chronic systolic (congestive) heart failure; J12.82 Pneumonia due to coronavirus disease 2019; J96.01 Acute respiratory failure with hypoxia; N17.0 Acute kidney failure with tubular necrosis; E87.1 Hypo-osmolality and hyponatremia; E87.2 Acidosis; I13.0 Hypertensive heart and chronic kidney disease with heart failure and stage 1 through stage 4 chronic kidney disease, or unspecified chronic kidney disease; I42.8 Other cardiomyopathies; I48.21 Permanent atrial fibrillation; I48.92 Unspecified atrial flutter; J44.0 Chronic obstructive pulmonary disease with (acute) lower respiratory infection; J98.11 Atelectasis; E11.22 Type 2 diabetes mellitus with diabetic chronic kidney disease; E87.8 Other disorders of electrolyte and fluid balance, not elsewhere classified; G47.33 Obstructive sleep apnea (adult) (pediatric); Z51.5 Encounter for palliative care; Z66 Do not resuscitate; I25.10 Atherosclerotic heart disease of native coronary artery without angina pectoris; I25.5 Ischemic cardiomyopathy; I27.22 Pulmonary hypertension due to left heart disease; I34.0 Nonrheumatic mitral (valve) insufficiency; E11.65 Type 2 diabetes mellitus with hyperglycemia; E78.5 Hyperlipidemia, unspecified; E87.5 Hyperkalemia; K59.00 Constipation, unspecified; N18.32 Chronic kidney disease, stage 3b; R32 Unspecified urinary incontinence; T38.0X5A Adverse effect of glucocorticoids and synthetic analogues, initial encounter; T39.395A Adverse effect of other nonsteroidal anti-inflammatory drugs [NSAID], initial encounter; Z78.9 Other specified health status; Z79.01 Long term (current) use of anticoagulants; Z79.82 Long term (current) use of aspirin; Z79.899 Other long term (current) drug therapy; Z80.3 Family history of malignant neoplasm of breast; Z88.0 Allergy status to penicillin; Z95.0 Presence of cardiac pacemaker; Z96.611 Presence of right artificial shoulder joint; Z96.612 Presence of left artificial shoulder joint; Z98.1 Arthrodesis status
CPT/HCPCS: 36415; 71045; 76770; 80048; 80053; 80202; 81001; 82728; 83036; 83615; 83735; 83880; 84132; 84145; 84484; 85025; 85027; 85379; 85610; 85730; 86140; 86769; 87040; 87070; 87205; 87449; 87502; 87634; 87635; 93005; 93306; 94640; 94660; 96374; 99285